=== PATIENT | female | born 1960 | race Two or more races ===

== ENCOUNTER 2020-02-12 13:12 | Outpatient (REF) | payer MEDICAID, SELFPAY ==
--- NOTE | 2020-02-12 | MM_ITS ---
EXAMINATION: MM DIAGNOSTIC DIGITAL BREAST TOMOSYNTHESIS, BILATERAL CLINICAL INFORMATION: Due for yearly. Probable benign calcifications upper inner left breast near lumpectomy scar. Prior left breast intraductal papilloma on ultrasound guided biopsy 06/22/2017. Subsequent left open surgical biopsy 07/20/2017 (Prior biopsy changes. Radial scars. Papillomatosis and florid intraductal hyperplasia. Adenosis. Fibrocystic changes. No evidence of invasive or in situ carcinoma). The lifetime risk of breast cancer based on the Tyrer-Cuzick Model is 7%. COMPARISON: Mammography: 07/31/2019, 02/08/2019, 08/08/2018, 02/01/2018, 07/20/2017, 06/15/2017 TECHNIQUE: Digital breast tomosynthesis is performed in both the craniocaudal and mediolateral oblique views along with computer-aided detection (CAD). Synthesized 2D images are generated from the tomosynthesis. Additional magnification left CC and magnification left LM views are obtained. FINDINGS: The breasts are heterogeneously dense, which may obscure small masses (ACR BI-RADS breast composition Category c). Breast tissue composition borders on average fibroglandular. Parenchymal pattern is similar to prior studies. There is no developing density, significant mass, architectural abnormality. There is stable nodule anterior upper left breast on MLO view and mid medial right breast on CC view similar to prior studies. There are scattered bilateral punctate and vascular calcifications. There are benign calcifications again seen in region of lumpectomy scar similar to prior studies dating back to 02/01/2018, consistent with benign calcifications. No suspicious findings. No significant changes. Results are provided to the patient at time of visit by the technologist. IMPRESSION: No significant changes from prior studies. ASSESSMENT: BI-RADS 2: Benign RECOMMENDATION: Routine annual mammography screening. This patient's information was entered into a reminder system with a target due date for their next mammogram.
== END 2020-02-12 13:13 | disposition home or self-care (01) ==
LOC: HO.MAMMO 13:12
PROVIDERS: PCP Nurse Practitioner Family; Visit Provider Nurse Practitioner Family
DX: R92.8 Other abnormal and inconclusive findings on diagnostic imaging of breast (principal)
CPT/HCPCS: 77062; 77066

== ENCOUNTER → 2020-02-22 10:01 | Outpatient (REF) | payer MEDICAID, SELFPAY ==
--- NOTE | 2020-02-22 10:00 | ECG_ITS ---
Hook-up date: 2020-02-22 10:22:00 Duration: 47:59:00 Test Indications: PALPITATIONS Medications: 369170 QRS complexes 1 Ventricular ectopics which represent <1 % of total QRS comp. 46 Supraventricular ectopics which represent <1 % of total QRS comp. * Paced QRS complexs which represent % of total QRS comp. VENTRICULAR ECTOPY 1 Isolated 0 Bigeminal Cycles 0 Couplets 0 Runs 0 Beats in Runs * Beats LONGEST at * BPM at :: -- * Beats FASTEST at * BPM at :: -- SUPRAVENTRICULAR ECTOPY 39 Isolated 2 Couplets 1 Runs 3 Beats in Runs 3 Beats LONGEST at 164 BPM at 17:17:06 2020-02-23 3 Beats FASTEST at 164 BPM at 17:17:06 2020-02-23 HEART RATES 65 MIN at 05:08:19 2020-02-23 91 AVG 154 MAX at 11:45:57 2020-02-23 LONGEST RR 0.9920 secs at 05:30:52 2020-02-23 S-T LEVELS Channel 1 - 128 mm at 10:22:00 2020-02-22 - 128 mm at 10:22:00 2020-02-22 Channel 2 - 128 mm at 10:22:00 2020-02-22 - 128 mm at 10:22:00 2020-02-22 Channel 3 - 128 mm at 02:94:11 -- - 128 mm at 02:94:11 Basic rhythm Normal sinus rhythm No long pause or profound bradycardia Baseline BBB Rare Premature atrial complexes No diary submitted Referred By: Kin Albert Overread By: JOEY MILLER MD
== END ==
LOC: HO.CARD 10:01
PROVIDERS: PCP Nurse Practitioner Family; Visit Provider Internal Medicine Cardiovascular Disease
DX: R00.2 Palpitations (principal)
CPT/HCPCS: 93226

== ENCOUNTER 2020-02-27 09:02 | Outpatient (REF) | payer MEDICAID, SELFPAY ==
[2020-02-27 10:23] LABS: Hematocrit 35.5 % (37-47); Hemoglobin 11.4 g/dl (12.0-16.0); Mean Corpuscular HGB Conc 32.1 g/dl (31.0-35.0); Mean Corpuscular Hemoglobin 28.6 pg (27.0-33.0); Mean Platelet Volume 10.6 fL (9.4-12.3); Platelet Count 323 X10*3/uL (160-400); Red Blood Count 3.99 X10*6/uL (4.20-5.50); Red Cell Distribution Width 12.3 % (11.0-16.0); White Blood Count 7.2 X10*3/uL (4.8-10.8)
[2020-02-27 10:37] LABS: Glucose Urine UA NEG (NEG); Leukocyte Esterase Urine 1+ (NEG); Nitrite Urine POS (NEG); Specific Gravity - Urine 1.015 (1.005-1.025); Urine Blood NEG (NEG); Urine Ketones NEG (NEG); Urine Protein NEG (NEG-TRACE)
[2020-02-27 10:42] LABS: Appearance Urine HAZY; Color Urine YELLOW
[2020-02-27 10:46] LABS: Alanine Aminotransferase 24 U/L (0-31); Albumin Level 4.3 g/dL (3.5-5.0); Alkaline Phosphatase 61 U/L (39-117); Anion Gap 13 (12-20); Aspartate Amino Transferase 19 U/L (5-31); Bilirubin Total 0.7 mg/dL (0.0-1.0); Blood Urea Nitrogen 13 mg/dL (9-16); C Reactive Protein 0.26 mg/dL (< or = 0.50); Calcium 8.7 mg/dL (8.4-10.2); Carbon Dioxide 29 mmol/L (22-29); Chloride 102 mmol/L (96-108); Cholesterol 123 mg/dL; Estimated Glomerular Filt Rate > 60; Glucose Random 142 mg/dL (60-115); HDL Cholesterol 54 mg/dL; LDL Cholesterol Calculated 45 mg/dl; Sodium 140 mmol/L (135-145); Total Protein 6.8 g/dL (6.5-8.0); Triglycerides 121 mg/dL
[2020-02-27 10:51] LABS: Bacteria Urine 3+ /LPF; RBC Urine 0 /HPF (0); Squamous Epithelial Cell Urine 1+ /LPF
[2020-02-27 10:59] LABS: Vitamin D 25-OH Total 46.6 ng/mL (>30)
[2020-02-27 11:01] LABS: Creatinine Urine 146.57 mg/dL; Microalbum/Creatinine Ratio Ur 10.2 ug/mg cr
[2020-02-27 11:15] LABS: Estimated Average Glucose 160 mg/dL; Hemoglobin A1c % 7.2 %
[2020-02-27 11:47] LABS: Vitamin B12 453 pg/mL (200-900)
[2020-02-27 12:36] LABS: Erythrocyte Sedimentation Rate 6 MM/HR (0-20)
== END 2020-02-27 09:03 | disposition home or self-care (01) ==
LOC: HO.LAB 09:02
PROVIDERS: PCP Nurse Practitioner Family; Visit Provider Nurse Practitioner Family
DX: L11.9 Acantholytic disorder, unspecified (principal); E78.2 Mixed hyperlipidemia; I10 Essential (primary) hypertension; R12 Heartburn; R82.90 Unspecified abnormal findings in urine; Z71.89 Other specified counseling
CPT/HCPCS: 36415; 80053; 80061; 81001; 82043; 82306; 82607; 83036; 85027; 85652; 86140; 87086; 87088; 87186

== ENCOUNTER → 2020-03-03 10:01 | Outpatient (BNVA) | payer MEDICAID, SELFPAY | PROVIDERS: PCP Nurse Practitioner Family; Referring Provider Nurse Practitioner Family; Visit Provider Nurse Practitioner Family | DX: R00.2 Palpitations (principal); R07.89 Other chest pain; I34.0 Nonrheumatic mitral (valve) insufficiency; I10 Essential (primary) hypertension; E11.9 Type 2 diabetes mellitus without complications; E66.9 Obesity, unspecified; Z68.30 Body mass index [BMI] 30.0-30.9, adult | CPT/HCPCS: 99212 ==

== ENCOUNTER → 2020-03-28 09:53 | Outpatient (BNVA) | payer MEDICAID, SELFPAY | PROVIDERS: PCP Nurse Practitioner Family; Referring Provider Nurse Practitioner Family; Visit Provider Nurse Practitioner | DX: Z76.89 Persons encountering health services in other specified circumstances (principal) ==

== ENCOUNTER 2020-05-14 15:10 | Outpatient (REF) | payer MEDICAID, SELFPAY | END 2020-05-14 15:11 | disposition home or self-care (01) | LOC: HO.LAB 15:10 | PROVIDERS: PCP Nurse Practitioner Family; Visit Provider Internal Medicine | DX: Z20.822 Contact with and (suspected) exposure to COVID-19 (principal) | CPT/HCPCS: 36415; C9803; U0003 ==

== ENCOUNTER 2020-09-02 12:02 | Outpatient (REF) | payer MEDICAID, SELFPAY | END 2020-09-02 12:03 | disposition home or self-care (01) | LOC: HO.LAB 12:02 | PROVIDERS: Visit Provider Internal Medicine | DX: Z20.822 Contact with and (suspected) exposure to COVID-19 (principal) | CPT/HCPCS: C9803; U0003; U0005 ==

== ENCOUNTER → 2020-10-10 09:04 | Outpatient (BNVA) | payer MEDICAID, SELFPAY | PROVIDERS: PCP Nurse Practitioner Family; Visit Provider Nurse Practitioner ==

== ENCOUNTER 2020-10-15 10:57 | Outpatient (REF) | payer MEDICAID, SELFPAY ==
[2020-10-15 11:41] LABS: Glucose Urine UA NEG (NEG); Leukocyte Esterase Urine 1+ (NEG); Nitrite Urine POS (NEG); Specific Gravity - Urine >= 1.030 (1.005-1.025); UACC Culture Trigger YES; Urine Blood NEG (NEG); Urine Ketones NEG (NEG); Urine Protein NEG (NEG-TRACE)
[2020-10-15 11:42] LABS: Appearance Urine CLOUDY; Color Urine YELLOW
[2020-10-15 11:48] LABS: Bacteria Urine 4+ /LPF; RBC Urine 0 /HPF (0); Squamous Epithelial Cell Urine TRACE /LPF
== END 2020-10-15 10:58 | disposition home or self-care (01) ==
LOC: HO.LAB 10:57
PROVIDERS: Visit Provider Nurse Practitioner
DX: R35.0 Frequency of micturition (principal); N39.0 Urinary tract infection, site not specified
CPT/HCPCS: 81001; 81003; 87086; 87088; 87186

== ENCOUNTER → 2020-10-31 08:33 | Outpatient (BNVA) | payer MEDICAID, SELFPAY | PROVIDERS: Visit Provider Nurse Practitioner ==

== ENCOUNTER → 2021-01-01 08:40 | Outpatient (BNVA) | payer MEDICAID, SELFPAY | PROVIDERS: PCP Nurse Practitioner Family; Visit Provider Nurse Practitioner ==

== ENCOUNTER 2021-02-25 09:09 | Outpatient (REF) | payer MEDICAID, SELFPAY ==
--- NOTE | ~2021-02-25 | XR_ITS ---
EXAMINATION: XR SHOULDER, LEFT CLINICAL INFORMATION: Left shoulder pain COMPARISON: None TECHNIQUE: Four views of the left shoulder. FINDINGS: No fracture or dislocation. The left humeral head articulates appropriately with the glenoid. The joint space is somewhat narrowed. The acromioclavicular joint is intact. The visualized lung is clear. The visualized ribs are intact. XR/XR shoulder LT min 2V IMPRESSION: Mild joint space narrowing of the glenohumeral joint.
[2021-02-25 09:22] LABS: MANUAL DIFF FLAG NO
[2021-02-25 09:52] LABS: Basophils Absolute Auto 0.1 X10*3/uL (0.0-0.2); Basophils Percent Auto 0.7 % (0-2); Eosinophils Absolute Auto 0.3 X10*3/uL (0.0-0.4); Eosinophils Percent Auto 3.7 % (0-4); Hematocrit 36.8 % (37.0-47.0); Hemoglobin 11.7 g/dl (12.0-16.0); Imm Gran Abs Auto 0.02 X10*3/uL (0.00-0.03); Imm Gran Pct Auto 0.3 % (0.0-0.4); Lymphocytes Absolute Auto 2.7 X10*3/uL (1.2-4.9); Lymphocytes Percent Auto 38.1 % (20-40); Mean Corpuscular HGB Conc 31.8 g/dl (31.0-35.0); Mean Corpuscular Hemoglobin 28.3 pg (27.0-33.0); Mean Corpuscular Volume 89.1 fL (80.0-98.0); Mean Platelet Volume 10.3 fL (9.4-12.3); Monocytes Absolute Auto 0.5 X10*3/uL (0.1-1.2); Monocytes Percent Auto 6.7 % (2-11); Neutrophils Absolute Auto 3.57 x10*3/uL (2.0-8.3); Neutrophils Percent Auto 50.5 % (45-73); Platelet Count 324 X10*3/uL (160-400); Red Blood Count 4.13 X10*6/uL (4.20-5.50); Red Cell Distribution Width 12.7 % (11.0-16.0); White Blood Count 7.1 X10*3/uL (4.8-10.8)
[2021-02-25 10:58] LABS: Creatinine Urine 170.46 mg/dL; Microalbum/Creatinine Ratio Ur 20.5 ug/mg cr
[2021-02-25 11:06] LABS: Alanine Aminotransferase 30 U/L (0-31); Albumin Level 4.4 g/dL (3.5-5.0); Alkaline Phosphatase 66 U/L (39-117); Anion Gap 12 (12-20); Aspartate Amino Transferase 21 U/L (5-31); Bilirubin Direct 0.3 mg/dL (0.0-0.5); Bilirubin Total 0.7 mg/dL (0.0-1.0); Blood Urea Nitrogen 13 mg/dL (9-16); Calcium 9.3 mg/dL (8.4-10.2); Carbon Dioxide 28 mmol/L (22-29); Chloride 105 mmol/L (96-108); Cholesterol 123 mg/dL; Estimated Glomerular Filt Rate > 60; Glucose Random 145 mg/dL (60-115); HDL Cholesterol 51 mg/dL; LDL Cholesterol Calculated 45 mg/dl; Potassium 3.9 mmol/L (3.3-5.1); Sodium 141 mmol/L (135-145); Total Protein 6.9 g/dL (6.5-8.0); Triglycerides 139 mg/dL
[2021-02-25 11:08] LABS: TSH reflex Free T4 2.39 uIU/mL (0.32-4.0); Vitamin D 25-OH Total 48.1 ng/mL (>30)
== END 2021-02-25 09:10 | disposition home or self-care (01) ==
LOC: HO.XRAY 09:09
PROVIDERS: PCP Internal Medicine; Visit Provider Internal Medicine
DX: Z00.00 Encounter for general adult medical examination without abnormal findings (principal); M25.512 Pain in left shoulder
CPT/HCPCS: 36415; 73030; 80048; 80061; 80076; 82043; 82306; 84443; 85025

== ENCOUNTER 2021-04-22 09:56 | Outpatient (REF) | payer MEDICAID, SELFPAY ==
--- NOTE | ~2021-04-22 | MM_ITS ---
EXAMINATION: MM SCREENING DIGITAL BREAST TOMOSYNTHESIS, BILATERAL CLINICAL INFORMATION: Screening. Asymptomatic. Prior left breast intraductal papilloma on ultrasound guided biopsy 06/22/2017. Subsequent left open surgical biopsy 07/20/2017 (Prior biopsy changes. Radial scars. Papillomatosis and florid intraductal hyperplasia. Adenosis. Fibrocystic changes. No evidence of invasive or in situ carcinoma). The lifetime risk of breast cancer based on the Tyrer-Cuzick Model is 4%. COMPARISON: Mammography: 02/12/2020, 07/31/2019, 02/08/2019, 08/08/2018, 02/01/2018, 06/15/2017 TECHNIQUE: Digital breast tomosynthesis is performed in both the craniocaudal and mediolateral oblique views along with computer-aided detection (CAD). Synthesized 2D images are generated from the tomosynthesis. Additional left MLO view is provided. FINDINGS: The breasts are heterogeneously dense, which may obscure small masses (ACR BI-RADS breast composition Category c). There are scattered stable fibroglandular asymmetries similar to prior studies. There is no developing density or interval mass or architectural abnormality. Some benign calcifications are again seen near lumpectomy scar left upper inner quadrant. Bilateral vascular calcifications are again noted. There are right axillary surgical clips. The skin contours are smooth. No significant changes from prior studies. MM/MM tomosynthesis screening BI IMPRESSION: No significant changes from prior exams. ASSESSMENT: BI-RADS 2: Benign RECOMMENDATION: Routine annual mammography screening. This patient's information was entered into a reminder system with a target due date for their next mammogram.
== END 2021-04-22 09:57 | disposition home or self-care (01) ==
LOC: HO.MAMMO 09:56
PROVIDERS: Visit Provider Internal Medicine
DX: Z12.31 Encounter for screening mammogram for malignant neoplasm of breast (principal)
CPT/HCPCS: 77063; 77067

== ENCOUNTER → 2021-09-15 08:55 | Outpatient (BNVA) | payer MEDICAID, SELFPAY | PROVIDERS: PCP Internal Medicine | DX: R35.0 Frequency of micturition (principal) | CPT/HCPCS: 51798; 99202 ==

== ENCOUNTER → 2021-10-01 15:57 | Outpatient (BNVA) | payer MEDICAID, SELFPAY | PROVIDERS: PCP Internal Medicine; Referring Provider Internal Medicine; Visit Provider Nurse Practitioner | DX: K21.9 Gastro-esophageal reflux disease without esophagitis (principal); K58.1 Irritable bowel syndrome with constipation; Z80.0 Family history of malignant neoplasm of digestive organs | CPT/HCPCS: 99212 ==

== ENCOUNTER 2022-02-16 13:12 | Emergency (ER) | payer MEDICAID, SELFPAY ==
[2022-02-16 13:43] VITALS: BP 138/74; PULSE 81; RESP 18; TEMP 36.6; O2SAT 98; BMI 28.5
[2022-02-16 14:32] LABS: MANUAL DIFF FLAG NO
[2022-02-16 14:34] LABS: Basophils Absolute Auto 0.1 X10*3/uL (0.0-0.2); Basophils Percent Auto 0.7 % (0-2); Eosinophils Absolute Auto 0.4 X10*3/uL (0.0-0.4); Eosinophils Percent Auto 3.3 % (0-4); Hematocrit 35.7 % (37.0-47.0); Hemoglobin 11.5 g/dl (12.0-16.0); Imm Gran Abs Auto 0.03 X10*3/uL (0.00-0.03); Imm Gran Pct Auto 0.3 % (0.0-0.4); Lymphocytes Absolute Auto 3.1 X10*3/uL (1.2-4.9); Lymphocytes Percent Auto 27.9 % (20-40); Mean Corpuscular HGB Conc 32.2 g/dl (31.0-35.0); Mean Corpuscular Hemoglobin 28.1 pg (27.0-33.0); Mean Corpuscular Volume 87.3 fL (80.0-98.0); Monocytes Absolute Auto 0.5 X10*3/uL (0.1-1.2); Monocytes Percent Auto 4.9 % (2-11); Neutrophils Percent Auto 62.9 % (45-73); Platelet Count 383 X10*3/uL (160-400); Red Blood Count 4.09 X10*6/uL (4.20-5.50); Red Cell Distribution Width 12.8 % (11.0-16.0); White Blood Count 11.1 X10*3/uL (4.8-10.8)
[2022-02-16 14:54] LABS: Alanine Aminotransferase 22 U/L (0-31); Albumin Level 4.4 g/dL (3.5-5.0); Alkaline Phosphatase 72 U/L (39-117); Anion Gap 18 (12-20); Aspartate Amino Transferase 19 U/L (5-31); Bilirubin Direct 0.2 mg/dL (0.0-0.5); Bilirubin Total 0.5 mg/dL (0.0-1.0); Blood Urea Nitrogen 13 mg/dL (9-16); Calcium 9.8 mg/dL (8.4-10.2); Carbon Dioxide 24 mmol/L (22-29); Chloride 104 mmol/L (96-108); Creatinine Clr Calc Pharmacy 57.7; Estimated Glomerular Filt Rate > 60; Glucose Random 140 mg/dL (60-115); Lipase 32 U/L (8-78); Potassium 4.3 mmol/L (3.3-5.1); Sodium 142 mmol/L (135-145); Total Protein 7.2 g/dL (6.5-8.0)
== END 2022-02-16 21:11 | disposition left against medical advice (07) ==
PROVIDERS: Emergency Provider Emergency Medicine; PCP Internal Medicine
DX: K59.00 Constipation, unspecified (principal); Z79.899 Other long term (current) drug therapy
CPT/HCPCS: 36415; 80048; 80076; 83690; 85025; 99281; 99283

== ENCOUNTER 2022-02-22 13:21 | Emergency (ER) | payer MEDICAID, SELFPAY ==
--- NOTE | ~2022-02-22 | XR_ITS ---
EXAMINATION: XR ABDOMEN CLINICAL INFORMATION: Constipation COMPARISON: None TECHNIQUE: Frontal view. FINDINGS: There is increased amount of stool projecting over the distribution of the colon raising suspicion for constipation. There is no evidence of bowel obstruction, however. There is no evidence of abnormal calcifications. There is no acute skeletal structure changes. There is no evidence of small-bowel obstruction. There is no free air in the abdomen. XR/XR KUB IMPRESSION: Increased amount of stool in the colon suggesting constipation. Please correlate with clinical presentation.
--- NOTE | ~2022-02-22 | CT_ITS ---
EXAMINATION: CT ABDOMEN AND PELVIS WITH CONTRAST CLINICAL INFORMATION: Constipation. SBO? mass? COMPARISON: 03/05/2015 TECHNIQUE: Multidetector volumetric imaging was performed from the superior aspect of the liver through the pubic symphysis following administration of 100 mL Omnipaque 300 intravenous contrast. Sagittal and coronal reformatted images were obtained on the technologist workstation.. This CT examination was performed using dose optimization techniques as appropriate, variously including the following: *Automated exposure control *Adjustment of mA and/or kV according to patient size (this includes techniques or standardized protocols for targeted exams where dose is matched to indication/reason for exam; i.e. extremities or head) *Use of iterative reconstruction technique DLP: 431 mGy-cm FINDINGS: LUNG BASES: Tiny 3 mm pulmonary nodule in the posterior lateral right base in retrospect not significantly changed in 2015 and of no clinical significance. LIVER, GALLBLADDER, AND BILIARY TREE: The liver is normal in size, shape, and attenuation. Coarsened calcified granulomas in the central liver segment 7 similar to the 2015 study. The amount of fatty infiltration has improved from the previous exam. No focal hepatic lesion or biliary ductal dilatation is present. The gallbladder surgically absent. PANCREAS: Unremarkable. SPLEEN: Unremarkable. ADRENAL GLANDS: Unremarkable. KIDNEYS AND URETERS: The kidneys are normal in size, shape, and attenuation. 1.7 cm cyst in the anterior upper pole of the right kidney again noted. No hydronephrosis, hydroureter, or calculi seen. No perinephric stranding. BLADDER: Unremarkable. GASTROINTESTINAL TRACT: Large volume of stool seen throughout the colon and rectum. No colonic wall thickening or pericolonic inflammatory change to suggest diverticulitis. Visualized small bowel unremarkable. Normal-appearing appendix in the right lower quadrant ABDOMINAL WALL: No significant hernia is appreciated. LYMPHOVASCULAR STRUCTURES: No lymphadenopathy. The aorta is unremarkable. PELVIC VISCERA: Unremarkable. OSSEOUS STRUCTURES: Unremarkable. CT/CT abdomen pelvis wo IV con IMPRESSION: Large right with stool in the distal colon and rectum more suggestive of constipation. No colonic wall thickening or pericolonic inflammatory change. No obstructive changes seen otherwise.
[2022-02-22 13:35] VITALS: BP 122/61; PULSE 94; RESP 18; TEMP 36.6; O2SAT 97; BMI 28.3
--- NOTE | 2022-02-22 18:25 | ED.GENADULT ---
HPI - General Adult General Chief complaint: Abdominal Pain Stated complaint: Severe constipation/Blockage? Sent from urgent car Time Seen by Provider: 02/22/22 17:19 Source: patient Mode of arrival: ambulatory Limitations: no limitations History of Present Illness HPI narrative: 61 yold female with pmh of GERD, HTN, IBS, H. pylori presents to the ED for constipation for 3 weeks. Patient states only small drops, but never fully evacuate. patient states also weight loss. patient states feeling bloating. patient deneis any rectal bleeding. patient has colonscopy for february as per her gastroneterologist. patients states strong family history of colon cancer. patient states able to pass gas. Related Data Home Medications Medication Instructions Recorded Confirmed Lactobacillus acidophilus 500 500 mmu cells PO DAILY 03/03/20 03/03/20 million cell tablet amitriptyline 50 mg tablet 50 mg PO BEDTIME 03/03/20 03/03/20 clonidine HCl 0.2 mg tablet 0.2 mg PO BID 03/03/20 03/03/20 enalapril maleate 20 mg tablet 20 mg PO BID 03/03/20 03/03/20 fluticasone 500 mcg-salmeterol 50 1 inh inhalation BID 03/03/20 03/03/20 mcg/dose blistr powdr for inhalation (Advair Diskus) hydrochlorothiazide 25 mg tablet 25 mg PO DAILY 03/03/20 03/03/20 hydroxyzine pamoate 25 mg capsule 25 mg PO BID PRN 03/03/20 03/03/20 (Vistaril) metformin 500 mg tablet 500 mg PO TID 03/03/20 03/03/20 ondansetron HCl 8 mg tablet 8 mg PO Q12H 03/03/20 03/03/20 bupropion HCl 300 mg 24 hr tablet, 300 mg PO QAM 10/01/21 extended release cholecalciferol (vitamin D3) 50 50 mcg PO QAM 10/01/21 mcg (2,000 unit) capsule ferrous sulfate 325 mg (65 mg 325 mg PO QAM 10/01/21 iron) tablet (FeroSul) fluticasone propionate 50 1 spray intranasal DAILY 10/01/21 mcg/actuation nasal spray,suspension loratadine 10 mg tablet 10 mg PO QAM PRN 10/01/21 Previous Rx's Medication Instructions Recorded dexlansoprazole 60 mg 60 mg PO DAILY #30 caps 10/01/21 capsule,biphase delayed release (Dexilant) dicyclomine 10 mg capsule 10 mg PO QID #120 caps 10/01/21 docusate sodium 100 mg capsule 100 mg PO DAILY #30 caps 10/01/21 (Colace) peg 3350-electrolytes 236 240 ml PO Q10M 1 day #4,000 mL 10/01/21 gram-22.74 gram-6.74 gram-5.86 gram solution (Golytely) oxybutynin chloride 15 mg 15 mg PO DAILY #90 tabs 01/04/22 tablet,extended release 24 hr lactulose 10 gram/15 mL (15 mL) 30 g (45 mL) PO DAILY 3 days #135 02/22/22 oral solution mL Allergies Allergy/AdvReac Type Severity Reaction Status Date / Time ampicillin [AMPICILLIN] Allergy Intermediate RASH Verified 10/22/21 14:57 Penicillins [PCN] Allergy Rash Verified 02/22/22 13:39 Review of Systems Review of Systems: constipation Yes all other systems are reviewed and are negative [facility] Past Medical History Medical History Asthma Diabetes mellitus HTN (hypertension) Obesity Palpitations Surgical History History of lumpectomy Hx of breast biopsy Hx of colonoscopy Hx of cystoscopy Hx of tubal ligation Family History Family History Father CVD (cardiovascular disease) Diabetes Mother Diabetes Colon cancer Social History Social History Household Members: None Housing: Apartment Alcohol intake: current Alcohol intake frequency: holidays/special occasions only Alcohol type: beer Advance Directives: No Advance Directives Information Provided: No Physical Exam ED Vital Signs: Vital Signs - 24 hr 02/22/22 13:35 Temperature 98 F Pulse Rate 94 Respiratory Rate 18 Blood Pressure 122/61 Pulse Oximetry 97 Oxygen Delivery Method Room Air BMI result Body Mass Index 28.3 Const General: cooperative, healthy appearing, comfortable, no acute distress, well developed, alert, awake and Physically active Orientation/consciousness: oriented to person, oriented to place, oriented to time and patient oriented x3 HENMT Head: Yes normal to inspection, Yes No palpable skull fracture present, Yes normocephalic, Yes atraumatic and No abrasion Eyes General: appearance normal, both eyes and all related structures Neck Neck: Yes normal visual inspection, Yes full ROM, Yes no lymphadenopathy, Yes no meningeal signs, Yes trachea midline, Yes supple, No anterior neck swelling and No tender Chest Chest palpation & inspection: normal inspection of the chest and normal palpation of entire chest wall Resp Effort & Inspection: normal respiratory effort and able to speak in complete sentences Auscultation: clear to auscultation bilaterally Cardio Jugular venous distension: no JVD Heart sounds: S1 normal heart sound present and S2 normal heart sound present GI Inspection: Yes normal to inspection and No abdominal wall ecchymosis Palpation (GI): Soft to palpation, not firm, nontender, no guarding and not rigid General: No CVA tenderness and Yes no CVA tenderness Back/Spine/Pelvis Back: no CVA tenderness, No CVA tenderness and No back tenderness Skin General skin exam: no rashes or lesions noted and elasticity normal Neuro General: oriented to person, oriented to place, oriented to time, patient oriented x3 and no meningeal signs Cranial nerves: Yes CN's II-XII intact bilaterally Extrem General: Yes normal to inspection and Yes full ROM Psych Appearance: grossly normal, well kempt and not disheveled Course Course Course Narrative: Due to patient stating weight loss family history of colon cancer and constipation weeks patient have CT scan of abdomen and labs. Rectal exam was done and negative for any fecal stool impaction Reevaluation(s) Reevaluation #1: Labs are normal. Abdominal CT scan came back negative for SBO or mass. SHows constipation. patient will follow up with her gastronenterotlostis Time: 19:53 Medical Decision Making [facility] Narrative Medical decision making narrative: Constipation Lab Data Result diagrams: 02/22/22 18:36 02/22/22 18:36 Labs: Lab Results 02/22/22 02/22/22 Range/Units 18:36 18:36 WBC 8.6 (4.8-10.8) X10*3/uL RBC 4.45 (4.20-5.50) X10*6/uL Hgb 12.3 (12.0-16.0) g/dl Hct 38.0 (37.0-47.0) % MCV 85.4 (80.0-98.0) fL MCH 27.6 (27.0-33.0) pg MCHC 32.4 (31.0-35.0) g/dl RDW 12.8 (11.0-16.0) % Plt Count 348 (160-400) X10*3/uL MPV 10.1 (9.4-12.3) fL Immature Gran % (Auto) 0.2 (0.0-0.4) % Neut % (Auto) 51.5 (45-73) % Lymph % (Auto) 36.2 (20-40) % [place] % (Auto) 6.6 (2-11) % Eos % (Auto) 4.9 H (0-4) % Baso % (Auto) 0.6 (0-2) % Lymph # (Auto) 3.1 (1.2-4.9) X10*3/uL [place] # (Auto) 0.6 (0.1-1.2) X10*3/uL Eos # (Auto) 0.4 (0.0-0.4) X10*3/uL Baso # (Auto) 0.1 (0.0-0.2) X10*3/uL Abs Immat Gran (auto) 0.02 (0.00-0.03) X10*3/uL Absolute Neuts (auto) 4.4 (2.0-8.3) x10*3/uL Absolute Nucleated RBC 0.000 (0.0-0.012) X10*3/uL Nucleated RBC % (auto) 0.0 (0.0-0.2) /100WBC Sodium 142 (135-145) mmol/L Potassium 3.9 (3.3-5.1) mmol/L Chloride 104 (96-108) mmol/L Carbon Dioxide 26 (22-29) mmol/L Anion Gap 16 (12-20) BUN 21 H D (9-16) mg/dL Creatinine 0.80 (0.5-1.4) mg/dL Estim Creat Clear Calc 58.3 Estimated GFR > 60 Random Glucose 127 H (60-115) mg/dL Calcium 10.0 (8.4-10.2) mg/dL Total Bilirubin 0.8 (0.0-1.0) mg/dL AST 19 (5-31) U/L ALT 27 (0-31) U/L Alkaline Phosphatase 68 (39-117) U/L Total Protein 7.6 (6.5-8.0) g/dL Albumin 4.8 (3.5-5.0) g/dL Discharge Plan Discharge Clinical Impression: Constipation Patient Disposition: Home, Self-Care Instructions: Constipation (ED) Additional Instructions: [place] an?lisis de josefina y la tomograf?a computarizada resultaron normales. La tomograf?a computarizada solo muestra estre?imiento. Ser? dado de garry con medicaci?n. Necesita seguimiento con un gastroenter?logo. Regrese al servicio de urgencias por cualquier dolor abdominal, n?useas, v?mitos, sangrado rectal, debilidad, mareos, fiebre, escalofr?os, disuria, hematuria o cualquier otro s?ntoma preocupante. Prescriptions: New lactulose 10 gram/15 mL (15 mL) solution 30 g PO DAILY 3 Days Qty: 135 0RF No Action oxybutynin chloride 15 mg tablet extended release 24hr 15 mg PO DAILY Qty: 90 1RF clonidine HCl 0.2 mg tablet 0.2 mg PO BID hydrochlorothiazide 25 mg tablet 25 mg PO DAILY enalapril maleate 20 mg tablet 20 mg PO BID amitriptyline 50 mg tablet 50 mg PO BEDTIME metformin 500 mg tablet 500 mg PO TID hydroxyzine pamoate [Vistaril] 25 mg capsule 25 mg PO BID PRN ondansetron HCl 8 mg tablet 8 mg PO Q12H Lactobacillus acidophilus 500 million cell tablet 500 mmu cells PO DAILY fluticasone propion-salmeterol [Advair Diskus] 500-50 mcg/dose blister with device 1 inh inhalation BID cholecalciferol (vitamin D3) 50 mcg (2,000 unit) capsule 50 mcg PO QAM bupropion HCl 300 mg tablet extended release 24 hr 300 mg PO QAM loratadine 10 mg tablet 10 mg PO QAM PRN fluticasone propionate 50 mcg/actuation spray,suspension 1 spray intranasal DAILY ferrous sulfate [FeroSul] 325 mg (65 mg iron) tablet 325 mg PO QAM Dexilant 60 mg capsule,biphase delayed releas 60 mg PO DAILY Qty: 30 6RF dicyclomine 10 mg capsule 10 mg PO QID Qty: 120 6RF docusate sodium [Colace] 100 mg capsule 100 mg PO DAILY Qty: 30 6RF peg 3350-electrolytes [Golytely] 236-22.74-6.74 -5.86 gram recon soln 240 ml PO Q10M 1 Days Qty: 4000 0RF Rx Instructions: until fecal effluent is clear; do not exceed a total volume of 2,000 mL Stand Alone Forms: Work/School Release Interventions: ED Discharge Assessment Last Done: 02/22/22 20:23 Discharge Date/Time: 02/22/22 20:25 Print Language: Turkish
[2022-02-22 18:41] LABS: MANUAL DIFF FLAG NO
[2022-02-22 18:48] LABS: Basophils Absolute Auto 0.1 X10*3/uL (0.0-0.2); Basophils Percent Auto 0.6 % (0-2); Eosinophils Absolute Auto 0.4 X10*3/uL (0.0-0.4); Eosinophils Percent Auto 4.9 % (0-4); Hemoglobin 12.3 g/dl (12.0-16.0); Imm Gran Abs Auto 0.02 X10*3/uL (0.00-0.03); Imm Gran Pct Auto 0.2 % (0.0-0.4); Lymphocytes Absolute Auto 3.1 X10*3/uL (1.2-4.9); Lymphocytes Percent Auto 36.2 % (20-40); Mean Corpuscular HGB Conc 32.4 g/dl (31.0-35.0); Mean Corpuscular Hemoglobin 27.6 pg (27.0-33.0); Mean Corpuscular Volume 85.4 fL (80.0-98.0); Mean Platelet Volume 10.1 fL (9.4-12.3); Monocytes Absolute Auto 0.6 X10*3/uL (0.1-1.2); Monocytes Percent Auto 6.6 % (2-11); Neutrophils Absolute Auto 4.4 x10*3/uL (2.0-8.3); Neutrophils Percent Auto 51.5 % (45-73); Platelet Count 348 X10*3/uL (160-400); Red Blood Count 4.45 X10*6/uL (4.20-5.50); Red Cell Distribution Width 12.8 % (11.0-16.0); White Blood Count 8.6 X10*3/uL (4.8-10.8)
[2022-02-22 18:59] LABS: Alanine Aminotransferase 27 U/L (0-31); Albumin Level 4.8 g/dL (3.5-5.0); Alkaline Phosphatase 68 U/L (39-117); Anion Gap 16 (12-20); Aspartate Amino Transferase 19 U/L (5-31); Bilirubin Total 0.8 mg/dL (0.0-1.0); Blood Urea Nitrogen 21 mg/dL (9-16); Carbon Dioxide 26 mmol/L (22-29); Chloride 104 mmol/L (96-108); Creatinine Clr Calc Pharmacy 58.3; Estimated Glomerular Filt Rate > 60; Glucose Random 127 mg/dL (60-115); Potassium 3.9 mmol/L (3.3-5.1); Sodium 142 mmol/L (135-145); Total Protein 7.6 g/dL (6.5-8.0)
[2022-02-22] MEDS: Lactulose 20 GM/30 ML SOLUTION 30 GM PO (19:26)
--- NOTE | 2022-02-22 19:30 | PC.NURSE ---
medicated per provider order.
== END 2022-02-22 20:25 | disposition home or self-care (01) ==
PROVIDERS: Physician Assistant; Emergency Provider Student in an Organized Health Care Education/Training Program; PCP Internal Medicine
DX: K59.00 Constipation, unspecified (principal); K21.9 Gastro-esophageal reflux disease without esophagitis; Z79.899 Other long term (current) drug therapy
CPT/HCPCS: 36415; 74018; 74176; 80053; 85025; 99282; 99284

== ENCOUNTER 2022-03-11 08:48 | Day surgery (SDC) | payer MEDICAID, SELFPAY ==
[2022-03-04 12:49] VITALS: BMI 29.5
--- NOTE | 2022-03-10 12:26 | HO.ANESPROP2 ---
Documented by User: India Small NP 03/10/22 12:27 HPI - Anesthesia Eval Consult details Narrative: 61yo F for Colonoscopy PMFSH Active Problems Active Problems: All Active Problems (Updated 02/23/22 @ 00:03 by Yung Rani) Chest discomfort (Acute) Mitral regurgitation (Acute) Nausea (Acute) GERD (gastroesophageal reflux disease) (Acute) Irritable bowel syndrome with constipation (Acute) Abdominal cramping (Acute) H. pylori duodenitis (Acute) Urinary frequency (Acute) Urinary tract infection (Acute) Family history of colon cancer (Acute) Diabetes mellitus (Acute) Obesity (Acute) Asthma (Acute) HTN (hypertension) (Acute) Palpitations (Acute) Past Medical History Medical History (Updated 03/11/22 @ 09:05 by Marce Gabriel RN) Asthma Diabetes mellitus Elevated cholesterol HTN (hypertension) Obesity Palpitations Family History Family History Father CVD (cardiovascular disease) Diabetes Mother Diabetes Colon cancer Surgical History Surgical History History of lumpectomy Hx of breast biopsy Hx of colonoscopy Hx of cystoscopy Hx of tubal ligation Social History Social History Household Members: None Housing: Apartment Alcohol intake: current Alcohol intake frequency: holidays/special occasions only Alcohol type: beer Patient Tobacco Use Status: Never used Tobacco Meds Allergies Allergy/AdvReac Type Severity Reaction Status Date / Time ampicillin [AMPICILLIN] Allergy Intermediate RASH Verified 03/11/22 09:08 Penicillins [PCN] Allergy Rash Verified 03/11/22 09:08 Home Medications Medication Instructions Recorded Confirmed Last Taken Type Lactobacillus acidophilus 500 500 mmu cells PO DAILY 03/03/20 03/11/22 Unknown History million cell tablet amitriptyline 50 mg tablet 50 mg PO BEDTIME 03/03/20 03/11/22 Unknown History clonidine HCl 0.2 mg tablet 0.2 mg PO BID 03/03/20 03/11/22 Unknown History enalapril maleate 20 mg tablet 20 mg PO BID 03/03/20 03/11/22 Unknown History fluticasone 500 mcg-salmeterol 50 1 inh inhalation BID 03/03/20 03/11/22 Unknown History mcg/dose blistr powdr for inhalation (Advair Diskus) hydrochlorothiazide 25 mg tablet 25 mg PO DAILY 03/03/20 03/11/22 Unknown History hydroxyzine pamoate 25 mg capsule 25 mg PO BID PRN Itching 03/03/20 03/11/22 Unknown History (Vistaril) metformin 500 mg tablet 500 mg PO TID 03/03/20 03/11/22 Unknown History bupropion HCl 300 mg 24 hr tablet, 300 mg PO QAM 10/01/21 03/11/22 Unknown History extended release cholecalciferol (vitamin D3) 50 50 mcg PO QAM 10/01/21 03/11/22 Unknown History mcg (2,000 unit) capsule fluticasone propionate 50 1 spray intranasal DAILY 10/01/21 03/11/22 Unknown History mcg/actuation nasal spray,suspension loratadine 10 mg tablet 10 mg PO QAM PRN Allergy Symptoms 10/01/21 03/11/22 Unknown History Exam Exam Date and Time: March 10, 2022 1226 Height,Weight and Vital Signs: Height 4 ft 11 in Weight 66.224 kg Pertinent Lab Results Pertinent Lab Results: Laboratory Tests 02/22/22 02/22/22 18:36 18:36 WBC 8.6 Hgb 12.3 Hct 38.0 Plt Count 348 Sodium 142 Potassium 3.9 Chloride 104 Carbon Dioxide 26 BUN 21 H D Creatinine 0.80 Narrative Narrative: Holter 2019 Basic rhythm Normal sinus rhythm No long pause or profound bradycardia Baseline BBB Rare Premature atrial complexes No diary submitted Coronary CT 2018 Normal coronaries Assessment and Plan Assessment Anesthesia Assessment: Chart Reviewed Documented by User: Poncho Kelly MD 03/11/22 17:56 FOR[facility]LY [facility], [facility] Past Medical History Medical History (Updated 03/11/22 @ 09:05 by Marce Gabriel RN) Asthma Diabetes mellitus Elevated cholesterol HTN (hypertension) Obesity Palpitations Functional capacity: independent ambulation Family History Family History Father CVD (cardiovascular disease) Diabetes Mother Diabetes Colon cancer Family history of problems with anesthesia: No Surgical History Surgical History History of lumpectomy Hx of breast biopsy Hx of colonoscopy Hx of cystoscopy Hx of tubal ligation History of Problems with Anesthesia: No Social History Social History Household Members: None Housing: Apartment Alcohol intake: current Alcohol intake frequency: holidays/special occasions only Alcohol type: beer Patient Tobacco Use Status: Never used Tobacco Meds Allergies Allergy/AdvReac Type Severity Reaction Status Date / Time ampicillin [AMPICILLIN] Allergy Intermediate RASH Verified 03/11/22 09:08 Penicillins [PCN] Allergy Rash Verified 03/11/22 09:08 Home Medications Medication Instructions Recorded Confirmed Last Taken Type Lactobacillus acidophilus 500 500 mmu cells PO DAILY 03/03/20 03/11/22 Unknown History million cell tablet amitriptyline 50 mg tablet 50 mg PO BEDTIME 03/03/20 03/11/22 Unknown History clonidine HCl 0.2 mg tablet 0.2 mg PO BID 03/03/20 03/11/22 Unknown History enalapril maleate 20 mg tablet 20 mg PO BID 03/03/20 03/11/22 Unknown History fluticasone 500 mcg-salmeterol 50 1 inh inhalation BID 03/03/20 03/11/22 Unknown History mcg/dose blistr powdr for inhalation (Advair Diskus) hydrochlorothiazide 25 mg tablet 25 mg PO DAILY 03/03/20 03/11/22 Unknown History hydroxyzine pamoate 25 mg capsule 25 mg PO BID PRN Itching 03/03/20 03/11/22 Unknown History (Vistaril) metformin 500 mg tablet 500 mg PO TID 03/03/20 03/11/22 Unknown History bupropion HCl 300 mg 24 hr tablet, 300 mg PO QAM 10/01/21 03/11/22 Unknown History extended release cholecalciferol (vitamin D3) 50 50 mcg PO QAM 10/01/21 03/11/22 Unknown History mcg (2,000 unit) capsule fluticasone propionate 50 1 spray intranasal DAILY 10/01/21 03/11/22 Unknown History mcg/actuation nasal spray,suspension loratadine 10 mg tablet 10 mg PO QAM PRN Allergy Symptoms 10/01/21 03/11/22 Unknown History Exam Airway Mallampati Class: III TM Dist: >3cm Neck ROM: Full Loose/Missing/Broken Teeth: Yes (multiple upper teeth loose ) Heart: S1,S2 Lungs: b/l breath sounds Assessment and Plan Assessment Anesthesia Assessment: Anesthesia Plan Discussed Final Anesthetic Review Family History of Problems with Anesthesia: No History of Problems with Anesthesia: No NPO: Yes ASA Class: III Final Preanesthetic Review: Meds/Allgs Chart Reviewed, Consent Obtained/Reviewed and Anes Risks/Benef Reviewed Patient Risk: Intermediate Procedure Risk: Intermediate Anesthetic Plan Anesthetic Plan: MAC: Disposition: Standard PACU
[2022-03-11 09:25] VITALS: BP 136/69; PULSE 74; RESP 16; TEMP 36.2; O2SAT 98
[2022-03-11] MEDS: Lactated Ringers 1,000 ML 100 ML IVCONT (09:32)
[2022-03-11 09:36] LABS: Glucose, Whole Blood 134 mg/dL (60-115)
--- NOTE | 2022-03-11 10:24 | MHC.SHP ---
Pre-Procedural Eval Section A Date of Service: 03/11/22 Section B Chief Complaint: IBS,Family hx Details of Present Illness: 62 y.o F with no personal hx of colon polyps but fam hx of CRC in 2 first degree relatives (mother in her 70s, and father in his 90s). Pt's last colonoscopy was 13 y ago. Relevant Family History (Specify if Yes): Yes Present Medications: see Short Stay Collaborative assessment Medical History: Significant History (T2DM, asthma, HTN, hx of H pylori ) Allergies: Allergies Allergy/AdvReac Type Severity Reaction Status Date / Time ampicillin [AMPICILLIN] Allergy Intermediate RASH Verified 03/11/22 09:08 Penicillins [PCN] Allergy Rash Verified 03/11/22 09:08 Review of Systems Review of Systems Comment: 10 point ROS negative except as above Exam Exam Comment: Gen appear: No acute distress, well nourished HEENT: no icterus, no cervical lymphadenopathy Chest: No overt resp distress Abd: soft, nontender, nondistended Psych: Stable affect, answering questions appropriately Neuro: A/Ox3 noted to move all extremities spontaneously Ext: no peripheral edema Plan Diagnosis/Plan: Unchanged I have reviewed the history and physical and performed a pertinent physical examination on my patient. No changes have occurred unless specified.
--- NOTE | 2022-03-11 10:28 | W.PM.OPN ---
Operative Note Operative Note Date of Service: 03/11/22 Narrative: Procedure: Colonoscopy Indication: Family history of colon cancer Endoscopist: Rand Guillen MD Anesthesia Provider: Alisha Phan CRNA Anesthesia type: MAC Instrument: Olympus [id number]-H190L Consent: Indication, risks vs benefits, and alternatives were discussed with the patient who gave written informed consent to proceed. An construction pit worker was utilized to assist with the consent. EKG, pulse, pulse oximetry and blood pressure were monitored throughout the procedure. Please see anesthesia flowsheet. Procedure: The patient was brought to the procedure room and placed in the left lateral decubitus position. IV medications were administered by the anesthesia provider in attendance. A digital rectal exam was performed which was normal. The colonoscope was then inserted through the anus and advanced through the colon to the cecum at 80 cm. Appendiceal orifice and IC valve were identified and appeared normal. Mucosa was carefully examined under high definition white light as the instrument was slowly withdrawn in a retrograde panoramic fashion. Retroflexion was performed in ascending colon and rectum. The procedure was not difficult. There were no immediate obvious complications. The quality of the prep was BBPS: 2+2+2 = adequate Withdrawal time minutes. Limitations: No limitations. Findings: Mucosa: Normal to cecum. Protruding lesions: 1 sessile polyp of size 5 mm in descending colon. Cold snare polypectomy was performed. Small internal hemorrhoids without stigmata of recent bleeding. Impression: 1. Normal colon mucosa 2. Total of 1 polyp removed from descending colon. 3. Internal hemorrhoids Recommendations: - Follow path results. - Repeat colonoscopy in 5 years regardless of path due to family history.
[2022-03-11 11:16] VITALS: BP 116/62; PULSE 71; RESP 16; TEMP 36.6; O2SAT 99
[2022-03-11 11:31] VITALS: BP 135/73; PULSE 74; RESP 18; TEMP 36.6; O2SAT 100
== END 2022-03-11 12:38 | disposition home or self-care (01) ==
PROVIDERS: PCP Internal Medicine; Visit Provider Internal Medicine
PROC: 0DJD8ZZ Inspection of Lower Intestinal Tract, Via Natural or Artificial Opening Endoscopic (ICD-10-PCS; CPT 45378; principal; 2022-03-11 10:00)
DX: K58.1 Irritable bowel syndrome with constipation (principal); Z80.0 Family history of malignant neoplasm of digestive organs; K63.5 Polyp of colon; K64.8 Other hemorrhoids; K21.9 Gastro-esophageal reflux disease without esophagitis; I10 Essential (primary) hypertension; J45.909 Unspecified asthma, uncomplicated; E11.9 Type 2 diabetes mellitus without complications; Z79.84 Long term (current) use of oral hypoglycemic drugs; Z79.51 Long term (current) use of inhaled steroids; Z79.899 Other long term (current) drug therapy; Z88.0 Allergy status to penicillin
CPT/HCPCS: 45385; 82947; 88305

== ENCOUNTER 2022-03-25 12:10 | Outpatient (REF) | payer MEDICAID, SELFPAY ==
[2022-03-25 14:02] LABS: Appearance Urine Turbid; Color Urine Yellow; Glucose Urine UA Negative (Negative); Leukocyte Esterase Urine Large (3+) (Negative); Nitrite Urine Negative (Negative); PH 7.5 (5.0-9.0); UMIC TRIGGER UACC YES; Urine Blood Small (1+) (Negative); Urine Ketones Trace mg/dL (Negative); Urine Protein 30 (1+) mg/dL (Neg-Trace)
[2022-03-25 14:10] LABS: Bacteria Urine 4+ (None Seen); Squamous Epithelial Cell Urine 0-2 /HPF (0-2); UACC Culture Trigger YES; WBC Urine >50 /HPF (0-5)
== END 2022-03-25 12:11 | disposition home or self-care (01) ==
LOC: HO.LAB 12:10
PROVIDERS: PCP Internal Medicine; Visit Provider Nurse Practitioner
DX: K58.1 Irritable bowel syndrome with constipation (principal); K21.9 Gastro-esophageal reflux disease without esophagitis; R12 Heartburn; R10.9 Unspecified abdominal pain; R35.0 Frequency of micturition; Z80.0 Family history of malignant neoplasm of digestive organs
CPT/HCPCS: 81001; 81003; 87086; 87088; 87186; 99212

== ENCOUNTER 2022-05-06 10:56 | Outpatient (REF) | payer MEDICAID, SELFPAY | END 2022-05-06 10:57 | disposition home or self-care (01) | LOC: HO.LAB 10:56 | PROVIDERS: PCP Internal Medicine; Visit Provider Nurse Practitioner | DX: N39.0 Urinary tract infection, site not specified (principal); K21.9 Gastro-esophageal reflux disease without esophagitis; K58.1 Irritable bowel syndrome with constipation | CPT/HCPCS: 99212 ==

== ENCOUNTER 2022-05-18 13:47 | Outpatient (REF) | payer MEDICAID, SELFPAY ==
--- NOTE | ~2022-05-18 | MM_ITS ---
EXAMINATION: MM SCREENING DIGITAL BREAST TOMOSYNTHESIS, BILATERAL CLINICAL INFORMATION: Screening. Asymptomatic. Status post right axillary surgery. Status post previous excisional biopsy left breast. The lifetime risk of breast cancer based on the Tyrer-Cuzick Model is 4%. COMPARISON: Mammography: 04/22/2021 and studies dating back to 10/31/2015. TECHNIQUE: Digital breast tomosynthesis is performed in both the craniocaudal and mediolateral oblique views along with computer-aided detection (CAD). Synthesized 2D images are generated from the tomosynthesis. FINDINGS: The breasts are heterogeneously dense, which may obscure small masses (ACR BI-RADS breast composition Category c). There are no new significant masses, abnormal calcifications, or other abnormalities. Region of architectural distortion is seen about the medial aspect of the left breast, likely post-surgical. Bilateral stable nodules are present. Clips seen within the right axilla. MM/MM tomosynthesis screening BI IMPRESSION: No significant changes from prior exam. ASSESSMENT: BI-RADS 2: Benign. RECOMMENDATION: Routine annual mammography screening. This patient's information was entered into a reminder system with a target due date for their next mammogram.
== END 2022-05-18 13:48 | disposition home or self-care (01) ==
LOC: HO.MAMMO 13:47
PROVIDERS: PCP Internal Medicine; Visit Provider Internal Medicine
DX: Z12.31 Encounter for screening mammogram for malignant neoplasm of breast (principal)
CPT/HCPCS: 77063; 77067

== ENCOUNTER 2022-05-26 14:29 | Outpatient (REF) | payer MEDICAID, SELFPAY ==
[2022-05-26 14:43] LABS: Appearance Urine Cloudy; Color Urine Yellow; Glucose Urine UA Negative (Negative); Leukocyte Esterase Urine Large (3+) (Negative); Nitrite Urine Positive (Negative); Specific Gravity - Urine 1.025 (1.005-1.025); UMIC TRIGGER UACC YES; Urine Blood Trace (Negative); Urine Ketones Trace mg/dL (Negative); Urine Protein Negative (Neg-Trace)
[2022-05-26 14:50] LABS: Bacteria Urine 4+ (None Seen); Hyaline Casts Urine 0-2 /LPF (0-2); RBC Urine 0-2 /HPF (0-2); Squamous Epithelial Cell Urine 0-2 /HPF (0-2); UACC Culture Trigger YES; WBC Urine >50 /HPF (0-5)
== END 2022-05-26 14:30 | disposition home or self-care (01) ==
LOC: HO.LNP 14:29
PROVIDERS: Visit Provider Nurse Practitioner
DX: N39.0 Urinary tract infection, site not specified (principal)
CPT/HCPCS: 81001; 87086; 87088; 87186

== ENCOUNTER 2022-08-04 12:35 | Emergency (ER) | payer MEDICAID, SELFPAY ==
--- NOTE | ~2022-08-04 | XR_ITS ---
EXAMINATION: XR CHEST CLINICAL INFORMATION: Cough. Chest wall pain. COMPARISON: None available. TECHNIQUE: 2 views of the chest were obtained. FINDINGS: No significant abnormality is noted involving the heart, lungs, mediastinum, bony thorax or soft tissues. There are surgical clips in the right axilla. There are air-fluid levels seen in the bowel. XR/XR chest 2V IMPRESSION: No evidence for acute disease in the chest.
[2022-08-04 12:59] VITALS: BP 142/80; PULSE 85; RESP 18; TEMP 36.8; O2SAT 98; BMI 28.6
--- NOTE | 2022-08-04 12:59 | ED.CHESTPAIN ---
HPI - Chest Pain General Chief Complaint: General Medical <Martine Jiménez NP - Last Filed: 08/04/22 13:03> Stated Complaint: Rib Pain Cough Headache <Martine Jiménez NP - Last Filed: 08/04/22 13:03> Time Seen by Provider: 08/04/22 14:03 <Martine Jiménez NP - Last Filed: 08/04/22 13:03> Source: patient <GEO Randall - Last Filed: 08/04/22 18:54> Mode of arrival: ambulatory <GEO Randall - Last Filed: 08/04/22 18:54> History of Present Illness HPI narrative: 62-year-old female with a past medical history of asthma, diabetes, HLD, HTN, obesity, presenting to the ED complaining of nonproductive cough, headache, myalgias, rhinorrhea, chest discomfort when coughing x few days. Reports recently return from [place]. Has been using inhaler with some relief. Also reports associated lightheadedness/dizziness during coughing fits lasting a few minutes. Denies chest pain, vision change/loss, LOC, pedal edema, calf pain, history of clots <GEO Randall - Last Filed: 08/04/22 18:54> Related Data Home Medications: Home Medications Medication Instructions Recorded Confirmed Lactobacillus acidophilus 500 500 mmu cells PO DAILY 03/03/20 03/11/22 million cell tablet clonidine HCl 0.2 mg tablet 0.2 mg PO BID 03/03/20 03/11/22 enalapril maleate 20 mg tablet 20 mg PO BID 03/03/20 03/11/22 fluticasone 500 mcg-salmeterol 50 1 inh inhalation BID 03/03/20 03/11/22 mcg/dose blistr powdr for inhalation (Advair Diskus) hydrochlorothiazide 25 mg tablet 25 mg PO DAILY 03/03/20 03/11/22 hydroxyzine pamoate 25 mg capsule 25 mg PO BID PRN Itching 03/03/20 03/11/22 (Vistaril) bupropion HCl 300 mg 24 hr tablet, 300 mg PO QAM 10/01/21 03/11/22 extended release cholecalciferol (vitamin D3) 50 50 mcg PO QAM 10/01/21 03/11/22 mcg (2,000 unit) capsule fluticasone propionate 50 1 spray intranasal DAILY 10/01/21 03/11/22 mcg/actuation nasal spray,suspension loratadine 10 mg tablet 10 mg PO QAM PRN Allergy Symptoms 10/01/21 03/11/22 albuterol sulfate 90 mcg/actuation 2 puff inhalation QID PRN 03/25/22 aerosol inhaler (Proventil HFA) alcohol swabs (Alcohol Prep Pads) 0 pad topical QID 03/25/22 amitriptyline 75 mg tablet 75 mg PO BEDTIME 03/25/22 atorvastatin 20 mg tablet 20 mg PO QPM 03/25/22 blood sugar diagnostic (FreeStyle #10 ea 03/25/22 Lite Strips) fluoxetine 20 mg capsule 40 mg PO QAM 03/25/22 lancets 33 gauge (TRUEplus Lancets) #100 ea 03/25/22 metformin 500 mg tablet 1,000 mg PO BID 05/06/22 metformin 500 mg tablet,extended 1,000 mg PO 05/06/22 release 24 hr sennosides 8.6 mg tablet (senna) 8.6 mg PO DAILY PRN constipation 05/06/22 Previous Rx's Medication Instructions Recorded oxybutynin chloride 15 mg 15 mg PO DAILY #90 tabs 01/04/22 tablet,extended release 24 hr dicyclomine 10 mg capsule 10 mg PO QID #90 caps 05/06/22 linaclotide 290 mcg capsule 290 mcg PO QAM 30 days #30 caps 05/06/22 (Linzess) dexlansoprazole 60 mg 60 mg PO DAILY #30 caps 05/25/22 capsule,biphase delayed release (Dexilant) docusate sodium 100 mg capsule 100 mg PO DAILY #30 caps 05/25/22 (Colace) nitrofurantoin macrocrystal 100 mg 100 mg PO BID 10 days #20 caps 05/31/22 capsule benzonatate 100 mg capsule 100 mg PO TID PRN cough #14 caps 08/04/22 fluticasone propionate 50 2 spray intranasal DAILY #16 grams 08/04/22 mcg/actuation nasal spray,suspension (Flonase Allergy Relief) prednisone 20 mg tablet 40 mg PO DAILY 5 days #10 tabs 08/04/22 <Martine Jiménez NP - Last Filed: 08/04/22 13:03> Allergies/Adverse Reactions: Allergies Allergy/AdvReac Type Severity Reaction Status Date / Time ampicillin [AMPICILLIN] Allergy Intermediate RASH Verified 05/06/22 11:04 Penicillins [PCN] Allergy Rash Verified 05/06/22 11:04 <Martine Jiménez NP - Last Filed: 08/04/22 13:03> Review of Systems Review of Systems: Constitutional: No Fever, No Chills ENT/Mouth: No Ear Pain, + Nasal Congestion, No Sinus Pain, No Hoarseness, No sore throat, + Rhinorrhea, No Swallowing Difficulty Cardiovascular: + Chest Pain with cough, + mild SOB Respiratory: + Cough, No Sputum, No Wheezing Gastrointestinal: No Nausea, No Vomiting, No Diarrhea, No Constipation, No Abdominal pain Genitourinary: No Dysuria, No Urinary Frequency, No Hematuria Musculoskeletal: No joint pain, No Myalgias, No Joint Swelling Skin: No Skin Lesions, No rash Neuro: No Weakness, No Numbness, No Paresthesias, + lightheadedness/dizziness during coughing fit <GEO Randall - Last Filed: 08/04/22 18:54> Yes all other systems are reviewed and are negative <GEO Randall - Last Filed: 08/04/22 18:54> Constitutional: Constitutional: Reports as per HPI <GEO Randall - Last Filed: 08/04/22 18:54> PMFSH Past Medical History Attestation statement: The following information was validated with the patient. <GEO Randall - Last Filed: 08/04/22 18:54> Medical History: Medical History Asthma Diabetes mellitus Elevated cholesterol HTN (hypertension) Obesity Palpitations <Martine Jiménez NP - Last Filed: 08/04/22 13:03> Surgical History: Surgical History History of lumpectomy Hx of breast biopsy Hx of colonoscopy Hx of cystoscopy Hx of tubal ligation <NICHO Victor Last Filed: 08/04/22 13:03> Family History Family History: Family History Father CVD (cardiovascular disease) Diabetes Mother Diabetes Colon cancer <Martine Jiménez NP - Last Filed: 08/04/22 13:03> Social History Social History: Social History Household Members: None Housing: Apartment Alcohol intake: current Alcohol intake frequency: holidays/special occasions only Alcohol type: beer Patient Tobacco Use Status: Never used Tobacco Advance Directives: No Advance Directives Information Provided: Yes <Martine Jiménez NP - Last Filed: 08/04/22 13:03> Physical Exam Vital Signs: Vital Signs: Last Vital Signs Temp 98.8 F 08/04/22 16:17 Pulse 72 08/04/22 16:17 Resp 13 08/04/22 16:17 BP 143/79 H 08/04/22 16:17 Pulse Ox 99 08/04/22 16:17 O2 Del Method Room Air 08/04/22 16:17 BMI result Body Mass Index 28.6 <Martine Jiménez NP - Last Filed: 08/04/22 13:03> Vital Signs: Last Vital Signs Temp 98.8 F 08/04/22 16:17 Pulse 72 08/04/22 16:17 Resp 13 08/04/22 16:17 BP 143/79 H 08/04/22 16:17 Pulse Ox 99 08/04/22 16:17 O2 Del Method Room Air 08/04/22 16:17 BMI result Body Mass Index 28.6 <GEO Randall - Last Filed: 08/04/22 18:54> Const: General: cooperative, healthy appearing and no acute distress <GEO Randall - Last Filed: 08/04/22 18:54> Orientation/consciousness: patient oriented x3 <GEO Randall - Last Filed: 08/04/22 18:54> Limitations: no limitations <GEO Randall - Last Filed: 08/04/22 18:54> HEENT: Head: Yes normal to inspection and Yes atraumatic <GEO Randall - Last Filed: 08/04/22 18:54> Ears: hearing grossly normal bilaterally, external ears normal and TM's normal bilaterally <GEO Randall - Last Filed: 08/04/22 18:54> General nose exam: Normal external nose present <GEO Randall - Last Filed: 08/04/22 18:54> Face and sinus: Yes normal facial exam <GEO Randall Last Filed: 08/04/22 18:54> Throat: Yes posterior oropharynx normal, Yes tonsils normal, Yes uvula midline, No peritonsillar mass and No uvular edema <GEO Randall Last Filed: 08/04/22 18:54> Eyes: General: appearance normal, both eyes and all related structures <GEO Randall - Last Filed: 08/04/22 18:54> EOM: EOMs intact bilaterally <GEO Randall Last Filed: 08/04/22 18:54> Neck: Neck: Yes normal visual inspection and Yes no meningeal signs <GEO Randall Last Filed: 08/04/22 18:54> Resp: Effort & Inspection: normal respiratory effort and no respiratory distress <GEO Randall - Last Filed: 08/04/22 18:54> Auscultation: clear to auscultation bilaterally, no rales, no rhonchi and no wheezes <GEO Randall Last Filed: 08/04/22 18:54> Cardio: Rate: regular rate <GEO Randall Last Filed: 08/04/22 18:54> Heart sounds: S1 normal heart sound present and S2 normal heart sound present <GEO Randall Last Filed: 08/04/22 18:54> Skin: Rashes: no rashes <GEO Randall - Last Filed: 08/04/22 18:54> Wounds: no wounds <GEO Randall Last Filed: 08/04/22 18:54> Neuro: General: patient oriented x3, tone normal and no meningeal signs <GEO Randall Last Filed: 08/04/22 18:54> Gait exam (Neuro): Normal gait present <GEO Randall - Last Filed: 08/04/22 18:54> Extrem: General: Yes normal to inspection, Yes no pedal edema and Yes no calf tenderness <GEO Randall - Last Filed: 08/04/22 18:54> Course Course Course Narrative: This is a rapid medical exam. Defer additional HPI, ROS, PE to primary provider. This is a 62-year-old female with a history of diabetes, high blood pressure, high cholesterol, anemia who presents to the ER with complaints of cough, headache, rib pain since Tuesday. No fever. No sick contact. Traveled from [place] Tuesday. Will obtain CXR, viral testing. VSS <Martine Jiménez NP - Last Filed: 08/04/22 13:03> This is a rapid medical exam. Defer additional HPI, ROS, PE to primary provider. This is a 62-year-old female with a history of diabetes, high blood pressure, high cholesterol, anemia who presents to the ER with complaints of cough, headache, rib pain since Tuesday. No fever. No sick contact. Traveled from [place] Tuesday. Will obtain CXR, viral testing. VSS -1440--COVID/flu/RSV negative. CXR unremarkable -1508--EKG showing new right bundle branch block > will obtain labs -1627--labs reassuring, troponin negative Results discussed with patient including worrisome signs and symptoms and strict return precautions, and when to return to the emergency department. They verbalized understanding and feel safe for discharge at this time. <GEO Randall - Last Filed: 08/04/22 18:54> Medical Decision Making Medical Decision Making MDM Narrative: 62-year-old female with a past medical history of asthma, diabetes, HLD, HTN, obesity, presenting to the ED complaining of nonproductive cough, headache, myalgias, rhinorrhea, chest discomfort when coughing x few days. On exam vital signs stable, NAD, nontoxic appearing, ambulating with steady gait, lungs CTA. No pedal edema/calf tenderness. Concern for asthma exacerbation vs viral syndrome vs bronchitis. Rule out pneumonia. Low suspicion for ACS/PE or vertigo Plan: COVID/flu/RSV testing, CXR, POC, EKG Please refer to course for remaining clinical decision making, interpretation of labs/imaging results, and discussions with consultants and/or family members. <GEO Randall - Last Filed: 08/04/22 18:54> Differential Diagnosis Differential Diagnoses: The differential diagnosis associated with the presentation includes <GEO Randall - Last Filed: 08/04/22 18:54> As above <GEO Randall - Last Filed: 08/04/22 18:54> Admission/Observation Consideration of admission/observation: Escalation of care including admission/observation considered <GEO Randall - Last Filed: 08/04/22 18:54> Lab Data MDM Lab Attestation statement: I reviewed the patient's lab results. <GEO Randall - Last Filed: 08/04/22 18:54> Result Diagrams: 08/04/22 15:21 08/04/22 15:21 <Martine Jiménez NP - Last Filed: 08/04/22 13:03> Labs: Lab Results 08/04/22 08/04/22 08/04/22 Range/Units 13:25 15:21 15:21 WBC 8.2 (4.8-10.8) X10*3/uL RBC 4.03 L (4.20-5.50) X10*6/uL Hgb 11.5 L (12.0-16.0) g/dl Hct 34.9 L (37.0-47.0) % MCV 86.6 (80.0-98.0) fL MCH 28.5 (27.0-33.0) pg MCHC 33.0 (31.0-35.0) g/dl RDW 12.8 (11.0-16.0) % Plt Count 331 (160-400) X10*3/uL MPV 10.1 (9.4-12.3) fL Immature Gran % (Auto) 0.2 (0.0-0.4) % Neut % (Auto) 52.4 (45-73) % Lymph % (Auto) 36.4 (20-40) % [place] % (Auto) 7.8 (2-11) % Eos % (Auto) 2.8 (0-4) % Baso % (Auto) 0.4 (0-2) % Lymph # (Auto) 3.0 (1.2-4.9) X10*3/uL [place] # (Auto) 0.6 (0.1-1.2) X10*3/uL Eos # (Auto) 0.2 (0.0-0.4) X10*3/uL Baso # (Auto) 0.0 (0.0-0.2) X10*3/uL Abs Immat Gran (auto) 0.02 (0.00-0.03) X10*3/uL Absolute Neuts (auto) 4.3 (2.0-8.3) x10*3/uL Absolute Nucleated RBC 0.000 (0.0-0.012) X10*3/uL Nucleated RBC % (auto) 0.0 (0.0-0.2) /100WBC Sodium 140 (135-145) mmol/L Potassium 4.3 (3.3-5.1) mmol/L Chloride 104 (96-108) mmol/L Carbon Dioxide 28 (22-29) mmol/L Anion Gap 12 (12-20) BUN 10 (9-16) mg/dL Creatinine 0.76 (0.5-1.4) mg/dL Estim Creat Clear Calc 58.3 Estimated GFR > 60 Random Glucose 113 (60-115) mg/dL Calcium 9.8 (8.4-10.2) mg/dL Troponin I High Sens (<3.5-17.0) ng/L Influenza Type A (PCR) NEGATIVE (Negative) Influenza Type B (PCR) NEGATIVE (Negative) RSV RNA Qual (PCR) NEGATIVE (Negative) SARS-CoV-2 RNA (RT-PCR) NEGATIVE (Negative) 08/04/22 Range/Units 15:21 WBC (4.8-10.8) X10*3/uL RBC (4.20-5.50) X10*6/uL Hgb (12.0-16.0) g/dl Hct (37.0-47.0) % MCV (80.0-98.0) fL MCH (27.0-33.0) pg MCHC (31.0-35.0) g/dl RDW (11.0-16.0) % Plt Count (160-400) X10*3/uL MPV (9.4-12.3) fL Immature Gran % (Auto) (0.0-0.4) % Neut % (Auto) (45-73) % Lymph % (Auto) (20-40) % [place] % (Auto) (2-11) % Eos % (Auto) (0-4) % Baso % (Auto) (0-2) % Lymph # (Auto) (1.2-4.9) X10*3/uL [place] # (Auto) (0.1-1.2) X10*3/uL Eos # (Auto) (0.0-0.4) X10*3/uL Baso # (Auto) (0.0-0.2) X10*3/uL Abs Immat Gran (auto) (0.00-0.03) X10*3/uL Absolute Neuts (auto) (2.0-8.3) x10*3/uL Absolute Nucleated RBC (0.0-0.012) X10*3/uL Nucleated RBC % (auto) (0.0-0.2) /100WBC Sodium (135-145) mmol/L Potassium (3.3-5.1) mmol/L Chloride (96-108) mmol/L Carbon Dioxide (22-29) mmol/L Anion Gap (12-20) BUN (9-16) mg/dL Creatinine (0.5-1.4) mg/dL Estim Creat Clear Calc Estimated GFR Random Glucose (60-115) mg/dL Calcium (8.4-10.2) mg/dL Troponin I High Sens < 2.7 (<3.5-17.0) ng/L Influenza Type A (PCR) (Negative) Influenza Type B (PCR) (Negative) RSV RNA Qual (PCR) (Negative) SARS-CoV-2 RNA (RT-PCR) (Negative) <Martine Jiménez, [employer] - Last Filed: 08/04/22 13:03> Lab Results 08/04/22 08/04/22 08/04/22 Range/Units 13:25 15:21 15:21 WBC 8.2 (4.8-10.8) X10*3/uL RBC 4.03 L (4.20-5.50) X10*6/uL Hgb 11.5 L (12.0-16.0) g/dl Hct 34.9 L (37.0-47.0) % MCV 86.6 (80.0-98.0) fL MCH 28.5 (27.0-33.0) pg MCHC 33.0 (31.0-35.0) g/dl RDW 12.8 (11.0-16.0) % Plt Count 331 (160-400) X10*3/uL MPV 10.1 (9.4-12.3) fL Immature Gran % (Auto) 0.2 (0.0-0.4) % Neut % (Auto) 52.4 (45-73) % Lymph % (Auto) 36.4 (20-40) % [place] % (Auto) 7.8 (2-11) % Eos % (Auto) 2.8 (0-4) % Baso % (Auto) 0.4 (0-2) % Lymph # (Auto) 3.0 (1.2-4.9) X10*3/uL [place] # (Auto) 0.6 (0.1-1.2) X10*3/uL Eos # (Auto) 0.2 (0.0-0.4) X10*3/uL Baso # (Auto) 0.0 (0.0-0.2) X10*3/uL Abs Immat Gran (auto) 0.02 (0.00-0.03) X10*3/uL Absolute Neuts (auto) 4.3 (2.0-8.3) x10*3/uL Absolute Nucleated RBC 0.000 (0.0-0.012) X10*3/uL Nucleated RBC % (auto) 0.0 (0.0-0.2) /100WBC Sodium 140 (135-145) mmol/L Potassium 4.3 (3.3-5.1) mmol/L Chloride 104 (96-108) mmol/L Carbon Dioxide 28 (22-29) mmol/L Anion Gap 12 (12-20) BUN 10 (9-16) mg/dL Creatinine 0.76 (0.5-1.4) mg/dL Estim Creat Clear Calc 58.3 Estimated GFR > 60 Random Glucose 113 (60-115) mg/dL Calcium 9.8 (8.4-10.2) mg/dL Troponin I High Sens (<3.5-17.0) ng/L Influenza Type A (PCR) NEGATIVE (Negative) Influenza Type B (PCR) NEGATIVE (Negative) RSV RNA Qual (PCR) NEGATIVE (Negative) SARS-CoV-2 RNA (RT-PCR) NEGATIVE (Negative) 08/04/22 Range/Units 15:21 WBC (4.8-10.8) X10*3/uL RBC (4.20-5.50) X10*6/uL Hgb (12.0-16.0) g/dl Hct (37.0-47.0) % MCV (80.0-98.0) fL MCH (27.0-33.0) pg MCHC (31.0-35.0) g/dl RDW (11.0-16.0) % Plt Count (160-400) X10*3/uL MPV (9.4-12.3) fL Immature Gran % (Auto) (0.0-0.4) % Neut % (Auto) (45-73) % Lymph % (Auto) (20-40) % [place] % (Auto) (2-11) % Eos % (Auto) (0-4) % Baso % (Auto) (0-2) % Lymph # (Auto) (1.2-4.9) X10*3/uL [place] # (Auto) (0.1-1.2) X10*3/uL Eos # (Auto) (0.0-0.4) X10*3/uL Baso # (Auto) (0.0-0.2) X10*3/uL Abs Immat Gran (auto) (0.00-0.03) X10*3/uL Absolute Neuts (auto) (2.0-8.3) x10*3/uL Absolute Nucleated RBC (0.0-0.012) X10*3/uL Nucleated RBC % (auto) (0.0-0.2) /100WBC Sodium (135-145) mmol/L Potassium (3.3-5.1) mmol/L Chloride (96-108) mmol/L Carbon Dioxide (22-29) mmol/L Anion Gap (12-20) BUN (9-16) mg/dL Creatinine (0.5-1.4) mg/dL Estim Creat Clear Calc Estimated GFR Random Glucose (60-115) mg/dL Calcium (8.4-10.2) mg/dL Troponin I High Sens < 2.7 (<3.5-17.0) ng/L Influenza Type A (PCR) (Negative) Influenza Type B (PCR) (Negative) RSV RNA Qual (PCR) (Negative) SARS-CoV-2 RNA (RT-PCR) (Negative) <GEO Randall - Last Filed: 08/04/22 18:54> Independent Interpretation I performed an independent interpretation of an: EKG (EKG normal sinus rhythm at a rate of 71. ME interval 134. QTC 445. Right bundle branch block now present) <GEO Randall - Last Filed: 08/04/22 18:54> Radiology Impression Discussion of test interpretation with radiology: I have reviewed the radiologist's reading. <GEO Randall - Last Filed: 08/04/22 18:54> External Record Review External record reviewed: Inpatient record, Office record, Outpatient record, Prior outpatient labs, Prior outpatient radiology, Primary care record and Outside ED record <GEO Randall - Last Filed: 08/04/22 18:54> Discharge Plan Discharge Clinical Impression: Bronchitis <Martine Jiménez NP - Last Filed: 08/04/22 13:03> Patient Disposition: Home, Self-Care <Martine Jiménez NP - Last Filed: 08/04/22 13:03> Instructions: Acute Bronchitis (ED) <Martine Jiménez NP - Last Filed: 08/04/22 13:03> Additional Instructions: Your blood work and chest x-ray were reassuring. Her x-ray does not show pneumonia You likely have bronchitis. Continue to use your inhalers at home Prednisone as a steroid, take as prescribed Tessalon Perles are for cough Flonase as a nasal decongestant Follow-up with her doctor If symptoms persist or worsen return to the ED [place] an?lisis de josefina y la radiograf?a de t?rax fueron tranquilizadores. [place] radiograf?a no muestra neumon?a. Es probable que tengas bronquitis. Contin?e usando leonela inhaladores en casa Prednisona sharmaine esteroide, t?brett seg?n lo prescrito Tessalon Perles son para la tos Flonase sharmaine descongestionante nasal Seguimiento con de la paz m?dico Si los s?ntomas persisten o empeoran, regrese al servicio de urgencias. <Martine Jiménez [employer] W[employer] TAPER - Last Filed: 08/04/22 13:03> Prescriptions: New prednisone 20 mg tablet 40 mg PO DAILY 5 Days Qty: 10 0RF benzonatate 100 mg capsule 100 mg PO TID PRN (Reason: cough) Qty: 14 0RF fluticasone propionate [Flonase Allergy Relief] 50 mcg/actuation spray,suspension 2 spray intranasal DAILY Qty: 16 0RF Rx Instructions: administer into each nostril No Action oxybutynin chloride 15 mg tablet extended release 24hr 15 mg PO DAILY Qty: 90 1RF Dexilant 60 mg capsule,biphase delayed releas 60 mg PO DAILY Qty: 30 4RF docusate sodium [Colace] 100 mg capsule 100 mg PO DAILY Qty: 30 4RF nitrofurantoin macrocrystal 100 mg capsule 100 mg PO BID 10 Days Qty: 20 0RF Rx Instructions: must administer with a meal/food clonidine HCl 0.2 mg tablet 0.2 mg PO BID hydrochlorothiazide 25 mg tablet 25 mg PO DAILY enalapril maleate 20 mg tablet 20 mg PO BID hydroxyzine pamoate [Vistaril] 25 mg capsule 25 mg PO BID PRN (Reason: Itching) Lactobacillus acidophilus 500 million cell tablet 500 mmu cells PO DAILY fluticasone propion-salmeterol [Advair Diskus] 500-50 mcg/dose blister with device 1 inh inhalation BID metformin 500 mg tablet 1,000 mg PO BID cholecalciferol (vitamin D3) 50 mcg (2,000 unit) capsule 50 mcg PO QAM bupropion HCl 300 mg tablet extended release 24 hr 300 mg PO QAM loratadine 10 mg tablet 10 mg PO QAM PRN (Reason: Allergy Symptoms) fluticasone propionate 50 mcg/actuation spray,suspension 1 spray intranasal DAILY metformin 500 mg tablet extended release 24 hr 1,000 mg PO sennosides [senna] 8.6 mg tablet 8.6 mg PO DAILY PRN (Reason: constipation) Linzess 290 mcg capsule 290 mcg PO QAM 30 Days Qty: 30 6RF dicyclomine 10 mg capsule 10 mg PO QID Qty: 90 3RF amitriptyline 75 mg tablet 75 mg PO BEDTIME atorvastatin 20 mg tablet 20 mg PO QPM fluoxetine 20 mg capsule 40 mg PO QAM albuterol sulfate [Proventil HFA] 90 mcg/actuation HFA aerosol inhaler 2 puff inhalation QID PRN (DME) lancets [TRUEplus Lancets] 33 gauge misc See Rx Instructions .ROUTE QID Qty: 100 Rx Instructions: As directed alcohol swabs [Alcohol Prep Pads] Pads, Medicated 0 pad topical QID (DME) FreeStyle Lite Strips Strip See Rx Instructions .ROUTE QID Qty: 10 Rx Instructions: As directed <Martine Jiménez NP - Last Filed: 08/04/22 13:03> Referrals: Carley Tapia MD [Primary Care Provider] - 5 days <Martine Jiménez NP - Last Filed: 08/04/22 13:03> Interventions: ED Discharge Assessment Last Done: 08/04/22 16:31 <Martine Jiménez NP - Last Filed: 08/04/22 13:03> Discharge Date/Time: 08/04/22 16:34 <Martine Jiménez NP - Last Filed: 08/04/22 13:03> Print Language: Khmer <Martine Jiménez NP - Last Filed: 08/04/22 13:03>
--- NOTE | 2022-08-04 13:59 | PC.NURSE ---
pt ambulatory to exam room with dtr at bedside- pt is qatari speaking only, no increased work of breathing noted, resp even and unlabored, able to manage secretions- speaking in full sentances
[2022-08-04 14:13] LABS: Influenza A PCR NEGATIVE (Negative); Influenza B PCR NEGATIVE (Negative); Resp Syncy Virus RNA Qual PCR NEGATIVE (Negative); SARS COV2 PCR INHOUSE NEGATIVE (Negative)
--- NOTE | 2022-08-04 14:46 | ECG_ITS ---
Test Reason : intermittent dizzy Blood Pressure : / mmHG Vent. Rate : 071 BPM Atrial Rate : 071 BPM P-R Int : 134 ms QRS Dur : 132 ms QT Int : 410 ms P-R-T Axes : 026 082 032 degrees QTc Int : 445 ms Normal sinus rhythm Right bundle branch block Abnormal ECG When compared with ECG of 19-OCT-2011 09:35, Right bundle branch block is now Present Referred By: Alisia Mora Electronically Signed By:JOEY MILLER MD
[2022-08-04 15:29] LABS: MANUAL DIFF FLAG NO
[2022-08-04 15:30] LABS: Basophils Percent Auto 0.4 % (0-2); Eosinophils Absolute Auto 0.2 X10*3/uL (0.0-0.4); Eosinophils Percent Auto 2.8 % (0-4); Hematocrit 34.9 % (37.0-47.0); Hemoglobin 11.5 g/dl (12.0-16.0); Imm Gran Abs Auto 0.02 X10*3/uL (0.00-0.03); Imm Gran Pct Auto 0.2 % (0.0-0.4); Lymphocytes Percent Auto 36.4 % (20-40); Mean Corpuscular Hemoglobin 28.5 pg (27.0-33.0); Mean Corpuscular Volume 86.6 fL (80.0-98.0); Mean Platelet Volume 10.1 fL (9.4-12.3); Monocytes Absolute Auto 0.6 X10*3/uL (0.1-1.2); Monocytes Percent Auto 7.8 % (2-11); Neutrophils Absolute Auto 4.3 x10*3/uL (2.0-8.3); Neutrophils Percent Auto 52.4 % (45-73); Platelet Count 331 X10*3/uL (160-400); Red Blood Count 4.03 X10*6/uL (4.20-5.50); Red Cell Distribution Width 12.8 % (11.0-16.0); White Blood Count 8.2 X10*3/uL (4.8-10.8)
[2022-08-04 15:42] LABS: Anion Gap 12 (12-20); Blood Urea Nitrogen 10 mg/dL (9-16); Calcium 9.8 mg/dL (8.4-10.2); Carbon Dioxide 28 mmol/L (22-29); Chloride 104 mmol/L (96-108); Creatinine Clr Calc Pharmacy 58.3; Estimated Glomerular Filt Rate > 60; Glucose Random 113 mg/dL (60-115); Potassium 4.3 mmol/L (3.3-5.1); Sodium 140 mmol/L (135-145)
[2022-08-04 15:58] LABS: Troponin-I High Sensitivity < 2.7 ng/L (<3.5-17.0)
[2022-08-04 16:17] VITALS: BP 143/79; PULSE 72; RESP 13; TEMP 37.1; O2SAT 99
== END 2022-08-04 16:34 | disposition home or self-care (01) ==
PROVIDERS: Nurse Practitioner Family; Physician Assistant; Emergency Provider Emergency Medicine; PCP Internal Medicine
DX: J40 Bronchitis, not specified as acute or chronic (principal); R05.9 Cough, unspecified; R07.9 Chest pain, unspecified; R51.9 Headache, unspecified; J34.89 Other specified disorders of nose and nasal sinuses; M79.10 Myalgia, unspecified site; E11.9 Type 2 diabetes mellitus without complications; I10 Essential (primary) hypertension; E78.5 Hyperlipidemia, unspecified; Z20.822 Contact with and (suspected) exposure to COVID-19
CPT/HCPCS: 0241U; 36415; 71046; 80048; 84484; 85025; 93005; 99283; 99284

== ENCOUNTER → 2022-08-17 08:58 | Outpatient (BNVA) | payer MEDICAID, SELFPAY | PROVIDERS: PCP Internal Medicine; Visit Provider Nurse Practitioner | DX: Z76.0 Encounter for issue of repeat prescription (principal); K58.1 Irritable bowel syndrome with constipation; K21.9 Gastro-esophageal reflux disease without esophagitis; R10.9 Unspecified abdominal pain | CPT/HCPCS: 99212 ==

== ENCOUNTER → 2022-10-13 09:30 | Outpatient (BNVA) | payer MEDICAID, SELFPAY | PROVIDERS: Visit Provider Nurse Practitioner | DX: K21.9 Gastro-esophageal reflux disease without esophagitis (principal); K58.1 Irritable bowel syndrome with constipation | CPT/HCPCS: 99212 ==

== ENCOUNTER 2023-03-29 17:50 | Outpatient (REF) | payer OTHER, MEDICAID, SELFPAY | END 2023-03-29 17:51 | disposition home or self-care (01) | LOC: HO.HHCLNP 17:50 | PROVIDERS: Visit Provider Internal Medicine Geriatric Medicine | DX: R39.9 Unspecified symptoms and signs involving the genitourinary system (principal) | CPT/HCPCS: 87086; 87088; 87186 ==

== ENCOUNTER 2023-04-04 12:33 | Outpatient (AMB) | payer MEDICARE, SELFPAY ==
--- NOTE | 2023-04-04 13:24 | MHC.OFFVIS ---
Intake Intake Visit Reasons: Recurrent UTI Intake Note: Patient is present for recurrent uti follow up Urology Medications: oxybutynin Blood Thinner: none PVR: 0ml's Record Label Internship Required: Yes Record Label Internship Name: CORINNA REEVESMARK Information Interpreted: non-clinical & clinical Accompanied by: Self / Same As Patient Allergies ampicillin [AMPICILLIN] Allergy (Intermediate, Verified 04/04/23 20:10) RASH Penicillins [PCN] Allergy (Verified 04/04/23 20:10) Rash Medication List - Last Reconciled 04/04/23 by EDWIN Gonzalez- albuterol sulfate 90 mcg/actuation (Proventil HFA) 2 puffs inhalation QID PRN alcohol swabs (Alcohol Prep Pads) 0 pad topical QID amitriptyline 75 mg PO BEDTIME atorvastatin 20 mg PO QPM benzonatate 100 mg PO TID PRN bisacodyl 10 mg (2 x 5 mg) PO BEDTIME blood sugar diagnostic (FreeStyle Lite Strips) As directed bupropion HCl 300 mg PO QAM cholecalciferol (vitamin D3) 50 mcg PO QAM clonidine HCl 0.2 mg PO BID dexlansoprazole (Dexilant) 60 mg PO QPM dicyclomine 10 mg PO QID docusate sodium 100 mg PO QAM enalapril maleate 20 mg PO BID estradiol 0.01%(0.1mg/gram) vaginally daily; pea sized amount to urethra 3 times a week 30 days fluoxetine 40 mg PO QAM fluticasone propion-salmeterol 500-50 mcg/dose (Advair Diskus) 1 inh inhalation BID fluticasone propionate 50 mcg/actuation (Flonase Allergy Relief) 2 sprays intranasal DAILY hydrochlorothiazide 25 mg PO DAILY hydroxyzine pamoate (Vistaril) 25 mg PO BID PRN Lactobacillus acidophilus 500 mmu cells PO DAILY lancets (TRUEplus Lancets) As directed linaclotide (Linzess) 290 mcg PO QAM loratadine 10 mg PO QAM PRN metformin 1,000 mg PO BID tolterodine ER 2 mg PO DAILY 30 days HPI HPI Comments History of Present Illness Details Yareli is a very pleasant 63-year-old Kiswahili-speaking patient of Dr. Mak. She has a past medical history of diabetes, hypertension, constipation, asthma, obesity, and hypercholesteremia. She presents to the office today as a new patient for recurrent urinary tract infections as well as lower urinary tract symptoms. In discussion with the patient today she reports having had approximately 3 urinary tract infections since the beginning of this year. She reports having followed up with her PCP and being on antibiotic therapy for these urinary tract infections. She reports last urinary tract infection was approximately 2 weeks ago and has since completed antibiotic therapy. When asked she does report a longstanding history of constipation however follows up with GI here at [facility] and has since started Linzess and feels this is helping her significantly. Discussed at length potential causes for recurrent urinary tract infections. She does also report having urinary urgency, urinary frequency, with episodes of incontinence if not near a bathroom. Discussed potential causes for lower urinary tract symptoms patient is experiencing. Discussed pelvic floor therapy however patient does not wish to undergo therapy at this time. In office urinalysis results reviewed with the patient today. PVR 0ml's. She otherwise denies hematuria, nocturia, dysuria, foul-smelling urine, changes to urinary stream, flank pain, fever, and or chills. Discussed obtaining retroperitoneal ultrasound for further assessment evaluation. Patient is agreeable. [facility] Medical History Elevated cholesterol Diabetes mellitus Obesity Asthma HTN (hypertension) Palpitations Surgical History Hx of tubal ligation Hx of breast biopsy Hx of cystoscopy Hx of colonoscopy History of lumpectomy Family History Father CVD (cardiovascular disease) Diabetes Mother Diabetes Colon cancer Social History Household Members: None Housing: Apartment Alcohol intake: current Alcohol intake frequency: holidays/special occasions only Alcohol type: beer Patient Tobacco Use Status: Never used Tobacco Review of Systems Const Reports as per HPI Eyes Reports no additional complaints ENT Reports no additional complaints Card Reports as per HPI Resp Reports as per HPI GI Reports as per HPI Reports as per HPI Musc Reports no additional complaints Neuro Reports no additional complaints Psych Reports no additional complaints Endo Reports as per HPI Hammad/Lymph Reports no additional complaints Aller/Immun Reports no additional complaints Physical Exam Const General: cooperative, healthy appearing, comfortable, no acute distress, well developed, alert and awake Orientation/consciousness: patient oriented x3 Limitations: no limitations HEENT Head: Yes normal to inspection, Yes normocephalic and Yes atraumatic Ears: hearing grossly normal bilaterally Eyes General: appearance normal, both eyes and all related structures Neck Neck: Yes normal visual inspection and Yes trachea midline Chest Chest palpation & inspection: normal inspection of the chest Resp Effort & Inspection: normal respiratory effort and able to speak in complete sentences Cardio Rate: regular rate GI Inspection: Yes normal to inspection General: Yes no CVA tenderness Back/Spine/Pelvis Back: no CVA tenderness Skin General skin exam: no rashes or lesions noted Neuro General: patient oriented x3 Extrem General: Yes normal to inspection Psych Appearance: grossly normal and well kempt Mental Status: mental status grossly normal Speech and movement: Normal speech and movement present and Clear speech present Affect: normal affect Attitude: cooperative Thought process: Normal thought process present Thought content: Normal thought content present Insight: Fair insight present (Psych) Judgement: Fair judgement present (Psych) Office Procedures Post Void Residual Post Residual Void Post Void Residual (PVR): 0 [id number] Void Residual by ultrasound Results AMB Urinalysis, Automated UA Leukoctes 0 Zhang/uL Last Edit by [employer] on 04/04/23 13:53 UA Nitrite Negative Last Edit by [employer] on 04/04/23 13:53 UA Urobilinogen 0.2 mg/dL Last Edit by [employer] on 04/04/23 13:53 UA Protein 0 mg/dL Last Edit by [employer] on 04/04/23 13:53 UA pH 6.0 Last Edit by [employer] on 04/04/23 13:53 UA Blood 0 Dorian/uL Last Edit by [employer] on 04/04/23 13:53 UA Specific [place] 1.015 Last Edit by [employer] on 04/04/23 13:53 UA Ketone Negative Last Edit by [employer] on 04/04/23 13:53 UA Bilirubin 0 mg/dL Last Edit by [employer] on 04/04/23 13:53 UA Glucose 0 mg/dL Last Edit by Elroy Mahan on 04/04/23 13:53 Results Reviewed Results Reviewed: Laboratory Last Values Urine pH (Auto) 6.0 04/04/23 13:52 Specific [place] (Auto) 1.015 04/04/23 13:52 Urine Protein (Auto) 0 mg/dL 04/04/23 13:52 Glucose (UA)(Auto) 0 mg/dL 04/04/23 13:52 Urine Ketones (Auto) Negative 04/04/23 13:52 Urine Blood (Auto) 0 Dorian/uL 04/04/23 13:52 Urine Nitrite (Auto) Negative 04/04/23 13:52 Urine Bilirubin (Auto) 0 mg/dL 04/04/23 13:52 Urine Urobilinogen (Auto) 0.2 mg/dL 04/04/23 13:52 Leukocyte Esterase (Auto) 0 Zhang/uL 04/04/23 13:52 Assessment & Plan Assessment & Plan (1) Recurrent UTI (urinary tract infection): Comment: 04/2022 E coli Resistant to Levaquin, ampicillin, ceftriaxone, Bactrim susceptible to nitrofurantoin and gentamicin Code(s): N39.0 - Urinary tract infection, site not specified (2) Mixed incontinence urge and stress: Code(s): N39.46 - Mixed incontinence (3) Lower urinary tract symptoms (LUTS): Code(s): R39.9 - Unspecified symptoms and signs involving the genitourinary system Plan In office urinalysis results reviewed with the patient today; as noted above. Discussed possible microgen in the near future; if UTI like symptoms arise Discussed possible near fututre in office cystoscopy and or urodynamics for further assessment evaluation PVR 0 mL. Patient currently denies any UTI like symptoms. Discussed at length potential causes for recurrent urinary tract infections as well as lower urinary tract symptoms patient is experiencing. Start Estrace cream as discussed and prescribed. Start tolterodine as discussed and prescribed. Will obtain retroperitoneal ultrasound for further assessment evaluation. Discussed importance of managing diabetes for improvement lower urinary tract symptoms as well as overall health and well-being. Discussed UTI prevention with D mannose supplement, vitamin-C, increasing fluid intake, behavioral therapy with timed voiding, perineal hygiene and postcoital voiding, and management of constipation with stool softeners and increased fiber intake. Follow-up in 6 weeks with PVR and imaging to be completed prior; or sooner with any issues, concerns, and or questions.. Orders: Orders AMB Urinalysis Automated Today Z13.9 - Encounter for screening, unspecified AMB Post Void Residual by ultrasound Today N39.0 - Urinary tract infection, site not specified US retroperitoneal comp Today N39.0 - Urinary tract infection, site not specified Medications: New estradiol 0.01%(0.1mg/gram) vaginally daily; pea sized amount to urethra 3 times a week 30 days 42.5 grams 0RF tolterodine ER 2 mg PO DAILY 30 days 30 caps 1RF R39.15 - Urgency of urination Discontinued oxybutynin chloride ER Discontinued Reason: Doctor's Order 15 mg PO DAILY 90 tabs 1RF Patient Instructions: The patient had an opportunity to ask questions regarding the treatment plan. All questions were answered. Physical exam, labs, and imaging were discussed and reviewed in detail. As well as risks, benefits, and discussion of treatment choices. No major barriers to understanding were identified. The patient expressed understanding and agreement with the above treatment plan. The patient was made aware they should contact our office by phone for worsening of their current condition, the appearance of new symptoms, or with any questions or concerns. Compliance is encouraged with any medications and follow up testing that is ordered. It is a privilege to be allowed the opportunity to participate in? your urological care.? Again, if you have any questions or concerns If you have any questions or concerns please do not hesitate to contact me. The office is [phone]. This note is constructed using voice recognition software. While every effort has been made to ensure accuracy medical coding specialist errors may have been included. Yours sincerely, NELLY Gonzalez Coding Level of Care Code New Pt Level 4 (22018) Diagnoses Recurrent UTI (urinary tract infection) N39.0 Mixed incontinence urge and stress N39.46 Lower urinary tract symptoms (LUTS) R39.9 CPT Codes Post Residual Void - PVR CPT Code: 17530-Oghp Void Residual by ultrasound ([id number])
== END 2023-04-04 14:19 | disposition home or self-care (01) ==
PROVIDERS: PCP Internal Medicine; Visit Provider Nurse Practitioner Family
DX: N39.0 Urinary tract infection, site not specified (principal); N39.46 Mixed incontinence; R39.9 Unspecified symptoms and signs involving the genitourinary system; Z13.9 Encounter for screening, unspecified
CPT/HCPCS: 99204

== ENCOUNTER → 2023-04-04 12:33 | Outpatient (BNVA) | payer OTHER, MEDICAID, SELFPAY | PROVIDERS: PCP Internal Medicine; Visit Provider Nurse Practitioner Family | DX: N39.0 Urinary tract infection, site not specified (principal); N39.46 Mixed incontinence; R39.9 Unspecified symptoms and signs involving the genitourinary system | CPT/HCPCS: 51798; 81003; 99202 ==

== ENCOUNTER 2023-05-02 13:59 | Outpatient (REF) | payer OTHER, SELFPAY ==
--- NOTE | ~2023-05-02 | US_ITS ---
EXAMINATION: US RETROPERITONEAL COMPLETE (RENAL) CLINICAL INFORMATION: Urinary tract infection, site not specified. COMPARISON: CT abdomen and pelvis with contrast and x-ray abdomen 02/22/2022. Renal ultrasound 04/10/2015. TECHNIQUE: Real-time imaging of the kidneys and bladder. Limited visualization due to bowel gas. FINDINGS: RIGHT KIDNEY: 10.5 x 3.7 x 4.2 cm (SAG x AP x TRV). No hydronephrosis. No renal calculi. Renal cortical thickness is normal. Limited visualization. . Medial midpole 1.2 x 1.2 x 1.4 cm cyst redemonstrated. There is no indication for follow-up imaging. LEFT KIDNEY: 10.5 x 5.5 x 4.9 cm (SAG x AP x TRV). No hydronephrosis. No renal calculi. Renal cortical thickness is normal. Limited visualization. BLADDER: Partially distended. Left ureteral jet is demonstrated; right is not. Prevoid bladder volume is 160 mL. Postvoid bladder volume is 6.8 mL. US/US retroperitoneal comp IMPRESSION: 1. No hydronephrosis. No renal calculi. Limited visualization. 2. Right renal 1.4 cm cyst redemonstrated. There is no indication for follow-up imaging.
== END 2023-05-02 14:00 | disposition home or self-care (01) ==
LOC: HO.US 13:59
PROVIDERS: PCP Internal Medicine; Visit Provider Nurse Practitioner Family
DX: N39.0 Urinary tract infection, site not specified (principal)
CPT/HCPCS: 76770

== ENCOUNTER 2023-05-17 14:04 | Outpatient (AMB) | payer MEDICARE, SELFPAY ==
--- NOTE | 2023-05-17 14:07 | A.OFFVIS_ITS ---
Intake Intake Visit Reasons: 6w/US(set) Intake Note: Patient is present for recurrent uti follow up Urology Medications: oxybutynin Blood Thinner: none PVR:0 Wastewater Treatment Supervisor Required: Yes Wastewater Treatment Supervisor Name: CORINNA REEVESMARK Information Interpreted: non-clinical & clinical Accompanied by: Self / Same As Patient Allergies ampicillin [AMPICILLIN] Allergy (Intermediate, Verified 05/17/23 16:04) RASH Penicillins [PCN] Allergy (Verified 05/17/23 16:04) Rash Medication List - Last Reconciled 05/17/23 by CHRISTINA Gonzalez albuterol sulfate 90 mcg/actuation (Proventil HFA) 2 puffs inhalation QID PRN alcohol swabs (Alcohol Prep Pads) 0 pad topical QID amitriptyline 75 mg PO BEDTIME atorvastatin 20 mg PO QPM benzonatate 100 mg PO TID PRN bisacodyl 10 mg (2 x 5 mg) PO BEDTIME blood sugar diagnostic (FreeStyle Lite Strips) As directed bupropion HCl 300 mg PO QAM cholecalciferol (vitamin D3) 50 mcg PO QAM clonidine HCl 0.2 mg PO BID dexlansoprazole (Dexilant) 60 mg PO QPM dicyclomine 10 mg PO QID docusate sodium 100 mg PO QAM enalapril maleate 20 mg PO BID estradiol 0.01%(0.1mg/gram) vaginally daily; pea sized amount to urethra 3 times a week 30 days fluoxetine 40 mg PO QAM fluticasone propion-salmeterol 500-50 mcg/dose (Advair Diskus) 1 inh inhalation BID fluticasone propionate 50 mcg/actuation (Flonase Allergy Relief) 2 sprays intranasal DAILY hydrochlorothiazide 25 mg PO DAILY hydroxyzine pamoate (Vistaril) 25 mg PO BID PRN Lactobacillus acidophilus 500 mmu cells PO DAILY lancets (TRUEplus Lancets) As directed linaclotide (Linzess) 290 mcg PO QAM loratadine 10 mg PO QAM PRN metformin 1,000 mg PO BID tolterodine ER 2 mg PO DAILY 30 days HPI HPI Comments History of Present Illness Details Yareli is a very pleasant 63-year-old Japanese-speaking patient of Dr. Mak. She has a past medical history of diabetes, hypertension, constipation, asthma, obesity, and hypercholesteremia. She presents to the [facility] today for follow-up. Of note, patient was seen approximately 2 months ago as a new patient for recurrent urinary tract infections as well as lower urinary tract symptoms at which time a retroperitoneal ultrasound was ordered for further assessment evaluation in the patient was started on 2 mg of tolterodine. In discussion with the patient today she reports noting somewhat improvement in urinary urgency and frequency on 2 mg of tolterodine. Recent retroperitoneal ultrasound results reviewed with the patient today. Bilateral kidneys with no hydronephrosis or calculi. Medial mid pole 1.2 x 1.2 x 1.4 right sided cyst. Which no indication for follow-up imaging per radiology report. The bladder is partially distended. Prevoid bladder volume is 160 mL. Postvoid bladder volume is approximately 5 mL. She denies having experienced any UTI like symptoms since her last office visit here. She reports attempting to follow-up with her staff educator for her ongoing issues with constipation. In office urinalysis results reviewed with the patient today. PVR 0 mL. She otherwise denies hematuria, nocturia, dysuria, foul-smelling urine, changes to urinary stream, flank pain, fever, and or chills. Discussed increasing tolterodine to 4 mg daily as she reports somewhat improvement in urinary urgency and frequency with 2 mg of tolterodine daily. She otherwise offers no other issues or concerns at this time. [facility] Medical History Elevated cholesterol Diabetes mellitus Obesity Asthma HTN (hypertension) Palpitations Surgical History Hx of tubal ligation Hx of breast biopsy Hx of cystoscopy Hx of colonoscopy History of lumpectomy Family History Father CVD (cardiovascular disease) Diabetes Mother Diabetes Colon cancer Social History Household Members: None Housing: Apartment Alcohol intake: current Alcohol intake frequency: holidays/special occasions only Alcohol type: beer Patient Tobacco Use Status: Never used Tobacco Review of Systems Const Reports as per HPI Eyes Reports no additional complaints ENT Reports no additional complaints Card Reports as per HPI Resp Reports as per HPI GI Reports as per HPI Reports as per HPI Musc Reports no additional complaints Neuro Reports no additional complaints Psych Reports no additional complaints Endo Reports as per HPI Hammad/Lymph Reports no additional complaints Aller/Immun Reports no additional complaints Physical Exam Const General: cooperative, healthy appearing, comfortable, no acute distress, well developed, alert and awake Orientation/consciousness: patient oriented x3 Limitations: no limitations HEENT Head: Yes normal to inspection, Yes normocephalic and Yes atraumatic Ears: hearing grossly normal bilaterally Eyes General: appearance normal, both eyes and all related structures Neck Neck: Yes normal visual inspection and Yes trachea midline Chest Chest palpation & inspection: normal inspection of the chest Resp Effort & Inspection: normal respiratory effort and able to speak in complete sentences Cardio Rate: regular rate GI Inspection: Yes normal to inspection General: Yes no CVA tenderness Back/Spine/Pelvis Back: no CVA tenderness Skin General skin exam: no rashes or lesions noted Neuro General: patient oriented x3 Extrem General: Yes normal to inspection Psych Appearance: grossly normal and well kempt Mental Status: mental status grossly normal Speech and movement: Normal speech and movement present and Clear speech present Affect: normal affect Attitude: cooperative Thought process: Normal thought process present Thought content: Normal thought content present Insight: Fair insight present (Psych) Judgement: Fair judgement present (Psych) Office Procedures Post Void Residual Post Residual Void Post Void Residual (PVR): 0 [id number] Void Residual by ultrasound Results AMB Urinalysis, Automated UA Leukoctes 15 Zhang/uL Last Edit by [employer] on 05/17/23 14:29 UA Nitrite Negative Last Edit by [employer] on 05/17/23 14:29 UA Urobilinogen 0.2 mg/dL Last Edit by [employer] on 05/17/23 14:29 UA Protein 15 mg/dL Last Edit by [employer] on 05/17/23 14:29 UA pH 5.5 Last Edit by [employer] on 05/17/23 14:29 UA Blood 0 Dorian/uL Last Edit by [employer] on 05/17/23 14:29 UA Specific [place] 1.025 Last Edit by [employer] on 05/17/23 14:29 UA Ketone Negative Last Edit by [employer] on 05/17/23 14:29 UA Bilirubin 1 mg/dL Last Edit by Elroy Mahan on 05/17/23 14:29 UA Glucose 0 mg/dL Last Edit by Elroy Mahan on 05/17/23 14:29 Results Reviewed Results Reviewed: Laboratory Last Values Urine pH (Auto) 5.5 05/17/23 14:08 Specific [place] (Auto) 1.025 05/17/23 14:08 Urine Protein (Auto) 15 mg/dL 05/17/23 14:08 Glucose (UA)(Auto) 0 mg/dL 05/17/23 14:08 Urine Ketones (Auto) Negative 05/17/23 14:08 Urine Blood (Auto) 0 Dorian/uL 05/17/23 14:08 Urine Nitrite (Auto) Negative 05/17/23 14:08 Urine Bilirubin (Auto) 1 mg/dL 05/17/23 14:08 Urine Urobilinogen (Auto) 0.2 mg/dL 05/17/23 14:08 Leukocyte Esterase (Auto) 15 Zhang/uL 05/17/23 14:08 Date of Service: 05/02/23 EXAMINATION: US RETROPERITONEAL COMPLETE (RENAL) FINDINGS: RIGHT KIDNEY: 10.5 x 3.7 x 4.2 cm (SAG x AP x TRV). No hydronephrosis. No renal calculi. Renal cortical thickness is normal. Limited visualization. . Medial midpole 1.2 x 1.2 x 1.4 cm cyst redemonstrated. There is no indication for follow-up imaging. LEFT KIDNEY: 10.5 x 5.5 x 4.9 cm (SAG x AP x TRV). No hydronephrosis. No renal calculi. Renal cortical thickness is normal. Limited visualization. BLADDER: Partially distended. Left ureteral jet is demonstrated; right is not. Prevoid bladder volume is 160 mL. Postvoid bladder volume is 6.8 mL. IMPRESSION: 1. No hydronephrosis. No renal calculi. Limited visualization. 2. Right renal 1.4 cm cyst redemonstrated. There is no indication for follow-up imaging. Assessment & Plan Assessment & Plan (1) Lower urinary tract symptoms (LUTS): Code(s): R39.9 - Unspecified symptoms and signs involving the genitourinary system (2) Mixed incontinence urge and stress: Code(s): N39.46 - Mixed incontinence (3) Recurrent UTI (urinary tract infection): Comment: 04/2022 E coli Resistant to Levaquin, ampicillin, ceftriaxone, Bactrim susceptible to nitrofurantoin and gentamicin Code(s): N39.0 - Urinary tract infection, site not specified (4) Urinary frequency: Code(s): R35.0 - Frequency of micturition Plan In office urinalysis results reviewed with the patient today; as noted above. Discussed recent retroperitoneal ultrasound results with the patient today; as noted above. Will increase tolterodine to 4 mg daily. Discussed at length importance of drinking plenty of water daily. Continue to follow-up with GI as planned. Patient currently denies any bothersome urinary issues or concerns. She denies any UTI like symptoms at this time. Follow-up in 6 weeks; or sooner with any issues, concerns, and or questions. Orders: Orders AMB Post Void Residual by ultrasound Today N39.0 - Urinary tract infection, site not specified AMB Urinalysis Automated Today Z13.9 - Encounter for screening, unspecified Medications: Changed From tolterodine ER 2 mg PO DAILY 30 days 30 caps 1RF R39.15 - Urgency of urination To tolterodine ER 4 mg (2 x 2 mg) PO DAILY 60 caps 1RF 30 days R39.15 - Urgency of urination Patient Instructions: The patient had an opportunity to ask questions regarding the treatment plan. All questions were answered. Physical exam, labs, and imaging were discussed and reviewed in detail. As well as risks, benefits, and discussion of treatment choices. No major barriers to understanding were identified. The patient expressed understanding and agreement with the above treatment plan. The patient was made aware they should contact our office by phone for worsening of their current condition, the appearance of new symptoms, or with any questions or concerns. Compliance is encouraged with any medications and follow up testing that is ordered. It is a privilege to be allowed the opportunity to participate in? your urological care.? Again, if you have any questions or concerns If you have any questions or concerns please do not hesitate to contact me. The office is [phone]. This note is constructed using voice recognition software. While every effort has been made to ensure accuracy superintendent system operation errors may have been included. Yours sincerely, NELLY Gonzalez Coding Level of Care Code Est Pt Level 3 (06052) Diagnoses Lower urinary tract symptoms (LUTS) R39.9 Mixed incontinence urge and stress N39.46 Recurrent UTI (urinary tract infection) N39.0 Urinary frequency R35.0 CPT Codes Post Residual Void - PVR CPT Code: 06276-Wcdq Void Residual by ultrasound ([id number])
== END 2023-05-17 14:48 | disposition home or self-care (01) ==
PROVIDERS: PCP Internal Medicine; Visit Provider Nurse Practitioner Family
DX: R39.9 Unspecified symptoms and signs involving the genitourinary system (principal); N39.46 Mixed incontinence; N39.0 Urinary tract infection, site not specified; R35.0 Frequency of micturition; Z13.9 Encounter for screening, unspecified
CPT/HCPCS: 99213

== ENCOUNTER → 2023-05-17 14:04 | Outpatient (BNVA) | payer MEDICARE, SELFPAY | PROVIDERS: PCP Internal Medicine; Visit Provider Nurse Practitioner Family | DX: N39.46 Mixed incontinence (principal); R39.9 Unspecified symptoms and signs involving the genitourinary system; N39.0 Urinary tract infection, site not specified; R35.0 Frequency of micturition; Z79.899 Other long term (current) drug therapy | CPT/HCPCS: 51798; 81003; 99212 ==

== ENCOUNTER 2023-05-24 12:57 | Outpatient (REF) | payer MEDICARE, SELFPAY ==
--- NOTE | ~2023-05-24 | MM_ITS ---
EXAMINATION: MM SCREENING DIGITAL BREAST TOMOSYNTHESIS, BILATERAL CLINICAL INFORMATION: Screening. Asymptomatic. COMPARISON: Mammography: This study is compared with prior exams dating back to 2018. TECHNIQUE: Digital breast tomosynthesis is performed in both the craniocaudal and mediolateral oblique views along with computer-aided detection (CAD). Synthesized 2D images are generated from the tomosynthesis. FINDINGS: There are scattered areas of fibroglandular density (ACR BI-RADS breast composition Category b). There are no significant masses, abnormal calcifications, or other abnormalities. There are postsurgical changes in the medial aspect of the left breast from prior benign excisional biopsy. MM/MM tomosynthesis screening BI IMPRESSION: No mammographic evidence of malignancy. ASSESSMENT: BI-RADS BI-RADS 2 - Benign Findings RECOMMENDATION: Routine annual mammography screening. 1 year F/U This examination should not preclude the clinical evaluation of a suspicious palpable abnormality. This patient's information was entered into a reminder system with a target due date for their next mammogram.
== END 2023-05-24 12:58 | disposition home or self-care (01) ==
LOC: HO.MAMMO 12:57
PROVIDERS: PCP Internal Medicine; Visit Provider Internal Medicine
DX: Z12.31 Encounter for screening mammogram for malignant neoplasm of breast (principal)
CPT/HCPCS: 77063; 77067

== ENCOUNTER → 2023-05-24 13:30 | Outpatient (BNV) | payer MEDICARE, SELFPAY | PROVIDERS: PCP Internal Medicine; Visit Provider Radiology Diagnostic Radiology | DX: Z12.31 Encounter for screening mammogram for malignant neoplasm of breast (principal) | CPT/HCPCS: 77063; 77067 ==

== ENCOUNTER 2023-06-30 13:57 | Outpatient (AMB) | payer MEDICARE, SELFPAY ==
--- NOTE | 2023-06-30 14:03 | MHC.OFFVIS ---
Intake Intake Visit Reasons: 6w follow up Intake Note: Patient presents today for a telehealth follow-up Meds- Tolterodine Allergies to Antibiotic- Ampicillin, Penicillin Blood Thinner- None Drawing In Machine Tender Helper Required: Yes Drawing In Machine Tender Helper Name: CORINNA REEVESMARK Accompanied by: Self / Same As Patient Allergies ampicillin [AMPICILLIN] Allergy (Intermediate, Verified 06/30/23 14:28) RASH Penicillins [PCN] Allergy (Verified 06/30/23 14:28) Rash Medication List - Last Reconciled 06/30/23 by EDWIN Gonzalez- albuterol sulfate 90 mcg/actuation (Proventil HFA) 2 puffs inhalation QID PRN alcohol swabs (Alcohol Prep Pads) 0 pad topical QID amitriptyline 75 mg PO BEDTIME atorvastatin 20 mg PO QPM benzonatate 100 mg PO TID PRN bisacodyl 10 mg (2 x 5 mg) PO BEDTIME blood sugar diagnostic (FreeStyle Lite Strips) As directed bupropion HCl 300 mg PO QAM cholecalciferol (vitamin D3) 50 mcg PO QAM clonidine HCl 0.2 mg PO BID dexlansoprazole (Dexilant) 60 mg PO QPM dicyclomine 10 mg PO QID docusate sodium 100 mg PO QAM enalapril maleate 20 mg PO BID estradiol 0.01%(0.1mg/gram) vaginally daily; pea sized amount to urethra 3 times a week 30 days fluoxetine 40 mg PO QAM fluticasone propion-salmeterol 500-50 mcg/dose (Advair Diskus) 1 inh inhalation BID fluticasone propionate 50 mcg/actuation (Flonase Allergy Relief) 2 sprays intranasal DAILY hydrochlorothiazide 25 mg PO DAILY hydroxyzine pamoate (Vistaril) 25 mg PO BID PRN Lactobacillus acidophilus 500 mmu cells PO DAILY lancets (TRUEplus Lancets) As directed linaclotide (Linzess) 290 mcg PO QAM loratadine 10 mg PO QAM PRN metformin 1,000 mg PO BID mirabegron ER (Myrbetriq) 25 mg PO DAILY 30 days HPI HPI Comments History of Present Illness Details aYreli is a very pleasant 63-year-old Tamaz[place]-speaking patient of Dr. Mak. She has a past medical history of diabetes, hypertension, constipation, asthma, obesity, and hypercholesteremia. She presents to the office today for follow-up. Of note, patient was seen approximately 2 months ago at which time oxybutynin was discontinued as she felt no improvement in lower urinary tract symptoms and was started on tolterodine. In discussion with the patient today she reports no improvement in urinary urgency, urinary frequency, and episodes of incontinence if not near a bathroom. She also is reporting new onset of foul-smelling urine. She believes this is related to tolterodine as she feels symptoms of foul-smelling urine started right after. Discussed obtaining urinalysis/urine culture for further assessment evaluation. She otherwise denies any worsening of her baseline urinary urgency and frequency. Previous workup has included retroperitoneal ultrasound noting bilateral kidneys with no hydronephrosis or calculi. Medial mid pole 1.2 x 1.2 x 1.4 right sided cyst. Which no indication for follow-up imaging per radiology report. The bladder is partially distended. Prevoid bladder volume is 160 mL. Postvoid bladder volume is approximately 5 mL. When asked she reports to not have been utilizing her Estrace cream as she was unaware of how to use it. This was reviewed with the patient today. She discusses following up with Gastroenterology for ongoing constipation issues. Discussed correlation of constipation with recurrent urinary tract infections. She otherwise denies hematuria, nocturia, dysuria, changes to urinary stream, flank pain, fever, and or chills. She otherwise offers no other issues or concerns at this time. [facility] Medical History Elevated cholesterol Diabetes mellitus Obesity Asthma HTN (hypertension) Palpitations Surgical History Hx of tubal ligation Hx of breast biopsy Hx of cystoscopy Hx of colonoscopy History of lumpectomy Family History Father CVD (cardiovascular disease) Diabetes Mother Diabetes Colon cancer Social History Household Members: None Housing: Apartment Alcohol intake: current Alcohol intake frequency: holidays/special occasions only Alcohol type: beer Patient Tobacco Use Status: Never used Tobacco Review of Systems Const Reports as per HPI Eyes Reports no additional complaints ENT Reports no additional complaints Card Reports as per [facility] Resp Reports as per [facility] GI Reports as per HPI Reports as per [facility] Musc Reports no additional complaints Neuro Reports no additional complaints Psych Reports no additional complaints Endo Reports as per HPI Hammad/Lymph Reports no additional complaints Aller/Immun Reports no additional complaints Physical Exam Const General: cooperative Resp Effort & Inspection: able to speak in complete sentences Psych Speech and movement: Clear speech present Attitude: cooperative Thought content: Normal thought content present Insight: Fair insight present (Psych) Judgement: Fair judgement present (Psych) Assessment & Plan Assessment & Plan (1) Foul smelling urine: Code(s): R82.90 - Unspecified abnormal findings in urine (2) Lower urinary tract symptoms (LUTS): Code(s): R39.9 - Unspecified symptoms and signs involving the genitourinary system (3) Mixed incontinence urge and stress: Code(s): N39.46 - Mixed incontinence (4) Recurrent UTI (urinary tract infection): Comment: 04/2022 E coli Resistant to Levaquin, ampicillin, ceftriaxone, Bactrim susceptible to nitrofurantoin and gentamicin Code(s): N39.0 - Urinary tract infection, site not specified Plan Patient reports no improvement in lower urinary tract symptoms on tolterodine at 2 mg and 4 mg Stop tolterodine. Start Myrbetriq as discussed and prescribed. Discussed obtaining urinalysis/urine culture for new onset foul-smelling urine. Discussed and educated on how to utilize Estrace cream. Follow-up with GI to assist with management of constipation. Discussed correlation of constipation on recurrent urinary tract infections. Discussed affects of medications Discussed possible near future in office cystoscopy and or urodynamics for further assessment evaluation if symptoms persist and/or worsen. Follow-up in 1-3 months with [facility]; or sooner with any issues, concerns, and or questions. Orders: Orders UA and rflx microscopic Today R82.90 - Unspecified abnormal findings in urine Urine Culture Today N39.0 - Urinary tract infection, site not specified Medications: New mirabegron ER (Myrbetriq) 25 mg PO DAILY 30 tabs 2RF 30 days N30.10 - Interstitial cystitis (chronic) without hematuria, N32.81 - Overactive bladder, R35.1 - Nocturia, R39.15 - Urgency of urination Patient Instructions: The patient had an opportunity to ask questions regarding the treatment plan. All questions were answered. Physical exam, labs, and imaging were discussed and reviewed in detail. As well as risks, benefits, and discussion of treatment choices. No major barriers to understanding were identified. The patient expressed understanding and agreement with the above treatment plan. The patient was made aware they should contact our office by phone for worsening of their current condition, the appearance of new symptoms, or with any questions or concerns. Compliance is encouraged with any medications and follow up testing that is ordered. It is a privilege to be allowed the opportunity to participate in? your urological care.? Again, if you have any questions or concerns If you have any questions or concerns please do not hesitate to contact me. The office is [phone]. This note is constructed using voice recognition software. While every effort has been made to ensure accuracy dry cleaning counter clerk errors may have been included. Yours sincerely, NELLY Gonzalez Telehealth Telehealth Location of provider rendering services: practice address Location of patient: address on file Patient Identification confirmed using: Name, : Yes Telehealth method: voice only Patient verbally consented to treatment: Yes Patient verbally consented to billing insurance company: Yes Patient informed of any privacy concerns related to visit: Yes Minutes spent on Phone/Video with Pt.: 20 Coding Level of Care Code Tele Est Pt Level 4 (90634) Diagnoses Foul smelling urine R82.90 Lower urinary tract symptoms (LUTS) R39.9 Mixed incontinence urge and stress N39.46 Recurrent UTI (urinary tract infection) N39.0
== END 2023-06-30 14:25 | disposition home or self-care (01) ==
LOC: HO.HUSH 13:58
PROVIDERS: PCP Internal Medicine; Visit Provider Nurse Practitioner Family
DX: R82.90 Unspecified abnormal findings in urine (principal); R39.9 Unspecified symptoms and signs involving the genitourinary system; N39.46 Mixed incontinence; N39.0 Urinary tract infection, site not specified
CPT/HCPCS: 99442

== ENCOUNTER → 2023-06-30 13:57 | Outpatient (BNVA) | payer MEDICARE, SELFPAY | PROVIDERS: PCP Internal Medicine; Visit Provider Nurse Practitioner Family ==

== ENCOUNTER 2023-07-08 11:55 | Outpatient (REF) | payer MEDICARE, SELFPAY ==
[2023-07-08 14:18] LABS: Appearance Urine Hazy; Color Urine Yellow; Glucose Urine UA Negative (Negative); Leukocyte Esterase Urine Moderate (2+) (Negative); Nitrite Urine Positive (Negative); Specific Gravity - Urine 1.015 (1.005-1.025); UMIC TRIGGER UA YES; Urine Blood Negative (Negative); Urine Ketones Negative (Negative); Urine Protein Negative (Neg-Trace)
[2023-07-08 14:19] LABS: Bacteria Urine 4+ (None Seen); Hyaline Casts Urine 0-2 /LPF (0-2); RBC Urine 0-2 /HPF (0-2); Squamous Epithelial Cell Urine 0-2 /HPF (0-2); WBC Urine >50 /HPF (0-5)
== END 2023-07-08 11:56 | disposition home or self-care (01) ==
LOC: HO.LAB 11:55
PROVIDERS: Visit Provider Nurse Practitioner Family
DX: N39.0 Urinary tract infection, site not specified (principal)
CPT/HCPCS: 81001; 87086; 87088; 87186

== ENCOUNTER 2023-09-01 11:03 | Outpatient (AMB) | payer OTHER, SELFPAY ==
--- NOTE | 2023-09-01 11:04 | MHC.OFFVIS ---
Vital Signs 09/01/23 11:05 Height 4 ft 10 in Weight 132 lb 4.438 oz BMI 27.6 BP 103/60 Blood Pressure Location Lt brachial Position Sitting Pulse 86 Intake Visit Reasons: Follow up medications Intake Note: Patient returns to office in follow up of GERD. CC: Patient c/o burning from stomach, mid abdominal pain, constipation and diarrhea sometimes, and upset stomach. Sample Tailor Required: Yes Sample Tailor Name: Katya [id number] Accompanied by: Self / Same As Patient Allergies ampicillin [AMPICILLIN] Allergy (Intermediate, Verified 09/01/23 11:09) RASH Penicillins [PCN] Allergy (Verified 09/01/23 11:09) Rash HPI HPI Follow up medications: Details: Assessment & Plan (1) Irritable bowel syndrome with constipation: Code(s): K58.1 - Irritable bowel syndrome with constipation Plan: [place] #Anabela, Live She is now doing well on the regimen of LInzess 290 qam and 2 bisacodyl qhs. She also continues on Dexilant and has dicyclomine for cramping. She will occasionally have burning with eating, and had not considered if certain foods are to blame. Will print education material from [employer]. ROV 4 mos. (2) GERD (gastroesophageal reflux disease): Code(s): K21.9 - Gastro-esophageal reflux disease without esophagitis TODAY'S VISIT [place] #[id number] Mojgan She has been having a lot of periumbilical pain and burning and also says I am out of my medication. She DID miss an appointment however, i had refilled the medications in May and I don't know why she did not receive them. We will restart her LInzess, colace, Dexilant and bentyl and evaluate if this solves the problem. The only new medical condition is an infection in her eye that worsened that progressed to her sinuses. This was quite painful but it is resolving. She now has vaginal itching and I rx diflucan and instruct her to hold her atorvastatin for 2 days to avoid myalgias. ROV 4 weeks. [facility] Medical History Elevated cholesterol Diabetes mellitus Obesity Asthma HTN (hypertension) Palpitations Surgical History Hx of tubal ligation Hx of breast biopsy Hx of cystoscopy Hx of colonoscopy History of lumpectomy Family History Father CVD (cardiovascular disease) Diabetes Mother Diabetes Colon cancer Social History Household Members: None Housing: Apartment Alcohol intake: current Alcohol intake frequency: holidays/special occasions only Alcohol type: beer Patient Tobacco Use Status: Never used Tobacco Review of Systems Const Denies fatigue, Denies fever(s), Denies night sweats, Denies poor appetite and Denies weight loss ENT Reports Normal hearing present, Denies dental pain, Denies dysphagia, Denies hearing loss, Denies mouth pain, Denies odynophagia, Reports sinus pain, Reports sinus pressure, Denies throat swelling, Denies tongue swelling and Reports other (Dentition adequate) Card Reports no additional complaints Resp Reports no additional complaints GI Details: Reports abdominal pain, Denies melena, Reports bloating, Denies hematochezia, Reports constipation, Denies GI cramping, Denies dysphagia, Denies excessive flatus, Denies early satiety, Reports dyspepsia, Reports heartburn, Denies diarrhea, Denies nausea, Denies odynophagia, Denies vomiting and Denies hematemesis Reports vaginal pruritus Skin/Breast Denies pruritus, Denies lesions, Denies rash and Denies jaundice Neuro Reports Normal hearing present and Denies Abnormal speech present Endo Denies fatigue Aller/Immun Denies throat swelling and Denies tongue swelling Physical Exam Vital Signs: Last Vital Signs Pulse 86 09/01/23 11:05 BP 103/60 09/01/23 11:05 BMI result Body Mass Index 27.6 Const General: cooperative, no acute distress, well developed and well groomed Nutritional Appearance: average body habitus and well nourished Orientation/consciousness: oriented to person, oriented to place and oriented to time Limitations: language barrier HEENT Head: Yes normocephalic and Yes atraumatic Eyes General: appearance normal, both eyes and all related structures Pupils: Equal, round and reactive pupils present Neck Neck: Yes normal visual inspection and Yes no lymphadenopathy Thyroid: Thyroid normal Resp Effort & Inspection: normal respiratory effort and able to speak in complete sentences Auscultation: clear to auscultation bilaterally Cardio Rate: regular rate Rhythm: regular rhythm Heart sounds: Normal, physiologic split S2 sound present Peripheral pulses: radial pulses present and posterior tibial pulses present GI Inspection: Yes distended and No Abdominal panniculus present Palpation (GI): Soft to palpation, nontender, no guarding, not rigid and No hepatosplenomegaly present Percussion: Yes normal to percussion Auscultation: normal bowel sounds Rectal Exam - Female: deferred Skin General skin exam: no rashes or lesions noted, turgor normal, skin not dry, no jaundice, No spider nevi and no striae Rashes: no rashes Nails: normal Neuro General: oriented to person, oriented to place and oriented to time Cranial nerves: Yes Equal, round and reactive pupils present and Yes Normal hearing present Speech: No Abnormal speech present Extrem General: Yes normal to inspection, No clubbing, No cyanosis and No edema Psych Appearance: grossly normal and well kempt Mental Status: mental status grossly normal Speech and movement: Normal speech and movement present Affect: normal affect Attitude: cooperative Thought process: Normal thought process present and not confabulating Thought content: Normal thought content present Insight: Limited insight present (Psych) and Poor insight present (Psych) Judgement: Limited judgement present (Psych) and Poor judgement present (Psych) Assessment & Plan Assessment & Plan (1) GERD (gastroesophageal reflux disease): Code(s): K21.9 - Gastro-esophageal reflux disease without esophagitis Category: Medical (2) Irritable bowel syndrome with constipation: Code(s): K58.1 - Irritable bowel syndrome with constipation Category: Medical (3) Vaginal rubi: Code(s): B37.31 - Acute candidiasis of vulva and vagina Category: Medical Plan [place] #[id number] Mojgan She has been having a lot of periumbilical pain and burning and also says I am out of my medication. She DID miss an appointment however, i had refilled the medications in May and I don't know why she did not receive them. We will restart her LInzess, colace, Dexilant and bentyl and evaluate if this solves the problem. The only new medical condition is an infection in her eye that worsened that progressed to her sinuses. This was quite painful but it is resolving. She now has vaginal itching and I rx diflucan and instruct her to hold her atorvastatin for 2 days to avoid myalgias. ROV 4 weeks. Medications: New fluconazole (Diflucan) 200 mg PO ONCE 1 tab 0RF B37.31 - Acute candidiasis of vulva and vagina Refilled docusate sodium 100 mg PO QAM 30 caps 4RF linaclotide (Linzess) 290 mcg PO QAM 30 caps 6RF K58.1 - Irritable bowel syndrome with constipation dicyclomine 10 mg PO QID 90 caps 3RF K58.1 - Irritable bowel syndrome with constipation dexlansoprazole (Dexilant) 60 mg PO QPM 30 caps 4RF Coding Level of Care Code Est Pt Level 3 (48708) Diagnoses GERD (gastroesophageal reflux disease) K21.9 Irritable bowel syndrome with constipation K58.1 Vaginal rubi B37.31
[2023-09-01 11:05] VITALS: BP 103/60; PULSE 86; BMI 27.6
== END 2023-09-01 11:29 | disposition home or self-care (01) ==
PROVIDERS: PCP Internal Medicine; Visit Provider Nurse Practitioner
DX: K21.9 Gastro-esophageal reflux disease without esophagitis (principal); K58.1 Irritable bowel syndrome with constipation; B37.31 Acute candidiasis of vulva and vagina
CPT/HCPCS: 99213

== ENCOUNTER → 2023-09-01 11:03 | Outpatient (BNVA) | payer MEDICARE, SELFPAY | PROVIDERS: PCP Internal Medicine; Visit Provider Nurse Practitioner | DX: K21.9 Gastro-esophageal reflux disease without esophagitis (principal); K58.1 Irritable bowel syndrome with constipation; B37.31 Acute candidiasis of vulva and vagina | CPT/HCPCS: 99212 ==

== ENCOUNTER 2023-09-30 14:34 | Outpatient (REF) | payer OTHER, SELFPAY ==
[2023-09-30 16:04] LABS: MANUAL DIFF FLAG NO
[2023-09-30 16:08] LABS: Basophils Absolute Auto 0.1 X10*3/uL (0.0-0.2); Basophils Percent Auto 0.7 % (0-2); Eosinophils Absolute Auto 0.3 X10*3/uL (0.0-0.4); Eosinophils Percent Auto 3.7 % (0-4); Hemoglobin 11.1 g/dl (12.0-16.0); Imm Gran Abs Auto 0.02 X10*3/uL (0.00-0.03); Imm Gran Pct Auto 0.2 % (0.0-0.4); Lymphocytes Percent Auto 37.2 % (20-40); Mean Corpuscular HGB Conc 32.6 g/dl (31.0-35.0); Mean Corpuscular Hemoglobin 28.5 pg (27.0-33.0); Mean Corpuscular Volume 87.4 fL (80.0-98.0); Mean Platelet Volume 10.5 fL (9.4-12.3); Monocytes Absolute Auto 0.4 X10*3/uL (0.1-1.2); Monocytes Percent Auto 5.4 % (2-11); Neutrophils Absolute Auto 4.2 x10*3/uL (2.0-8.3); Neutrophils Percent Auto 52.8 % (45-73); Platelet Count 292 X10*3/uL (160-400); Red Blood Count 3.89 X10*6/uL (4.20-5.50); Red Cell Distribution Width 13.1 % (11.0-16.0)
[2023-09-30 16:24] LABS: Anion Gap 11 (12-20); Blood Urea Nitrogen 15 mg/dL (9-16); Calcium 10.4 mg/dL (8.4-10.2); Carbon Dioxide 30 mmol/L (22-29); Chloride 105 mmol/L (96-108); Estimated Glomerular Filt Rate > 60; Glucose Random 108 mg/dL (60-115); Sodium 142 mmol/L (135-145)
== END 2023-09-30 14:35 | disposition home or self-care (01) ==
LOC: HO.HHCL 14:34
PROVIDERS: Visit Provider Internal Medicine
DX: Z00.00 Encounter for general adult medical examination without abnormal findings (principal)
CPT/HCPCS: 36415; 80048; 85025

== ENCOUNTER 2023-10-06 11:02 | Outpatient (AMB) | payer OTHER, SELFPAY ==
[2023-10-06 11:04] VITALS: BP 130/75; PULSE 82; BMI 27.6
--- NOTE | 2023-10-06 11:04 | MHC.OFFVIS ---
Vital Signs 10/06/23 11:04 Height 4 ft 10 in Weight 131 lb 13.383 oz BMI 27.6 BP 130/75 Blood Pressure Location Rt brachial Position Sitting Pulse 82 Intake Visit Reasons: 4 weeks follow up Gerd, CIC Intake Note: Yareli returns to office today in 4 weeks follow up of CIC and GERD. CC: Patient reports that she did not received the Dexilant and is having acid reflux and heartburn. Denies other GI symptoms today. Regional Ehs Manager Required: Yes Allergies ampicillin [AMPICILLIN] Allergy (Intermediate, Verified 10/06/23 11:09) RASH Penicillins [PCN] Allergy (Verified 10/06/23 11:09) Rash HPI HPI 4 weeks follow up Gerd, CIC: Details: Assessment & Plan (1) GERD (gastroesophageal reflux disease): Code(s): K21.9 - Gastro-esophageal reflux disease without esophagitis Category: Medical (2) Irritable bowel syndrome with constipation: Code(s): K58.1 - Irritable bowel syndrome with constipation Category: Medical (3) Vaginal rubi: Code(s): B37.31 - Acute candidiasis of vulva and vagina Category: Medical Plan [place] #[id number] Mojgan She has been having a lot of periumbilical pain and burning and also says I am out of my medication. She DID miss an appointment however, i had refilled the medications in May and I don't know why she did not receive them. We will restart her LInzess, colace, Dexilant and bentyl and evaluate if this solves the problem. The only new medical condition is an infection in her eye that worsened that progressed to her sinuses. This was quite painful but it is resolving. She now has vaginal itching and I rx diflucan and instruct her to hold her atorvastatin for 2 days to avoid myalgias. ROV 4 weeks. Medications: New fluconazole (Diflucan) 200 mg PO ONCE 1 tab 0RF B37.31 - Acute candidiasis of vulva and vagina Refilled docusate sodium 100 mg PO QAM 30 caps 4RF linaclotide (Linzess) 290 mcg PO QAM 30 caps 6RF K58.1 - Irritable bowel syndrome with constipation dicyclomine 10 mg PO QID 90 caps 3RF K58.1 - Irritable bowel syndrome with constipation dexlansoprazole (Dexilant) 60 mg PO QPM 30 caps 4RF TODAY'S VISIT [place] #Joseph, Live She still has the same problems with bloating and cramping, but since her stools have been soft she is not taking her LInzess, I explain that this usually means that she is not emptying out fully - so this is a form of CIC. Her GERD is better with her medications. LInzess, colace, Dexilant and bent ROV 6 weeks. [facility] Medical History Elevated cholesterol Diabetes mellitus Obesity Asthma HTN (hypertension) Palpitations Surgical History Hx of tubal ligation Hx of breast biopsy Hx of cystoscopy Hx of colonoscopy History of lumpectomy Family History Father CVD (cardiovascular disease) Diabetes Mother Diabetes Colon cancer Social History Household Members: None Housing: Apartment Alcohol intake: current Alcohol intake frequency: holidays/special occasions only Alcohol type: beer Patient Tobacco Use Status: Never used Tobacco Review of Systems Const Denies fatigue, Denies fever(s), Denies night sweats, Denies poor appetite and Denies weight loss ENT Reports Normal hearing present, Denies dental pain, Denies dysphagia, Denies hearing loss, Denies mouth pain, Denies odynophagia, Denies throat swelling, Denies tongue swelling and Reports other (Dentition adequate) Card Reports no additional complaints Resp Reports no additional complaints GI Details: Denies abdominal pain, Denies melena, Reports bloating, Denies hematochezia, Reports constipation, Denies GI cramping, Denies dysphagia, Denies excessive flatus, Denies early satiety, Reports heartburn, Denies diarrhea, Reports nausea, Denies odynophagia, Denies vomiting and Denies hematemesis Skin/Breast Denies pruritus, Denies lesions, Denies rash and Denies jaundice Neuro Reports Normal hearing present and Denies Abnormal speech present Endo Denies fatigue Aller/Immun Denies throat swelling and Denies tongue swelling Physical Exam Vital Signs: Last Vital Signs Pulse 82 10/06/23 11:04 BP 130/75 10/06/23 11:04 BMI result Body Mass Index 27.6 Const General: cooperative, no acute distress, well developed and well groomed Nutritional Appearance: average body habitus and well nourished Orientation/consciousness: oriented to person, oriented to place and oriented to time Limitations: language barrier HEENT Head: Yes normocephalic and Yes atraumatic Eyes General: appearance normal, both eyes and all related structures Pupils: Equal, round and reactive pupils present Neck Neck: Yes normal visual inspection and Yes no lymphadenopathy Thyroid: Thyroid normal Resp Effort & Inspection: normal respiratory effort and able to speak in complete sentences Auscultation: clear to auscultation bilaterally Cardio Rate: regular rate Rhythm: regular rhythm Heart sounds: Normal, physiologic split S2 sound present Peripheral pulses: radial pulses present and posterior tibial pulses present GI Inspection: No distended and No Abdominal panniculus present Palpation (GI): Soft to palpation, nontender, no guarding, not rigid and No hepatosplenomegaly present Percussion: Yes normal to percussion Auscultation: normal bowel sounds Rectal Exam - Female: deferred Skin General skin exam: no rashes or lesions noted, turgor normal, skin not dry, no jaundice, No spider nevi and no striae Rashes: no rashes Nails: normal Neuro General: oriented to person, oriented to place and oriented to time Cranial nerves: Yes Equal, round and reactive pupils present and Yes Normal hearing present Speech: No Abnormal speech present Extrem General: Yes normal to inspection, No clubbing, No cyanosis and No edema Psych Appearance: grossly normal and well kempt Mental Status: mental status grossly normal Speech and movement: Normal speech and movement present Affect: normal affect Attitude: cooperative Thought process: Normal thought process present and not confabulating Thought content: Normal thought content present Insight: Limited insight present (Psych) and Poor insight present (Psych) Judgement: Limited judgement present (Psych) and Poor judgement present (Psych) Assessment & Plan Assessment & Plan (1) GERD (gastroesophageal reflux disease): Code(s): K21.9 - Gastro-esophageal reflux disease without esophagitis Category: Medical (2) Irritable bowel syndrome with constipation: Code(s): K58.1 - Irritable bowel syndrome with constipation Category: Medical (3) Abdominal cramping: Code(s): R10.9 - Unspecified abdominal pain Category: Medical (4) Vaginal rubi: Code(s): B37.31 - Acute candidiasis of vulva and vagina Category: Medical Plan [place] #Joseph, Live She still has the same problems with bloating and cramping, but since her stools have been soft she is not taking her LInzess, I explain that this usually means that she is not emptying out fully - so this is a form of CIC. Her GERD is better with her medications. LInzess, colace, Dexilant and bent ROV 6 weeks. Medications: New linaclotide (Linzess) 72 mcg PO QAM 30 caps 3RF K58.1 - Irritable bowel syndrome with constipation On Hold linaclotide (Linzess) Hold Comment: Doctor's Order 290 mcg PO QAM 30 caps 6RF K58.1 - Irritable bowel syndrome with constipation Coding Level of Care Code Est Pt Level 3 (49932) Diagnoses GERD (gastroesophageal reflux disease) K21.9 Irritable bowel syndrome with constipation K58.1 Abdominal cramping R10.9 Vaginal rubi B37.31
== END 2023-10-06 11:29 | disposition home or self-care (01) ==
PROVIDERS: PCP Internal Medicine; Visit Provider Nurse Practitioner
DX: K21.9 Gastro-esophageal reflux disease without esophagitis (principal); K58.1 Irritable bowel syndrome with constipation; R10.9 Unspecified abdominal pain; B37.31 Acute candidiasis of vulva and vagina
CPT/HCPCS: 99213

== ENCOUNTER → 2023-10-06 11:02 | Outpatient (BNVA) | payer OTHER, SELFPAY | PROVIDERS: PCP Internal Medicine; Visit Provider Nurse Practitioner | DX: K21.9 Gastro-esophageal reflux disease without esophagitis (principal); K58.1 Irritable bowel syndrome with constipation; R10.9 Unspecified abdominal pain; B37.31 Acute candidiasis of vulva and vagina | CPT/HCPCS: 99212 ==

== ENCOUNTER 2023-10-13 13:59 | Outpatient (AMB) | payer OTHER, SELFPAY ==
--- NOTE | 2023-10-13 14:13 | MHC.OFFVIS ---
Intake Visit Reasons: 2M/PVR Intake Note: Patient presents today for follow up on: recurrent uti, LUTS, incontinence Urology Medications: Myrbetriq Allergies to Antibiotic: Ampicillin, Penicillin Blood Thinner: None PVR: 0ml's Community Support Worker Required: Yes Community Support Worker Name: CORINNA REEVESMARK Accompanied by: Self / Same As Patient Allergies ampicillin [AMPICILLIN] Allergy (Intermediate, Verified 10/13/23 20:31) RASH Penicillins [PCN] Allergy (Verified 10/13/23 20:31) Rash Medication List - Last Reconciled 10/13/23 by NELLY Gonzalez albuterol sulfate 90 mcg/actuation (Proventil HFA) 2 puffs inhalation QID PRN alcohol swabs (Alcohol Prep Pads) 0 pad topical QID amitriptyline 75 mg PO BEDTIME atorvastatin 20 mg PO QPM benzonatate 100 mg PO TID PRN bisacodyl 10 mg (2 x 5 mg) PO BEDTIME blood sugar diagnostic (FreeStyle Lite Strips) As directed bupropion HCl XL 300 mg PO QAM cholecalciferol (vitamin D3) 50 mcg PO QAM clonidine HCl 0.2 mg PO BID dexlansoprazole (Dexilant) 60 mg PO QPM dicyclomine 10 mg PO QID docusate sodium 100 mg PO QAM enalapril maleate 20 mg PO BID estradiol 0.01%(0.1mg/gram) vaginally daily; pea sized amount to urethra 3 times a week 30 days fluoxetine 40 mg PO QAM fluticasone propion-salmeterol 500-50 mcg/dose (Advair Diskus) 1 inh inhalation BID fluticasone propionate 50 mcg/actuation (Flonase Allergy Relief) 2 sprays intranasal DAILY hydrochlorothiazide 25 mg PO DAILY hydroxyzine pamoate (Vistaril) 25 mg PO BID PRN Lactobacillus acidophilus 500 mmu cells PO DAILY lancets (TRUEplus Lancets) As directed linaclotide (Linzess) 290 mcg PO QAM linaclotide (Linzess) 72 mcg PO QAM loratadine 10 mg PO QAM PRN metformin 1,000 mg PO BID mirabegron ER (Myrbetriq) 25 mg PO DAILY 90 days HPI Comments Details: Yareli is a very pleasant 63-year-old [place]ayan-speaking patient of Dr. Mak. She has a past medical history of diabetes, hypertension, constipation, asthma, obesity, and hypercholesteremia. She presents to the office today for follow-up. Of note, patient was seen approximately 3 months ago at which time her urine was sent for urine culture that noted E coli. She has since completed antibiotic therapy as prescribed. During last office visit patient is tolterodine had been discontinued as patient reported no improvement in lower urinary tract symptoms. She has also previously trialed oxybutynin with no improvement. She reports significant improvement in lower urinary tract symptoms with Myrbetriq 25 mg daily. She reports to be happy with her current voiding parameters. She currently denies any bothersome urinary issues or concerns. In office urinalysis results reviewed with the patient today. PVR 0ml's. Previous workup has included retroperitoneal ultrasound noting bilateral kidneys with no hydronephrosis or calculi. Medial mid pole 1.2 x 1.2 x 1.4 right sided cyst. Which no indication for follow-up imaging per radiology report. The bladder is partially distended. Prevoid bladder volume is 160 mL. Postvoid bladder volume is approximately 5 mL. She reports compliance with Estrace cream as prescribed. She denies hematuria, nocturia, dysuria, changes to urinary stream, flank pain, fever, and or chills. She otherwise offers no other issues or concerns at this time. [facility] Medical History Elevated cholesterol Diabetes mellitus Obesity Asthma HTN (hypertension) Palpitations Surgical History Hx of tubal ligation Hx of breast biopsy Hx of cystoscopy Hx of colonoscopy History of lumpectomy Family History Father CVD (cardiovascular disease) Diabetes Mother Diabetes Colon cancer Social History Household Members: None Housing: Apartment Alcohol intake: current Alcohol intake frequency: holidays/special occasions only Alcohol type: beer Patient Tobacco Use Status: Never used Tobacco Review of Systems Const Reports as per HPI Eyes Reports no additional complaints ENT Reports no additional complaints Card Reports as per HPI Resp Reports as per HPI GI Reports as per HPI Reports as per HPI Musc Reports no additional complaints Neuro Reports no additional complaints Psych Reports no additional complaints Endo Reports as per HPI Hammad/Lymph Reports no additional complaints Aller/Immun Reports no additional complaints Physical Exam Const General: cooperative, healthy appearing, comfortable, no acute distress, well developed, alert and awake Orientation/consciousness: patient oriented x3 Limitations: no limitations HEENT Head: Yes normal to inspection, Yes normocephalic and Yes atraumatic Ears: hearing grossly normal bilaterally Eyes General: appearance normal, both eyes and all related structures Neck Neck: Yes normal visual inspection and Yes trachea midline Chest Chest palpation & inspection: normal inspection of the chest Resp Effort & Inspection: able to speak in complete sentences Cardio Rate: regular rate GI Inspection: Yes normal to inspection General: Yes no CVA tenderness Back/Spine/Pelvis Back: no CVA tenderness Skin General skin exam: no rashes or lesions noted Neuro General: patient oriented x3 Extrem General: Yes normal to inspection Psych Appearance: grossly normal and well kempt Mental Status: mental status grossly normal Speech and movement: Clear speech present Affect: normal affect Attitude: cooperative Thought process: Normal thought process present Thought content: Normal thought content present Insight: Fair insight present (Psych) Judgement: Fair judgement present (Psych) Office Procedures Post Void Residual Post Residual Void Post Void Residual (PVR): 0 [id number] Void Residual by ultrasound Results AMB Urinalysis, Automated UA Leukoctes 0 Zhang/uL Last Edit by [employer] on 10/13/23 14:24 UA Nitrite Negative Last Edit by [employer] on 10/13/23 14:24 UA Urobilinogen 0.2 mg/dL Last Edit by [employer] on 10/13/23 14:24 UA Protein 0 mg/dL Last Edit by [employer] on 10/13/23 14:24 UA pH 6.0 Last Edit by [employer] on 10/13/23 14:24 UA Blood 0 Dorian/uL Last Edit by [employer] on 10/13/23 14:24 UA Specific [place] 1.020 Last Edit by [employer] on 10/13/23 14:24 UA Ketone Negative Last Edit by [employer] on 10/13/23 14:24 UA Bilirubin 0 mg/dL Last Edit by [employer] on 10/13/23 14:24 UA Glucose 0 mg/dL Last Edit by Elroy Kalli on 10/13/23 14:24 Results Reviewed Results Reviewed: Laboratory Last Values Urine pH (Auto) 6.0 10/13/23 14:23 Specific [place] (Auto) 1.020 10/13/23 14:23 Urine Protein (Auto) 0 mg/dL 10/13/23 14:23 Glucose (UA)(Auto) 0 mg/dL 10/13/23 14:23 Urine Ketones (Auto) Negative 10/13/23 14:23 Urine Blood (Auto) 0 Dorian/uL 10/13/23 14:23 Urine Nitrite (Auto) Negative 10/13/23 14:23 Urine Bilirubin (Auto) 0 mg/dL 10/13/23 14:23 Urine Urobilinogen (Auto) 0.2 mg/dL 10/13/23 14:23 Leukocyte Esterase (Auto) 0 Zhang/uL 10/13/23 14:23 Assessment & Plan Assessment & Plan (1) Lower urinary tract symptoms (LUTS): Code(s): R39.9 - Unspecified symptoms and signs involving the genitourinary system Category: Medical (2) Mixed incontinence urge and stress: Code(s): N39.46 - Mixed incontinence Category: Medical (3) Recurrent UTI (urinary tract infection): Comment: 04/2022 E coli Resistant to Levaquin, ampicillin, ceftriaxone, Bactrim susceptible to nitrofurantoin and gentamicin Code(s): N39.0 - Urinary tract infection, site not specified Category: Medical Plan In office urinalysis results reviewed with the patient today; as noted above. PVR 0 mL. Patient currently denies any bothersome urinary issues or concerns. She reports be happy with current voiding parameters on Myrbetriq 25 mg daily; will continue; refill provided. Continue Estrace cream as discussed and prescribed. Discussed UTI prevention with D mannose supplement, vitamin-C, increasing fluid intake, behavioral therapy with timed voiding, perineal hygiene and postcoital voiding, and management of constipation with stool softeners and increased fiber intake. Follow-up in 6 months with PVR; or sooner with any issues, concerns, and or questions. Orders: Orders AMB Post Void Residual by ultrasound Today R39.9 - Unspecified symptoms and signs involving the genitourinary system AMB Urinalysis Automated Today Z13.9 - Encounter for screening, unspecified Medications: Changed From mirabegron ER (Myrbetriq) 25 mg PO DAILY 30 tabs 2RF 30 days N30.10 - Interstitial cystitis (chronic) without hematuria, N32.81 - Overactive bladder, R35.1 - Nocturia, R39.15 - Urgency of urination To mirabegron ER (Myrbetriq) 25 mg PO DAILY 90 tabs 2RF 90 days N30.10 - Interstitial cystitis (chronic) without hematuria, N32.81 - Overactive bladder, R35.1 - Nocturia, R39.15 - Urgency of urination Patient Instructions: The patient had an opportunity to ask questions regarding the treatment plan. All questions were answered. Physical exam, labs, and imaging were discussed and reviewed in detail. As well as risks, benefits, and discussion of treatment choices. No major barriers to understanding were identified. The patient expressed understanding and agreement with the above treatment plan. The patient was made aware they should contact our office by phone for worsening of their current condition, the appearance of new symptoms, or with any questions or concerns. Compliance is encouraged with any medications and follow up testing that is ordered. It is a privilege to be allowed the opportunity to participate in? your urological care.? Again, if you have any questions or concerns If you have any questions or concerns please do not hesitate to contact me. The office is [phone]. This note is constructed using voice recognition software. While every effort has been made to ensure accuracy corncob pipe manufacturing supervisor errors may have been included. Yours sincerely, NELLY Gonzalez Coding Level of Care Code Est Pt Level 3 (84430) Complex EM visit Add On G2211 Diagnoses Lower urinary tract symptoms (LUTS) R39.9 Mixed incontinence urge and stress N39.46 Recurrent UTI (urinary tract infection) N39.0 CPT Codes Post Residual Void - PVR CPT Code: 80985-Xpeu Void Residual by ultrasound ([id number])
== END 2023-10-13 14:35 | disposition home or self-care (01) ==
PROVIDERS: PCP Internal Medicine; Visit Provider Nurse Practitioner Family
DX: R39.9 Unspecified symptoms and signs involving the genitourinary system (principal); N39.46 Mixed incontinence; N39.0 Urinary tract infection, site not specified; Z13.9 Encounter for screening, unspecified
CPT/HCPCS: 99213; G2211

== ENCOUNTER → 2023-10-13 13:59 | Outpatient (BNVA) | payer OTHER, SELFPAY | PROVIDERS: PCP Internal Medicine; Visit Provider Nurse Practitioner Family | DX: R39.9 Unspecified symptoms and signs involving the genitourinary system (principal); N39.46 Mixed incontinence; N39.0 Urinary tract infection, site not specified | CPT/HCPCS: 51798; 81003; 99212 ==

== ENCOUNTER 2023-11-11 10:55 | Outpatient (REF) | payer OTHER, SELFPAY ==
--- NOTE | ~2023-11-11 | MM_ITS ---
EXAMINATION: BONE DENSITOMETRY CLINICAL INDICATION: Asymptomatic menopausal state. COMPARISON: Previous BD dated 12/04/2015 and baseline BD dated 04/27/2012. TECHNIQUE: Using a Logic Instrument DXA System (software version: 13.1) manufactured by [employer], dual-energy x-ray absorptiometry was performed of the lumbar spine and left hip. The images are of good technical quality. Summary results are attached. FINDINGS: LEFT FEMUR, NECK: Current: BMD 0.916 g/cm2, Z-score 0.7, T-score -0.9, normal. Prior: BMD 0.899 g/cm2. Baseline: BMD 0.949 g/cm2. LEFT FEMUR, TOTAL: Current: BMD 0.940 g/cm2, Z-score 0.8, T-score -0.5, normal, 3.3% decrease from previous, 7.1% decrease from baseline (<5% change is not significant). Prior: BMD 0.972 g/cm2. Baseline: BMD 1.012 g/cm2. AP SPINE L1-L4: Current: BMD 1.031 g/cm2, Z-score 0.5, T-score -1.2, osteopenia, 6.4% decrease from previous, 7.0% decrease from baseline (<5% change is not significant). Prior: BMD 1.102 g/cm2. Baseline: BMD 1.109 g/cm2. IDENTIFIED RISK FACTORS: Menopause, thiazide. HISTORY OF FRACTURE: None listed. MEDICATIONS: Vitamin D. MM/XR DEXA axial skeleton IMPRESSION: 1. DIAGNOSIS: Osteopenia based on the lowest T-score value of -1.2 in the lumbar spine applying World Health Organization criteria. 2. 10-YEAR FRACTURE RISK PREDICTION, FRAX: Major osteoporotic fracture (clinical spine, forearm, hip or shoulder) 4.4%. Hip fracture 0.3%. 3. Treatment Recommendations: NOF guidelines recommend consideration for treatment in postmenopausal women and men age 50 and older presenting with the following: -A hip or vertebral (clinical or morphometric) fracture. -T-score less than or equal to -2.5 at the femoral neck or spine after appropriate evaluation to exclude secondary causes. -Low bone mass at the hip or spine and a 10-year fracture probability by FRAX of greater than or equal to 3% for hip fracture or greater than or equal to 20% for major osteoporotic fracture based on the [place] adapted WHO algorithm. 4. Other Recommendations: All treatment decisions require clinical judgment and consideration of individual patient factors, including patient preferences, comorbidities, previous drug use, risk factors not captured in the FRAX model (e.g. frailty, falls, vitamin D deficiency, increased bone turnover, interval significant decline in bone density) and possible under or overestimation of fracture risk by FRAX. Additional medical evaluation for secondary cause of low bone mineral density may be appropriate. FUTURE SCAN RECOMMENDATION: People with diagnosed cases of osteoporosis or at high risk for fracture should have regular bone mineral density tests. For patients eligible for Medicare, routine testing is allowed once every 2 years. The testing frequency can be increased to one year for patients who have rapidly progressing disease, those who are receiving or discontinuing medical therapy to restore bone mass, or have additional risk factors.
== END 2023-11-11 10:56 | disposition home or self-care (01) ==
LOC: HO.MAMMO 10:55
PROVIDERS: PCP Internal Medicine; Visit Provider Internal Medicine
DX: Z13.820 Encounter for screening for osteoporosis (principal); Z78.0 Asymptomatic menopausal state
CPT/HCPCS: 77080

== ENCOUNTER 2023-11-23 08:02 | Emergency (ER) | payer OTHER, SELFPAY ==
[2023-11-23 08:21] VITALS: BP 151/75; PULSE 86; RESP 16; TEMP 36.8; O2SAT 100; BMI 26.7
--- NOTE | 2023-11-23 08:39 | ED.ALLEREA ---
HPI - Allergic Reaction General Chief complaint: Allergic Reaction Stated complaint: rash all over Time Seen by Provider: 11/23/23 08:08 Source: patient Mode of arrival: ambulatory Limitations: language barrier History of Present Illness ED Provider: Dr. Beltrán HPI narrative: Patient is on myribiq for the past 2 weeks now with diffuse hives. No Shortness of breath, no lip swelling MD complaint: allergic reaction and hives Onset (ago): day(s) Exposure: unknown Symptoms: rash and itching Severity: moderate Related Data Home Medications ?Medication ?Instructions ?Recorded ?Confirmed Lactobacillus acidophilus 500 500 mmu cells PO DAILY 03/03/20 03/11/22 million cell tablet clonidine HCl 0.2 mg tablet 0.2 mg PO BID 03/03/20 03/11/22 enalapril maleate 20 mg tablet 20 mg PO BID 03/03/20 03/11/22 fluticasone 500 mcg-salmeterol 50 1 inh inhalation BID 03/03/20 03/11/22 mcg/dose blistr powdr for inhalation (Advair Diskus) hydrochlorothiazide 25 mg tablet 25 mg PO DAILY 03/03/20 03/11/22 hydroxyzine pamoate 25 mg capsule 25 mg PO BID PRN Itching 03/03/20 03/11/22 (Vistaril) bupropion HCl 300 mg 24 hr tablet, 300 mg PO QAM 10/01/21 03/11/22 extended release cholecalciferol (vitamin D3) 50 50 mcg PO QAM 10/01/21 03/11/22 mcg (2,000 unit) capsule loratadine 10 mg tablet 10 mg PO QAM PRN Allergy Symptoms 10/01/21 03/11/22 albuterol sulfate 90 mcg/actuation 2 puff inhalation QID PRN 03/25/22 aerosol inhaler (Proventil HFA) alcohol swabs (Alcohol Prep Pads) 0 pad topical QID 03/25/22 amitriptyline 75 mg tablet 75 mg PO BEDTIME 03/25/22 atorvastatin 20 mg tablet 20 mg PO QPM 03/25/22 blood sugar diagnostic (FreeStyle #10 ea 03/25/22 Lite Strips) fluoxetine 20 mg capsule 40 mg PO QAM 03/25/22 lancets 33 gauge (TRUEplus Lancets) #100 ea 03/25/22 metformin 1,000 mg tablet 1,000 mg PO BID 10/06/23 Previous Rx's ?Medication ?Instructions ?Recorded benzonatate 100 mg capsule 100 mg PO TID PRN cough #14 caps 08/04/22 fluticasone propionate 50 2 spray intranasal DAILY #16 grams 08/04/22 mcg/actuation nasal spray,suspension (Flonase Allergy Relief) estradiol 0.01% (0.1 mg/gram) See Rx Instructions vaginal DAILY 04/04/23 vaginal cream 30 days #42.5 grams dexlansoprazole 60 mg 60 mg PO QPM #30 caps 09/01/23 capsule,biphase delayed release (Dexilant) dicyclomine 10 mg capsule 10 mg PO QID #90 caps 09/01/23 docusate sodium 100 mg capsule 100 mg PO QAM #30 caps 09/01/23 linaclotide 290 mcg capsule 290 mcg PO QAM #30 caps 09/01/23 (Linzess) bisacodyl 5 mg tablet,delayed 10 mg (2 x 5 mg) PO BEDTIME #60 09/06/23 release tabs linaclotide 72 mcg capsule 72 mcg PO QAM #30 caps 10/06/23 (Linzess) mirabegron 25 mg tablet,extended 25 mg PO DAILY 90 days #90 tabs 10/13/23 release 24 hr (Myrbetriq) diphenhydramine HCl 25 mg capsule 25 mg PO TID PRN allergic reaction 11/23/23 (Benadryl) #30 caps prednisone 20 mg tablet 60 mg (3 x 20 mg) PO DAILY #12 tabs 11/23/23 Allergies Allergy/AdvReac Type Severity Reaction Status Date / Time ampicillin [AMPICILLIN] Allergy Intermediate RASH Verified 11/23/23 08:26 Penicillins [PCN] Allergy Rash Verified 11/23/23 08:26 Review of Systems Review of Systems: Yes all other systems are reviewed and are negative Neurologic: Denies Sensory deficit (Neuro) PMFSH Past Medical History Medical History Elevated cholesterol Diabetes mellitus Obesity Asthma HTN (hypertension) Palpitations Surgical History Hx of tubal ligation Hx of breast biopsy Hx of cystoscopy Hx of colonoscopy History of lumpectomy Family History Family History Father CVD (cardiovascular disease) Diabetes Mother Diabetes Colon cancer Social History Social History Household Members: None Housing: Apartment Alcohol intake: current Alcohol intake frequency: holidays/special occasions only Alcohol type: beer Patient Tobacco Use Status: Never used Tobacco Do you have a plan to hurt others: No Plan Physical Exam ED Vital Signs: Vital Signs - 24 hr 11/23/23 08:21 Temperature 98.3 F Pulse Rate 86 Respiratory Rate 16 Blood Pressure 151/75 H Pulse Oximetry 100 Oxygen Delivery Method Room Air BMI result Body Mass Index 26.7 Const Other: itching General: healthy appearing Nutritional Appearance: average body habitus Orientation/consciousness: oriented to person and patient oriented x3 Limitations: no limitations HENMT Other: no lip or raoul swelling Head: Yes normal to inspection Ears: external ears normal General nose exam: Normal external nose present Mouth: Normal oral and palatal mucosa present and oropharynx normal Throat: Yes posterior oropharynx normal Eyes General: appearance normal, both eyes and all related structures Neck Neck: Yes normal visual inspection Chest Chest palpation & inspection: normal inspection of the chest Resp Auscultation: clear to auscultation bilaterally Cardio Jugular venous distension: no JVD Rate: regular rate Rhythm: regular rhythm Heart sounds: S1 normal heart sound present and S2 normal heart sound present GI Inspection: Yes normal to inspection Palpation (GI): Soft to palpation, nontender and No hepatosplenomegaly present Auscultation: normal bowel sounds General: Yes no CVA tenderness Back/Spine/Pelvis Back: no CVA tenderness Skin Other: diffuse hives Neuro General: oriented to person and patient oriented x3 Cranial nerves: Yes CN's II-XII intact bilaterally Motor exam (neuro): 5/5 motor strength present throughout Sensory Exam: No Sensory deficit (Neuro) Extrem General: Yes normal to inspection Psych Appearance: grossly normal Course Reevaluation(s) Reevaluation #1: no oral or airway compromise Time: 08:56 Medications Administered Discontinued Medications Generic Name Dose Route Start Last Admin Trade Name Freq PRN Reason Stop Dose Admin Diphenhydramine HCl 50 mg 11/23/23 08:43 11/23/23 08:51 Diphenhydramine Hcl 25 Mg Capsule PO 11/23/23 08:44 50 mg ONCE ONE Administration Prednisone 60 mg 11/23/23 08:43 11/23/23 08:51 Prednisone 20 Mg Tablet PO 11/23/23 08:44 60 mg ONCE ONE Administration Medical Decision Making Differential Diagnosis Differential Diagnoses: The differential diagnosis associated with the presentation includes (allergic reaction, viral urticaria, hives) Admission/Observation Consideration of admission/observation: Escalation of care including admission/observation considered (upon arrival patient considered for admission) Prescription Management I considered prescription management with: Antibiotic (no evidence of infection) Chronic Conditions Patient?s care impacted by: Diabetes and Hypertension Social Determinants Patient?s care significantly limited by Social Determinants of Health including: Low income Discharge Plan Discharge Clinical Impression: Allergic reaction, Urticaria Patient Disposition: Home, Self-Care Instructions: Urticaria (ED), General Allergic Reaction (ED) Prescriptions: New diphenhydramine HCl [Benadryl] 25 mg capsule 25 mg PO TID PRN (Reason: allergic reaction) Qty: 30 0RF prednisone 20 mg tablet 60 mg PO DAILY Qty: 12 0RF No Action bisacodyl 5 mg tablet,delayed release (DR/EC) 10 mg PO BEDTIME Qty: 60 6RF benzonatate 100 mg capsule 100 mg PO TID PRN (Reason: cough) Qty: 14 0RF fluticasone propionate [Flonase Allergy Relief] 50 mcg/actuation spray,suspension 2 spray intranasal DAILY Qty: 16 0RF Rx Instructions: administer into each nostril clonidine HCl 0.2 mg tablet 0.2 mg PO BID hydrochlorothiazide 25 mg tablet 25 mg PO DAILY enalapril maleate 20 mg tablet 20 mg PO BID hydroxyzine pamoate [Vistaril] 25 mg capsule 25 mg PO BID PRN (Reason: Itching) Lactobacillus acidophilus 500 million cell tablet 500 mmu cells PO DAILY fluticasone propion-salmeterol [Advair Diskus] 500-50 mcg/dose blister with device 1 inh inhalation BID cholecalciferol (vitamin D3) 50 mcg (2,000 unit) capsule 50 mcg PO QAM bupropion HCl 300 mg tablet extended release 24 hr 300 mg PO QAM loratadine 10 mg tablet 10 mg PO QAM PRN (Reason: Allergy Symptoms) amitriptyline 75 mg tablet 75 mg PO BEDTIME atorvastatin 20 mg tablet 20 mg PO QPM fluoxetine 20 mg capsule 40 mg PO QAM albuterol sulfate [Proventil HFA] 90 mcg/actuation HFA aerosol inhaler 2 puff inhalation QID PRN (DME) lancets [TRUEplus Lancets] 33 gauge misc See Rx Instructions .ROUTE QID Qty: 100 Rx Instructions: As directed alcohol swabs [Alcohol Prep Pads] Pads, Medicated 0 pad topical QID (DME) FreeStyle Lite Strips Strip See Rx Instructions .ROUTE QID Qty: 10 Rx Instructions: As directed metformin 1,000 mg tablet 1,000 mg PO BID Linzess 72 mcg capsule 72 mcg PO QAM Qty: 30 3RF estradiol 0.01 % (0.1 mg/gram) cream See Rx Instructions vaginal DAILY 30 Days Qty: 42.5 0RF Rx Instructions: vaginally daily; pea sized amount to urethra 3 times a week Linzess 290 mcg capsule 290 mcg PO QAM Qty: 30 6RF Hold Instructions: Doctor's Order docusate sodium 100 mg capsule 100 mg PO QAM Qty: 30 4RF dicyclomine 10 mg capsule 10 mg PO QID Qty: 90 3RF Dexilant 60 mg capsule,biphase delayed releas 60 mg PO QPM Qty: 30 4RF Myrbetriq 25 mg tablet extended release 24 hr 25 mg PO DAILY 90 Days Qty: 90 2RF Referrals: Carley Tapia MD [Primary Care Provider] - 3 days Print Language: Romanian
[2023-11-23] MEDS: predniSONE 20 MG TABLET 60 MG PO (08:51)
[2023-11-23] MEDS: diphenhydrAMINE HCL 25 MG CAPSULE 50 MG PO (08:51)
[2023-11-23 09:07] VITALS: BP 151/75; PULSE 86; RESP 16; TEMP 36.8; O2SAT 100
== END 2023-11-23 09:07 | disposition home or self-care (01) ==
PROVIDERS: Emergency Provider Emergency Medicine; PCP Internal Medicine
DX: L50.0 Allergic urticaria (principal); R21 Rash and other nonspecific skin eruption; Z79.899 Other long term (current) drug therapy
CPT/HCPCS: 99282; 99283

== ENCOUNTER 2023-12-08 16:04 | Outpatient (REF) | payer OTHER, SELFPAY | END 2023-12-08 16:05 | disposition home or self-care (01) | LOC: HO.HHCLNP 16:04 | PROVIDERS: Visit Provider Internal Medicine | DX: R39.9 Unspecified symptoms and signs involving the genitourinary system (principal) | CPT/HCPCS: 87086; 87088; 87186 ==

== ENCOUNTER 2024-02-10 10:01 | Outpatient (AMB) | payer OTHER, SELFPAY ==
--- NOTE | 2024-02-10 10:06 | MHC.OFFVIS ---
Vital Signs 02/10/24 10:07 Height 4 ft 10 in Weight 134 lb 14.766 oz BMI 28.2 Intake Visit Reasons: Follow up medication Intake Note: Yareli presents to in office follow up of IBS with constipation. CC: Patient c/o epigasgric pain and is requesting refill on her medications. Gravel Screener Required: Yes Gravel Screener Name: Jonna luna certified court/medical interpreter Accompanied by: Self / Same As Patient Allergies ampicillin [AMPICILLIN] Allergy (Intermediate, Verified 02/10/24 10:15) RASH Penicillins [PCN] Allergy (Verified 02/10/24 10:15) Rash HPI HPI Follow up medication: Details: Assessment & Plan (1) GERD (gastroesophageal reflux disease): Code(s): K21.9 - Gastro-esophageal reflux disease without esophagitis Category: Medical (2) Irritable bowel syndrome with constipation: Code(s): K58.1 - Irritable bowel syndrome with constipation Category: Medical (3) Abdominal cramping: Code(s): R10.9 - Unspecified abdominal pain Category: Medical (4) Vaginal rubi: Code(s): B37.31 - Acute candidiasis of vulva and vagina Category: Medical Plan Citizen Of [place] #Hernandez Ruiz She still has the same problems with bloating and cramping, but since her stools have been soft she is not taking her LInzess, I explain that this usually means that she is not emptying out fully - so this is a form of CIC. Her GERD is better with her medications. LInzess, colace, Dexilant and bentyl ROV 6 weeks. Medications: New linaclotide (Linzess) 72 mcg PO QAM 30 caps 3RF K58.1 - Irritable bowel syndrome with constipation On Hold linaclotide (Linzess) Hold Comment: Doctor's Order 290 mcg PO QAM 30 caps 6RF K58.1 - Irritable bowel syndrome with constipation TODAY'S VISIT Citizen Of [place] #Jonna Luna She ran out of her medicines because she missed an appt. She continues on her dexilant, Linzess 72mcg, bisacodyl, colace. ROV 6 mos. PFS Medical History (Updated 02/10/24 @ 10:09 by VERNA Rose) Urinary frequency Urinary tract infection Lower urinary tract symptoms (LUTS) Foul smelling urine Elevated cholesterol Diabetes mellitus Obesity Asthma HTN (hypertension) Palpitations Surgical History Hx of tubal ligation Hx of breast biopsy Hx of cystoscopy Hx of colonoscopy History of lumpectomy Family History Father CVD (cardiovascular disease) Diabetes Mother Diabetes Colon cancer Social History Household Members: None Housing: Apartment Alcohol intake: current Alcohol intake frequency: holidays/special occasions only Alcohol type: beer Patient Tobacco Use Status: Never used Tobacco Review of Systems Const Denies fatigue, Denies fever(s), Denies night sweats, Denies poor appetite and Denies weight loss ENT Reports Normal hearing present, Denies dental pain, Denies dysphagia, Denies hearing loss, Denies mouth pain, Denies odynophagia, Denies throat swelling, Denies tongue swelling and Reports other (Dentition adequate) Card Reports no additional complaints Resp Reports no additional complaints GI Details: Denies abdominal pain, Denies melena, Denies bloating, Denies hematochezia, Reports constipation, Reports GI cramping, Denies dysphagia, Denies excessive flatus, Denies early satiety, Reports heartburn, Denies diarrhea, Denies nausea, Denies odynophagia, Denies vomiting and Denies hematemesis Skin/Breast Denies pruritus, Denies lesions, Denies rash and Denies jaundice Neuro Reports Normal hearing present and Denies Abnormal speech present Endo Denies fatigue Aller/Immun Denies throat swelling and Denies tongue swelling Physical Exam Const General: cooperative, no acute distress, well developed and well groomed Nutritional Appearance: well nourished and overweight Orientation/consciousness: oriented to person, oriented to place and oriented to time Limitations: language barrier HEENT Head: Yes normocephalic and Yes atraumatic Eyes General: appearance normal, both eyes and all related structures Pupils: Equal, round and reactive pupils present Neck Neck: Yes normal visual inspection and Yes no lymphadenopathy Thyroid: Thyroid normal Resp Effort & Inspection: normal respiratory effort and able to speak in complete sentences Auscultation: clear to auscultation bilaterally Cardio Rate: regular rate Rhythm: regular rhythm Heart sounds: Normal, physiologic split S2 sound present Peripheral pulses: radial pulses present and posterior tibial pulses present GI Inspection: No distended, No Abdominal panniculus present and Yes obesity Palpation (GI): Soft to palpation, nontender, no guarding, not rigid and No hepatosplenomegaly present Percussion: Yes normal to percussion Auscultation: normal bowel sounds Rectal Exam - Female: deferred Skin General skin exam: no rashes or lesions noted, turgor normal, skin not dry, no jaundice, No spider nevi and no striae Rashes: no rashes Nails: normal Neuro General: oriented to person, oriented to place and oriented to time Cranial nerves: Yes Equal, round and reactive pupils present and Yes Normal hearing present Speech: No Abnormal speech present Extrem General: Yes normal to inspection, No clubbing, No cyanosis and No edema Psych Appearance: grossly normal and well kempt Mental Status: mental status grossly normal Speech and movement: Normal speech and movement present Affect: normal affect Attitude: cooperative Thought process: Normal thought process present and not confabulating Thought content: Normal thought content present Insight: Limited insight present (Psych) Judgement: Limited judgement present (Psych) Assessment & Plan Assessment & Plan (1) GERD (gastroesophageal reflux disease): Code(s): K21.9 - Gastro-esophageal reflux disease without esophagitis Category: Medical (2) Irritable bowel syndrome with constipation: Code(s): K58.1 - Irritable bowel syndrome with constipation Category: Medical (3) Abdominal cramping: Code(s): R10.9 - Unspecified abdominal pain Category: Medical Plan Citizen Of [place] #Jonna Live She ran out of her medicines because she missed an appt. She continues on her dexilant, Linzess 72mcg, bisacodyl, colace. ROV 6 mos. Medications: Refilled linaclotide (Linzess) 72 mcg PO QAM 30 caps 6RF K58.1 - Irritable bowel syndrome with constipation dexlansoprazole (Dexilant) 60 mg PO QPM 30 caps 6RF dicyclomine 10 mg PO QID 90 caps 6RF K58.1 - Irritable bowel syndrome with constipation docusate sodium (Stool Softener) 100 mg PO QAM 30 caps 6RF bisacodyl 10 mg (2 x 5 mg) PO BEDTIME 60 tabs 6RF K58.1 - Irritable bowel syndrome with constipation, R10.9 - Unspecified abdominal pain Discontinued linaclotide (Linzess) Discontinued Reason: Doctor's Order 290 mcg PO QAM 30 caps 6RF K58.1 - Irritable bowel syndrome with constipation Coding Level of Care Code Est Pt Level 3 (58556) Diagnoses GERD (gastroesophageal reflux disease) K21.9 Irritable bowel syndrome with constipation K58.1 Abdominal cramping R10.9
[2024-02-10 10:07] VITALS: BMI 28.2
== END 2024-02-10 10:20 | disposition home or self-care (01) ==
PROVIDERS: PCP Internal Medicine; Visit Provider Nurse Practitioner
DX: K21.9 Gastro-esophageal reflux disease without esophagitis (principal); K58.1 Irritable bowel syndrome with constipation; R10.9 Unspecified abdominal pain
CPT/HCPCS: 99213

== ENCOUNTER → 2024-02-10 10:01 | Outpatient (BNVA) | payer OTHER, SELFPAY | PROVIDERS: PCP Internal Medicine; Visit Provider Nurse Practitioner | DX: K21.9 Gastro-esophageal reflux disease without esophagitis (principal); K58.1 Irritable bowel syndrome with constipation; R10.9 Unspecified abdominal pain | CPT/HCPCS: 99212 ==

== ENCOUNTER 2024-04-09 13:46 | Outpatient (AMB) | payer OTHER, SELFPAY ==
--- NOTE | 2024-04-09 14:14 | A.OFFVIS_ITS ---
Intake Visit Reasons: 6m/PVR Intake Note: Patient presents today for tele visit follow up on: recurrent uti, LUTS, incontinence Urology Medications: Myrbetriq, estrace cream Allergies to Antibiotic: Ampicillin, Penicillin Blood Thinner: None Net Technical Architect Required: Yes Net Technical Architect Services: Net Technical Architect Present Net Technical Architect Name: Stan [phone] Accompanied by: Self / Same As Patient Allergies ampicillin [AMPICILLIN] Allergy (Intermediate, Verified 04/09/24 14:15) RASH Penicillins [PCN] Allergy (Verified 04/09/24 14:15) Rash Medication List - Last Reconciled 04/09/24 by EDWIN Gonzalez-JAYLYN albuterol sulfate 90 mcg/actuation (Proventil HFA) 2 puffs inhalation QID PRN alcohol swabs (Alcohol Prep Pads) 0 pad topical QID amitriptyline 75 mg PO BEDTIME atorvastatin 20 mg PO QPM benzonatate 100 mg PO TID PRN bisacodyl 10 mg (2 x 5 mg) PO BEDTIME blood sugar diagnostic (FreeStyle Lite Strips) As directed bupropion HCl XL 300 mg PO QAM cholecalciferol (vitamin D3) 50 mcg PO QAM clonidine HCl 0.2 mg PO BID dexlansoprazole (Dexilant) 60 mg PO QPM dicyclomine 10 mg PO QID diphenhydramine HCl (Benadryl) 25 mg PO TID PRN docusate sodium (Stool Softener) 100 mg PO QAM enalapril maleate 20 mg PO BID estradiol 0.01%(0.1mg/gram) vaginally daily; pea sized amount to urethra 3 times a week 30 days fluoxetine 40 mg PO QAM fluticasone propion-salmeterol 500-50 mcg/dose (Advair Diskus) 1 inh inhalation BID fluticasone propionate 50 mcg/actuation (Flonase Allergy Relief) 2 sprays intranasal DAILY hydrochlorothiazide 25 mg PO DAILY hydroxyzine pamoate (Vistaril) 25 mg PO BID PRN Lactobacillus acidophilus 500 mmu cells PO DAILY lancets (TRUEplus Lancets) As directed linaclotide (Linzess) 72 mcg PO QAM loratadine 10 mg PO QAM PRN metformin 1,000 mg PO BID mirabegron ER (Myrbetriq) 25 mg PO DAILY 90 days prednisone 60 mg (3 x 20 mg) PO DAILY HPI Comments Details: Yareli is a very pleasant 64-year-old Ethiopian-speaking patient of Dr. Mak. She has a past medical history of diabetes, hypertension, constipation, asthma, obesity, and hypercholesteremia. She is being followed up on today via telehealth for her history of recurrent urinary tract infections as well as mixed urinary incontinence. In discussion with the patient today she reports having stopped her Myrbetriq as she started experiencing a generalized rash in seeked emergency room care services at which time recommendations were made for continuation of Myrbetriq. She reports noting over the last few days she has been having episodes of dysuria. She reports feeling episodes of mixed urinary incontinence continue. She has previously trialed tolterodine and oxybutynin with no improvement in lower urinary tract symptoms. Previous workup has included a retroperitoneal ultrasound 05/18 noting bilateral kidneys with no hydronephrosis or calculi. Medial mid pole 1.2 x 1.2 x 1.4 right sided cyst. Which no indication for follow-up imaging per radiology report. The bladder is partially distended. Prevoid bladder volume is 160 mL. Postvoid bladder volume is approximately 5 mL. She denies hematuria, nocturia, changes to urinary stream, flank pain, fever, and or chills. We discussed obtaining urine culture for further assessment evaluation as well as follow-up here in office for further assessment evaluation as this appointment was via telehealth in unable to assess PVR as well as urinalysis at this time. We discussed further treatment options of mixed urinary incontinence and risks and benefits of these treatment options. When asked she reports noncompliance with Estrace cream. We discussed further treatment options of recurrent urinary tract infections. She otherwise offers no other issues or concerns at this time. [facility] Medical History Urinary frequency Urinary tract infection Lower urinary tract symptoms (LUTS) Foul smelling urine Elevated cholesterol Diabetes mellitus Obesity Asthma HTN (hypertension) Palpitations Surgical History Hx of tubal ligation Hx of breast biopsy Hx of cystoscopy Hx of colonoscopy History of lumpectomy Family History Father CVD (cardiovascular disease) Diabetes Mother Diabetes Colon cancer Social History Household Members: None Housing: Apartment Alcohol intake: current Alcohol intake frequency: holidays/special occasions only Alcohol type: beer Patient Tobacco Use Status: Never used Tobacco Review of Systems Const Reports as per HPI Eyes Reports no additional complaints ENT Reports no additional complaints Card Reports as per HPI Resp Reports as per HPI GI Reports as per HPI Reports as per HPI Musc Reports no additional complaints Neuro Reports no additional complaints Psych Reports no additional complaints Endo Reports as per HPI Hammad/Lymph Reports no additional complaints Aller/Immun Reports no additional complaints Physical Exam Const General: cooperative Orientation/consciousness: patient oriented x3 Resp Effort & Inspection: able to speak in complete sentences Neuro General: patient oriented x3 Psych Speech and movement: Clear speech present Attitude: cooperative Thought content: Normal thought content present Insight: Fair insight present (Psych) Judgement: Fair judgement present (Psych) Telehealth Telehealth Telehealth Platform: [facility] Location of provider rendering services: practice address Location of patient: address on file Patient Identification confirmed using: Name, : Yes Telehealth method: voice only Patient verbally consented to treatment: Yes Patient verbally consented to billing insurance company: Yes Patient informed of any privacy concerns related to visit: Yes Minutes spent on Phone/Video with Pt.: 25 Assessment & Plan Assessment & Plan (1) Dysuria: Code(s): R30.0 - Dysuria Category: Medical (2) Mixed incontinence urge and stress: Code(s): N39.46 - Mixed incontinence Category: Medical (3) Recurrent UTI (urinary tract infection): Comment: 04/2022 E coli Resistant to Levaquin, ampicillin, ceftriaxone, Bactrim susceptible to nitrofurantoin and gentamicin Code(s): N39.0 - Urinary tract infection, site not specified Category: Medical (4) Sensation of pressure in bladder area: Code(s): R39.89 - Other symptoms and signs involving the genitourinary system Category: Medical Plan Orders placed for urinalysis for further assessment evaluation; will await results for potential treatment. Discussed further treatment options of mixed urinary incontinence as well as recurrent urinary tract infections. Start Estrace cream. We discussed trial of Vagifem verses methenamine and vitamin-C for suppression. Discussed UTI prevention with D mannose supplement, vitamin-C, increasing fluid intake, behavioral therapy with timed voiding, perineal hygiene and postcoital voiding, and management of constipation with stool softeners and increased fiber intake. Discussed possible near future in office cystoscopy and or urodynamics for further assessment evaluation. Follow-up in office in 4-8 weeks for further assessment evaluation; or sooner with any issues, concerns, and or questions. Orders: Orders UA CC w/rflx Micro + Cult Today R30.0 - Dysuria Patient Instructions: The patient had an opportunity to ask questions regarding the treatment plan. All questions were answered. Physical exam, labs, and imaging were discussed and reviewed in detail. As well as risks, benefits, and discussion of treatment choices. No major barriers to understanding were identified. The patient expressed understanding and agreement with the above treatment plan. The patient was made aware they should contact our office by phone for worsening of their current condition, the appearance of new symptoms, or with any questions or concerns. Compliance is encouraged with any medications and follow up testing that is ordered. It is a privilege to be allowed the opportunity to participate in? your urological care.? Again, if you have any questions or concerns If you have any questions or concerns please do not hesitate to contact me. The office is [phone]. This note is constructed using voice recognition software. While every effort has been made to ensure accuracy medical record administrator errors may have been included. Yours sincerely, NELLY Gonzalez Coding Level of Care Code Tele Est Pt Level 4 (02806) Diagnoses Dysuria R30.0 Mixed incontinence urge and stress N39.46 Recurrent UTI (urinary tract infection) N39.0 Sensation of pressure in bladder area R39.89 Time Spent (min) 25
== END 2024-04-09 16:12 | disposition home or self-care (01) ==
LOC: HO.HUSH 13:46
PROVIDERS: PCP Internal Medicine; Visit Provider Nurse Practitioner Family
DX: R30.0 Dysuria (principal); N39.46 Mixed incontinence; N39.0 Urinary tract infection, site not specified; R39.89 Other symptoms and signs involving the genitourinary system
CPT/HCPCS: 99443

== ENCOUNTER → 2024-04-09 13:46 | Outpatient (BNVA) | payer OTHER, SELFPAY | PROVIDERS: PCP Internal Medicine; Visit Provider Nurse Practitioner Family ==

== ENCOUNTER 2024-04-11 13:04 | Outpatient (REF) | payer OTHER, SELFPAY ==
[2024-04-11 15:38] LABS: Appearance Urine Clear; Color Urine Yellow; Glucose Urine UA Negative (Negative); Leukocyte Esterase Urine Trace (Negative); Nitrite Urine Negative (Negative); PH 5.5 (5.0-9.0); UMIC TRIGGER UACC YES; Urine Blood Negative (Negative); Urine Ketones Negative (Negative); Urine Protein Negative (Neg-Trace)
[2024-04-11 16:04] LABS: Bacteria Urine None Seen (None Seen); Hyaline Casts Urine 0-2 /LPF (0-2); RBC Urine 0-2 /HPF (0-2); WBC Urine 0-5 /HPF (0-5)
== END 2024-04-11 13:05 | disposition home or self-care (01) ==
LOC: HO.LAB 13:04
PROVIDERS: PCP Internal Medicine; Visit Provider Nurse Practitioner Family
DX: R30.0 Dysuria (principal)
CPT/HCPCS: 81001; 81003

== ENCOUNTER 2024-07-03 13:58 | Outpatient (REF) | payer OTHER, SELFPAY ==
--- OUTSIDE RECORDS SUMMARY | 2024-07-03 17:01 | XMS_ITS | Encounter Summary ---
Author Organization [employer] Address [address] [place] [address] Care Team Providers Care Dictating Machine Mechanic Name Role Phone Carley Tapia MD Primary Care Provide r Encounter Details Date Type Department Care Team ([facility] st Contact Info) Description 01/10/2023 Orders Only [facility]EDS [address] [place], [place] [phone] Jane Smith LPN Social History Tobacco Use Types Packs/Day Years Used Date Smoking Tobacco: Never Passive Smoke Exposure: Never Smokeless Tobacco: Never Alcohol Use Standard Drinks/Week Comments Not Currently 0 (1 standard drink = 0.6 oz pur e alcohol) Depression Answer Date Recorded Patient Health Questionnaire-9 Score 5 09/13/2022 Depression Answer Date Recorded Patient Health Questionnaire-2 Score 1 09/13/2022 Comments Unknown Sex and Gender Information Value Date Recorded Sex Assigned at Female 02/22/2022 10:14 AM EDT Legal Sex Female 10:14 AM EDT Gender Identity Female 02/22/2022 10:14 AM EDT Sexual Orientation Straight 02/22/2022 10 :14 AM EDT documented as of this encounter Plan of Treatment Not on file documented as of this encounter Visit Diagnoses Not on filedocumented in this encounter Additional Health Concerns Assessment Noted Time PHQ-9 Depression Total Score: 5 09/14/19 23 9:38 AM EDT documented as of this encounter Care Teams Dictating Machine Mechanic Relationship Specialty Start Date End Date Carley Tapia MD [address] [place] [id number] PCP - General Family Medicine 06/10/20 documented as of this encounter
--- OUTSIDE RECORDS SUMMARY | 2024-07-03 17:01 | XMS_ITS | Encounter Summary ---
Author Organization [employer] Address [address] [place] [address] Care Team Providers Care Exhibition Organiser Name Role Phone Carley Tapia MD Primary Care Provide r Encounter Details Date Type Department Care Team ([facility] st Contact Info) Description 05/21/2022 Abstract [facility] MEDICINE [address] [place] [address] Kathy Turner, RN [address] [place] [address] Social History Tobacco Use Types Packs/Day Years Used Date Smoking Tobacco: Never Passive Smoke Exposure: Never Smokeless Tobacco: Never Comments Unknown Sex and Gender Information Value Date Recorded Sex Assigned at Female 02/22/2022 10:14 AM EDT Legal Sex Female 10:14 AM EDT Gender Identity Female 02/22/2022 10:14 AM EDT Sexual Orientation Straight 02/22/2022 10 :14 AM EDT COVID-19 Exposure Response Date Recorded In the last 10 days, have yo u been in contact with someone who was confirmed or suspected to have Coronavirus/COVID-19? No / Unsure 05/18/2022 12:52 PM EST documented as of this encounter Plan of Treatment Not on file documented as of this encounter Procedures Procedure Name Priority Date/Time Associated Diagnosis Comments MAMMOGRAPHY Routine 05/18/2022 documented in this encounter Results * Mammography (05/18/2022) Mammogram BIRADS 2: Benign. Routine annual mammography screening. Anatomical Region Laterality Modality Other us Historical Provider HEALTH MAINTENANCE Final Result documented in this encounter Visit Diagnoses Not on filedocumented in this encounter Care Teams Exhibition Organiser Relationship Specialty Start Date End Date Carley Tapia MD [address] [place] [address] PCP - General Family Medicine 06/10/20 documented as of this encounter
--- OUTSIDE RECORDS SUMMARY | 2024-07-03 17:01 | XMS_ITS | Encounter Summary ---
Author Organization [facility] Address [address] [place] [address] Care Team Providers Care Legend Maker Name Role Phone Carley Tapia MD Primary Care Provide r Encounter Details Date Type Department Care Team (Latest Contact Info) Description 02/20/2019 Abstract [facility] CONVERSIONS Dental, Provider, DDS Social History Tobacco Use Types Packs/Day Years Used Date Smoking Tobacco: Never Assessed Comments Unknown Sex and Gender Information Value [...] on filedocumented in this encounter Care Teams Legend Maker Relationship Specialty Start Date End Date Carley Tapia MD [address] [place] [id number] PCP - General Family Medicine 06/10/20 documented as of this encounter
--- OUTSIDE RECORDS SUMMARY | 2024-07-03 17:01 | XMS_ITS | Encounter Summary ---
Author Organization [employer] Address [address] [place] [address] Care Team Providers Care Caustic Mixer Name Role Phone Carley Tapia MD Primary Care Provide r Reason for Visit * Reason Comments Med Refill Encounter Details Date Type Department Care Team ([facility] Contact Info) Description 12/15/2022 Refill [facility] MED[facility]INE [address] [place] [address] [facility] [address] [place] [address] Vitamin D deficiency Social History Tobacco Use Types Packs/Day Years [...] documented as of this encounter Visit Diagnoses Diagnosis Vitamin D deficiency documented in this encounter Additional Health Concerns Assessment Noted Time PHQ-9 Depression Total Score: 5 09/14/19 23 9:38 AM EDT documented as of this encounter Care Teams Caustic Mixer Relationship Specialty Start Date End Date Carley Tapia MD [address] [place] [address] PCP - General Family Medicine 06/10/20 documented as of this encounter
--- OUTSIDE RECORDS SUMMARY | 2024-07-03 17:01 | XMS_ITS | Encounter Summary ---
Author Organization [employer] Address [address] [place] [address] Care Team Providers Care Behavioral Health Associate Name Role Phone Carley Tapia MD Primary Care Provide r Encounter Details Date Type Department Care Team (Late st Contact Info) Description 08/10/2022 Orders Only [facility] MED & PEDS [address] [place], [place] [phone] Jane Smith LPN Social History Tobacco Use [...] on filedocumented in this encounter Care Teams Behavioral Health Associate Relationship Specialty Start Date End Date Carley Tapia MD [address] [place] [id number] PCP - General Family Medicine 06/10/20 documented as of this encounter
--- OUTSIDE RECORDS SUMMARY | 2024-07-03 17:01 | XMS_ITS | Encounter Summary ---
Author Organization [employer] Address [address] [place] [address] Care Team Providers Care Staff Counselor Name Role Phone Carley Tapia MD Primary Care Provide r Encounter Details Date Type Department Care Team ([facility] st Contact Info) Description 10/19/2022 Abstract [facility] ADULT DENTAL [address] [place] [address] Milan Serna DDS [address] [place] [address] Social History Tobacco Use Types Packs/Day Years [...] suspected to have Coronavirus/COVID-19? No / Unsure 10/18/2022 10:20 AM EDT documented as of this encounter Plan of Treatment Not on file documented as of this encounter Visit Diagnoses Not on filedocumented in this encounter Additional Health Concerns Assessment Noted Time PHQ-9 Depression Total Score: 5 09/14/19 23 9:38 AM EDT documented as of this encounter Care Teams Staff Counselor Relationship Specialty Start Date End Date Carley Tapia MD [address] [place] [address] PCP - General Family Medicine 06/10/20 documented as of this encounter
--- OUTSIDE RECORDS SUMMARY | 2024-07-03 17:02 | XMS_ITS | Clinical Summary ---
Author Organization [employer] [facility] [employer] Address [address] [place] [address] Care Team Providers Care Collection Systems Technician Name Role Phone Carley Tapia MD Primary Care Provide r Allergies Active Allergy Reactions Criticality Noted Date Comments Ampicillin Rash Low 06/08/2010 Nsaids 06/08/2010 Other reaction(s): asthma gets worse Oxycodone 06/08/2010 Other reaction(s): makes asthma worse Penicillins Rash High 11/23/2023 Medications Bisacodyl EC 5 MG EC tablet TAKE 2 TABLETS BY MOUTH ONCE DAILY NEEDED FOR CONSTIPATION 02/03/20 22 Active [address] capsule Take 1 capsule by mouth in the evening. 04/16/20 22 Active dicyclomine (Bentyl) 10 MG capsule Take 10 mg by mouth 4 times daily. 04/16/20 22 Active EPINEPHrine (Epipen) 0.3 MG/0.3ML injection syringe Inject 0.3 mL into the shoulder, thigh, or buttocks. 02/13/20 21 Active senna (Senokot) 8.6 MG tabletIndications: Chronic constipation TAKE 1 TABLET BY MOUTH EVERY DAY NEEDED FOR CONSTIPATION 90 tablet 07/08/19 23 Active albuterol (2.5 MG/3ML) 0.083% nebulizer solutionIndication s:Moderate persistent asthma without complication Take 3 mL (2.5 mg) by nebulization every 6 (six) hours if needed for wheezing. 75 mL 11 11/17/19 23 Active Linzess 290 MCG capsule Take 290 mcg by mouth in the morning. 12/23/19 23 Active docusate sodium (Colace) 100 MG capsule Take 100 mg by mouth in the morning. 11/25/19 23 Active glucose blood (FREESTYLE LITE) test strip TEST BLOOD SUGAR 4 TIMES A DAY 100 strip 11 08/10/19 24 Active Alcohol Swabs (Alcohol Prep) 70 % pads USE FOUR TIMES DAILY 100 each 11 08/10/19 24 Active metFORMIN (Glucophage) 1000 MG tabletIndications: Type 2 diabetes mellitus without complication, without long-term current use of insulin (CMS/HCC) Take 1 tablet (1,000 mg) by mouth with breakfast and with evening meal. 60 tablet 11 09/07/19 24 025 Active albuterol (Ventolin HFA) 108 (90 Base) MCG/ACT inhalerIndications :Moderate persistent asthma without complication INHALE 2 PUFFS FOUR TIMES DAILY NEEDED 18 g 3 09/30/19 24 Active fluticasone (Flonase) 50 MCG/ACT nasal sprayIndications:S easonal allergies Administer 1 spray into each nostril 2 times daily. Shake gently. Before first use, prime pump. After use, clean tip and replace cap. 48 g 09/30/19 24 Active cloNIDine (Catapres) 0.2 MG tabletIndications: Essential hypertension TAKE 1 TABLET BY MOUTH TWICE DAILY IN THE MORNING AND AT BEDTIME 180 tablet 3 10/04/19 24 Active enalapril (Vasotec) 20 MG tablet TAKE 1 TABLET BY MOUTH TWICE DAILY IN THE MORNING AND AT BEDTIME 180 tablet 3 10/04/19 24 Active cholecalciferol (D3 Super Strength) 50 MCG (2000 UT) capsuleIndications :Vitamin D deficiency TAKE 1 CAPSULE BY MOUTH EVERY MORNING 90 capsule 1 12/08/19 24 Active amitriptyline (Elavil) 75 MG tabletIndications: Mood disorder (CMS/HCC) TAKE 1 TABLET BY MOUTH AT BEDTIME 90 tablet 1 01/20/20 24 Active buPROPion XL (Wellbutrin XL) 300 MG 24 hr tabletIndications: Mood disorder (CMS/HCC) TAKE 1 TABLET BY MOUTH EVERY MORNING 90 tablet 1 01/20/20 24 Active FLUoxetine (PROzac) 20 MG capsuleIndications :Mood disorder (CMS/HCC) TAKE 2 CAPSULES BY MOUTH ONCE DAILY IN THE MORNING 180 capsule 1 01/20/20 24 Active atorvastatin (Lipitor) 20 MG tabletIndications: Hyperlipidemia, unspecified hyperlipidemia type TAKE 1 TABLET BY MOUTH EVERY EVENING 90 tablet 1 01/20/20 24 Active ferrous sulfate (FeroSul) 325 (65 Fe) MG tabletIndications: Iron deficiency anemia, unspecified iron deficiency anemia type TAKE 1 TABLET BY MOUTH EVERY MORNING WITH ORANGE JUICE 90 tablet 1 01/20/20 24 Active hydroCHLOROthiazid e (HYDRODiuril) 25 MG tabletIndications: Essential hypertension TAKE 1 TABLET BY MOUTH EVERY MORNING 90 tablet 1 01/20/20 24 Active loratadine (Claritin) 10 MG tablet TAKE 1 TABLET BY MOUTH EVERY MORNING NEEDED 90 tablet 1 01/20/20 24 Active diphenhydrAMINE (BENADryl) 25 MG capsule TAKE 1 CAPSULE BY MOUTH THREE TIMES DAILY NEEDED FOR ALLERGIC REACTION 11/23/19 24 Active Linzess 72 MCG capsule Take 72 mcg by mouth in the morning. 12/30/19 24 Active Myrbetriq 25 MG 24 hr tablet Take 25 mg by mouth in the morning. 12/30/19 24 Active TRUEplus Lancets 33G misc TEST BLOOD SUGAR FOUR TIMES DAILY 100 each 11 05/21/19 25 Active Fluticasone-Salmet avtar 500-50 MCG/ACT aerosol powder INHALE 1 PUFF TWICE DAILY RINSE MOUTH AFTER USING. 60 each 2 05/24/19 25 Active Active Problems Problem Noted Date Diagnosed Date Osteopenia 12/08/2023 Assessment & Plan (12/08/2023 11:23 AM EDT): DEXA results reviewed with patient I advise exercise 3-5 times a week Continue taking vitamin D UTI symptoms 12/08/2023 Assessment & Plan (12/08/2023 11:24 AM EDT): UA and culture today Follow up with urology Encounter for preventive care 09/30/2023 Assessment & Plan (09/30/2023 11:01 PM EDT): See HPI Asymptomatic menopausal state 09/30/2023 Nevus 09/30/2023 Advanced periodontitis 09/29/2023 Severe generalized gingival recession 09/29/2023 Diminished vision 09/07/2023 Mixed stress and urge urinary incontinence 03/08 Colon cancer screening 03/08/2023 Partial edentulism 10/05/2022 Encounter for preventive health examination 08/24 Assessment & Plan (09/13/2022 10:22 AM EDT): Please refer to HPI Seasonal allergies 09/13/2022 Weight loss 09/13/2022 Assessment & Plan (09/13/2022 10:21 AM EDT): Labs ordered today RTC 4 weeks Recurrent UTI 09/13/2022 Urinary incontinence 09/10/2022 Loss of hair 09/10/2022 Incontinence of feces with fecal urgency 023 Forgetfulness 09/10/2022 Assessment & Plan (09/30/2023 11:01 PM EDT): New neurology referral done today Assessment & Plan (09/09/2023 4:12 PM EDT): Patient already referred to neurology information provided Hypertensive disorder 09/10/2022 Assessment & Plan (03/08/2023 12:23 PM EST): -today she did not took her medication, I advise not to miss any dose - Aerobic exercise to reduce BP. Initial goal of 30 min walk 3-5x/week. Increase as tolerated. - low-sodium diet (goal: <2g/day) and heart healthy diet such as DASH to reduce BP and prevent ASCVD. - Home BP monitoring 1-2 x day with goal of <140/90. - Seek immediate medical attention for chest pain, palpitations, SOB, syncope, or sudden changes in mental status. - Do not change or discontinue current prescriptions without first consulting health care provider Chronic left shoulder pain 09/10/2022 Dyslipidemia 07/17/2018 Vitamin D deficiency 09/01/2017 Type 2 diabetes mellitus without complication Assessment & Plan (12/08/2023 11:23 AM EDT): Diabetes is: almost at goal - Lab Results Component Value Date HGBA1C 7.4 (A) 09/30/2023 HGBA1C 7.5 (A) 07/21/2023 HGBA1C 7.9 (A) 03/08/2023 - Lab Results Component Value Date MICROALBUR 2.0 08/18/2021 CREATININE 0.82 09/30/2023 -Changes: none - Diabetic eye exam:up to date - Diabetic foot exam:up to date - Continue lifestyle modifications - Continue current medications - Follow up: 3 months Assessment & Plan (09/30/2023 10:59 PM EDT): Diabetes is: controlled - Lab Results Component Value Date HGBA1C 7.4 (A) 09/30/2023 HGBA1C 7.5 (A) 07/21/2023 HGBA1C 7.9 (A) 03/08/2023 - Lab Results Component Value Date MICROALBUR 2.0 08/18/2021 CREATININE 0.82 09/30/2023 -Changes: none - Diabetic eye exam:up to date - Diabetic foot exam:done today - Continue lifestyle modifications - Continue current medications - Follow up: 3 months Assessment & Plan (09/09/2023 4:10 PM EDT): Diabetes is: almost at goal - Lab Results Component Value Date HGBA1C 7.5 (A) 07/21/2023 HGBA1C 7.9 (A) 03/08/2023 HGBA1C 7.8 (A) 11/16/2022 - Lab Results Component Value Date MICROALBUR 2.0 08/18/2021 CREATININE 0.69 09/13/2022 -Changes: none - Diabetic eye exam:referral today - Diabetic foot exam:pending - Continue lifestyle modifications - Continue current medications - Follow up: 3 months Assessment & Plan (03/08/2023 12:26 PM EST): - Lab Results Component Value Date HGBA1C 7.9 (A) 03/08/2023 HGBA1C 7.8 (A) 11/16/2022 HGBA1C 7.9 (A) 09/13/2022 - Lab Results Component Value Date MICROALBUR 2.0 08/18/2021 CREATININE 0.69 09/13/2022 - - Continue lifestyle modifications - Continue with metformin today I added bob Patient also needs a new glucometer Assessment & Plan (11/16/2022 2:47 PM EDT): - Lab Results Component Value Date HGBA1C 7.8 (A) 11/16/2022 HGBA1C 7.9 (A) 09/13/2022 - Lab Results Component Value Date MICROALBUR 2.0 08/18/2021 CREATININE 0.69 09/13/2022 - Continue lifestyle modifications - Continue current medications Assessment & Plan (09/13/2022 10:20 AM EDT): - Lab Results Component Value Date HGBA1C 7.9 (A) 09/13/2022 - Lab Results Component Value Date MICROALBUR 2.0 08/18/2021 CREATININE 0.76 08/04/2022 - - Diabetic eye exam: referral today - Diabetic foot exam: pending - Continue lifestyle modifications - Continue current medications Steatosis of liver 05/09/2015 Obesity 05/09/2015 Moderate persistent asthma 05/09/2015 Assessment & Plan (11/16/2022 2:49 PM EDT): well control patient received her nebulizer Patient educated to avoid asthma triggers Assessment & Plan (09/13/2022 10:11 AM EDT): Patient educated to avoid triggers She reports she was recently in the hospital due to asthma now she is better, patient should benefit form nebulizer machine to avoid ED visits I will prescribe today Migraine without aura, not refractory 05/09/2015 Heartburn 05/09/2015 Female stress incontinence 05/09/2015 Essential hypertension 05/09/2015 Assessment & Plan (12/08/2023 11:22 AM EDT): It was advise: - Aerobic exercise to reduce BP. Initial goal of 30 min walk 3-5x/week. Increase as tolerated. - low-sodium diet (goal: <2g/day) and heart healthy diet such as DASH to reduce BP and prevent ASCVD. - Home BP monitoring 1-2 x day with goal of <140/90. - Seek immediate medical attention for chest pain, palpitations, SOB, syncope, or sudden changes in mental status. - Do not change or discontinue current prescriptions without first consulting health care provider Assessment & Plan (09/09/2023 4:10 PM EDT): - Aerobic exercise to reduce BP. Initial goal of 30 min walk 3-5x/week. Increase as tolerated. - low-sodium diet (goal: <2g/day) and heart healthy diet such as DASH to reduce BP and prevent ASCVD. - Home BP monitoring 1-2 x day with goal of <140/90. - Seek immediate medical attention for chest pain, palpitations, SOB, syncope, or sudden changes in mental status. - Do not change or discontinue current prescriptions without first consulting health care provider Assessment & Plan (03/08/2023 12:21 PM EST): - Aerobic exercise to reduce BP. Initial goal of 30 min walk 3-5x/week. Increase as tolerated. - low-sodium diet (goal: <2g/day) and heart healthy diet such as DASH to reduce BP and prevent ASCVD. - Home BP monitoring 1-2 x day with goal of <140/90. - Seek immediate medical attention for chest pain, palpitations, SOB, syncope, or sudden changes in mental status. - Do not change or discontinue current prescriptions without first consulting health care provider Assessment & Plan (11/16/2022 2:46 PM EDT): - Aerobic exercise to reduce BP. Initial goal of 30 min walk 3-5x/week. Increase as tolerated. - low-sodium diet (goal: <2g/day) and heart healthy diet such as DASH to reduce BP and prevent ASCVD. - Home BP monitoring 1-2 x day with goal of <140/90. - Seek immediate medical attention for chest pain, palpitations, SOB, syncope, or sudden changes in mental status. - Do not change or discontinue current prescriptions without first consulting health care provider Assessment & Plan (09/13/2022 10:21 AM EDT): Maintenance: BMP: ordered Lipid Panel: ordered ASCVD Risk: Calculate pending updated labs EKG: Obtain baseline at f/u - Aerobic exercise to reduce BP. Initial goal of 30 min walk 3-5x/week. Increase as tolerated. - low-sodium diet (goal: <2g/day) and heart healthy diet such as DASH to reduce BP and prevent ASCVD. - Home BP monitoring 1-2 x day with goal of <140/90. - Seek immediate medical attention for chest pain, palpitations, SOB, syncope, or sudden changes in mental status. - Do not change or discontinue current prescriptions without first consulting health care provider -Patient forgot to take her medication today Depressive disorder 05/09/2015 Constipation 05/09/2015 Allergic rhinitis 05/09/2015 Resolved Problems Problem Noted Date Diagnosed Date Resolved Date Acute cystitis without hematuria 09/13/2022 09/13/2022 Encounters Date Type Department Care Team Description 05/24/2024 Refill [facility] [address] [place] [address] Carley Tapia MD 05/19/2024 Refill [facility] [address] [place] [address] Carley Tapia MD 04/11/2024 Orders Only GENERIC EXTERNAL DATA DEPARTMENT Provider, Generic External Data from Last 3 Months Immunizations Name Administration Dates Next Due Hep B, adult 06/02/2017,12/10/2016,11/05/2016 Influenza injectable quadriv alent IIV4 with preservative 01/10/2019,06/02/2017,01/20/2015 Influenza injectable quadriv alent preservative free 03/08/2023,05/20/2020,04/10/2018,04/15 Influenza, IIV3, injectable 03/07/2014 Influenza, Split (incl. neel fied surface antigen) 01/19/2013,02/11/2012 MMR 02/26/1997 Pneumococcal Conjugate PCV 20 09/07/2023 Pneumococcal Polysaccharide PPSV23 12/20/1996 TD (adult), 2 Lf tetanus tox oid, preservative free, adsorbed 07/11/1995 Tdap 06/08/2010 Zoster, Recombinant 09/28/2018,07/17/2018 Family History Medical History Relation Name Comments Diabetes Brother Diabetes Father Hypertension Father Throat cancer Father's Brother Prostate cancer Maternal Grandfather Throat cancer Maternal Grandmother Colon cancer Mother Coronary artery disease Mother Diabetes Mother Relation Name Status Comments Brother Father Father's Brother Maternal Grandfather Maternal Grandmother Mother Social History Tobacco Use Types Packs/Day Years Used Date Smoking Tobacco: Never Passive Smoke Exposure: Never Smokeless Tobacco: Never Tobacco Cessation:Counseling Given: Not Answered Alcohol Use Standard Drinks/Week Comments Not Currently 0 (1 standard drink = 0.6 oz pur e alcohol) Depression Answer Date Recorded Patient Health Questionnaire-9 Score 0 12/08/2023 Patient Health Questionnaire-9 Score 0 12/08/2023 Last PHQ-9: Questionnaire Data Not on file 0 12/08/2023 Housing Stability Answer Date Recorded What is your housing situation today? I have sergio story 02/10/[address] you li ve. Do you have problems with any of the following? None of the above 02/10/2023 Food Insecurity Answer Date Recorded Within the past 12 months, y ou worried that your food would run out before you got money to buy more: Never True 02/10/2023 Within the past 12 months,th e food you bought just didn't last and you didn't have enough money to get more: Never True Transportation Answer Date Recorded In the past 12 months, has l ack of transportation kept you from medical appts, meetings, work or from getting things needed for daily living? No 02/10/2023 Utilities Answer Date Recorded In the past 12 months, has t he electric, gas, oil or water company threatened to shut off services in your home? No 02/10/2023 Depression Answer Date Recorded Patient Health Questionnaire-2 Score 0 12/08/2023 Comments Unknown Sex and Gender Information Value Date Recorded Sex Assigned at Female 02/22/2022 10:14 AM EDT Legal Sex Female 10:14 AM EDT Gender Identity Female 02/22/2022 10:14 AM EDT Sexual Orientation Straight 02/22/2022 10 :14 AM EDT Last Filed Vital Signs Vital Sign Reading Time Taken Comments Blood Pressure 150/84 12/08/2023 11:18 AM EDT Pulse 86 12/08/2023 10:26 AM EDT Temperature 37 ??C (98.6 ??F) 12/08/2023 10:26 AM EDT Respiratory Rate 20 12/08/2023 10:26 AM EDT Oxygen Saturation 99% 12/08/2023 10:26 AM EDT Inhaled Oxygen Concentration - - Weight 62.2 kg (137 lb 3.2 oz) 12/08/2023 10:26 AM EDT Height 149.9 cm (4' 11 ) 12/08/2023 10:26 AM EDT Body Mass Index 27.71 12/08/2023 10:26 AM EDT Plan of Treatment Health Maintenance Due Date Last Done Comments CT Colonography 1958 Colonoscopy 1958 FIT 1958 FOBT 1958 Sigmoidoscopy 1958 Alcohol/Substance Use Screening 1970 Hepatitis A Vaccines (1 of 2 - Risk 2-dose series) 1977 RSV Patients and Patients Aged 60 years or older (1 - Risk 60-74 years 1-dose series) 2018 DTaP/Tdap/Td Vaccines (2 - Td or Tdap) 06/08/2020 06/08/2010, 07/11/1995 Dental Oral Exam 11/16/2022 05/18/2022 Diabetes: Urine Protein Screening 09/14/2023 09/13/2022, 08/18/2021, 02/25/2021, Additional history exists Lipid Panel 09/14/2023 09/13/2022, 07/25, 02/25/2021 COVID-19 Vaccine ( season) 2023 05/26/2021, 10/15/2020 Influenza Vaccine (#1) 2023 , 05/20/2020, 01/10/2019, Additional history exists Diabetes: Hemoglobin A1C 12/31/2023 024, 07/21/2023, 03/08/2023, Additional history exists Dental Prophylaxis 03/31/2024 09/29/2023 Mammogram 05/24/2024 05/24/2023, 04/26, 05/18/2022, Additional history exists SDOH Screening 08/28/2024 08/29/2023 Dental X-Ray: Bitewings 09/29/2024 09/29/19 24, 05/18/2022, 05/18/2022 Diabetes: Foot Exam 09/29/2024 09/30/2023, 09/30/2023, 09/30/2023, Additional history exists Depression Screening 12/07/2024 12/08/2023, 12/08/19 Eye Exam 01/16/2025 01/17/2024, 12/25, 01/17/2024, Additional history exists Tobacco Screening 01/25/2025 01/26/2024 Dental X-Ray: Full Mouth 05/19/2025 05/18/2022, 04/26 HPV/Cotest 05/28/2025 05/28/2020 Pap Smear 05/28/2025 05/28/2020 Colorectal Cancer Screening 11/15/2026 FIT DNA/Cologuard 11/15/2026 11/16/2023 Hepatitis B Vaccines Completed 06/02/2017, 12/10/2016, 11/05/2016 Zoster Vaccines Completed 09/28/2018, 07/17/2018 Hepatitis C Screening Completed 09/13/2022 Pneumococcal Vaccine: 50+ Years Completed 09/07/2023, 12/20/1996 HIB Vaccines Aged Out No longer eligi ble based on patient's age to complete this topic HPV Vaccines Aged Out No longer eligi ble based on patient's age to complete this topic IPV Vaccines Aged Out No longer eligi ble based on patient's age to complete this topic Meningococcal Vaccine Aged Out No rhiannon kirby eligible based on patient's age to complete this topic RSV under 20 months Aged Out No longe r eligible based on patient's age to complete this topic Rotavirus Vaccines Aged Out No longer eligible based on patient's age to complete this topic Procedures Procedure Name Priority Date/Time Associated Diagnosis Comments URINALYSIS, COMPLETE, WITH REFLEX TO CULTURE Routine 04/11/2024 1:40 PM EST LAB COLOGUARD?? COLON CANCER SCREEN Routine 11/16/2023 10:30 AM EDT Colon cancer screening POCT GLYCATED HEMOGLOBIN, TOTAL Routine 09/30/2023 1:46 PM EDT Type 2 diabetes mellitus without complication, without long-term current use of insulin ([facility]) Full PROPHYLAXIS - ADULT Routine 09/29/2023 1:00 PM EDT Advanced periodontitis BITEWINGS - 4 RADIOGRAPHIC IMAGES Routine 09/29/2023 1:00 PM EDT Advanced periodontitis Severe generalized gingival recession BI MAMMOGRAM SCREENING TOMOSYNTHESIS BILATERAL Routine 05/24/2023 1:18 PM EST HEPATITIS C VIRAL RNA, QUANTITATIVE, REAL-TIME PCR Routine 09/13/2022 10:42 AM EDT Weight loss ALBUMIN, RANDOM URINE W/O CREATININE Routine 09/13/2022 10:42 AM EDT Weight loss LIPID PANEL, STANDARD Routine 09/13/2022 10:42 AM EDT Weight loss PERIODIC ORAL EVALUATION - ESTABLISHED PATIENT Routine 05/18/2022 2:00 PM EST INTRAORAL - COMPLETE SERIES OF RADIOGRAPHIC IMAGES Routine 05/18/2022 1:00 PM EST ZZZ HISTORICAL HPV DNA, HIGH RISK, CERVICAL Routine 05/28/2020 3:43 PM EST THINPREP PAP Routine 05/28/2020 3:43 PM EST from Last 3 Months or Most Recently Relevant to Health Maintenance Results * (ABNORMAL) Urinalysis, Complete, with Reflex to Culture (04/11/2024 1:40 PM EST) Color Urine Yellow [facility] Appearance Urine Clear [facility] PH 5.5 5.0 - 9.0 [facility] Glucose Urine UA Negative Negative mg/dL [facility] Urine Blood Negative Negative [facility] Specific Parrott - Urine 1.020 1.005 - 1.025 [facility] Urine Protein Negative Neg-Trace mg/dL [facility] Urine Ketones Negative Negative mg/dL [facility] Nitrite Urine Negative Negative [facility] Leukocyte Esterase Urine Trace(A) Negative [facility] RBC Urine 0-2 0 - 2 /HPF [facility] Urine WBC 0-5 0 - 5 /HPF [facility] Urine Squamous Epithelial Cell 3-5 0 - 2 /HPF [facility] Urine Bacteria None Seen None Seen [facility] Hyaline Casts, Urine 0-2 0 - 2 /LPF [facility] 04/11/2024 1:40 PM EST 04/11/2024 2:50 PM EST Narrative [facility] - 04/11/2024 4:07 PM EST Urine, Clean Catch us Generic External Data Provider LAB URINE ORDERAB LES Final Result [facility] [address] [place] [address] [phone] * Cologuard?? colon cancer screening (11/16/2023 10:30 AM EDT) Cologuard Result Negative Negative 11/24/19 10:15 PM EDT [facility] (CLIA #:[id number]) Comment: NEGATIVE TEST RESULT. A negative Cologuard result indicates a low likelihood that a colorectal cancer (CRC) or advanced adenoma (adenomatous polyps with more advanced pre-malignant features) ??is present. The chance that a person with a negative Cologuard test has a colorectal cancer is less than 1 in 1500 (negative predictive value >99.9%) or has an ??advanced adenoma is less than ??5.3% (negative predictive value 94.7%). These data are based on a prospective cross-sectional study of 10,000 individuals at average risk for colorectal cancer who were screened with both Cologuard and colonoscopy. (Zoey Higginbotham et al, N Engl J Med 2014;370(14):1286- 1297) The normal value (reference range) for this assay is negative. COLOGUARD RE-SCREENING RECOMMENDATION: Periodic colorectal cancer screening is an important part of preventive healthcare for asymptomatic individuals at average risk for colorectal cancer. ??Following a negative Cologuard result, the [place] [employer] and U.S. Multi-Society Task Force screening guidelines recommend a Cologuard re-screening interval of 3 years. References: [place] [employer] Guideline for Colorectal Cancer Screening: https://www.cancer.org/cancer/akitz-yeuaqo-qmkhum/foeybszzn-jbshzzmds-hrxensp/ac s-rec ommendations.html.; Shola SARABIA, Ector MCDANIEL, Abelardo MORALES, Colorectal Cancer Screening: Recommendations for Physicians and Patients from the U.S. Multi-Society Task Force on Colorectal Cancer Screening , Am J Gastroenterology 2017; 112:3988-4992. TEST DESCRIPTION: Composite algorithmic analysis of stool DNA-biomarkers with hemoglobin immunoassay. ?? Quantitative values of individual biomarkers are not reportable and are not associated with individual biomarker result reference ranges. Cologuard is intended for colorectal cancer screening of adults of either sex, 45 years or older, who are at average-risk for colorectal cancer (CRC). Cologuard has been approved for use by the U.S. FDA. The performance of Cologuard was established in a cross sectional study of average-risk adults aged 50-84. Cologuard performance in patients ages 45 to 49 years was estimated by sub-group analysis of near-age groups. Colonoscopies performed for a positive result may find as the most clinically significant lesion: colorectal cancer [4.0%], advanced adenoma (including sessile serrated polyps greater than or equal to 1cm diameter) [20%] or non- advanced adenoma [31%]; or no colorectal neoplasia [45%]. These estimates are derived from a prospective cross-sectional screening study of 10,000 individuals at average risk for colorectal cancer who were screened with both Cologuard and colonoscopy. (Zoey Higginbotham et al, N Engl J Med 2014;370(14):1366-2716.) Cologuard may produce a false negative or false positive result (no colorectal cancer or precancerous polyp present at colonoscopy follow up). A negative Cologuard test result does not guarantee the absence of CRC or advanced adenoma (pre-cancer). The current Cologuard screening interval is every 3 years. ([place] [employer] and U.S. Multi-Society Task Force). Cologuard performance data in a 10,000 patient pivotal study using colonoscopy as the reference method can be accessed at the following location: [email or web address]. Additional description of the Cologuard test process, warnings and precautions can be found at [email or web address]. Stool specimen (specimen) 11/16/2023 10:30 AM EDT 11/18/2023 1:44 PM EDT us Carley Mak MD LAB MOLECULAR DIAGNOS TICS ORDERABLES Final Result [facility] (CLIA #:[id number]) [place] [address], * (ABNORMAL) POCT A1C (09/30/2023 1:46 PM EDT) Hemoglobin A1C 7.4(A) 4.0 - 6.0 % QC Media Lot # [id number] Lot# Expiration Date Blood 09/30/2023 1:46 PM EDT us Carley Mak MD POINT OF CARE TEST EN TER/EDIT ORDERABLES Final Result * BI Mammogram Screening Tomosynthesis Bilateral (05/24/2023 1:18 PM EST) Anatomical Region Laterality Modality Breast Bilateral Mammography 05/24/2023 1:18 PM EST Narrative 06/16/2023 8:42 PM EST ? [facility] [place] ? [address] ?[place] [address] ? Mammography Report ? Signed ? Patient: Fisher,Yareli ?MR#: [id number] ?? [id number] ? : 1960 ?Acct:[id number] ? Age/Sex: 63 / F ?ADM Date: /30/24 ? Loc: HO.MAMMO ? Attending Dr: Carley Mak MD ? Ordering Physician: Carley Tapia MD ?Results: ?? 2Benign Findings ? Date of Service: 05/24/23 ?Follow Up: 1 Year From Orig ?? inal Mammogram ? Procedure(s): MM tomosynthesis screening BI ?? Accession Number(s): [id number] ? cc: Carley Tapia MD ? EXAMINATION: ?? MM SCREENING DIGITAL BREAST TOMOSYNTHESIS, BILATERAL ? CLINICAL INFORMATION: ? Screening. Asymptomatic. ? COMPARISON: ?? Mammography: This study is compared with prior exams dating back to ?? 2017. ? TECHNIQUE: ?? Digital breast tomosynthesis is performed in both the craniocaudal and ?? mediolateral oblique views along with computer-aided detection (CAD). ?? Synthesized 2D images are generated from the tomosynthesis. ? FINDINGS: ?? There are scattered areas of fibroglandular density (ACR BI-RADS breast ?? composition Category b). ? There are no significant masses, abnormal calcifications, or other ?? abnormalities. ? There are postsurgical changes in the medial aspect of the left breast ?? from prior benign excisional biopsy. ? MM/MM tomosynthesis screening BI ?? IMPRESSION: ?? No mammographic evidence of malignancy. ? ASSESSMENT: ? BI-RADS BI-RADS 2 - Benign Findings ? RECOMMENDATION: ?? Routine annual mammography screening. ? 1 year F/U ? This examination should not preclude the clinical evaluation of a ?? suspicious palpable abnormality. ? This patient's information was entered into a reminder system with a ?? target due date for their next mammogram. ? Dictated By: ?Madisyn Odonnell MD ? Signed By: ?<Electronically signed by Madisyn Odonnell MD in OV> ? 06/16/232036 ? DD/DT: 30/24 1318 ? TD/TT: ? Carbide Grinder: ? Procedure Note Donotuseinterpreter, Image - 06/16/2023 [place] [facility] [address] [place] [address] Mammography Report Signed Patient: Sly Fisher#: [id number] : 8Acct:[id number] Age/Sex: 63 / FADM Date: 05/24/23 Loc: HO.MAMMO Attending Dr: Carley Mak MD Ordering Physician: Carley Tapiaesults: 2Benign Findings Date of Service: 05/24/23Follow Up: 1 Year From Orig inal Mammogram Procedure(s): MM tomosynthesis screening BI Accession Number(s): [id number] cc: Carley Tapia MD EXAMINATION: MM SCREENING DIGITAL BREAST TOMOSYNTHESIS, BILATERAL CLINICAL INFORMATION: Screening. Asymptomatic. COMPARISON: Mammography: This study is compared with prior exams dating back to 2018. TECHNIQUE: Digital breast tomosynthesis is performed in both the craniocaudal and mediolateral oblique views along with computer-aided detection (CAD). Synthesized 2D images are generated from the tomosynthesis. FINDINGS: There are scattered areas of fibroglandular density (ACR BI-RADS breast composition Category b). There are no significant masses, abnormal calcifications, or other abnormalities. There are postsurgical changes in the medial aspect of the left breast from prior benign excisional biopsy. MM/MM tomosynthesis screening BI IMPRESSION: No mammographic evidence of malignancy. ASSESSMENT: BI-RADS BI-RADS 2 - Benign Findings RECOMMENDATION: Routine annual mammography screening. 1 year F/U This examination should not preclude the clinical evaluation of a suspicious palpable abnormality. This patient's information was entered into a reminder system with a target due date for their next mammogram. Dictated By: Madisyn Odonnell MD Signed By: <Electronically signed by Madisyn Odonnell MD in OV> 06/16/232036 DD/ 1318 TD/TT: Carbide Grinder: us Carley Mak MD IMG BI PROCEDURES Nikolai amrita Result - Final * Hepatitis C Viral RNA, Quantitative, Real-Time PCR (09/13/2022 10:42 AM EDT) HCV RNA, QN Real Time PCR <15 NOT DETECTED NOT DETECTED IU/mL [facility] HCV RNA QN Real Time PCR <1.18 NOT DETECTED NOT DETECTED Log IU/mL [facility] [place] [employer] [facility] [employer] Comment: This test was performed using Real-Time Polymerase Chain Reaction. Reportable Range: 15 IU/mL to 100,000,000 IU/mL (1.18 Log IU/mL to 8.00 Log IU/mL). ?? The analytical performance characteristics of this assay have been determined by [facility]. The modifications have not been cleared or approved by the FDA. This assay has been validated pursuant to the CLIA regulations and is used for clinical purposes. ?? For more information on this test, go to: http://education.Uplogix/faq/WRC06j0 (This link is being provided for informational/ educational purposes only.) 09/13/2022 10:4 2 AM EDT 09/13/2022 10:42 AM EDT Narrative [facility] - 09/15/2022 5:24 PM EDT FASTING:NO FASTING: NO Carley Mak MD LAB BLOOD ORDERABLES Final Result [facility] [address], [place] [address] [facility] [address] [place] [address] * Albumin, Random Urine W/O Creatinine (09/13/2022 10:42 AM EDT) Pathologist [facility] [place] Albumin, Urine 0.4 See Note: mg/dL [facility] [place] [employer] Comment: Reference Range: Reference Range Not established [facility] [place] [employer] Comment: The ADA defines abnormalities in albumin excretion as follows: Albuminuria Category ? Result (mcg/mg creatinine) Normal to Mildly increased ?<30 Moderately increased ?30-299 Severely increased ?> OR = 300 The ADA recommends that at least two of three specimens collected within a 3-6 month period be abnormal before considering a patient to be within a diagnostic category. Urine Urine specimen obtained by clean catch procedure / Unknown 09/13/2022 10:42 AM EDT 09/13/2022 10:42 AM EDT Narrative [facility] - 09/15/2022 5:24 PM EDT FASTING:NO FASTING: NO Carley Mak MD LAB URINE ORDERABLES Final Result [facility] [address], [place] [address] [facility] [place] [employer] [address] [place] [address] * (ABNORMAL) Lipid Panel, Standard (09/13/2022 10:42 AM EDT) Cholesterol, Total 160 <200 mg/dL [facility] [place] [employer] HDL Cholesterol 58 > OR = 50 mg/dL [facility] [place] [employer] Triglycerides 255(H) <150 mg/dL [facility] [place] [employer] Comment: If a non-fasting specimen was collected, consider repeat triglyceride testing on a fasting specimen if clinically indicated. Shama et al. J. of Clin. Lipidol. 2015;9:129-169. LDL Cholesterol 68 mg/dL (calc) [facility] [place] [employer] Comment: Reference range: <100 Desirable range <100 mg/dL for primary prevention; ?? <70 mg/dL for patients with CHD or diabetic patients with > or = 2 CHD risk factors. LDL-C is now calculated using the Joo-Gautam calculation, which is a validated novel method providing better accuracy than the Friedewald equation in the estimation of LDL-C. Joo COOPER et al. TRANG. 2013;310(19): 9405-2687 (http://education.pinnacle-ecs/faq/TBC279) Chol/HDLC Ratio 2.8 <5.0 (calc) [facility] Non-HDL Cholesterol 102 <130 mg/dL (calc) [facility] [place] [employer] Comment: For patients with diabetes plus 1 major ASCVD risk factor, treating to a non-HDL-C goal of <100 mg/dL (LDL-C of <70 mg/dL) is considered a therapeutic option. Blood Venous blood specimen / Unknown 09/13/2022 10:42 AM EDT 09/13/2022 10:42 AM EDT Narrative [facility] - 09/15/2022 5:24 PM EDT FASTING:NO FASTING: NO us Carley Mak MD LAB BLOOD ORDERABLES Final Result Performing Organization Address City/[facility]/ZIP Co de Phone Number [address], [facility] [place] [address] [facility] [place] [employer] [address] [place] [address] * HPV DNA, HIGH RISK, CERVICAL (05/28/2020 3:43 PM EST) [facility] HPV DNA, HIGH RISK, CERVICAL Not Detected NOT DETECTED [facility] Comment: Not Detected High Risk HPV types (16,18,31,33,35,39,45,51,52, 56,58,59,66,68) were not detected. Other HPV types which cause anogenital lesions may be present. The significance of the other types of HPV in malignant processes has not been established. ?? Methodology: Real Time PCR ? NO COLLECTION DATE RECEIVED. WE HAVE USED THE DATE THE SPECIMEN WAS RECEIVED BY THIS LABORATORY THE COLLECTION DATE. IF THIS IS INCORRECT, PLEASE CONTACT CLIENT SERVICES. PHONE NUMBER: ?? 05/28/2020 3:43 PM EST us Bonita Camarena NP HISTORICAL/NON ORDERABLE LABS Fi nal Result [facility] [address] * THINPREP PAP (05/28/2020 3:43 PM EST) Clinical Information: None given [facility] COMMENT SEE COMMENT [facility] Comment: EXPLANATORY NOTE: ? The Pap is a screening test for cervical cancer. It is ?? not a diagnostic test and is subject to false negative ?? and false positive results. It is most reliable when a ?? satisfactory sample, regularly obtained, is submitted ?? with relevant clinical findings and history, and when ?? the Pap result is evaluated along with historic and ?? current clinical information. ?? Electrolysis Engineer: SEE COMMENT [facility] Comment: JH, CT(ASCP) CT screening location: [address] ??[id number] Interpretation/Res ult: SEE COMMENT [facility] Comment: Negative for intraepithelial lesion or malignancy. Atrophic pattern; predominantly parabasal cells LMP: NONE [facility]IVEN [facility] Prev. BX: NONE [facility]IVEN [facility] Prev. PAP: NONE [facility]IVEN [facility] SOURCE: None given [facility] Statement Of Adequacy: SATISFACTORY FOR EVALUATION [facility] 05/28/2020 3:43 PM EST us Bonita Camarena NP LAB PATHOLOGY ORDERABLES Final R esult [facility] [address] from Last 3 Months or Most Recently Relevant to Health Maintenance Insurance [facility] - [facility] DENTAL - [facility] Care Teams Collection Systems Technician Relationship Specialty Start Date End Date Carley Tapia MD [address] [place] [id number] PCP - General Family Medicine 06/10/20
== END 2024-07-03 13:59 | disposition home or self-care (01) ==
LOC: HO.MAMMO 13:58
PROVIDERS: PCP Internal Medicine; Visit Provider Internal Medicine
DX: Z12.31 Encounter for screening mammogram for malignant neoplasm of breast (principal)
CPT/HCPCS: 77063; 77067

== ENCOUNTER → 2024-07-03 14:30 | Outpatient (BNV) | payer OTHER, SELFPAY | PROVIDERS: PCP Internal Medicine; Visit Provider Internal Medicine | DX: Z12.31 Encounter for screening mammogram for malignant neoplasm of breast (principal) | CPT/HCPCS: 77063; 77067 ==

== ENCOUNTER 2024-08-07 23:28 | Emergency (ER) | payer OTHER, SELFPAY ==
--- NOTE | ~2024-08-07 | XR_ITS ---
CLINICAL HISTORY: cough Exam: PA and lateral views of the chest. Comparison: August 04, 2022. Findings: Mediastinal contours, cardiac silhouette, and pulmonary vasculature are within normal limits. No focal areas of consolidation. No pleural effusion or pneumothorax. Surgical clips are identified within the right axilla. Impression: No acute infiltrate. This document has been electronically signed by: Harry Abbott MD on 08/08/2024 03:17:54
[2024-08-07 23:33] VITALS: BP 174/76; PULSE 99; RESP 18; TEMP 37.3; O2SAT 94; BMI 26.4
[2024-08-07 23:48] LABS: Basophils Absolute Auto 0.1 X10*3/uL (0.0-0.2); Basophils Percent Auto 0.5 % (0-2); Eosinophils Absolute Auto 0.3 X10*3/uL (0.0-0.4); Eosinophils Percent Auto 1.9 % (0-4); Hematocrit 35.3 % (37.0-47.0); Imm Gran Abs Auto 0.15 X10*3/uL (0.00-0.03); Lymphocytes Absolute Auto 5.5 X10*3/uL (1.2-4.9); Lymphocytes Percent Auto 37.3 % (20-40); MANUAL DIFF FLAG SCAN; Mean Corpuscular Hemoglobin 29.1 pg (27.0-33.0); Mean Corpuscular Volume 85.5 fL (80.0-98.0); Mean Platelet Volume 9.7 fL (9.4-12.3); Monocytes Percent Auto 6.8 % (2-11); Neutrophils Absolute Auto 7.8 x10*3/uL (2.0-8.3); Neutrophils Percent Auto 52.5 % (45-73); Platelet Count 423 X10*3/uL (160-400); Red Blood Count 4.13 X10*6/uL (4.20-5.50); Red Cell Distribution Width 12.3 % (11.0-16.0); SCAN SMEAR FLAG 1; White Blood Count 14.8 X10*3/uL (4.8-10.8)
--- OUTSIDE RECORDS SUMMARY | 2024-08-08 00:01 | XMS_ITS | Encounter Summary ---
Author Organization [employer] Address [address] [place] [address] Care Team Providers Care Drapery Sewer Hand Name Role Phone Carley Tapia MD Primary Care Provide r Encounter Details Date Type Department Care Team ([facility] Contact Info) Description 08/07/2024 Orders Only GENERIC EXTERNAL DATA DEPARTMENT Provider, Generic External Data Social History Tobacco Use Types Packs/Day Years [...] as of this encounter Plan of Treatment Upcoming Encounters Date Type Department Care Team (Late st Contact Info) Description 09/04/2024 10:45 AM EDT Office Visit [facility] [address] [place] [address] Carley Tapia MD [address] [place] [address] Pending Results Name Type Priority Associated Diagnoses Date /Time CBC auto differential Lab Routine 11:44 PM EDT documented as of this encounter Procedures Procedure Name Priority Date/Time Associated Diagnosis Comments CBC WITH AUTO DIFFERENTIAL Routine 08/07/2024 11:44 PM EDT documented in this encounter Visit Diagnoses Not on filedocumented in this encounter Additional Health Concerns Assessment Noted Time PHQ-9 Depression Total Score: 0 12/08/19 24 10:27 AM EDT documented as of this encounter Care Teams Drapery Sewer Hand Relationship Specialty Start Date End Date Carley Tapia MD [address] [place] [id number] PCP - General Family Medicine 06/10/20 documented as of this encounter
--- OUTSIDE RECORDS SUMMARY | 2024-08-08 00:01 | XMS_ITS | Clinical Summary ---
Author Organization [employer] Address [address] [place] [address] Care Team Providers Care Production Crew Supervisor Name Role Phone Carley Tapia MD Primary Care Provide r Allergies Active Allergy Reactions Criticality Noted Date Comments Ampicillin Rash Low 06/08/2010 Nsaids 06/08/2010 Other reaction(s): asthma gets worse Oxycodone 06/08/2010 Other reaction(s): makes asthma worse Penicillins Rash High 11/23/2023 Medications Bisacodyl EC 5 MG EC tablet TAKE 2 TABLETS BY MOUTH ONCE DAILY NEEDED FOR CONSTIPATION Active Dexilant [address] capsule Take 1 capsule by mouth in the evening. Active dicyclomine (Bentyl) 10 MG capsule Take 10 mg by mouth 4 times daily. Active EPINEPHrine (Epipen) 0.3 MG/0.3ML injection syringe Inject 0.3 mL into the shoulder, thigh, or buttocks. 021 Active senna (Senokot) 8.6 MG tabletIndications :Chronic constipation TAKE 1 TABLET BY MOUTH EVERY DAY NEEDED FOR CONSTIPATION 90 tablet 023 Active albuterol (2.5 MG/3ML) 0.083% nebulizer solutionIndicatio ns:Moderate persistent asthma without complication Take 3 mL (2.5 mg) by nebulization every 6 (six) hours if needed for wheezing. 75 mL 11 023 Active Linzess 290 MCG capsule Take 290 mcg by mouth in the morning. 023 Active docusate sodium (Colace) 100 MG capsule Take 100 mg by mouth in the morning. 023 Active metFORMIN (Glucophage) 1000 MG tabletIndications :Type 2 diabetes mellitus without complication, without long-term current use of insulin ([facility]) Take 1 tablet (1,000 mg) by mouth with breakfast and with evening meal. 60 tablet 11 024 2024 Active albuterol (Ventolin HFA) 108 (90 Base) MCG/ACT inhalerIndication s:Moderate persistent asthma without complication INHALE 2 PUFFS FOUR TIMES DAILY NEEDED 18 g 3 024 Active fluticasone (Flonase) 50 MCG/ACT nasal sprayIndications: Seasonal allergies Administer 1 spray into each nostril 2 times daily. Shake gently. Before first use, prime pump. After use, clean tip and replace cap. 48 g 024 Active cloNIDine (Catapres) 0.2 MG tabletIndications :Essential hypertension TAKE 1 TABLET BY MOUTH TWICE DAILY IN THE MORNING AND AT BEDTIME 180 tablet 3 024 Active enalapril (Vasotec) 20 MG tablet TAKE 1 TABLET BY MOUTH TWICE DAILY IN THE MORNING AND AT BEDTIME 180 tablet 3 024 Active cholecalciferol (D3 Super Strength) 50 MCG (2000 UT) capsuleIndication s:Vitamin D deficiency TAKE 1 CAPSULE BY MOUTH EVERY MORNING 90 capsule 1 024 Active diphenhydrAMINE (BENADryl) 25 MG capsule TAKE 1 CAPSULE BY MOUTH THREE TIMES DAILY NEEDED FOR ALLERGIC REACTION Active Linzess 72 MCG capsule Take 72 mcg by mouth in the morning. Active Myrbetriq 25 MG 24 hr tablet Take 25 mg by mouth in the morning. 024 Active TRUEplus Lancets 33G misc TEST BLOOD SUGAR FOUR TIMES DAILY 100 each 025 Active Fluticasone-Salme terol 500-50 MCG/ACT aerosol powder INHALE 1 PUFF TWICE DAILY RINSE MOUTH AFTER USING. 60 each 025 Active glucose blood (FREESTYLE LITE) test stripIndications: Type 2 diabetes mellitus without complication, without long-term current use of insulin ([facility]) TEST BLOOD SUGAR 3 TIMES A DAY 100 strip 025 Active Alcohol Swabs (Alcohol Prep) 70 % pads USE FOUR TIMES DAILY 100 each 11 025 Active hydroCHLOROthiazi de (HYDRODiuril) 25 MG tabletIndications :Essential hypertension TAKE 1 TABLET BY MOUTH EVERY MORNING 90 tablet 025 Active loratadine (Claritin) 10 MG tablet TAKE 1 TABLET BY MOUTH EVERY MORNING NEEDED 90 tablet 025 Active FLUoxetine (PROzac) 20 MG capsuleIndication s:Mood disorder (CMS/HCC) TAKE 2 CAPSULES BY MOUTH ONCE DAILY IN THE MORNING 180 capsule 025 Active amitriptyline (Elavil) 75 MG tabletIndications :Mood disorder (CMS/HCC) TAKE 1 TABLET BY MOUTH AT BEDTIME 90 tablet 025 Active atorvastatin (Lipitor) 20 MG tabletIndications :Hyperlipidemia, unspecified hyperlipidemia type TAKE 1 TABLET BY MOUTH EVERY EVENING 90 tablet 025 Active buPROPion XL (Wellbutrin XL) 300 MG 24 hr tabletIndications :Mood disorder (CMS/HCC) TAKE 1 TABLET BY MOUTH EVERY MORNING 90 tablet 025 Active Ferrous Sulfate (iron) 325 (65 Fe) MG tabletIndications :Iron deficiency anemia, unspecified iron deficiency anemia type TAKE 1 TABLET BY MOUTH EVERY MORNING WITH ORANGE JUICE 90 tablet 025 Active glucose blood (FREESTYLE LITE) test strip TEST BLOOD SUGAR 4 TIMES A DAY 100 strip 024 2024 Discontinued(R eorder (will not trigger notification to Pharmacy)) Alcohol Swabs (Alcohol Prep) 70 % pads USE FOUR TIMES DAILY 100 each 024 2024 Discontinued amitriptyline (Elavil) 75 MG tabletIndications :Mood disorder (CMS/HCC) TAKE 1 TABLET BY MOUTH AT BEDTIME 90 tablet 024 2024 Discontinued buPROPion XL (Wellbutrin XL) 300 MG 24 hr tabletIndications :Mood disorder (CMS/HCC) TAKE 1 TABLET BY MOUTH EVERY MORNING 90 tablet 1 024 2024 Discontinued FLUoxetine (PROzac) 20 MG capsuleIndication s:Mood disorder (CMS/HCC) TAKE 2 CAPSULES BY MOUTH ONCE DAILY IN THE MORNING 180 capsule 024 2024 Discontinued atorvastatin (Lipitor) 20 MG tabletIndications :Hyperlipidemia, unspecified hyperlipidemia type TAKE 1 TABLET BY MOUTH EVERY EVENING 90 tablet 1 024 2024 Discontinued ferrous sulfate (FeroSul) 325 (65 Fe) MG tabletIndications :Iron deficiency anemia, unspecified iron deficiency anemia type TAKE 1 TABLET BY MOUTH EVERY MORNING WITH ORANGE JUICE 90 tablet 1 024 2024 Discontinued hydroCHLOROthiazi de (HYDRODiuril) 25 MG tabletIndications :Essential hypertension TAKE 1 TABLET BY MOUTH EVERY MORNING 90 tablet 1 024 2024 Discontinued loratadine (Claritin) 10 MG tablet TAKE 1 TABLET BY MOUTH EVERY MORNING NEEDED 90 tablet 1 024 2024 Discontinued Active Problems Problem Noted Date Diagnosed Date [...] Encounters Date Type Department Care Team Description 08/07/2024 Orders Only GENERIC EXTERNAL DATA DEPARTMENT Provider, Generic External Data 07/23/2024 Refill [facility] [address] [place] [address] Carley Tapia MD Essential hypertension; Mood disorder ([facility]); Hyperlipidemia, unspecified hyperlipidemia type; Iron deficiency anemia, unspecified iron deficiency anemia type 07/19/2024 Telephone [facility] [address] [place] [address] Carley Tapia MD Durable Medical Equipment 07/17/2024 Refill [facility] [address] [place] [address] Carley Tapia MD 07/13/2024 Refill [facility] [address] [place] [address] Lea Barlow RN Type 2 diabetes mellitus without complication, without long-term current use of insulin ([facility]) 07/13/2024 Telephone [facility] [address] [place] [address] Carley Tapia MD Prior Authorization ([facility] Request: [facility] Alcohol Prep Peds 70% pads) 07/03/2024 Orders Only [facility] [address] [place] [address] Carley Tapia MD 05/24/2024 Refill [facility] [address] [place], [place] [phone] Carley Tapia MD 05/19/2024 Refill [facility] [address] [place], [place] [phone] Carley Tapia MD from Last 3 Months Immunizations Name Administration [...] is your housing situation today? I have sergiojeanine story 02/10/[address] you [...] 12/08/2023 10:26 AM EDT Plan of Treatment Upcoming Encounters Date Type Department Care Team (Late st Contact Info) Description 09/04/2024 10:45 AM EDT Office Visit [facility] [address] [place] [address] Carley Tapia MD [address] [place] [address] Health Maintenance Due Date Last Done Comments [...] Additional history exists Dental Prophylaxis 03/31/2024 09/29/2023 SDOH Screening 08/28/2024 08/29/2023 Dental X-Ray: Bitewings 09/29/2024 09/29/19, 05/18/2022, 05/18/2022 Diabetes: Foot Exam 09/29/2024 09/30/2023, 09/30/2023, 09/30/2023, Additional history exists Depression Screening 12/07/2024 12/08/2023, 12/08/19 Eye Exam 01/16/2025 01/17/2024, 12/25, 01/17/2024, Additional history exists Tobacco Screening 01/25/2025 01/26/2024 Dental X-Ray: Full Mouth 05/19/2025 05/18/2022, 04/26 HPV/Cotest 05/28/2025 05/28/2020 Pap Smear 05/28/2025 05/28/2020 Mammogram 07/03/2025 07/03/2024, 04/27, 05/18/2022, Additional history exists Colorectal Cancer Screening 11/15/2026 FIT DNA/Cologuard 11/15/2026 [...] topic Meningococcal Vaccine Aged Out No rhiannon rosa eligible based on patient's age to complete this topic RSV under 20 months Aged Out No longe r eligible based on patient's age to complete this topic Rotavirus Vaccines Aged Out No longer eligible based on patient's age to complete this topic Procedures Procedure Name Priority Date/Time Associated Diagnosis Comments CBC WITH AUTO DIFFERENTIAL Routine 08/07/2024 11:44 PM EDT BI MAMMOGRAM SCREENING TOMOSYNTHESIS BILATERAL Routine 07/03/2024 2:01 PM EDT LAB COLOGUARD?? COLON CANCER SCREEN Routine 11/16/2023 10:30 AM EDT Colon cancer screening POCT GLYCATED HEMOGLOBIN, TOTAL Routine 09/30/2023 1:46 PM EDT Type 2 diabetes mellitus without complication, without long-term current use of insulin ([facility]) Full PROPHYLAXIS - ADULT Routine 09/29/2023 1:00 PM EDT Advanced periodontitis BITEWINGS - 4 RADIOGRAPHIC IMAGES Routine 09/29/2023 1:00 PM EDT Advanced periodontitis Severe generalized gingival recession HEPATITIS C VIRAL RNA, QUANTITATIVE, REAL-TIME PCR [...] Recently Relevant to Health Maintenance Results * BI Mammogram Screening Tomosynthesis Bilateral (07/03/2024 2:01 PM EDT) Anatomical Region Laterality Modality Breast Bilateral Mammography 07/03/2024 2:01 PM EDT Narrative 07/11/2024 11:32 AM EDT ? [facility] ? [address] ?[place] [address] ? Mammography Report ? Signed ? Patient: Yareli Fisher ?MR#: [id number] ?? [id number] ? : 1960 ?Acct:[id number] ? Age/Sex: 64 / F ?ADM Date: 07/03/24 ? Loc: HO.MAMMO ? Attending Dr: Carley Mak MD ? Ordering Physician: Carley Tapia MD ?Results: ?? 2Benign Findings ? Date of Service: 07/03/24 ?Follow Up: 1 Year From Orig ?? inal Mammogram ? Procedure(s): MM tomosynthesis screening BI ?? Accession Number(s): [id number] ? cc: Carley Tapia MD ? EXAMINATION: ?? MM SCREENING DIGITAL BREAST TOMOSYNTHESIS, BILATERAL ? CLINICAL INFORMATION: ? Screening. Asymptomatic. ? COMPARISON: ?? Mammography: Comparison is made with available priors ? TECHNIQUE: ?? Digital breast mammography with tomosynthesis is performed in both the ?? craniocaudal and mediolateral oblique views along with computer-aided ?? detection (CAD). ? FINDINGS: ?? The breasts are heterogeneously dense, which may obscure small masses ?? (ACR BI-RADS breast composition Category c). ?? Left breast post surgical changes. ?? Bilateral focal asymmetries are stable. ?? There are no significant masses, abnormal calcifications, or other ?? abnormalities. ? MM/MM tomosynthesis screening BI ?? IMPRESSION: [...] due date for their next mammogram. ? Electronically signed by: ??Nicole Hughes DO ??07/11/2024 11:29 AM EDT ? Dictated By: ?Nicole Hughes DO ? Signed By: ?<Electronically signed by Nicole Hughes, DO in OV> ? 07/11/24 1129 ? DD/ 1401 ? TD/TT: 07/03/24 1429 ? Ctrs: ? Procedure Note Yuliet, Bubba - 07/11/2024 [facility] [address] [place] [address] [place] [address] Mammography Report Signed Patient: Sammy FisherR#: [id number] : 8Acct:[id number] Age/Sex: 64 / FADM Date: 07/03/24 Loc: AMOR Attending Dr: Carley Mak MD Ordering Physician: Carley Tapiaults: 2Benign Findings Date of Service: 07/03/24Follow Up: 1 Year From Orig inal Mammogram Procedure(s): MM tomosynthesis screening BI Accession Number(s): [id number] cc: Carley Tapia MD EXAMINATION: MM SCREENING DIGITAL BREAST TOMOSYNTHESIS, BILATERAL CLINICAL INFORMATION: Screening. Asymptomatic. COMPARISON: Mammography: Comparison is made with available priors TECHNIQUE: Digital breast mammography with tomosynthesis is performed in both the craniocaudal and mediolateral oblique views along with computer-aided detection (CAD). FINDINGS: The breasts are heterogeneously dense, which may obscure small masses (ACR BI-RADS breast composition Category c). Left breast post surgical changes. Bilateral focal asymmetries are stable. There are no significant masses, abnormal calcifications, or other abnormalities. MM/MM tomosynthesis screening BI IMPRESSION: No mammographic evidence of malignancy. ASSESSMENT: BI-RADS BI-RADS 2 - Benign Findings RECOMMENDATION: Routine annual mammography screening. 1 year F/U This examination should not preclude the clinical evaluation of a suspicious palpable abnormality. This patient's information was entered into a reminder system with a target due date for their next mammogram. Electronically signed by: Nicole Hughes DO 07/11/2024 11:29 AM EDT Dictated By: Nicole Hughes DO Signed By: <Electronically signed by Nicole Hughes DO in OV> 07/11/24 1129 DD/ 1401 TD/TT: 07/03/24 1429 Ctrs: Carley Mak MD IMG BI PROCEDURES Fin al Result * Cologuard?? colon cancer screening (11/16/2023 10:30 AM EDT) Cologuard Result Negative Negative 11/24/19 10:15 PM EDT [facility] (CLIA #:[id number]) Comment: NEGATIVE TEST RESULT. A negative Cologuard [...] screened with both Cologuard and colonoscopy. (Zoey Byrne al, N Engl J Med 2014;370(14):1286- 1297) The normal value (reference range) for this assay is negative. COLOGUARD RE-SCREENING RECOMMENDATION: Periodic colorectal cancer screening is an important part of preventive healthcare for asymptomatic individuals at average risk for colorectal cancer. ??Following a negative Cologuard result, the [place] [employer] and U.S. Multi-Society Task Force screening guidelines recommend a Cologuard re-screening interval of 3 years. References: [place] [employer] Guideline for Colorectal Cancer Screening: https://www.cancer.org/cancer/sfbbr-qcbwqo-tqelun/jyuaclwie-yiyupnwlu-xwyoosl/ac s-rec ommendations.html.; Shola DK, Ector MCDANIEL, Abelardo PerkinsK, Colorectal Cancer Screening: Recommendations for Physicians and Patients from the U.S. Multi-Society Task Force on Colorectal Cancer Screening , Am J Gastroenterology 2017; 112:3557-1701. TEST DESCRIPTION: Composite algorithmic analysis of stool [...] screened with both Cologuard and colonoscopy. (Zoey Byrne al, N Engl J Med 2014;370(14):2443-6036.) Cologuard may produce a false negative or false positive result (no colorectal cancer or precancerous polyp present at colonoscopy follow up). A negative Cologuard test result does not guarantee the absence of CRC or advanced adenoma (pre-cancer). The current Cologuard screening interval is every 3 years. ([place] [employer] and U.S. Multi-Society Task Force). Cologuard performance data in a 10,000 patient pivotal study using colonoscopy as the reference method can be accessed at the following location: www.[employer]igi Hill/results. Additional description of the Cologuard test process, warnings and precautions can be found at www.[email or web address].[place]igi [place]. Stool specimen (specimen) 11/16/2023 10:30 AM EDT 11/18/2023 1:44 PM EDT us Craley Mak MD LAB MOLECULAR DIAGNOS TICS ORDERABLES Final Result [facility] (CLIA #:[id number]) [place] [address], * (ABNORMAL) POCT A1C (09/30/2023 1:46 PM EDT) Pathologist [facility] Hemoglobin A1C 7.4(A) 4.0 - 6.0 % QC Media Lot # [id number] Lot# Expiration Date Blood 09/30/2023 1:46 PM EDT us Carley Mak MD POINT OF CARE TEST EN TER/EDIT ORDERABLES Final Result * Hepatitis C Viral RNA, Quantitative, Real-Time PCR (09/13/2022 10:42 AM EDT) Pathologist [facility] HCV RNA, QN Real Time PCR <15 NOT DETECTED NOT DETECTED IU/mL [facility] HCV RNA QN Real Time PCR <1.18 NOT DETECTED NOT DETECTED Log IU/mL [facility] [place] [employer] Comment: This test was performed using Real-Time Polymerase Chain Reaction. Reportable Range: 15 IU/mL to 100,000,000 IU/mL (1.18 Log IU/mL to 8.00 Log IU/mL). ?? The analytical performance characteristics of this assay have been determined by [facility]. The modifications have not been cleared or approved by the FDA. This assay has been validated pursuant to the CLIA regulations and is used for clinical purposes. ?? For more information on this test, go to: http://education.Elixserve/faq/QVW37h7 (This link is being provided for informational/ educational purposes only.) 09/13/2022 10:4 2 AM EDT 09/13/2022 10:42 AM EDT Health system - 09/15/2022 5:24 PM EDT FASTING:NO FASTING: NO Carley Mak MD LAB BLOOD ORDERABLES Final Result [facility] [address], [place] [address] [facility] [address] [place] [address] * Albumin, Random Urine W/O Creatinine (09/13/2022 10:42 AM EDT) Albumin, Urine 0.4 See Note: mg/dL [facility] Comment: Reference Range: Reference Range Not established [facility] Comment: The ADA defines abnormalities in albumin [...] Mak MD LAB URINE ORDERABLES Final Result [facility] [address], [place] [address] [facility] [place] [employer] [address] [place] [address] * (ABNORMAL) Lipid Panel, Standard (09/13/2022 10:42 AM EDT) Cholesterol, Total 160 <200 mg/dL [facility] [place] [employer] HDL Cholesterol 58 > OR = 50 mg/dL [facility] [place] [employer] Triglycerides 255(H) <150 mg/dL [facility] [place] [employer] Comment: If a non-fasting specimen was collected, consider repeat triglyceride testing on a fasting specimen if clinically indicated. Shama et al. J. of Clin. Lipidol. 2015;9:129-169. LDL Cholesterol 68 mg/dL (calc) [facility] [place] [employer] Comment: Reference range: <100 Desirable range <100 mg/dL for primary prevention; ?? <70 mg/dL for patients with CHD or diabetic patients with > or = 2 CHD risk factors. LDL-C is now calculated using the Joo-Gautam calculation, which is a validated novel method providing better accuracy than the Friedewald equation in the estimation of LDL-C. Joo COOPER et al. TRANG. 2013;310(19): 0887-7296 (http://education.Cytonics/faq/QHC582) Chol/HDLC Ratio 2.8 <5.0 (calc) [facility] [place] [employer] Non-HDL Cholesterol 102 <130 mg/dL (calc) [facility] [place] [employer] Comment: For patients with diabetes plus 1 major ASCVD risk factor, treating to a non-HDL-C goal of <100 mg/dL (LDL-C of <70 mg/dL) is considered a therapeutic option. Blood Venous blood specimen / Unknown 09/13/2022 10:42 AM EDT 09/13/2022 10:42 AM EDT Narrative [facility] - 09/15/2022 5:24 PM EDT FASTING:NO FASTING: NO Carley Mak MD LAB BLOOD ORDERABLES Final Result Performing Organization Address [facility] Co de Phone Number [facility] [address], [place] [address] [facility] [address] [place] [address] * HPV DNA, HIGH RISK, CERVICAL (05/28/2020 3:43 PM EST) HPV DNA, HIGH RISK, CERVICAL Not Detected NOT DETECTED [facility] Comment: Not Detected High Risk HPV types [...] PHONE NUMBER: ?? 05/28/2020 3:43 PM EST Bonita Camarena NP HISTORICAL/NON ORDERABLE LABS Fi nal Result Performing Organization Address [facility] Co de Phone Number [facility] [address] * THINPREP PAP (05/28/2020 3:43 PM [...] historic and ?? current clinical information. ?? Tube Splicer: [facility] Comment: JH, CT(ASCP) CT screening location: [address] ??[id number] Interpretation/Res ult: [facility] [...] NP LAB PATHOLOGY ORDERABLES Final R esult [facility] [address] from Last 3 Months or Most Recently Relevant to Health Maintenance Insurance [facility] - [facility] Care Teams Production Crew Supervisor Relationship Specialty Start Date End Date Carley Tapia MD [address] [place] [phone] PCP - General Family Medicine 06/10/20
--- OUTSIDE RECORDS SUMMARY | 2024-08-08 00:01 | XMS_ITS | Encounter Summary ---
Author Organization [employer] [facility] Address [address] [place] [address] Care Team Providers Care Oil Lease Buyer Name Role Phone Carley Tapia MD Primary Care Provide r Encounter Details Date Type Department Care Team (Latest Contact Info) Description 02/20/2019 Abstract [facility] CONVERSIONS Dental, Provider, DDS Social History [...] Description 09/04/2024 10:45 AM EDT Office Visit [facility] MEDICINE [address] [place] [address] Carley Tapia MD [address] [place] [address] documented as of this encounter Visit Diagnoses Not on filedocumented in this encounter Care Teams Oil Lease Buyer Relationship Specialty Start Date End Date Carley Tapia MD [address] [place] [address] PCP - General Family Medicine 06/10/20 documented as of this encounter
--- OUTSIDE RECORDS SUMMARY | 2024-08-08 00:01 | XMS_ITS | Encounter Summary ---
Author Organization [employer] Address [address] [place] [address] Care Team Providers Care Senior Communications Specialist Name Role Phone Carley Tapia MD Primary Care Provide r Encounter Details Date Type Department Care Team (Late Contact Info) Description 10/19/2022 Abstract [facility] ADULT DENTAL [address] [place] [address] Milan Serna DDS [address] [place] [address] Social History Tobacco Use Types Packs/Day Years [...] Encounters Date Type Department Care Team (Late Contact Info) Description 09/04/2024 10:45 AM EDT Office Visit [facility] MEDIC[facility] [address] [place] [address] Carley Tapia MD [address] [place] [address] documented as of this encounter Visit Diagnoses Not on filedocumented in this encounter Additional Health Concerns Assessment Noted Time PHQ-9 Depression Total Score: 5 09/14/19 23 9:38 AM EDT documented as of this encounter Care Teams Senior Communications Specialist Relationship Specialty Start Date End Date Carley Tapia MD [address] [place] [address] PCP - General Family Medicine 06/10/20 documented as of this encounter
--- OUTSIDE RECORDS SUMMARY | 2024-08-08 00:01 | XMS_ITS | Encounter Summary ---
Author Organization [email or web address] Address [address] [facility] [address] [place] [address] Care Team Providers Care Financial Institution President Name Role Phone Carley Tapia MD Primary Care Provide r Encounter Details Date Type Department Care Team (Late st Contact Info) Description 08/10/2022 Orders Only [facility] [address] [place], [place] [phone] Jane Smith LPN Social History Tobacco Use [...] Description 09/04/2024 10:45 AM EDT Office Visit [facility] MEDICINE [address] [place] [address] Carley Tapia MD [address] [place], [place] [phone] documented as of this encounter Visit Diagnoses Not on filedocumented in this encounter Care Teams Financial Institution President Relationship Specialty Start Date End Date Carley Tapia MD [address] [place] [phone] PCP - General Family Medicine 06/10/20 documented as of this encounter
--- OUTSIDE RECORDS SUMMARY | 2024-08-08 00:01 | XMS_ITS | Encounter Summary ---
Author Organization [employer] Address [address] [place] [address] Care Team Providers Care Firebrick Layer Helper Name Role Phone Carley Tapia MD Primary Care Provide r Encounter Details Date Type Department Care Team (Late Contact Info) Description 01/10/2023 Orders Only [facility] [address] [place], [place] [phone] Jane Smith LPN Social History Tobacco Use [...] Description 09/04/2024 10:45 AM EDT Office Visit [facility] [address] [place], [place] [phone] Carley Tapia MD [address], [place] [phone] documented as of this encounter Visit Diagnoses Not on filedocumented in this encounter Additional Health Concerns Assessment Noted Time PHQ-9 Depression Total Score: 5 09/14/19 23 9:38 AM EDT documented as of this encounter Care Teams Firebrick Layer Helper Relationship Specialty Start Date End Date Carley Tapia MD [address] [place] [address] PCP - General Family Medicine 06/10/20 documented as of this encounter
--- OUTSIDE RECORDS SUMMARY | 2024-08-08 00:01 | XMS_ITS | Encounter Summary ---
Author Organization [employer] Address [address] [place] [address] Care Team Providers Care Birthing Nurse Name Role Phone Carley Tapia MD Primary Care Provide r Reason for Visit * Reason Comments Med Refill Encounter Details Date Type Department Care Team ([facility] Contact Info) Description 12/15/2022 Refill [facility] [address] [place] [phone] [facility] [address] [place] [address] Vitamin D deficiency Social History Tobacco Use [...] Upcoming Encounters Date Type Department Care Team ([facility] Contact Info) Description 09/04/2024 10:45 AM EDT Office Visit [facility] [address] [place] [phone] Carley Tapia MD [address] [place], [place] [phone] documented as of this encounter Visit Diagnoses Diagnosis Vitamin D deficiency documented in this encounter Additional Health Concerns Assessment Noted Time PHQ-9 Depression Total Score: 5 09/14/19 23 9:38 AM EDT documented as of this encounter Care Teams Birthing Nurse Relationship Specialty Start Date End Date Carley Tapia MD [address] [place] [address] PCP - General Family Medicine 06/10/20 documented as of this encounter
[2024-08-08 00:06] LABS: Alanine Aminotransferase 12 U/L (0-31); Albumin Level 4.2 g/dL (3.5-5.0); Alkaline Phosphatase 77 U/L (39-117); Anion Gap 18 (12-20); Aspartate Amino Transferase 25 U/L (5-31); Bilirubin Total 0.2 mg/dL (0.0-1.0); Blood Urea Nitrogen 18 mg/dL (9-16); Calcium 9.5 mg/dL (8.4-10.2); Carbon Dioxide 20 mmol/L (22-29); Chloride 108 mmol/L (96-108); Estimated Glomerular Filt Rate > 60; Glucose Random 158 mg/dL (60-115); Potassium 4.1 mmol/L (3.3-5.1); Sodium 142 mmol/L (135-145); Total Protein 7.9 g/dL (6.5-8.0)
[2024-08-08 00:08] LABS: SLIDE REVIEW VERIFIED
--- NOTE | 2024-08-08 01:26 | ED_ITS ---
HPI - General Adult General Chief complaint: General Medical Stated complaint: swollen lips, flu like Time Seen by Provider: 08/08/24 01:26 History of Present Illness ED Provider: Citlalli GARCIA narrative: The patient is a 64-year-old woman who has been on enalapril for a long time. At around 19:00 this evening developed swelling of her lips which got worse over time and for which she came to the emergency room. The patient says that about a week ago she developed a cough and a sense of having a respiratory infection. She does not know if she had a fever. She thought that her symptoms were improving somewhat before she developed the swelling to her lips and face this evening. Related Data Home Medications ?Medication ?Instructions ?Recorded ?Confirmed Lactobacillus acidophilus 500 500 mmu cells PO DAILY 03/03/20 04/09/24 million cell tablet clonidine HCl 0.2 mg tablet 0.2 mg PO BID 03/03/20 04/09/24 enalapril maleate 20 mg tablet 20 mg PO BID 03/03/20 04/09/24 fluticasone 500 mcg-salmeterol 50 1 inh inhalation BID 03/03/20 04/09/24 mcg/dose blistr powdr for inhalation (Advair Diskus) hydrochlorothiazide 25 mg tablet 25 mg PO DAILY 03/03/20 04/09/24 hydroxyzine pamoate 25 mg capsule 25 mg PO BID PRN Itching 03/03/20 04/09/24 (Vistaril) bupropion HCl 300 mg 24 hr tablet, 300 mg PO QAM 10/01/21 04/09/24 extended release cholecalciferol (vitamin D3) 50 50 mcg PO QAM 10/01/21 04/09/24 mcg (2,000 unit) capsule loratadine 10 mg tablet 10 mg PO QAM PRN Allergy Symptoms 10/01/21 04/09/24 albuterol sulfate 90 mcg/actuation 2 puff inhalation QID PRN 03/25/22 04/09/24 aerosol inhaler (Proventil HFA) alcohol swabs (Alcohol Prep Pads) 0 pad topical QID 03/25/22 04/09/24 amitriptyline 75 mg tablet 75 mg PO BEDTIME 03/25/22 04/09/24 atorvastatin 20 mg tablet 20 mg PO QPM 03/25/22 04/09/24 blood sugar diagnostic (FreeStyle #10 ea 03/25/22 04/09/24 Lite Strips) fluoxetine 20 mg capsule 40 mg PO QAM 03/25/22 04/09/24 lancets 33 gauge (TRUEplus Lancets) #100 ea 03/25/22 04/09/24 metformin 1,000 mg tablet 1,000 mg PO BID 10/06/23 04/09/24 Previous Rx's ?Medication ?Instructions ?Recorded benzonatate 100 mg capsule 100 mg PO TID PRN cough #14 caps 08/04/22 fluticasone propionate 50 2 spray intranasal DAILY #16 grams 08/04/22 mcg/actuation nasal spray,suspension (Flonase Allergy Relief) estradiol 0.01% (0.1 mg/gram) See Rx Instructions vaginal DAILY 04/04/23 vaginal cream 30 days #42.5 grams diphenhydramine HCl 25 mg capsule 25 mg PO TID PRN allergic reaction 11/23/23 (Benadryl) #30 caps prednisone 20 mg tablet 60 mg (3 x 20 mg) PO DAILY #12 tabs 11/23/23 bisacodyl 5 mg tablet,delayed 10 mg (2 x 5 mg) PO BEDTIME #60 02/10/24 release tabs dexlansoprazole 60 mg 60 mg PO QPM #30 caps 02/10/24 capsule,biphase delayed release (Dexilant) dicyclomine 10 mg capsule 10 mg PO QID #90 caps 02/10/24 docusate sodium 100 mg capsule 100 mg PO QAM #30 caps 02/10/24 (Stool Softener) linaclotide 72 mcg capsule 72 mcg PO QAM #30 caps 02/10/24 (Linzess) mirabegron 25 mg tablet,extended 25 mg PO DAILY 90 days #90 tabs 06/26/24 release 24 hr (Myrbetriq) Allergies Allergy/AdvReac Type Severity Reaction Status Date / Time ampicillin [AMPICILLIN] Allergy Intermediate RASH Verified 08/07/24 23:36 Penicillins [PCN] Allergy Rash Verified 08/07/24 23:36 Review of Systems 2 Review of Systems: Yes all other systems are reviewed and are negative PMFSH Past Medical History Medical History Urinary frequency Urinary tract infection Lower urinary tract symptoms (LUTS) Foul smelling urine Elevated cholesterol Diabetes mellitus Obesity Asthma HTN (hypertension) Palpitations Surgical History Hx of tubal ligation Hx of breast biopsy Hx of cystoscopy Hx of colonoscopy History of lumpectomy Family History Family History Father CVD (cardiovascular disease) Diabetes Mother Diabetes Colon cancer Social History Social History Household Members: None Housing: Apartment Alcohol intake: current Alcohol intake frequency: holidays/special occasions only Alcohol type: beer Patient Tobacco Use Status: Never used Tobacco Physical Exam ED Vital Signs: Vital Signs - 24 hr 08/07/24 23:33 08/08/24 02:08 08/08/24 05:36 Temperature 99.2 F 98.6 F 98.6 F Pulse Rate 99 81 77 Respiratory Rate 18 16 18 Blood Pressure 174/76 H 149/77 H 125/71 Pulse Oximetry 94 99 97 Oxygen Delivery Method Room Air Room Air Room Air 08/08/24 07:56 Temperature 97.9 F Pulse Rate 77 Respiratory Rate 20 Blood Pressure 122/67 Pulse Oximetry 95 Oxygen Delivery Method Room Air BMI result Body Mass Index 26.4 Const Other: The patient is awake and alert. She looks like a somewhat chronically ill- appearing 64-year-old. She has obvious swelling to the lips, primarily the lower lip, and also some edema to the skin of the face near the chin. She does not seem in any respiratory distress. She does not appear in pain or ill otherwise. Orientation/consciousness: patient oriented x3 HENMT Other: There is swelling to the lower lip and some swelling to the right side of the upper lip. There is also some generalized edema to the skin of the lower face in the region of the chin. The upper face is unremarkable. The oropharynx is unremarkable. There was no tongue swelling or posterior pharyngeal swelling. The airway seems clear. Eyes General: appearance normal, both eyes and all related structures Neck Neck: Yes normal visual inspection, Yes full ROM, Yes no lymphadenopathy and Yes no JVD Resp Effort & Inspection: normal respiratory effort Auscultation: clear to auscultation bilaterally Cardio Rate: regular rate Rhythm: regular rhythm Heart sounds: S1 normal heart sound present and S2 normal heart sound present GI Other: Abdomen is soft and nontender Skin Other: the there is some mild edema to the skin of the face in the region of the chin. Otherwise the skin is dry and unremarkable. Neuro General: patient oriented x3, tone normal, moves all extremities, no focal motor deficits and CN's II-XI intact bilaterally Extrem Other: No peripheral edema Course Reevaluation(s) Reevaluation #1: I re-evaluated the patient at 05:45AM. The patient did not feel that her condition was significantly different. She did not feel much better or worse. She still has no sense of swelling inside the mouth. She feels the upper lip has gotten slightly more swollen. However she has no difficulty breathing, no difficulty swallowing, and no change in her speech. This picture was taken at 5:47AM Reevaluation #2: When rechecked at approximately 08:20 the patient reports that she feels that the swelling is not getting any worse and possibly might be slightly better. This picture was taken at 08:21AM. Medications Administered Discontinued Medications Generic Name Dose Route Start Last Admin Trade Name Freq PRN Reason Stop Dose Admin Dexamethasone Sodium Phosphate 8 mg 08/08/24 01:45 08/08/24 02:31 Dexamethasone Sod Phosphate 4 Mg/Ml Vial IVPUSH 08/08/24 01:46 8 mg ONCE ONE Administration Famotidine 20 mg 08/08/24 01:45 08/08/24 02:31 Famotidine/Pf 20 Mg/2 Ml Vial IVPUSH 08/08/24 01:46 20 mg ONCE ONE Administration Tranexamic Acid 1,000 mg/ 60 mls @ 360 mls/hr 08/08/24 01:45 08/08/24 02:55 Sodium Chloride IV 08/08/24 01:54 Infused ONCE ONE Infusion Loratadine 10 mg 08/08/24 01:45 08/08/24 02:31 Loratadine 10 Mg Tablet PO 08/08/24 01:46 10 mg ONCE ONE Administration Medical Decision Making Medical Decision Making MDM Narrative: the patient is a 64-year-old woman who has been on enalapril for many years. She presents with swelling of the lips. the patient's presentation is suggestive of ANTHONY-inhibitor induced angioedema. There is a edema of the lower lip primarily and initially the swelling of the upper lip was confined to the right side. There is also some edema to the skin of the lower face in the region of the chin. There is no intraoral swelling however. No symptoms to suggest any airway involvement. No voice change. No stridor. No difficulty swallowing. Lungs are clear and there is no shortness of breath. The patient was given IV steroids, IV antihistamines, an IV TXA. The patient was observed for 12 hours during which time she had some minor increase in the edema of the upper lip for a while but ultimately it seemed as though the angioedema have plateaued and possibly mildly subsided. Given that she has been observed for so long without significant additional advancement I think she may be discharged with instructions to never use enalapril again or any other ANTHONY- inhibitor and follow-up with her PCP. She should return if worse. Lab Data 08/07/24 23:44 08/07/24 23:44 Labs: Lab Results 08/07/24 08/08/24 Range/Units 23:44 02:52 WBC 14.8 H (4.8-10.8) X10*3/uL RBC 4.13 L (4.20-5.50) X10*6/uL Hgb 12.0 (12.0-16.0) g/dl Hct 35.3 L (37.0-47.0) % MCV 85.5 (80.0-98.0) fL MCH 29.1 (27.0-33.0) pg MCHC 34.0 (31.0-35.0) g/dl RDW 12.3 (11.0-16.0) % Plt Count 423 H D (160-400) X10*3/uL MPV 9.7 (9.4-12.3) fL Immature Gran % (Auto) 1.0 H (0.0-0.4) % Neut % (Auto) 52.5 (45-73) % Lymph % (Auto) 37.3 (20-40) % Norton % (Auto) 6.8 (2-11) % Eos % (Auto) 1.9 (0-4) % Baso % (Auto) 0.5 (0-2) % Lymph # (Auto) 5.5 H (1.2-4.9) X10*3/uL Norton # (Auto) 1.0 (0.1-1.2) X10*3/uL Eos # (Auto) 0.3 (0.0-0.4) X10*3/uL Baso # (Auto) 0.1 (0.0-0.2) X10*3/uL Abs Immat Gran (auto) 0.15 H (0.00-0.03) X10*3/uL Absolute Neuts (auto) 7.8 (2.0-8.3) x10*3/uL Absolute Nucleated RBC 0.000 (0.0-0.012) X10*3/uL Nucleated RBC % (auto) 0.0 (0.0-0.2) /100WBC Smear Tech's Comments VERIFIED Sodium 142 (135-145) mmol/L Potassium 4.1 (3.3-5.1) mmol/L Chloride 108 (96-108) mmol/L Carbon Dioxide 20 L (22-29) mmol/L Anion Gap 18 (12-20) BUN 18 H (9-16) mg/dL Creatinine 0.76 (0.5-1.4) mg/dL Estim Creat Clear Calc 57.0 Estimated GFR > 60 Random Glucose 158 H (60-115) mg/dL Calcium 9.5 D (8.4-10.2) mg/dL Total Bilirubin 0.2 (0.0-1.0) mg/dL AST 25 (5-31) U/L ALT 12 (0-31) U/L Alkaline Phosphatase 77 (39-117) U/L C-Reactive Protein 4.03 H (< or = 0.50) mg/dL Total Protein 7.9 (6.5-8.0) g/dL Albumin 4.2 (3.5-5.0) g/dL Influenza Type A (PCR) NEGATIVE (Negative) Influenza Type B (PCR) NEGATIVE (Negative) RSV RNA Qual (PCR) NEGATIVE (Negative) SARS-CoV-2 RNA (RT-PCR) NEGATIVE (Negative) Discharge Plan Discharge Clinical Impression: Angioedema of lips Patient Disposition: Home, Self-Care Instructions: Angioedema (ED) Additional Instructions: It seems that you have had a reaction caused by your blood pressure medication, enalapril. This kind of reaction is called ?angioedema. Enalapril is in a family of medications called ?ANTHONY inhibitors. ? ANTHONY inhibitors are known to very occasionally cause angioedema such as you have experienced. Since your symptoms have not been progressing over the last several hours I think it is unlikely that things will get worse at this point. Please make sure you do not take anymore enalapril. Rest and take it easy today. Please contact your regular doctor's office to make an appointment to discuss what happened today and to discuss possibly getting on a new blood pressure medication. If at any point you feel your symptoms are getting worse, especially if you have any trouble breathing, speaking, or swallowing, call 911 and return to the emergency room. Prescriptions: No Action Myrbetriq 25 mg tablet extended release 24 hr 25 mg PO DAILY 90 Days Qty: 90 2RF benzonatate 100 mg capsule 100 mg PO TID PRN (Reason: cough) Qty: 14 0RF fluticasone propionate [Flonase Allergy Relief] 50 mcg/actuation spray,suspension 2 spray intranasal DAILY Qty: 16 0RF Rx Instructions: administer into each nostril diphenhydramine HCl [Benadryl] 25 mg capsule 25 mg PO TID PRN (Reason: allergic reaction) Qty: 30 0RF prednisone 20 mg tablet 60 mg PO DAILY Qty: 12 0RF clonidine HCl 0.2 mg tablet 0.2 mg PO BID hydrochlorothiazide 25 mg tablet 25 mg PO DAILY enalapril maleate 20 mg tablet 20 mg PO BID hydroxyzine pamoate [Vistaril] 25 mg capsule 25 mg PO BID PRN (Reason: Itching) Lactobacillus acidophilus 500 million cell tablet 500 mmu cells PO DAILY fluticasone propion-salmeterol [Advair Diskus] 500-50 mcg/dose blister with device 1 inh inhalation BID cholecalciferol (vitamin D3) 50 mcg (2,000 unit) capsule 50 mcg PO QAM bupropion HCl 300 mg tablet extended release 24 hr 300 mg PO QAM loratadine 10 mg tablet 10 mg PO QAM PRN (Reason: Allergy Symptoms) amitriptyline 75 mg tablet 75 mg PO BEDTIME atorvastatin 20 mg tablet 20 mg PO QPM fluoxetine 20 mg capsule 40 mg PO QAM albuterol sulfate [Proventil HFA] 90 mcg/actuation HFA aerosol inhaler 2 puff inhalation QID PRN (DME) lancets [TRUEplus Lancets] 33 gauge misc See Rx Instructions .ROUTE QID Qty: 100 Rx Instructions: As directed alcohol swabs [Alcohol Prep Pads] Pads, Medicated 0 pad topical QID (DME) FreeStyle Lite Strips Strip See Rx Instructions .ROUTE QID Qty: 10 Rx Instructions: As directed metformin 1,000 mg tablet 1,000 mg PO BID Dexilant 60 mg capsule,biphase delayed releas 60 mg PO QPM Qty: 30 6RF dicyclomine 10 mg capsule 10 mg PO QID Qty: 90 6RF docusate sodium [Stool Softener] 100 mg capsule 100 mg PO QAM Qty: 30 6RF Linzess 72 mcg capsule 72 mcg PO QAM Qty: 30 6RF bisacodyl 5 mg tablet,delayed release (DR/EC) 10 mg PO BEDTIME Qty: 60 6RF estradiol 0.01 % (0.1 mg/gram) cream See Rx Instructions vaginal DAILY 30 Days Qty: 42.5 0RF Rx Instructions: vaginally daily; pea sized amount to urethra 3 times a week Referrals: Carley De Luna MD [Primary Care Provider] - (Anthony inhibitor induced angioedema) Interventions: ED Discharge Assessment Last Done: 08/08/24 09:15 Discharge Date/Time: 08/08/24 09:22 Print Language: Zambian
[2024-08-08 02:08] VITALS: BP 149/77; PULSE 81; RESP 16; TEMP 37; O2SAT 99
[2024-08-08] MEDS: Famotidine/PF 20 MG/2 ML VIAL IVPUSH (02:31)
[2024-08-08] MEDS: Loratadine 10 MG TABLET PO (02:31)
[2024-08-08] MEDS: dexAMETHasone sod phosphate 4 MG/ML VIAL 8 MG IVPUSH (02:31)
[2024-08-08] MEDS: Tranexamic Acid 1,000 MG in 0.9 % Sodium Chloride 50 ML 360 MG IV (02:31)
[2024-08-08 02:49] LABS: C Reactive Protein 4.03 mg/dL (< or = 0.50)
[2024-08-08 03:34] LABS: Influenza A PCR NEGATIVE (Negative); Influenza B PCR NEGATIVE (Negative); Resp Syncy Virus RNA Qual PCR NEGATIVE (Negative); SARS COV2 PCR INHOUSE NEGATIVE (Negative)
[2024-08-08 05:36] VITALS: BP 125/71; PULSE 77; RESP 18; TEMP 37; O2SAT 97
[2024-08-08 07:56] VITALS: BP 122/67; PULSE 77; RESP 20; TEMP 36.6; O2SAT 95
[2024-08-08 09:15] VITALS: BP 122/67; PULSE 77; RESP 20; TEMP 36.6; O2SAT 95
== END 2024-08-08 09:22 | disposition home or self-care (01) ==
PROVIDERS: Emergency Provider Emergency Medicine; PCP Student in an Organized Health Care Education/Training Program
DX: T78.3XXA Angioneurotic edema, initial encounter (principal); E11.9 Type 2 diabetes mellitus without complications; I10 Essential (primary) hypertension; J45.909 Unspecified asthma, uncomplicated; Z03.818 Encounter for observation for suspected exposure to other biological agents ruled out
CPT/HCPCS: 0241U; 36415; 71046; 80053; 85025; 86140; 96374; 96375; 99284; J1100

== ENCOUNTER → 2024-08-08 02:31 | Outpatient (BNV) | payer OTHER, SELFPAY | PROVIDERS: Emergency Provider Emergency Medicine; PCP Student in an Organized Health Care Education/Training Program; Visit Provider Radiology Diagnostic Radiology | DX: R05.9 Cough, unspecified (principal) | CPT/HCPCS: 71046 ==

== ENCOUNTER 2024-09-04 12:05 | Outpatient (AMB) | payer OTHER, SELFPAY ==
--- NOTE | 2024-09-04 13:10 | A.OFFVIS_ITS ---
Intake Visit Reasons: Followup Intake Note: Patient presents today for follow up Urology Medications: Myrbetriq, estrace cream Allergies to Antibiotic: Ampicillin, Penicillin Blood Thinner: None PVR:25ml Supervisor Prop Making Required: Yes Supervisor Prop Making Services: Supervisor Prop Making Present Supervisor Prop Making Name: Stan [id number] Accompanied by: Self / Same As Patient Allergies ampicillin [AMPICILLIN] Allergy (Intermediate, Verified 09/04/24 21:46) RASH Penicillins [PCN] Allergy (Verified 09/04/24 21:46) Rash Medication List - Last Reconciled 09/04/24 by CHRISTINA Gonzalez albuterol sulfate 90 mcg/actuation (Proventil HFA) 2 puffs inhalation QID PRN alcohol swabs (Alcohol Prep Pads) 0 pad topical QID amitriptyline 75 mg PO BEDTIME atorvastatin 20 mg PO QPM benzonatate 100 mg PO TID PRN bisacodyl 10 mg (2 x 5 mg) PO BEDTIME blood sugar diagnostic (FreeStyle Lite Strips) As directed bupropion HCl XL 300 mg PO QAM cholecalciferol (vitamin D3) 50 mcg PO QAM clonidine HCl 0.2 mg PO BID dexlansoprazole (Dexilant) 60 mg PO QPM dicyclomine 10 mg PO QID diphenhydramine HCl (Benadryl) 25 mg PO TID PRN docusate sodium (Stool Softener) 100 mg PO QAM enalapril maleate 20 mg PO BID estradiol 0.01%(0.1mg/gram) vaginally daily; pea sized amount to urethra 3 times a week 30 days fluoxetine 40 mg PO QAM fluticasone propion-salmeterol 500-50 mcg/dose (Advair Diskus) 1 inh inhalation BID fluticasone propionate 50 mcg/actuation (Flonase Allergy Relief) 2 sprays intranasal DAILY hydrochlorothiazide 25 mg PO DAILY hydroxyzine pamoate (Vistaril) 25 mg PO BID PRN Lactobacillus acidophilus 500 mmu cells PO DAILY lancets (TRUEplus Lancets) As directed linaclotide (Linzess) 72 mcg PO QAM loratadine 10 mg PO QAM PRN metformin 1,000 mg PO BID prednisone 60 mg (3 x 20 mg) PO DAILY solifenacin (Vesicare) 5 mg PO DAILY 30 days HPI Comments Details: Yareli is a very pleasant 64-year-old Kazakh-speaking patient of Dr. Mak. She has a past medical history of diabetes, hypertension, constipation, asthma, obesity, and hypercholesteremia. She presents to the office today for follow-up of her lower urinary tract symptoms, recurrent urinary tract infections, and mixed urinary incontinence. In discussion with the patient today she reports having discontinued Myrbetriq since her last office visit as she had been experiencing a generalized body rash after starting the medication. She reports since she has since stopped taking the medication body rash has since subsided. She does continue to report ongoing bladder pressure and mixed urinary incontinence. In office urinalysis results reviewed with the patient today 2+ leukocytes negative nitrates, pH 5.5. We discussed importance of adequate hydration relation to lower urinary tract symptoms, recurrent urinary tract inf ections, as well as overall health and well-being. Previous workup has included a retroperitoneal ultrasound 05/18 noting bilateral kidneys with no hydronephrosis or calculi. Mid pole 1.2 x 1.2 x 1.4 right sided cyst. Which no indication for follow-up imaging per radiology report. The bladder is partially distended. Prevoid bladder volume is 160 mL. Postvoid bladder volume is approximately 5 mL. She denies hematuria, nocturia, changes to urinary stream, flank pain, fever, and or chills. PVR 25 mL We discussed further treatment options of mixed urinary incontinence and risks and benefits of these treatment options. When asked she reports noncompliance with Estrace cream. We discussed further treatment options of recurrent urinary tract infections. She otherwise offers no other issues or concerns at this time. [facility] Medical History Urinary frequency Urinary tract infection Lower urinary tract symptoms (LUTS) Foul smelling urine Elevated cholesterol Diabetes mellitus Obesity Asthma HTN (hypertension) Palpitations Surgical History Hx of tubal ligation Hx of breast biopsy Hx of cystoscopy Hx of colonoscopy History of lumpectomy Family History Father CVD (cardiovascular disease) Diabetes Mother Diabetes Colon cancer Social History Household Members: None Housing: Apartment Alcohol intake: current Alcohol intake frequency: holidays/special occasions only Alcohol type: beer Patient Tobacco Use Status: Never used Tobacco Review of Systems Const Reports as per HPI Eyes Reports no additional complaints ENT Reports no additional complaints Card Reports as per HPI Resp Reports as per HPI GI Reports as per HPI Reports as per HPI Musc Reports no additional complaints Neuro Reports no additional complaints Psych Reports no additional complaints Endo Reports as per HPI Hammad/Lymph Reports no additional complaints Aller/Immun Reports no additional complaints Physical Exam Const General: cooperative, healthy appearing, comfortable, no acute distress, well developed, alert and awake Orientation/consciousness: patient oriented x3 Limitations: no limitations HEENT Head: Yes normal to inspection, Yes normocephalic and Yes atraumatic Ears: hearing grossly normal bilaterally Eyes General: appearance normal, both eyes and all related structures Neck Neck: Yes normal visual inspection and Yes trachea midline Chest Chest palpation & inspection: normal inspection of the chest Resp Effort & Inspection: able to speak in complete sentences Cardio Rate: regular rate GI Inspection: Yes normal to inspection General: Yes no CVA tenderness Back/Spine/Pelvis Back: no CVA tenderness Skin General skin exam: no rashes or lesions noted Neuro General: patient oriented x3 Extrem General: Yes normal to inspection Psych Appearance: grossly normal and well kempt Mental Status: mental status grossly normal Speech and movement: Clear speech present Affect: normal affect Attitude: cooperative Thought process: Normal thought process present Thought content: Normal thought content present Insight: Fair insight present (Psych) Judgement: Fair judgement present (Psych) Office Procedures Post Void Residual Post Residual Void Post Void Residual (PVR): 25 52431-[id number] Void Residual by ultrasound Results AMB Urinalysis, Automated UA Leukoctes 125 Zhang/uL Last Edit by Lisa Bhatia on 09/04/24 14:20 UA Nitrite Negative Last Edit by Lisa Bhatia on 09/04/24 14:20 UA Urobilinogen 0.2 mg/dL Last Edit by Lisa Bhatia on 09/04/24 14:20 UA Protein 15 mg/dL Last Edit by Lisa Bhatia on 09/04/24 14:20 UA pH 5.5 Last Edit by Lisa Bhatia on 09/04/24 14:20 UA Blood 0 Dorian/uL Last Edit by Lisa Bhatia on 09/04/24 14:20 UA Specific [place] 1.020 Last Edit by Lisa Bhatia on 09/04/24 14:20 UA Ketone Positive Last Edit by Lisa Bhatia on 09/04/24 14:20 UA Bilirubin 0 mg/dL Last Edit by Lisa Bhatia on 09/04/24 14:20 UA Glucose 0 mg/dL Last Edit by Lisa Bhatia on 09/04/24 14:20 Results Reviewed Results Reviewed: Laboratory Last Values Urine pH (Auto) 5.5 09/04/24 14:10 Specific [place] (Auto) 1.020 09/04/24 14:10 Urine Protein (Auto) 15 mg/dL 09/04/24 14:10 Glucose (UA)(Auto) 0 mg/dL 09/04/24 14:10 Urine Ketones (Auto) Positive 09/04/24 14:10 Urine Blood (Auto) 0 Dorian/uL 09/04/24 14:10 Urine Nitrite (Auto) Negative 09/04/24 14:10 Urine Bilirubin (Auto) 0 mg/dL 09/04/24 14:10 Urine Urobilinogen (Auto) 0.2 mg/dL 09/04/24 14:10 Leukocyte Esterase (Auto) 125 Zhang/uL 09/04/24 14:10 Assessment & Plan Assessment & Plan (1) Sensation of pressure in bladder area: Code(s): R39.89 - Other symptoms and signs involving the genitourinary system Category: Medical (2) Dysuria: Code(s): R30.0 - Dysuria Category: Medical (3) Mixed incontinence urge and stress: Code(s): N39.46 - Mixed incontinence Category: Medical (4) Recurrent UTI (urinary tract infection): Comment: 04/2022 E coli Resistant to Levaquin, ampicillin, ceftriaxone, Bactrim susceptible to nitrofurantoin and gentamicin Code(s): N39.0 - Urinary tract infection, site not specified Category: Medical Plan In office urinalysis results reviewed with the patient today; as noted above; will send for urine culture. PVR 25 mL Stop Myrbetriq. Start VESIcare as discussed and prescribed. Restart Estrace cream as discussed and prescribed. We discussed potential causes of lower urinary tract symptoms patient is experiencing as well as further treatment options and risks and benefits of these treatment options. We discussed potential near future in office cystoscopy and or urodynamics for further assessment evaluation. We discussed bladder triggers/irritants. Follow-up in 1-3 months with PVR; or sooner with any issues, concerns, and or questions. Orders: Orders AMB Post Void Residual by ultrasound Today N39.46 - Mixed incontinence AMB Urinalysis Automated Today N39.46 - Mixed incontinence, Z13.9 - Encounter for screening, unspecified Urine Culture Today N39.0 - Urinary tract infection, site not specified Medications: New solifenacin (Vesicare) 5 mg PO DAILY 30 tabs 3RF 30 days Discontinued mirabegron ER (Myrbetriq) Discontinued Reason: Doctor's Order 25 mg PO DAILY 90 tabs 2RF 90 days N30.10 - Interstitial cystitis (chronic) without hematuria, N32.81 - Overactive bladder, R35.1 - Nocturia, R39.15 - Urgency of urination Patient Instructions: The patient had an opportunity to ask questions regarding the treatment plan. All questions were answered. Physical exam, labs, and imaging were discussed and reviewed in detail. As well as risks, benefits, and discussion of treatment choices. No major barriers to understanding were identified. The patient expressed understanding and agreement with the above treatment plan. The patient was made aware they should contact our office by phone for worsening of their current condition, the appearance of new symptoms, or with any questions or concerns. Compliance is encouraged with any medications and follow up testing that is ordered. It is a privilege to be allowed the opportunity to participate in? your urological care.? Again, if you have any questions or concerns If you have any questions or concerns please do not hesitate to contact me. The office is [phone]. This note is constructed using voice recognition software. While every effort has been made to ensure accuracy supplier quality errors may have been included. Yours sincerely, NELLY Gonzalez Coding Level of Care Code Est Pt Level 4 (48645) Complex EM visit Add On G2211 Diagnoses Sensation of pressure in bladder area R39.89 Dysuria R30.0 Mixed incontinence urge and stress N39.46 Recurrent UTI (urinary tract infection) N39.0 CPT Codes Post Residual Void - PVR CPT Code: 22593-Ludu Void Residual by ultrasound ([id number])
== END 2024-09-04 14:24 | disposition home or self-care (01) ==
LOC: HO.HUSH 12:05
PROVIDERS: PCP Internal Medicine; Visit Provider Nurse Practitioner Family
DX: R39.89 Other symptoms and signs involving the genitourinary system (principal); R30.0 Dysuria; N39.46 Mixed incontinence; N39.0 Urinary tract infection, site not specified; Z13.9 Encounter for screening, unspecified
CPT/HCPCS: 99214; G2211

== ENCOUNTER 2024-09-04 12:05 | Outpatient (REF) | payer OTHER, SELFPAY ==
--- OUTSIDE RECORDS SUMMARY | 2024-09-04 15:18 | XMS_ITS | Encounter Summary ---
Author Organization [employer] Address [address] [facility] 7t [place] [address] Care Team Providers Care Dressage Instructor Name Role Phone Carley Tapia MD Primary Care Provide r Encounter Details Date Type Department Care Team ([facility] Contact Info) Description 05/21/2022 Abstract [facility] MEDICINE [address] [place] [id number] Kathy Turner, RN [address] [place] [phone] Social History Tobacco Use Types Packs/Day Years [...] Department Care Team (Late Contact Info) Description 12/10/2024 11:15 AM EDT Office Visit [facility] MEDICINE [address] [place] [phone] Carley Tapia MD [address] [place] [address] [phone] documented as of this encounter Procedures Procedure Name Priority Date/Time Associated Diagnosis Comments HM MAMMOGRAPHY Routine 05/18/2022 documented in this encounter Results * Mammography (05/18/2022) Mammogram BIRADS 2: Benign. Routine annual mammography screening. Anatomical Region Laterality Modality Other Historical Provider HEALTH MAINTENANCE Final Result documented in this encounter Visit Diagnoses Not on filedocumented in this encounter Care Teams Dressage Instructor Relationship Specialty Start Date End Date Carley Tapia MD [address] [place] [address] PCP - General Family Medicine 06/10/20 documented as of this encounter
--- OUTSIDE RECORDS SUMMARY | 2024-09-04 15:19 | XMS_ITS | Encounter Summary ---
Author Organization [employer] Address [address] [facility] [address] [place] [address] Care Team Providers Care Nurse Manager Name Role Phone Carley Tapia MD Primary Care Provide r Encounter Details Date Type Department Care Team (Latest Contact Info) Description 09/04/2024 Travel Social History Tobacco Use Types Packs/Day Years [...] Recorded Patient Health Questionnaire-2 Score 0 12/08/2023 Internet Access Answer Date Recorded Internet Access Q1 Yes 08/28/2024 Internet Access Q2 Not on file 08/28/2024 Comments Unknown Sex and Gender Information Value Date Recorded Sex Assigned at Female 02/22/2022 10:14 AM EDT Legal Sex Female 10:14 AM EDT Gender Identity Female 02/22/2022 10:14 AM EDT Sexual Orientation Straight 02/22/2022 10 :14 AM EDT documented as of this encounter Plan of Treatment Upcoming Encounters Date Type Department Care Team (Late st Contact Info) Description 12/10/2024 11:15 AM EDT Office Visit [facility] [address] [place] [address] Carley Tapia MD [address] [place] [phone] documented as of this encounter Visit Diagnoses Not on filedocumented in this encounter Additional Health Concerns Assessment Noted Time PHQ-9 Depression Total Score: 0 12/08/19 24 10:27 AM EDT documented as of this encounter Care Teams Nurse Manager Relationship Specialty Start Date End Date Carley Tapia MD [address] [place] [phone] PCP - General Family Medicine 06/10/20 documented as of this encounter
--- OUTSIDE RECORDS SUMMARY | 2024-09-04 15:19 | XMS_ITS | Encounter Summary ---
Author Organization [employer] Address [address] [facility] [address] [place] [address] Care Team Providers Care Rooter Operator Name Role Phone Carley Tapia MD Primary Care Provide r Encounter Details Date Type Department Care Team ([facility] Contact Info) Description 01/10/2023 Orders Only [facility] MED & PEDS [address] [place], [place] [phone] Jane Smith LPN Social History Tobacco Use [...] Description 12/10/2024 11:15 AM EDT Office Visit [facility] MEDICINE [address] [place], [place] [phone] Carley Tapia MD [address] [place], [place] [phone] documented as of this encounter Visit Diagnoses Not on filedocumented in this encounter Additional Health Concerns Assessment Noted Time PHQ-9 Depression Total Score: 5 09/14/19 23 9:38 AM EDT documented as of this encounter Care Teams Rooter Operator Relationship Specialty Start Date End Date Carley Tapia MD [address] [place] [address] PCP - General Family Medicine 06/10/20 documented as of this encounter
--- OUTSIDE RECORDS SUMMARY | 2024-09-04 15:19 | XMS_ITS | Encounter Summary ---
Author Organization [employer] Address [address] [facility] [address] [place] [address] Care Team Providers Care Internist Medical Doctor Md Name Role Phone Carley Tapia MD Primary Care Provide r Reason for Visit * Reason Onset Date Comments November08/31/2024 Encounter Details Date Type Department Care Team ([facility] Contact Info) Description 08/31/2024 Telephone [facility] [address] [place] [address] Carley Tapia MD [address] [place] [address] NOVEMBER RECALL Social History Tobacco Use Types Packs/Day Years [...] AM EDT documented as of this encounter Miscellaneous Notes * Telephone Encounter - [place] - 08/31/2024 9:30 AM EDT T\C to pt to schedule a (November) ov EXTENDED with pcp. Pt agreed to call if she need an OV-EXT 30 min. documented in this encounter Plan of Treatment Upcoming Encounters Date Type Department Care Team (Late st Contact Info) Description 12/10/2024 11:15 AM EDT Office Visit [facility] [address] [place] [phone] Carley Tapia MD [address] [place] [address] documented as of this encounter Visit Diagnoses Not on filedocumented in this encounter Additional Health Concerns Assessment Noted Time PHQ-9 Depression Total Score: 0 12/08/19 24 10:27 AM EDT documented as of this encounter Care Teams Internist Medical Doctor Md Relationship Specialty Start Date End Date Carley Tapia MD [address] [place] [phone] PCP - General Family Medicine 06/10/20 documented as of this encounter
--- OUTSIDE RECORDS SUMMARY | 2024-09-04 15:19 | XMS_ITS | Encounter Summary ---
Author Organization [employer] Address [address] [place] [address] Care Team Providers Care Etl Lead Name Role Phone Carley Tapia MD Primary Care Provide r Encounter Details Date Type Department Care Team (Latest Contact Info) Description 02/20/2019 Abstract [facility] CONVERSIONS Dental, Provider, DDS Social History [...] Description 12/10/2024 11:15 AM EDT Office Visit [facility] MEDICINE [address] [place] [address] Carley Tapia MD [address] [place] [address] documented as of this encounter Visit Diagnoses Not on filedocumented in this encounter Care Teams Etl Lead Relationship Specialty Start Date End Date Carley Tapia MD [address] [place] [address] PCP - General Family Medicine 06/10/20 documented as of this encounter
--- OUTSIDE RECORDS SUMMARY | 2024-09-04 15:19 | XMS_ITS | Encounter Summary ---
Author Organization [employer] Address [address] [facility] [address] [place] [address] Care Team Providers Care Electronic Page Makeup System Operator Name Role Phone Carley Tapia MD Primary Care Provide r Encounter Details Date Type Department Care Team (Late st Contact Info) Description 08/10/[address] [facility] MED & PEDS [address] [place] [address] Jane Smith LPN Social History Tobacco Use [...] Description 12/10/2024 11:15 AM EDT Office Visit [facility] MEDICINE [address] [place] [address] Carley Tapia MD [address] [place] [address] documented as of this encounter Visit Diagnoses Not on filedocumented in this encounter Care Teams Electronic Page Makeup System Operator Relationship Specialty Start Date End Date Carley Tapia MD [address] [place] [address] [phone] PCP - General Family Medicine 06/10/20 documented as of this encounter
--- OUTSIDE RECORDS SUMMARY | 2024-09-04 15:19 | XMS_ITS | Encounter Summary ---
Author Organization [employer] Address [address] [facility] 7t [place] [address] Care Team Providers Care Fountain Jerk Name Role Phone Carley Tapia MD Primary Care Provide r Reason for Referral * Consultation (Routine) - Pending Review Specialty Diagnoses / Procedures Referred By Romeo phillip Referred To Contact Podiatry Diagnoses Type 2 diabetes mellitus without complication, without long-term current use of insulin (CMS/HCC) Right foot pain Carley Tapia MD [address] [place] [phone] Phone: tel: fax: Referral ID Status Reason Start Date Expiration Date Visits Requested Visits Authorized [id number] Pending Review Specialty Services Required 09/04/2024 09/04/2025 1 1 Encounter Details Date Type Department Care Team (Late st Contact Info) Description 09/04/2024 10:45 AM EDT Office Visit [facility] MEDICINE [address] [place] [phone] Carley Tapia MD [address] [place] [address] [phone] Type 2 diabetes mellitus without complication, without long-term current use of insulin (CMS/HCC); Seasonal allergies; Right foot pain Social History Tobacco Use Types Packs/Day Years [...] AM EDT documented as of this encounter Last Filed Vital Signs Vital Sign Reading Time Taken Comments Blood Pressure 124/73 09/04/2024 10:23 AM EDT Pulse 91 09/04/2024 10:23 AM EDT Temperature 36.2 ??C (97.1 ??F) 09/04/2024 10:23 AM E DT Respiratory Rate 16 09/04/2024 10:23 AM EDT Oxygen Saturation 98% 09/04/2024 10:23 AM EDT Inhaled Oxygen Concentration - - Weight 61.5 kg (135 lb 8 oz) 09/04/2024 10:23 AM EDT Height 149.9 cm (4' 11 ) 09/04/2024 10:23 AM EDT Body Mass Index 27.37 09/04/2024 10:23 AM EDT documented in this encounter Progress Notes * Carley Mak MD - 09/04/2024 10:45 AM EDT SUBJECTIVE: Yareli Fisher is a 64 y.o. year old female who presents for Chronic Disease Management . Acute Concerns: None Social History Social History Narrative Not on file Patient Active Problem List Diagnosis Vitamin D deficiency Urinary incontinence Type 2 diabetes mellitus without complication (CMS/HCC) Steatosis of liver Obesity Moderate persistent asthma Migraine without aura, not refractory Loss of hair Incontinence of feces with fecal urgency Heartburn Forgetfulness Female stress incontinence Hypertensive disorder Essential hypertension Dyslipidemia Depressive disorder Constipation Allergic rhinitis Chronic left shoulder pain Encounter for preventive health examination Seasonal allergies Weight loss Recurrent UTI Partial edentulism Mixed stress and urge urinary incontinence Colon cancer screening Diminished vision Advanced periodontitis Severe generalized gingival recession Encounter for preventive care Asymptomatic menopausal state Nevus Osteopenia UTI symptoms Angioedema Right foot pain Family History Problem Relation Name Age of Onset Colon cancer Mother Coronary artery disease Mother Diabetes Mother Hypertension Father Diabetes Father Diabetes Brother Throat cancer Father's Brother Throat cancer Maternal Grandmother Prostate cancer Maternal Grandfather Review of Systems Constitutional: Negative. HENT: Negative. Respiratory: Negative. Cardiovascular: Negative. OBJECTIVE: Vitals: 09/04/24 1023 BP: 124/73 BP Location: Left arm Patient Position: Sitting BP Cuff Size: Large adult Pulse: 91 Resp: 16 Temp: 97.1 ??F (36.2 ??C) TempSrc: Temporal SpO2: 98% Weight: 135 lb 8 oz (61.5 kg) Height: 4' 11 (1.499 m) Physical Exam Constitutional: Appearance: Normal appearance. Cardiovascular: Rate and Rhythm: Normal rate and regular rhythm. Pulmonary: Effort: Pulmonary effort is normal. Breath sounds: Normal breath sounds. Abdominal: General: Abdomen is flat. Palpations: Abdomen is soft. Musculoskeletal: Right lower leg: No edema. Left lower leg: No edema. Neurological: Mental Status: She is alert. Follow Up: Follow up in about 3 months (around 12/05/2024) for chronic conditions . Current Outpatient Medications on File Prior to Visit Medication Sig Dispense Refill albuterol (2.5 MG/3ML) 0.083% nebulizer solution TAKE 3 ML BY NEBULIZATION ROUTE EVERY 6 HOURS NEEDED FOR WHEEZING 75 mL 11 albuterol (Ventolin HFA) 108 (90 Base) MCG/ACT inhaler INHALE 2 PUFFS FOUR TIMES DAILY NEEDED 18g 3 Alcohol Swabs (Alcohol Prep) 70 % pads USE FOUR TIMES DAILY 100 each 11 amitriptyline (Elavil) 75 MG tablet TAKE 1 TABLET BY MOUTH AT BEDTIME 90 tablet 1 amLODIPine (Norvasc) 5 MG tablet Take 1 tablet (5 mg) by mouth Once per day. 30 tablet 11 atorvastatin (Lipitor) 20 MG tablet TAKE 1 TABLET BY MOUTH EVERY EVENING 90 tablet 1 Bisacodyl EC 5 MG EC tablet TAKE 2 TABLETS BY MOUTH ONCE DAILY NEEDED FOR CONSTIPATION buPROPion XL (Wellbutrin XL) 300 MG 24 hr tablet TAKE 1 TABLET BY MOUTH EVERY MORNING 90 tablet 1 cholecalciferol (D3 Super Strength) 50 MCG (2000 UT) capsule TAKE 1 CAPSULE BY MOUTH EVERY MORNING 90 capsule 1 cloNIDine (Catapres) 0.2 MG tablet TAKE 1 TABLET BY MOUTH TWICE DAILY IN THE MORNING AND AT [id number] tablet [address] capsule Take 1 capsule by mouth in the evening. dicyclomine (Bentyl) 10 MG capsule Take 10 mg by mouth 4 times daily. diphenhydrAMINE (BENADryl) 25 MG capsule TAKE 1 CAPSULE BY MOUTH THREE TIMES DAILY NEEDED FOR ALLERGIC REACTION docusate sodium (Colace) 100 MG capsule Take 100 mg by mouth in the morning. EPINEPHrine (Epipen) 0.3 MG/0.3ML injection syringe Inject 0.3 mL into the shoulder, thigh, or buttocks. Ferrous Sulfate (iron) 325 (65 Fe) MG tablet TAKE 1 TABLET BY MOUTH EVERY MORNING WITH ORANGE [id number] tablet 1 FLUoxetine (PROzac) 20 MG capsule TAKE 2 CAPSULES BY MOUTH ONCE DAILY IN THE MORNING 180 capsule 1 fluticasone (Flonase) 50 MCG/ACT nasal spray SPRAY 1 SPRAY INTO EACH NOSTRIL TWICE A DAY. 48 g 2 Fluticasone-Salmeterol 500-50 MCG/ACT aerosol powder Inhale 1 puff 2 times daily. Rinse mouth afterusing. 60 each 2 glucose blood (FREESTYLE LITE) test strip TEST BLOOD SUGAR 3 TIMES A DAY 100 strip 11 hydroCHLOROthiazide (HYDRODiuril) 25 MG tablet Take 1 tablet (25 mg) by mouth in the morning. 90 tablet 1 Linzess 290 MCG capsule Take 290 mcg by mouth in the morning. Linzess 72 MCG capsule Take 72 mcg by mouth in the morning. loratadine (Claritin) 10 MG tablet TAKE 1 TABLET BY MOUTH EVERY MORNING NEEDED 90 tablet 1 metFORMIN (Glucophage) 1000 MG tablet Take 1 tablet (1,000 mg) by mouth with breakfast and with evening meal. 60 tablet 11 Myrbetriq 25 MG 24 hr tablet Take 25 mg by mouth in the morning. senna (Senokot) 8.6 MG tablet TAKE 1 TABLET BY MOUTH EVERY DAY NEEDED FOR CONSTIPATION 90 tablet1 TRUEplus Lancets 33G misc TEST BLOOD SUGAR FOUR TIMES DAILY 100 each 11 No current facility-administered medications on file prior to visit. Problem List Items Addressed This Visit Type 2 diabetes mellitus without complication (CMS/[facility]) Diabetes is: almost at goal - Lab Results Component Value Date HGBA1C 7.3 (A) 08/16/2024 HGBA1C 7.4 (A) 09/30/2023 HGBA1C 7.5 (A) 07/21/2023 - Lab Results Component Value Date MICROALBUR 2.0 08/18/2021 CREATININE 0.76 08/07/2024 -Changes: None - Diabetic eye exam: Up-to-date - Diabetic foot exam: Referral done - Continue lifestyle modifications - Continue current medications - Follow up: 3 months Relevant Orders POCT Glucose (Completed) Referral to Podiatry Seasonal allergies Relevant Medications cetirizine (ZyrTEC) 10 MG tablet Right foot pain Patient has chronic right foot pain I will refer her back to podiatry Relevant Orders Referral to Podiatry documented in this encounter Miscellaneous Notes * Assessment & Plan Note - Carley Mak MD - 09/04/2024 1:08 PM EDT Associated Problem(s): Type 2 diabetes mellitus without complication (CMS/HCC) Diabetes is: almost at goal - Lab Results Component Value Date HGBA1C 7.3 (A) 08/16/2024 HGBA1C 7.4 (A) 09/30/2023 HGBA1C 7.5 (A) 07/21/2023 - Lab Results Component Value Date MICROALBUR 2.0 08/18/2021 CREATININE 0.76 08/07/2024 -Changes: None - Diabetic eye exam: Up-to-date - Diabetic foot exam: Referral done - Continue lifestyle modifications - Continue current medications - Follow up: 3 months * Assessment & Plan Note - Carley Mak MD - 09/04/2024 1:08 PM EDT Associated Problem(s): Right foot pain Patient has chronic right foot pain I will refer her back to podiatry documented in this encounter Plan of Treatment Upcoming Encounters Date Type Department Care Team (Late st Contact Info) Description 12/10/2024 11:15 AM EDT Office Visit [facility] MEDICINE [address] [place] [phone] Carley Tapia MD [address] [place] [address] Scheduled Referrals Name Type Priority Associated Diagnoses Orde r Schedule Referral to Podiatry Outpatient Referral Routine Type 2 diabetes mellitus without complication, without long-term current use of insulin ([facility]) Right foot pain Expected: 09/04/2024 (Approximate), Expires: 09/04/2025 documented as of this encounter Procedures Procedure Name Priority Date/Time Associated Diagnosis Comments POCT GLUCOSE Routine 09/04/2024 10:24 AM EDT Type 2 diabetes mellitus without complication, without long-term current use of insulin ([facility]) documented in this encounter Results * POCT Glucose (09/04/2024 10:24 AM EDT) Glucose Blood, POC 179 60 - 200 mg/dL QC Media Lot # [id number] Lot# Expiration Date [id number] Blood Capillary blood specimen / Unknown 09/04/2024 10:24 AM EDT Carley Mak MD POINT OF CARE TEST EN TER/EDIT ORDERABLES Final Result documented in this encounter Visit Diagnoses Diagnosis Type 2 diabetes mellitus without complication, without long-term current use of insulin ([facility]) Seasonal allergies Allergic rhinitis, cause unspecified Right foot pain Pain in soft tissues of limb documented in this encounter Additional Health Concerns Assessment Noted Time PHQ-9 Depression Total Score: 0 12/08/19 24 10:27 AM EDT documented as of this encounter Care Teams Fountain Jerk Relationship Specialty Start Date End Date Carley Tapia MD [address] [place] [address] PCP - General Family Medicine 06/10/20 documented as of this encounter
--- OUTSIDE RECORDS SUMMARY | 2024-09-04 15:19 | XMS_ITS | Encounter Summary ---
Author Organization [employer] Address [address] [facility] 7t [place] [address] Care Team Providers Care Discotheque Dancer Name Role Phone Carley Tapia MD Primary Care Provide r Reason for Visit * Reason Comments Med Refill Encounter Details Date Type Department Care Team ([facility] Contact Info) Description 12/15/2022 Refill [facility] MEDICINE [address] [place] [phone] [facility] [address] [place] [address] Vitamin D deficiency Social History Tobacco Use [...] Upcoming Encounters Date Type Department Care Team ([facility] Contact Info) Description 12/10/2024 11:15 AM EDT Office Visit [facility] MEDICINE [address] [place] [phone] Carley Tapia MD [address] [place] [address] documented as of this encounter Visit Diagnoses Diagnosis Vitamin D deficiency documented in this encounter Additional Health Concerns Assessment Noted Time PHQ-9 Depression Total Score: 5 09/14/19 23 9:38 AM EDT documented as of this encounter Care Teams Discotheque Dancer Relationship Specialty Start Date End Date Carley Tapia MD [address] [place] [address] PCP - General Family Medicine 06/10/20 documented as of this encounter
--- OUTSIDE RECORDS SUMMARY | 2024-09-04 15:19 | XMS_ITS | Encounter Summary ---
Author Organization [employer] Address [address] [facility] [address] [place] [address] Care Team Providers Care Budget Specialist Name Role Phone Carley Tapia MD Primary Care Provide r Reason for Visit * Reason Comments Med Refill Encounter Details Date Type Department Care Team ([facility] Contact Info) Description 08/24/2024 Refill [facility] MEDICINE [address] [place] [address] Carley Tapia MD [address] [place] [address] Type 2 diabetes mellitus without complication, without long-term current use of insulin ([facility]) Social History Tobacco Use Types Packs/Day Years [...] Description 12/10/2024 11:15 AM EDT Office Visit [facility] MEDICINE [address] [place] [address] Carley Tapia MD [address] [place] [address] documented as of this encounter Visit Diagnoses Diagnosis Type 2 diabetes mellitus without complication, without long-term current use of insulin ([facility]) documented in this encounter Additional Health Concerns Assessment Noted Time PHQ-9 Depression Total Score: 0 12/08/19 24 10:27 AM EDT documented as of this encounter Care Teams Budget Specialist Relationship Specialty Start Date End Date Carley Tapia MD [address] [place] [address] PCP - General Family Medicine 06/10/20 documented as of this encounter
--- OUTSIDE RECORDS SUMMARY | 2024-09-04 15:19 | XMS_ITS | Encounter Summary ---
Author Organization [employer] Address [address] [facility] [address] [place] [address] Care Team Providers Care Automatic Clipper Name Role Phone Carley Tapia MD Primary Care Provide r Reason for Visit * Reason Onset Date Comments Chart Prep 09/03/2024 Encounter Details Date Type Department Care Team ([facility] Contact Info) Description 09/03/2024 Telephone [facility] MEDICINE [address] [place] [address] Carley Tapia MD [address] [place] [address] Chart Prep Social History Tobacco Use Types Packs/Day Years [...] encounter Miscellaneous Notes * Telephone Encounter - Estelle Callahan MA - 09/03/2024 11:41 AM EDT Chart Prep Labs: done Images: done Referrals: not applicable Vaccines due: Covid, Flu, Tdap, Hep A, and HPV Screenings: not applicable Overdue care gaps: SBIRT documented in this encounter Plan of Treatment Upcoming Encounters Date Type Department Care Team (Late st Contact Info) Description 12/10/2024 11:15 AM EDT Office Visit [facility] MEDICINE [address] [place] [address] Carley Tapia MD [address] [place] [address] documented as of this encounter Visit Diagnoses Not on filedocumented in this encounter Additional Health Concerns Assessment Noted Time PHQ-9 Depression Total Score: 0 12/08/19 24 10:27 AM EDT documented as of this encounter Care Teams Automatic Clipper Relationship Specialty Start Date End Date Carley Tapia MD [address] [place] [address] PCP - General Family Medicine 06/10/20 documented as of this encounter
--- OUTSIDE RECORDS SUMMARY | 2024-09-04 15:19 | XMS_ITS | Encounter Summary ---
Author Organization [employer] Address [address] [facility] [address] [place] [address] Care Team Providers Care Environmental Permitting Specialist Name Role Phone Carley Tapia MD Primary Care Provide r Reason for Visit * Reason Onset Date Comments telephone call 09/04/2024 Encounter Details Date Type Department Care Team ([facility] Contact Info) Description 09/04/2024 Telephone [facility] MEDICINE [address] [place] [address] Carley Tapia MD [address] [place] [address] telephone call Social History Tobacco Use Types Packs/Day Years [...] encounter Miscellaneous Notes * Telephone Encounter - Janet Aleman - 09/04/2024 10:46 AM EDT Pt walked in requesting to rs appt from 04/20/24. documented in this encounter Plan of Treatment Upcoming Encounters Date Type Department Care Team (Late st Contact Info) Description 12/10/2024 11:15 AM EDT Office Visit [facility] MEDICINE [address] [place] [address] Carley Tapia MD [address] [place] [address] documented as of this encounter Visit Diagnoses Not on filedocumented in this encounter Additional Health Concerns Assessment Noted Time PHQ-9 Depression Total Score: 0 12/08/19 24 10:27 AM EDT documented as of this encounter Care Teams Environmental Permitting Specialist Relationship Specialty Start Date End Date Carley Tapia MD [address] [place] [address] PCP - General Family Medicine 06/10/20 documented as of this encounter
--- OUTSIDE RECORDS SUMMARY | 2024-09-04 15:19 | XMS_ITS | Clinical Summary ---
Author Organization [employer] Address [address] [place] [address] Care Team Providers Care Cardiothoracic Surgeon Name Role Phone Carley Tapia MD Primary Care Provide r Allergies Active Allergy Reactions Criticality Noted Date Comments Ampicillin Rash Low 06/08/2010 Enalapril Angioedema 08/16/2024 Nsaids 06/08/2010 Other reaction(s): asthma gets worse [...] mL into the shoulder, thigh, or buttocks. Active Linzess 290 MCG capsule Take 290 mcg by mouth in the morning. 023 Active docusate sodium (Colace) 100 MG capsule Take 100 mg by mouth in the morning. Active diphenhydrAMINE (BENADryl) 25 MG capsule TAKE 1 CAPSULE BY MOUTH THREE TIMES DAILY NEEDED FOR ALLERGIC REACTION Active Linzess 72 MCG capsule Take 72 mcg by mouth in the morning. Active Myrbetriq 25 MG 24 hr tablet Take 25 mg by mouth in the morning. 09/06/2 024 Active Alcohol Swabs (Alcohol Prep) 70 % pads USE FOUR TIMES DAILY 100 each 025 Active TRUEplus Lancets 33G miscIndications:T ype 2 diabetes mellitus without complication, without long-term current use of insulin ([facility]) TEST BLOOD SUGAR FOUR TIMES DAILY 100 each 025 Active metFORMIN (Glucophage) 1000 MG tabletIndications :Type 2 diabetes mellitus without complication, without long-term current use of insulin ([facility]) Take 1 tablet (1,000 mg) by mouth with breakfast and with evening meal. 60 tablet 025 2025 Active hydroCHLOROthiazi de (HYDRODiuril) 25 MG tabletIndications :Essential hypertension Take 1 tablet (25 mg) by mouth in the morning. 90 tablet 025 Active glucose blood (FREESTYLE LITE) test stripIndications: Type 2 diabetes mellitus without complication, without long-term current use of insulin ([facility]) TEST BLOOD SUGAR 3 TIMES A DAY 100 strip Active Fluticasone-Salme terol 500-50 MCG/ACT aerosol powderIndications :Moderate persistent asthma without complication Inhale 1 puff 2 times daily. Rinse mouth after using. 60 each 2 025 Active Ferrous Sulfate (iron) 325 (65 Fe) MG tabletIndications :Iron deficiency anemia, unspecified iron deficiency anemia type TAKE 1 TABLET BY MOUTH EVERY MORNING WITH ORANGE JUICE 90 tablet 025 Active cloNIDine (Catapres) 0.2 MG tabletIndications :Essential hypertension TAKE 1 TABLET BY MOUTH TWICE DAILY IN THE MORNING AND AT BEDTIME 180 tablet 025 Active cholecalciferol (D3 Super Strength) 50 MCG (2000 UT) capsuleIndication s:Vitamin D deficiency TAKE 1 CAPSULE BY MOUTH EVERY MORNING 90 capsule 025 Active atorvastatin (Lipitor) 20 MG tabletIndications :Hyperlipidemia, unspecified hyperlipidemia type TAKE 1 TABLET BY MOUTH EVERY EVENING 90 tablet 025 Active amitriptyline (Elavil) 75 MG tabletIndications :Mood disorder ([facility]) TAKE 1 TABLET BY MOUTH AT BEDTIME 90 tablet 025 Active buPROPion XL (Wellbutrin XL) 300 MG 24 hr tabletIndications :Mood disorder ([facility]) TAKE 1 TABLET BY MOUTH EVERY MORNING 90 tablet 1 Active FLUoxetine (PROzac) 20 MG capsuleIndication s:Mood disorder (CMS/HCC) TAKE 2 CAPSULES BY MOUTH ONCE DAILY IN THE MORNING 180 capsule Active loratadine (Claritin) 10 MG tabletIndications :Seasonal allergies TAKE 1 TABLET BY MOUTH EVERY MORNING NEEDED 90 tablet 1 Active senna (Senokot) 8.6 MG tabletIndications :Chronic constipation TAKE 1 TABLET BY MOUTH EVERY DAY NEEDED FOR CONSTIPATION 90 tablet 1 025 Active albuterol (Ventolin HFA) 108 (90 Base) MCG/ACT inhalerIndication s:Moderate persistent asthma without complication INHALE 2 PUFFS FOUR TIMES DAILY NEEDED 18 g 3 025 Active albuterol (2.5 MG/3ML) 0.083% nebulizer solutionIndicatio ns:Moderate persistent asthma without complication TAKE 3 ML BY NEBULIZATION ROUTE EVERY 6 HOURS NEEDED FOR WHEEZING 75 mL Active amLODIPine (Norvasc) 5 MG tabletIndications :Essential hypertension Take 1 tablet (5 mg) by mouth Once per day. 30 tablet 025 2025 Active fluticasone (Flonase) 50 MCG/ACT nasal sprayIndications: Seasonal allergies SPRAY 1 SPRAY INTO EACH NOSTRIL TWICE A DAY. 48 g 2 Active cetirizine (ZyrTEC) 10 MG tabletIndications :Seasonal allergies Take 1 tablet (10 mg) by mouth Once per day. 30 tablet 025 2025 Active senna (Senokot) 8.6 MG tabletIndications :Chronic constipation TAKE 1 TABLET BY MOUTH EVERY DAY NEEDED FOR CONSTIPATION 90 tablet 023 2024 Discontinued(R eorder (will not trigger notification to Pharmacy)) albuterol (2.5 MG/3ML) 0.083% nebulizer solutionIndicatio ns:Moderate persistent asthma without complication Take 3 mL (2.5 mg) by nebulization every 6 (six) hours if needed for wheezing. 75 mL 11 023 2024 Discontinued(R eorder (will not trigger notification to Pharmacy)) metFORMIN (Glucophage) 1000 MG tabletIndications :Type 2 diabetes mellitus without complication, without long-term current use of insulin ([facility]) Take 1 tablet (1,000 mg) by mouth with breakfast and with evening meal. 60 tablet 11 2024 Discontinued(R eorder (will not trigger notification to Pharmacy)) albuterol (Ventolin HFA) 108 (90 Base) MCG/ACT inhalerIndication s:Moderate persistent asthma without complication INHALE 2 PUFFS FOUR TIMES DAILY NEEDED 18 g 3 2024 Discontinued(R eorder (will not trigger notification to Pharmacy)) fluticasone (Flonase) 50 MCG/ACT nasal sprayIndications: Seasonal allergies Administer 1 spray into each nostril 2 times daily. Shake gently. Before first use, prime pump. After use, clean tip and replace cap. 48 g 2024 Discontinued(R eorder (will not trigger notification to Pharmacy)) cloNIDine (Catapres) 0.2 MG tabletIndications :Essential hypertension TAKE 1 TABLET BY MOUTH TWICE DAILY IN THE MORNING AND AT BEDTIME 180 tablet 3 2024 Discontinued(R eorder (will not trigger notification to Pharmacy)) enalapril (Vasotec) 20 MG tablet TAKE 1 TABLET BY MOUTH TWICE DAILY IN THE MORNING AND AT BEDTIME 180 tablet 3 2024 Discontinued(R eorder (will not trigger notification to Pharmacy)) cholecalciferol (D3 Super Strength) 50 MCG (2000 UT) capsuleIndication s:Vitamin D deficiency TAKE 1 CAPSULE BY MOUTH EVERY MORNING 90 capsule 1 2024 Discontinued(R eorder (will not trigger notification to Pharmacy)) TRUEplus Lancets 33G misc TEST BLOOD SUGAR FOUR TIMES DAILY 100 each 05/21/2024 Discontinued(R eorder (will not trigger notification to Pharmacy)) Fluticasone-Salme terol 500-50 MCG/ACT aerosol powder INHALE 1 PUFF TWICE DAILY RINSE MOUTH AFTER USING. 60 each 2 2024 Discontinued(R eorder (will not trigger notification to Pharmacy)) glucose blood (FREESTYLE LITE) test stripIndications: Type 2 diabetes mellitus without complication, without long-term current use of insulin ([facility]) TEST BLOOD SUGAR 3 TIMES A DAY 100 strip 11 2024 Discontinued(R eorder (will not trigger notification to Pharmacy)) hydroCHLOROthiazi de (HYDRODiuril) 25 MG tabletIndications :Essential hypertension TAKE 1 TABLET BY MOUTH EVERY MORNING 90 tablet 2024 Discontinued(R eorder (will not trigger notification to Pharmacy)) loratadine (Claritin) 10 MG tablet TAKE 1 TABLET BY MOUTH EVERY MORNING NEEDED 90 tablet 2024 Discontinued(R eorder (will not trigger notification to Pharmacy)) FLUoxetine (PROzac) 20 MG capsuleIndication s:Mood disorder ([facility]) TAKE 2 CAPSULES BY MOUTH ONCE DAILY IN THE MORNING 180 capsule 2024 Discontinued(R eorder (will not trigger notification to Pharmacy)) amitriptyline (Elavil) 75 MG tabletIndications :Mood disorder ([facility]) TAKE 1 TABLET BY MOUTH AT BEDTIME 90 tablet 2024 Discontinued(R eorder (will not trigger notification to Pharmacy)) atorvastatin (Lipitor) 20 MG tabletIndications :Hyperlipidemia, unspecified hyperlipidemia type TAKE 1 TABLET BY MOUTH EVERY EVENING 90 tablet 2024 Discontinued(R eorder (will not trigger notification to Pharmacy)) buPROPion XL (Wellbutrin XL) 300 MG 24 hr tabletIndications :Mood disorder ([facility]) TAKE 1 TABLET BY MOUTH EVERY MORNING 90 tablet 1 2024 Discontinued(R eorder (will not trigger notification to Pharmacy)) Ferrous Sulfate (iron) 325 (65 Fe) MG tabletIndications :Iron deficiency anemia, unspecified iron deficiency anemia type TAKE 1 TABLET BY MOUTH EVERY MORNING WITH ORANGE JUICE 90 tablet 1 2024 Discontinued(R eorder (will not trigger notification to Pharmacy)) enalapril (Vasotec) 20 MG tabletIndications :Essential hypertension TAKE 1 TABLET BY MOUTH TWICE DAILY IN THE MORNING AND AT BEDTIME 180 tablet 3 025 2024 Discontinued fluticasone (Flonase) 50 MCG/ACT nasal sprayIndications: Seasonal allergies SPRAY 1 SPRAY INTO EACH NOSTRIL TWICE A DAY. 48 g 025 2024 Discontinued(R eorder (will not trigger notification to Pharmacy)) Active Problems Problem Noted Date Diagnosed Date Right foot pain 09/04/2024 Assessment & Plan (09/04/2024 1:08 PM EDT): Patient has chronic right foot pain I will refer her back to podiatry Angioedema 08/16/2024 Assessment & Plan (08/16/2024 2:24 PM EDT): Resolved Osteopenia 12/08/2023 Assessment & Plan (12/08/2023 11:23 [...] diabetes mellitus without complication Assessment & Plan (09/04/2024 1:08 PM EDT): Diabetes is: almost at goal [...] Follow up: 3 months Assessment & Plan (08/16/2024 2:24 PM EDT): Diabetes is: controlled - Lab [...] Follow up: 3 months Assessment & Plan (12/08/2023 11:23 AM EDT): [...] 05/09/2015 Essential hypertension 05/09/2015 Assessment & Plan (08/16/2024 2:23 PM EDT): Blood pressure is elevated but she forgot to take her other blood pressure medications before coming here I decided to start her on amlodipine 5 mg daily and then continue with hydrochlorothiazide 25 mg daily and clonidine 0.2 mg at bedtime enalapril was discontinued I advised: - Aerobic exercise to reduce BP. Initial [...] consulting health care provider Assessment & Plan (12/08/2023 11:22 AM EDT): [...] Encounters Date Type Department Care Team Description 09/04/2024 10:45 AM EDT Office Visit [address] [address] Carley Tapia MD Type 2 diabetes mellitus without complication, without long-term current use of insulin (CMS/HCC); Seasonal allergies; Right foot pain 09/04/[address] [address] Carley Tapia MD telephone call 09/04/2024 Travel 09/03/[address] [address] Carley Tapia MD Chart Prep 08/31/[address] [address] Carley Tapia MD AUGUST RECALL 08/28/2024 Patient Outreach [address] [address] Carley Tapia MD Pre-visit Planning (SDOH screening negative and Tobacco screening negative) 08/24/[address] [address] Kavitha Damon MD Moderate persistent asthma without complication 08/24/[address] [address] Carley Tapia MD Type 2 diabetes mellitus without complication, without long-term current use of insulin (CMS/HCC) 08/20/2024 Telephone [facility] [address] [place] [phone] Carley Tapia MD Medication Question 08/16/2024 11:15 AM EDT Office Visit [facility] [address] [place] [phone] Carley Tapia MD Essential hypertension (Primary Dx); Type 2 diabetes mellitus without complication, without long-term current use of insulin (CMS/HCC); Seasonal allergies; Angioedema, initial encounter 08/16/2024 Travel 08/15/2024 Telephone [facility] [address] [place] [phone] Carley Tapia MD Chart Prep 08/14/2024 Refill [facility] [address] [place] [phone] Carley Tapia MD Chronic constipation; Seasonal allergies; Moderate persistent asthma without complication 08/10/2024 Refill [facility] [address] [place] [phone] Carley Tapia MD Type 2 diabetes mellitus without complication, without long-term current use of insulin ([facility]); Essential hypertension; Iron deficiency anemia, unspecified iron deficiency anemia type; Vitamin D deficiency; Hyperlipidemia, unspecified hyperlipidemia type; Mood disorder ([facility]); Seasonal allergies; Moderate persistent asthma without complication 08/09/2024 Telephone [facility] [address] [place] [phone] Carley Tapia MD Durable Medical Equipment (Home Care Delivered Form: Incontinence Liner) 08/09/2024 Telephone [facility] [address] [place] [phone] Carley Tapia MD Durable Medical Equipment (Home Care Delivered Form: Shower Head BP Monitor) 08/08/[address] [address] Carley Tapia MD ER Follow-up 08/08/2024 Orders Only GENERIC EXTERNAL DATA DEPARTMENT Provider, Generic External Data 08/07/2024 Orders Only GENERIC EXTERNAL DATA DEPARTMENT Provider, Generic External Data 07/23/2024 Refill [facility] [address] [place] [phone] Carley Tapia MD Essential hypertension; Mood disorder (CMS/[facility]); Hyperlipidemia, unspecified hyperlipidemia type; Iron deficiency anemia, unspecified iron deficiency anemia type 07/19/2024 Telephone [facility] [address] [place] [phone] Carley Tapia MD Durable Medical Equipment 07/17/2024 Refill [facility] [address] [place] [address] Carley Tapia MD 07/13/2024 Refill [facility] [address] [place] [address] Lea Barlow RN Type 2 diabetes mellitus without complication, without long-term current use of insulin ([facility]) 07/13/2024 Telephone [facility] [address] [place], [place] [phone] Carley Tapia MD Prior Authorization ([facility] Request: [facility] 70% pads) 07/03/2024 Orders Only [facility] [address] [place] [address] Carley Tapia MD from Last 3 Months [...] Mass Index 27.37 09/04/2024 10:23 AM EDT Plan of Treatment Upcoming Encounters Date Type Department Care Team (Late st Contact Info) Description 12/10/2024 11:15 AM EDT Office Visit [facility] [address] [place] [address] Carley Tapia MD [address] [place] [address] Health Maintenance Due Date Last Done Comments [...] Additional history exists Lipid Panel 09/14/2023 09/13/2022, 04/09/2021, 02/25/2021 COVID-19 Vaccine ( season) 2023 05/26/2021, 10/15/2020 Influenza Vaccine (#1) 2023 , 05/20/2020, 01/10/2019, Additional history exists Dental Prophylaxis 03/31/2024 09/29/2023 Dental X-Ray: Bitewings 09/29/2024 09/29/19 24, 05/18/2022, 05/18/2022 Diabetes: Foot Exam 09/29/2024 09/30/2023, 09/30/2023, 09/30/2023, Additional history exists Diabetes: Hemoglobin A1C 11/15/2024 025, 09/30/2023, 07/21/2023, Additional history exists Depression Screening 12/07/2024 12/08/2023, 12/08/19 Eye Exam 01/16/2025 01/17/2024, 12/25, 01/17/2024, Additional history exists Dental X-Ray: Full Mouth 05/19/2025 05/18/2022, 04/26 HPV/Cotest 05/28/2025 05/28/2020 Pap Smear 05/28/2025 05/28/2020 Mammogram 07/03/2025 07/03/2024, 04/27, 05/18/2022, Additional history exists SDOH Screening 08/28/2025 08/28/2024 Tobacco Screening 09/04/2025 09/04/2024 Colorectal Cancer Screening 11/15/2026 FIT DNA/Cologuard 11/15/2026 [...] complication, without long-term current use of insulin ([facility]) POCT GLYCATED HEMOGLOBIN, TOTAL Routine 08/16/2024 10:52 AM EDT Type 2 diabetes mellitus without complication, without long-term current use of insulin ([facility]) POCT GLUCOSE Routine 08/16/2024 10:51 AM EDT Type 2 diabetes mellitus without complication, without long-term current use of insulin ([facility]/HCC) XR CHEST 2 VIEWS Routine 08/08/2024 3:17 AM EDT SARS COV2/INFLUENZA A/B AND RSV RNA QL NAAT Routine 08/08/2024 2:52 AM EDT SLIDE REVIEW Routine 08/07/2024 11:44 PM EDT COMPREHENSIVE METABOLIC PANEL Routine 08/07/2024 11:44 PM EDT CBC WITH AUTO DIFFERENTIAL Routine 08/07/2024 11:44 PM EDT BI MAMMOGRAM SCREENING TOMOSYNTHESIS BILATERAL Routine 07/03/2024 2:01 PM EDT LAB COLOGUARD?? COLON CANCER SCREEN Routine 11/16/2023 10:30 AM EDT Colon cancer screening Full PROPHYLAXIS - ADULT Routine 09/29/2023 1:00 [...] Recently Relevant to Health Maintenance Results * POCT Glucose (09/04/2024 10:24 AM EDT) Only the most recent of2 resultswithin the time period is included. Glucose Blood, POC 179 60 - 200 mg/dL QC Media Lot # [id number] Lot# Expiration Date [id number] Blood Capillary blood specimen / Unknown 09/04/2024 10:24 AM EDT Carley Mak MD POINT OF CARE TEST EN TER/EDIT ORDERABLES Final Result * (ABNORMAL) POCT HGB A1C (08/16/2024 10:52 AM EDT) Pathologist [facility] Hemoglobin A1C 7.3(A) 4.0 - 6.0 % QC Media Lot # [id number] Lot# Expiration Date [id number] Blood 08/16/2024 10:5 2 AM EDT Carley Mak MD POINT OF CARE TEST EN TER/EDIT ORDERABLES Final Result * XR Chest 2 Views (08/08/2024 3:17 AM EDT) Anatomical Region Laterality Modality Chest Radiographic Susanne ging 08/08/2024 3:17 AM EDT Narrative 08/08/2024 3:20 AM EDT ? [facility] ?[address] ?[place] [address] ?XRay Report ? Signed ? Patient: Fisher,Yareli ?MR#: [id number] ?? [id number] ? : 1960 ?Acct:[id number] ? Age/Sex: 64 / F ?ADM Date: 04/15/25 ? Loc: HO.ED ? Attending Dr: ? Ordering Physician: Ace Lennon MD ?? Date of Service: 08/08/24 ?? Procedure(s): XR chest 2V ?? Accession Number(s): [id number] ? cc: Ace Lennon MD; Carley De Luna MD ? CLINICAL HISTORY: cough ? Exam: PA and lateral views of the chest. ? Comparison: August 04, 2022. ? Findings: ? Mediastinal contours, cardiac silhouette, and pulmonary vasculature are ?? within normal limits. ?? No focal areas of consolidation. ?? No pleural effusion or pneumothorax. ?? Surgical clips are identified within the right axilla. ? Impression: ? No acute infiltrate. ? This document has been electronically signed by: Harry Abbott MD on ?? 08/08/2024 03:17:54 ? Dictated By: ?Harry Abbott MD ? Signed By: ?<Electronically signed by Harry Abbott MD in OV> ? 08/08/24 0319 ? DD/ 6 ? TD/TT: 08/08/24316 ? Patient Accounts Manager: ? Procedure Note Bubba Horvath - 08/08/[address] [address] XRay Report Signed Patient: Sly Fisher#: [id number] : 8Acct:[id number] Age/Sex: 64 / FADM Date: 08/07/24 Loc: HO.ED Attending Dr: Ordering Physician: Ace Lennon MD Date of Service: 08/08/24 Procedure(s): XR chest 2V Accession Number(s): [id number] cc: Ace Lennon MD; Carley De Luna MD CLINICAL HISTORY: cough Exam: PA and lateral views of the chest. Comparison: August 04, 2022. Findings: Mediastinal contours, cardiac silhouette, and pulmonary vasculature are within normal limits. No focal areas of consolidation. No pleural effusion or pneumothorax. Surgical clips are identified within the right axilla. Impression: No acute infiltrate. This document has been electronically signed by: Harry Abbott MD on 08/08/2024 03:17:54 Dictated By: Harry Abbott MD Signed By: <Electronically signed by Harry Abbott MD in OV> 08/08/24 0319 DD/ 6 TD/TT: 08/08/24316 Patient Accounts Manager: [facility] External Provider IMG XR PROCEDURES Final Result * SARS-CoV-2 RNA, Influenza A/B, and RSV RNA, Ql NAAT (08/08/2024 2:52 AM EDT) Influenza A PCR NEGATIVE Negative [facility] Influenza B PCR NEGATIVE Negative [facility] Resp Syncy Virus RNA Qual PCR NEGATIVE Negative [facility] SARS COV2 PCR NEGATIVE Negative [facility] Comment:All test results mus t be correlated with clinical findings.Negative results do not preclude SARS-CoV2, influenza Avirus, influenza B virus and/or RSV infectionand should not be used as the sole basis for treatment orother patient management decisions. Negative results must becombined with clinical observations, patient history, andepidemiological information.This test has not been evaluated for monitoring treatment ofinfection.This test has been authorized by the FDA under an EmergencyUse Authorization (EUA) for use by authorized laboratories.Testing performed on the Wellsphere GeneXpert utilizingreal-time RT-PCR.All SARS CoV2 and positive influenza A/B results arereported to [facility]. 08/08/2024 2:52 AM EDT 08/08/2024 2:56 AM EDT Generic External Data Provider LAB MICROBIOLOGY - GENERAL ORDERABLES Final Result [facility] [address] [place] [phone] * Slide Review (08/07/2024 11:44 PM EDT) Slide Review VERIFIED [facility] 08/07/2024 11:4 4 PM EDT 08/07/2024 11:46 PM EDT Generic External Data Provider LAB BLOOD ORDERAB LES Final Result [facility] [address] [place], [place] [phone] [phone] * (ABNORMAL) CBC auto differential (08/07/2024 11:44 PM EDT) White Blood Count 14.8(H) 4.8 - 10.8 X10*3/uL [facility] Red Blood Count 4.13(L) 4.20 - 5.50 X10*6/uL [facility] Hemoglobin 12.0 12.0 - 16.0 g/dl [facility] Hematocrit 35.3(L) 37.0 - 47.0 % [facility] Mean Corpuscular Volume 85.5 80.0 - 98.0 fL [facility] Mean Corpuscular Hemoglobin 29.1 27.0 - 33.0 pg [facility] Mean Corpuscular HGB Conc 34.0 31.0 - 35.0 g/dl [facility] Red Cell Distribution Width 12.3 11.0 - 16.0 % [facility] Platelet Count 423(H) 160 - 400 X10*3/uL [facility] Mean Platelet Volume 9.7 9.4 - 12.3 fL [facility] Neutrophils Percent Auto 52.5 45 - 73 % [facility] Imm Gran Pct Auto 1.0(H) 0.0 - 0.4 % [facility] Lymphocytes Percent Auto 37.3 20 - 40 % [facility] Monocytes Percent Auto 6.8 2 - 11 % [facility] Eosinophils Percent Auto 1.9 0 - 4 % [facility] Basophils Percent Auto 0.5 0 - 2 % [facility] NRBC Pct Auto 0.0 0.0 - 0.2 /100WBC [facility] Neutrophils Absolute Auto 7.8 2.0 - 8.3 x10*3/uL [facility] Imm Gran Abs Auto 0.15(H) 0.00 - 0.03 X10*3/uL [facility] Lymphocytes Absolute Auto 5.5(H) 1.2 - 4.9 X10*3/uL [facility] Monocytes Absolute Auto 1.0 0.1 - 1.2 X10*3/uL [facility] Eosinophils Absolute Auto 0.3 0.0 - 0.4 X10*3/uL [facility] Basophils Absolute Auto 0.1 0.0 - 0.2 X10*3/uL [facility] NRBC Abs Auto 0.000 0.0 - 0.012 X10*3/uL [facility] 08/07/2024 11:4 4 PM EDT 08/07/2024 11:46 PM EDT us Generic External Data Provider LAB BLOOD ORDERAB LES Edited Result - Final [facility] [address] [place] [phone] * (ABNORMAL) Comprehensive Metabolic Panel (08/07/2024 11:44 PM EDT) Sodium 142 135 - 145 mmol/L [facility] Potassium 4.1 3.3 - 5.1 mmol/L [facility] Comment:Mild Hemolysis.Inter pret result with caution Chloride 108 96 - 108 mmol/L [facility] Carbon Dioxide 20(L) 22 - 29 mmol/L [facility] Anion Gap 18 12 - 20 [facility] Urea Nitrogen (BUN) 18(H) 9 - 16 mg/dL [facility] Creatinine, Serum 0.76 0.5 - 1.4 mg/dL [facility] Creatinine Clr Calc Pharmacy 57.0 [facility] Comment:Provided height and weight: 149.86 cm,59.4 kg.eGFR (calculated from the MDRD study equation) and eCrCl(calculated from the Cockcroft-Gault equation) are based ondifferent parameters and may not yield comparable results.If eCrCl result is absurd, please check patient'sheight/weight. Estimated Glomerular Filt Rate >60 [facility] Comment:Chronic Kidney Disea se: Estimated GFR < 60 mL/min/1.03f8Yeoqhc Kidney Disease: Estimated GFR < 15 mL/min/1.73m2 Glucose 158(H) 60 - 115 mg/dL [facility] Calcium 9.5 8.4 - 10.2 mg/dL [facility] Bilirubin, Total 0.2 0.0 - 1.0 mg/dL [facility] Aspartate Amino Transferase 25 5 - 31 U/L [facility] Comment:Mild Hemolysis.Inter pret result with caution Alanine Aminotransferase 12 0 - 31 U/L [facility] Total Protein 7.9 6.5 - 8.0 g/dL [facility] Comment:Mild Hemolysis.Inter pret result with caution Albumin Level 4.2 3.5 - 5.0 g/dL [facility] Alkaline Phosphatase 77 39 - 117 U/L [facility] 08/07/2024 11:4 4 PM EDT 08/07/2024 11:46 PM EDT us Generic External Data Provider LAB BLOOD ORDERAB LES Final Result [facility] [address] [place] [address] [phone] * BI Mammogram Screening Tomosynthesis Bilateral (07/03/2024 2:01 PM EDT) Anatomical Region Laterality Modality Breast Bilateral Mammography 07/03/2024 2:01 PM EDT Narrative 07/11/2024 11:32 AM EDT ? [facility] ? [address] ?[place] [address] ? Mammography Report ? Signed ? Patient: Fisher,Yareli ?MR#: [id number] ?? [id number] ? : 1960 ?Acct:[id number] ? Age/Sex: 64 / F ?ADM Date: 03/11/25 ? Loc: HO.MAMMO ? Attending Dr: Carley Mak MD ? Ordering Physician: Carley Tapia MD ?Results: ?? 2Benign Findings ? Date of Service: 07/03/24 ?Follow Up: 1 Year From Orig ?? inal Mammogram ? Procedure(s): MM tomosynthesis screening BI ?? Accession Number(s): [id number] ? cc: Carley Tapia MD ? EXAMINATION: [...] ??Nicole Hughes DO ??07/11/2024 11:29 AM EDT ?? RP ? Dictated By: ?Nicole Hughes DO ? Signed By: ?<Electronically signed by Nicole Hughes, DO in OV> ? 07/11/24 1129 ? DD/ 1401 ? TD/TT: 07/03/24 1429 ? Patient Accounts Manager: ? Procedure Note Donotuseinterpreter, Image - 07/11/2024 [facility] [address] [place] [address] Mammography Report Signed Patient: Sammy FisherR#: [id number] : 8Acct:[id number] Age/Sex: 64 / FADM Date: 07/03/24 Loc: HO.MAMMO Attending Dr: Carley Mak MD Ordering Physician: Carley Tapia MDResults: 2Benign Findings Date of Service: 07/03/24Follow Up: 1 Year From Orig inal Mammogram Procedure(s): MM tomosynthesis screening BI Accession Number(s): [id number] cc: Carley Tapia MD EXAMINATION: MM SCREENING [...] Nicole Hughes DO 07/11/2024 11:29 AM EDT RP Dictated By: Nicole Hughes DO Signed By: <Electronically signed by Nicole Hughes DO in OV> 07/11/24 1129 DD/ 1401 TD/TT: 07/03/24 1429 Patient Accounts Manager: Carley Mak MD IMG BI PROCEDURES Fin al Result * Cologuard?? colon cancer screening (11/16/2023 10:30 AM EDT) Pathologist [facility] Cologuard Result Negative Negative 11/24/19 10:15 PM EDT [facility] (CLIA #:[id number]) Comment: NEGATIVE TEST RESULT. A negative Cologuard [...] cancer. ??Following a negative Cologuard result, the [place] Cancer Society and U.S. Multi-Society Task Force screening guidelines recommend a Cologuard re-screening interval of 3 years. References: [employer] Guideline for Colorectal Cancer Screening: https://www.cancer.org/cancer/nqzhd-oksqxd-qbcuml/nghxlsnae-ztzkbnxkr-lqzoraz/ac s-rec ommendations.html.; Shola DK, Ector CR, Abelardo PerkinsK, Colorectal Cancer Screening: Recommendations for Physicians and Patients from the U.S. Multi-Society Task Force on Colorectal Cancer Screening , Am J Gastroenterology 2017; 112:6925-8119. TEST DESCRIPTION: Composite algorithmic analysis of stool [...] Higginbotham et al, N Engl J Med 2014;370(14):4338-3725.) Cologuard may produce a false negative or false positive result (no colorectal cancer or precancerous polyp present at colonoscopy follow up). A negative Cologuard test result does not guarantee the absence of CRC or advanced adenoma (pre-cancer). The current Cologuard screening interval is every 3 years. ([employer] Cancer Society and U.S. Multi-Society Task Force). Cologuard performance data in a 10,000 patient pivotal study using colonoscopy as the reference method can be accessed at the following location: www.Age of Learning.com/results. Additional description of the Cologuard test process, warnings and precautions can be found at www.Fididelrd.com. Stool specimen (specimen) 11/16/2023 10:30 AM EDT 11/18/2023 1:44 PM EDT Carley Mak MD LAB MOLECULAR DIAGNOS TICS ORDERABLES Final Result [facility] (CLIA #:[id number]) [place] [address], * Hepatitis C Viral RNA, Quantitative, Real-Time PCR (09/13/2022 10:42 AM EDT) HCV RNA, QN Real Time PCR <15 NOT DETECTED NOT DETECTED IU/mL [facility] HCV RNA QN Real Time PCR <1.18 NOT DETECTED NOT DETECTED Log IU/mL [facility] Comment: This test was performed using Real-Time Polymerase Chain Reaction. Reportable Range: 15 IU/mL to 100,000,000 IU/mL (1.18 Log IU/mL to 8.00 Log IU/mL). ?? The analytical performance characteristics of this assay have been determined by [facility]. The modifications have not been cleared or approved by the FDA. This assay has been validated pursuant to the CLIA regulations and is used for clinical purposes. ?? For more information on this test, go to: http://education.Chekkt.com/faq/ZNH26l8 (This link is being provided for informational/ educational purposes only.) 09/13/2022 10:4 2 AM EDT 09/13/2022 10:42 AM EDT [facility] 09/15/2022 5:24 PM EDT FASTING:NO FASTING: NO Carley Mak MD LAB BLOOD ORDERABLES Final Result [facility] [address], [place] [address] [facility] [address] [place] [address] * Albumin, Random Urine W/O Creatinine (09/13/2022 10:42 AM EDT) Albumin, Urine 0.4 See Note: mg/dL [facility] Comment: Reference Range: Reference Range Not established [facility] Comment: The ADA defines abnormalities in albumin [...] Mak MD LAB URINE ORDERABLES Final Result [facility] [address], [place] [address] [facility] [address] [place] [address] * (ABNORMAL) Lipid Panel, Standard (09/13/2022 10:42 AM EDT) Cholesterol, Total 160 <200 mg/dL [email or web address] HDL Cholesterol 58 > OR = 50 mg/dL [email or web address] Triglycerides 255(H) <150 mg/dL [facility] Comment: If a non-fasting specimen was collected, consider repeat triglyceride testing on a fasting specimen if clinically indicated. Shama et al. J. of Clin. Lipidol. 2015;9:129-169. LDL Cholesterol 68 mg/dL (calc) [email or web address] Comment: Reference range: <100 Desirable range <100 mg/dL for primary prevention; ?? <70 mg/dL for patients with CHD or diabetic patients with > or = 2 CHD risk factors. LDL-C is now calculated using the Christian calculation, which is a validated novel method providing better accuracy than the Friedewald equation in the estimation of LDL-C. Joo COOPER et al. TRANG. 2013;310(19): 0826-9443 (http://education.Inkventors/faq/QQP999) Chol/HDLC Ratio 2.8 <5.0 (calc) [email or web address] Non-HDL Cholesterol 102 <130 mg/dL (calc) [email or web address] Comment: For patients with diabetes plus 1 [...] BLOOD ORDERABLES Final Result Performing Organization Address [facility] Co wv Phone Number [facility] [address], [place] [address] [email or web address] [address] [place] [address] * HPV DNA, HIGH RISK, CERVICAL (05/28/2020 3:43 PM EST) Pathologist [facility] HPV DNA, HIGH RISK, CERVICAL Not Detected NOT DETECTED [facility] Comment: Not Detected High Risk [...] LABS Fi nal Result Performing Organization Address [facility] Co de Phone Number [facility] [address] * THINPREP PAP (05/28/2020 3:43 PM [...] historic and ?? current clinical information. ?? Refrigerating Machine Operator: SEE COMMENT [facility] Comment: JH, CT(ASCP) CT screening location: [address] ??[address] Interpretation/Res ult: SEE COMMENT [facility] [...] NP LAB PATHOLOGY ORDERABLES Final R esult Performing Organization Address [facility] de Phone Number [facility] [address] from Last 3 Months or Most Recently Relevant to Health Maintenance Insurance [address] [place] [address]Klick2Contact STANDARD [facility] OPTIONS (HMO D-SNP) DENTAL [facility] Care Teams Cardiothoracic Surgeon Relationship Specialty Start Date End Date Carley Tapia MD [address] [place] [phone] PCP - General Family Medicine 06/10/20
--- OUTSIDE RECORDS SUMMARY | 2024-09-04 15:19 | XMS_ITS | Encounter Summary ---
Author Organization [employer] Address [address] [facility] [place] [address] Care Team Providers Care Blade Aligner Name Role Phone Carley Tapia MD Primary Care Provide r Encounter Details Date Type Department Care Team ([facility] Contact Info) Description 10/19/2022 Abstract [facility] ADULT DENTAL [address] [place] [address] Milan Serna DDS [address] [place] [address] Social History Tobacco Use Types Packs/Day Years [...] Upcoming Encounters Date Type Department Care Team ([facility] Contact Info) Description 12/10/2024 11:15 AM EDT Office Visit [facility] MED[facility] [address] [place] [address] Carley Tapia MD [address] [place] [address] documented as of this encounter Visit Diagnoses Not on filedocumented in this encounter Additional Health Concerns Assessment Noted Time PHQ-9 Depression Total Score: 5 09/14/19 23 9:38 AM EDT documented as of this encounter Care Teams Blade Aligner Relationship Specialty Start Date End Date Carley Tapia MD [address] [place] [address] PCP - General Family Medicine 06/10/20 documented as of this encounter
--- OUTSIDE RECORDS SUMMARY | 2024-09-04 15:19 | XMS_ITS | Encounter Summary ---
Author Organization [employer] Address [address] [place] [address] Care Team Providers Care Brush Hand Name Role Phone Carley Tapia MD Primary Care Provide r Reason for Visit * Reason Comments Med Refill Encounter Details Date Type Department Care Team ([facility] Contact Info) Description 08/24/2024 Refill [facility] MED[facility] [address] [place], [place] [phone] Kavitha Damon MD [address] [place], [place] [phone] Moderate persistent asthma without complication Social History Tobacco Use Types Packs/Day Years [...] Description 12/10/2024 11:15 AM EDT Office Visit [facility] [address] [place] [phone] Carley Tapia MD [address] [place] [address] documented as of this encounter Visit Diagnoses Diagnosis Moderate persistent asthma without complication documented in this encounter Additional Health Concerns Assessment Noted Time PHQ-9 Depression Total Score: 0 12/08/19 24 10:27 AM EDT documented as of this encounter Care Teams Brush Hand Relationship Specialty Start Date End Date Carley Tapia MD [address] [place] [address] PCP - General Family Medicine 06/10/20 documented as of this encounter
== END 2024-09-04 12:06 | disposition home or self-care (01) ==
LOC: HO.LNP 12:05
PROVIDERS: PCP Internal Medicine; Visit Provider Nurse Practitioner Family
DX: R39.89 Other symptoms and signs involving the genitourinary system (principal); N39.0 Urinary tract infection, site not specified; N39.46 Mixed incontinence; R30.0 Dysuria
CPT/HCPCS: 51798; 81003; 87086; 87147; 99212

== ENCOUNTER 2024-12-05 11:20 | Outpatient (AMB) | payer OTHER, SELFPAY ==
--- NOTE | 2024-12-05 11:22 | A.OFFVIS_ITS ---
Vital Signs 12/05/24 11:23 Height 4 ft 11 in Weight 135 lb 5.821 oz BMI 27.3 BP 124/70 Blood Pressure Location Lt brachial Position Sitting Pulse 77 Intake Visit Reasons: abd cramping Intake Note: Yareli returns to in office follow up of GERD and abd cramping. CC: Patient c/o GERD, abd pain, and loose stools. She states that she's out her medications. [employer] Cell Battery Assembler Services: [employer]er Offered & Declined (Daughter will interpret for patient per Pt's request.) Accompanied by: Daughter Allergies ampicillin (AMPICILLIN) Allergy (Intermediate, Verified 12/05/24 11:37) RASH Penicillins (PCN) Allergy (Verified 12/05/24 11:37) Rash PFSH Medical History Urinary frequency Urinary tract infection Lower urinary tract symptoms (LUTS) Foul smelling urine Elevated cholesterol Diabetes mellitus Obesity Asthma HTN (hypertension) Palpitations Surgical History Hx of tubal ligation Hx of breast biopsy Hx of cystoscopy Hx of colonoscopy History of lumpectomy Family History Father CVD (cardiovascular disease) Diabetes Mother Diabetes Colon cancer Social History Household Members: None Housing: Apartment Alcohol intake: current Alcohol intake frequency: holidays/special occasions only Alcohol type: beer Patient Tobacco Use Status: Never used Tobacco Assessment & Plan Assessment & Plan Medications: Refilled dexlansoprazole (Dexilant) 60 mg PO QPM 30 caps 6RF linaclotide (Linzess) 72 mcg PO QAM 30 caps 6RF K58.1 - Irritable bowel syndrome with constipation dicyclomine 10 mg PO QID 90 caps 6RF K58.1 - Irritable bowel syndrome with constipation Coding
--- NOTE | 2024-12-05 11:22 | MHC.OFFVIS ---
Vital Signs 12/05/24 11:23 Height 4 ft 11 in Weight 135 lb 5.821 oz BMI 27.3 BP 124/70 Blood Pressure Location Lt brachial Position Sitting Pulse 77 Intake Visit Reasons: abd cramping Allergies ampicillin (AMPICILLIN) Allergy (Intermediate, Verified 12/05/24 11:37) RASH Penicillins (PCN) Allergy (Verified 12/05/24 11:37) Rash HPI HPI abd cramping: Details: Assessment & Plan (1) GERD (gastroesophageal reflux disease): Code(s): K21.9 - Gastro-esophageal reflux disease without esophagitis Category: Medical (2) Irritable bowel syndrome with constipation: Code(s): K58.1 - Irritable bowel syndrome with constipation Category: Medical (3) Abdominal cramping: Code(s): R10.9 - Unspecified abdominal pain Category: Medical Plan Kim #Jonna Ng She ran out of her medicines because she missed an appt. She continues on her dexilant, Linzess 72mcg, bisacodyl, colace. ROV 6 mos. Medications: Refilled linaclotide (Linzess) 72 mcg PO QAM 30 caps 6RF K58.1 - Irritable bowel syndrome with constipation dexlansoprazole (Dexilant) 60 mg PO QPM 30 caps 6RF dicyclomine 10 mg PO QID 90 caps 6RF K58.1 - Irritable bowel syndrome with constipation docusate sodium (Stool Softener) 100 mg PO QAM 30 caps 6RF bisacodyl 10 mg (2 x 5 mg) PO BEDTIME 60 tabs 6RF K58.1 - Irritable bowel syndrome with constipation, R10.9 - Unspecified abdominal pain Discontinued linaclotide (Linzess) Discontinued Reason: Doctor's Order 290 mcg PO QAM 30 caps 6RF K58.1 - Irritable bowel syndrome with constipation TODAYS VISIT Niuean #dtr translates per pt requests SHe is getting a lot of heartburn, but with discussion I find out she has not been receiving her Dexilant. She did change her pharmacy from [facility] to [facility] so this might be part of the problem, but it also could be that she needs a prior approval. I will send a note to my staff and resend the prescription to the correct pharmacy. She is also having a lot of belly cramping after eating over the past 2 weeks with loose stools are to meeting with softer stools. Again, with conversation we find that she is forgetting to take her dicyclomine since it is not prepackaged in her dosage/med box. I will resend this, and see if we can get it put in the med box to facilitate compliance. Return office visit in 4 weeks [facility] Medical History Urinary frequency Urinary tract infection Lower urinary tract symptoms (LUTS) Foul smelling urine Elevated cholesterol Diabetes mellitus Obesity Asthma HTN (hypertension) Palpitations Surgical History Hx of tubal ligation Hx of breast biopsy Hx of cystoscopy Hx of colonoscopy History of lumpectomy Family History Father CVD (cardiovascular disease) Diabetes Mother Diabetes Colon cancer Social History Household Members: None Housing: Apartment Alcohol intake: current Alcohol intake frequency: holidays/special occasions only Alcohol type: beer Patient Tobacco Use Status: Never used Tobacco Review of Systems Const Denies fatigue, Denies fever(s), Denies night sweats, Denies poor appetite and Denies weight loss Eyes Reports requires corrective lenses ENT Reports Normal hearing present, Denies dental pain, Denies dysphagia, Denies hearing loss, Denies mouth pain, Denies odynophagia, Denies throat swelling, Denies tongue swelling and Reports other (Dentition adequate) Card Reports no additional complaints Resp Reports no additional complaints GI Details: Denies abdominal pain, Denies melena, Denies bloating, Denies hematochezia, Reports constipation, Denies GI cramping, Denies dysphagia, Denies excessive flatus, Denies early satiety, Reports heartburn, Denies diarrhea, Denies nausea, Denies odynophagia, Denies vomiting and Denies hematemesis Skin/Breast Denies pruritus, Denies lesions, Denies rash and Denies jaundice Neuro Reports Normal hearing present and Denies Abnormal speech present Endo Denies fatigue Aller/Immun Denies throat swelling and Denies tongue swelling Physical Exam Vital Signs: Last Vital Signs Pulse 77 12/05/24 11:23 BP 124/70 12/05/24 11:23 BMI result Body Mass Index 27.3 Const General: cooperative, no acute distress, well developed and well groomed Nutritional Appearance: average body habitus and well nourished Orientation/consciousness: oriented to person, oriented to place and oriented to time Limitations: language barrier HEENT Head: Yes normocephalic and Yes atraumatic Eyes General: appearance normal, both eyes and all related structures Pupils: Equal, round and reactive pupils present Neck Neck: Yes normal visual inspection and Yes no lymphadenopathy Thyroid: Thyroid normal Resp Effort & Inspection: normal respiratory effort and able to speak in complete sentences Auscultation: clear to auscultation bilaterally Cardio Rate: regular rate Rhythm: regular rhythm Heart sounds: Normal, physiologic split S2 sound present Peripheral pulses: radial pulses present and posterior tibial pulses present GI Inspection: No distended and No Abdominal panniculus present Palpation (GI): Soft to palpation, nontender, no guarding, not rigid and No hepatosplenomegaly present Percussion: Yes normal to percussion Auscultation: normal bowel sounds Rectal Exam - Female: deferred Skin General skin exam: no rashes or lesions noted, turgor normal, skin not dry, no jaundice, No spider nevi and no striae Rashes: no rashes Nails: normal Neuro General: oriented to person, oriented to place and oriented to time Cranial nerves: Yes Equal, round and reactive pupils present and Yes Normal hearing present Speech: No Abnormal speech present Extrem General: Yes normal to inspection, No clubbing, No cyanosis and No edema Psych Appearance: grossly normal and well kempt Mental Status: mental status grossly normal Speech and movement: Normal speech and movement present Affect: normal affect Attitude: cooperative Thought process: Normal thought process present and not confabulating Thought content: Normal thought content present Insight: Limited insight present (Psych) Judgement: Limited judgement present (Psych) Assessment & Plan Assessment & Plan (1) GERD (gastroesophageal reflux disease): Code(s): K21.9 - Gastro-esophageal reflux disease without esophagitis Category: Medical (2) Irritable bowel syndrome with constipation: Code(s): K58.1 - Irritable bowel syndrome with constipation Category: Medical Plan Niuean #dtr translates per pt requests SHe is getting a lot of heartburn, but with discussion I find out she has not been receiving her Dexilant. She did change her pharmacy from [facility] to [facility] so this might be part of the problem, but it also could be that she needs a prior approval. I will send a note to my staff and resend the prescription to the correct pharmacy. She is also having a lot of belly cramping after eating over the past 2 weeks with loose stools are to meeting with softer stools. Again, with conversation we find that she is forgetting to take her dicyclomine since it is not prepackaged in her dosage/med box. I will resend this, and see if we can get it put in the med box to facilitate compliance. Return office visit in 4 weeks Medications: Changed From dicyclomine 10 mg PO QID 90 caps 6RF K58.1 - Irritable bowel syndrome with constipation To dicyclomine Please put in med box/package 10 mg PO QID 90 caps 6RF K58.1 - Irritable bowel syndrome with constipation Refilled dexlansoprazole (Dexilant) 60 mg PO QPM 30 caps 6RF linaclotide (Linzess) 72 mcg PO QAM 30 caps 6RF K58.1 - Irritable bowel syndrome with constipation dicyclomine 10 mg PO QID 90 caps 6RF K58.1 - Irritable bowel syndrome with constipation Coding Level of Care Code Est Pt Level 3 (91458) Diagnoses GERD (gastroesophageal reflux disease) K21.9 Irritable bowel syndrome with constipation K58.1
[2024-12-05 11:23] VITALS: BP 124/70; PULSE 77; BMI 27.3
--- OUTSIDE RECORDS SUMMARY | 2024-12-05 12:18 | XMS_ITS | Encounter Summary ---
Author Organization [employer] Address [address] [facility] 7t [place] [address] Care Team Providers Care Provider Network Analyst Name Role Phone Carley Tapia MD Primary Care Provide r Encounter Details Date Type Department Care Team (Late Contact Info) Description 05/21/2022 Abstract [facility] MEDICINE [address] [place] [phone] Kathy Turner, RN [address] [place] [phone] Social History Tobacco Use Types Packs/Day Years [...] Description 12/10/2024 11:15 AM EDT Office Visit [facility] [address] [place] [phone] Carley Tapia MD [address] [place] [address] [phone] 01/11/2025 9:30 AM EDT Office Visit [facility] [address] [place] [address] Ladonna Almeida MD [address] [place] [address] 03/15/2025 2:00 PM EST Office Visit [facility] OPTOMETRY [address] [place], [place] [phone] Kate Hahn, OD [address] [place] [address] documented as of this encounter Procedures Procedure Name Priority Date/Time Associated Diagnosis Comments MAMMOGRAPHY Routine 05/18/2022 documented in this encounter Results * Mammography (05/18/2022) Mammogram BIRADS 2: Benign. Routine annual mammography screening. Anatomical Region Laterality Modality Other Historical Provider HEALTH MAINTENANCE Final Result documented in this encounter Visit Diagnoses Not on filedocumented in this encounter Care Teams Provider Network Analyst Relationship Specialty Start Date End Date Carley Tapia MD [address] [place], [place] [phone] PCP - General Family Medicine 06/10/20 documented as of this encounter
== END 2024-12-05 11:46 | disposition home or self-care (01) ==
LOC: HO.HGI 11:21
PROVIDERS: PCP Internal Medicine; Visit Provider Nurse Practitioner
DX: K21.9 Gastro-esophageal reflux disease without esophagitis (principal); K58.1 Irritable bowel syndrome with constipation
CPT/HCPCS: 99213

== ENCOUNTER → 2024-12-05 11:20 | Outpatient (BNVA) | payer OTHER, SELFPAY | PROVIDERS: PCP Internal Medicine; Visit Provider Nurse Practitioner | DX: K21.9 Gastro-esophageal reflux disease without esophagitis (principal); K58.1 Irritable bowel syndrome with constipation; R10.9 Unspecified abdominal pain | CPT/HCPCS: 99212 ==

== ENCOUNTER 2024-12-10 12:57 | Outpatient (AMB) | payer OTHER, SELFPAY ==
--- NOTE | 2024-12-10 13:12 | MHC.OFFVIS ---
Intake Visit Reasons: 3m/PVR Intake Note: Patient presents today for 3MO follow up Urology Medications: ESTRADIOL Blood Thinner: None PVR: 0 MLS Ms Sql Server Developer Required: Yes Ms Sql Server Developer Name: Wilma [id number] Accompanied by: Self / Same As Patient Allergies ampicillin (AMPICILLIN) Allergy (Intermediate, Verified 12/10/24 13:42) RASH Penicillins (PCN) Allergy (Verified 12/10/24 13:42) Rash Medication List - Last Reconciled 12/10/24 by NELLY Gonzalez albuterol sulfate 90 mcg/actuation (Proventil HFA) 2 puffs inhalation QID PRN alcohol swabs (Alcohol Prep Pads) 0 pad topical QID amitriptyline 75 mg PO BEDTIME amlodipine 5 mg PO DAILY atorvastatin 20 mg PO QPM bisacodyl 10 mg (2 x 5 mg) PO BEDTIME blood sugar diagnostic (FreeStyle Lite Strips) As directed bupropion HCl XL 300 mg PO QAM cetirizine (Zyrtec) 10 mg PO DAILY PRN cholecalciferol (vitamin D3) 50 mcg PO QAM clonidine HCl 0.2 mg PO BID dexlansoprazole (Dexilant) 60 mg PO QPM dicyclomine 10 mg PO QID diphenhydramine HCl (Benadryl) 25 mg PO TID PRN docusate sodium (Stool Softener) 100 mg PO QAM enalapril maleate 20 mg PO BID estradiol 0.01%(0.1mg/gram) vaginally daily; pea sized amount to urethra 3 times a week 30 days fluoxetine 40 mg PO QAM fluticasone propion-salmeterol 500-50 mcg/dose (Advair Diskus) 1 inh inhalation BID fluticasone propionate 50 mcg/actuation (Flonase Allergy Relief) 2 sprays intranasal DAILY hydrochlorothiazide 25 mg PO DAILY lancets (TRUEplus Lancets) As directed linaclotide (Linzess) 72 mcg PO QAM loratadine 10 mg PO QAM PRN metformin 1,000 mg PO BID HPI Comments Details: Yareli is a very pleasant 64-year-old Guyanese-speaking patient of Dr. Mak. She has a past medical history of diabetes, hypertension, constipation, asthma, obesity, and hypercholesteremia. She presents to the office today for follow-up of her lower urinary tract symptoms, recurrent urinary tract infections, and mixed urinary incontinence. In discussion with the patient today she reports she has not yet received VESIcare as prescribed during last office visit in his unsure as to why. She does continue to report bladder pressure and mixed urinary incontinence. In office urinalysis results reviewed with the patient today. PH 5.5. We did reiterate the importance of adequate hydration relation to lower urinary tract symptoms as well as overall health and well-being. We also reviewed bladder triggers and irritants. Patient had previously trialed Myrbetriq however started experiencing a generalized body rash after starting the medication and therefore this has since been discontinued and body rash has subsided. Previous workup has included a retroperitoneal ultrasound 05/18 noting bilateral kidneys with no hydronephrosis or calculi. Mid pole 1.2 x 1.2 x 1.4 right sided cyst. Which no indication for follow-up imaging per radiology report. The bladder is partially distended. Prevoid bladder volume is 160 mL. Postvoid bladder volume is approximately 5 mL. She denies hematuria, nocturia, changes to urinary stream, flank pain, fever, and or chills. PVR 0 mL We discussed further treatment options of mixed urinary incontinence and risks and benefits of these treatment options. When asked she reports noncompliance with Estrace cream. We discussed further treatment options of recurrent urinary tract infections. She otherwise offers no other issues or concerns at this time. [facility] Medical History Urinary frequency Urinary tract infection Lower urinary tract symptoms (LUTS) Foul smelling urine Elevated cholesterol Diabetes mellitus Obesity Asthma HTN (hypertension) Palpitations Surgical History Hx of tubal ligation Hx of breast biopsy Hx of cystoscopy Hx of colonoscopy History of lumpectomy Family History Father CVD (cardiovascular disease) Diabetes Mother Diabetes Colon cancer Social History Household Members: None Housing: Apartment Alcohol intake: current Alcohol intake frequency: holidays/special occasions only Alcohol type: beer Patient Tobacco Use Status: Never used Tobacco Review of Systems Const Reports as per [facility] Eyes Reports no additional complaints ENT Reports no additional complaints Card Reports as per [facility] Resp Reports as per [facility] GI Reports as per HPI Reports as per HPI Musc Reports no additional complaints Neuro Reports no additional complaints Psych Reports no additional complaints Endo Reports as per HPI Hammad/Lymph Reports no additional complaints Aller/Immun Reports no additional complaints Physical Exam Const General: cooperative, healthy appearing, comfortable, no acute distress, well developed, alert and awake Orientation/consciousness: patient oriented x3 Limitations: language barrier HEENT Head: Yes normal to inspection, Yes normocephalic and Yes atraumatic Ears: hearing grossly normal bilaterally Eyes General: appearance normal, both eyes and all related structures Neck Neck: Yes normal visual inspection and Yes trachea midline Chest Chest palpation & inspection: normal inspection of the chest Resp Effort & Inspection: able to speak in complete sentences Cardio Rate: regular rate GI Inspection: Yes normal to inspection General: Yes no CVA tenderness Back/Spine/Pelvis Back: no CVA tenderness Skin General skin exam: no rashes or lesions noted Neuro General: patient oriented x3 Extrem General: Yes normal to inspection Psych Appearance: grossly normal and well kempt Mental Status: mental status grossly normal Speech and movement: Clear speech present Affect: normal affect Attitude: cooperative Thought process: Normal thought process present Thought content: Normal thought content present Insight: Fair insight present (Psych) Judgement: Fair judgement present (Psych) Office Procedures Post Void Residual Post Residual Void Post Void Residual (PVR): 0 [id number] Void Residual by ultrasound Results AMB Urinalysis, Automated UA Leukoctes 0 Zhang/uL Last Edit by HEIDI Rothman on 12/10/24 13:28 UA Nitrite Negative Last Edit by HEIDI Rothman on 12/10/24 13:28 UA Urobilinogen 3.5 mg/dL Last Edit by HEIDI Rothman on 12/10/24 13:28 UA Protein 0 mg/dL Last Edit by HEIDI Rothman on 12/10/24 13:28 UA pH 5.5 Last Edit by HEIDI Rothman on 12/10/24 13:28 UA Blood 0 Dorian/uL Last Edit by HEIDI Rothman on 12/10/24 13:28 UA Specific [place] 1.015 Last Edit by HEIDI Rothman on 12/10/24 13:28 UA Ketone Negative Last Edit by HEIDI Rothman on 12/10/24 13:28 UA Bilirubin 0 mg/dL Last Edit by HEIDI Rothman on 12/10/24 13:28 UA Glucose 0 mg/dL Last Edit by HEIDI Rothman on 12/10/24 13:28 Results Reviewed Results Reviewed: Laboratory Last Values Urine pH (Auto) 5.5 12/10/24 13:27 Specific [place] (Auto) 1.015 12/10/24 13:27 Urine Protein (Auto) 0 mg/dL 12/10/24 13:27 Glucose (UA)(Auto) 0 mg/dL 12/10/24 13:27 Urine Ketones (Auto) Negative 12/10/24 13:27 Urine Blood (Auto) 0 Dorian/uL 12/10/24 13:27 Urine Nitrite (Auto) Negative 12/10/24 13:27 Urine Bilirubin (Auto) 0 mg/dL 12/10/24 13:27 Urine Urobilinogen (Auto) 3.5 mg/dL 12/10/24 13:27 Leukocyte Esterase (Auto) 0 Zhagn/uL 12/10/24 13:27 Assessment & Plan Assessment & Plan (1) Mixed incontinence urge and stress: Code(s): N39.46 - Mixed incontinence Category: Medical (2) Sensation of pressure in bladder area: Code(s): R39.89 - Other symptoms and signs involving the genitourinary system Category: Medical Plan In office urinalysis results reviewed with the patient today; as noted above. PVR 0 mL. Will resend prescription for VESIcare; we discussed importance of calling office if unable to obtain prescription. We discussed potential causes of lower urinary tract symptoms patient is experiencing as well as further treatment options and risks and benefits of these treatment options. We discussed potential near future in office cystoscopy and or urodynamics for further assessment evaluation. We discussed bladder triggers/irritants. Follow-up in 1-3 months with PVR; or sooner with any issues, concerns, and or questions. Orders: Orders AMB Post Void Residual by ultrasound Today R30.0 - Dysuria AMB Urinalysis Automated Today Z13.9 - Encounter for screening, unspecified Medications: New solifenacin (Vesicare) 5 mg PO DAILY 30 tabs 3RF 30 days Patient Instructions: The patient had an opportunity to ask questions regarding the treatment plan. All questions were answered. Physical exam, labs, and imaging were discussed and reviewed in detail. As well as risks, benefits, and discussion of treatment choices. No major barriers to understanding were identified. The patient expressed understanding and agreement with the above treatment plan. The patient was made aware they should contact our office by phone for worsening of their current condition, the appearance of new symptoms, or with any questions or concerns. Compliance is encouraged with any medications and follow up testing that is ordered. It is a privilege to be allowed the opportunity to participate in? your urological care.? Again, if you have any questions or concerns If you have any questions or concerns please do not hesitate to contact me. The office is [phone]. This note is constructed using voice recognition software. While every effort has been made to ensure accuracy fire code inspector errors may have been included. Yours sincerely, NELLY Gonzalez Coding Level of Care Code Est Pt Level 3 (83251) Complex EM visit Add On G2211 Diagnoses Mixed incontinence urge and stress N39.46 Sensation of pressure in bladder area R39.89 CPT Codes Post Residual Void - PVR CPT Code: 84133-Bitb Void Residual by ultrasound ([id number])
--- OUTSIDE RECORDS SUMMARY | 2024-12-10 13:48 | XMS_ITS | Encounter Summary ---
Author Organization [employer] Address [address] [facility] 7 [place] [address] Care Team Providers Care Erector Operator Name Role Phone Carley Tapia MD Primary Care Provide r Encounter Details Date Type Department Care Team (Late Contact Info) Description 05/21/2022 Abstract [facility] [address] [place] [address] [phone] Kathy Turner RN [address] [place] [address] [phone] Social History Tobacco Use Types Packs/Day Years [...] Department Care Team (Late Contact Info) Description 01/11/2025 9:30 AM EDT Office Visit [facility] [address] [place] [address] [phone] Ladonna Almeida MD [address] [place] [address] [phone] 03/15/2025 2:00 PM EST Office Visit [facility] [address] [place] [address] Kate Hahn, OD [address] [place] [address] documented as of this encounter Procedures Procedure Name Priority Date/Time Associated Diagnosis Comments MAMMOGRAPHY Routine 05/18/2022 documented in this encounter Results * Mammography (05/18/2022) Mammogram BIRADS 2: Benign. Routine annual mammography screening. Anatomical Region Laterality Modality Other us Historical Provider HEALTH MAINTENANCE Final Result documented in this encounter Visit Diagnoses Not on filedocumented in this encounter Care Teams Erector Operator Relationship Specialty Start Date End Date Carley Tapia MD [address] [place] [address] PCP - General Family Medicine 06/10/20 documented as of this encounter
== END 2024-12-10 13:52 | disposition home or self-care (01) ==
LOC: HO.HUSH 12:58
PROVIDERS: PCP Internal Medicine; Visit Provider Nurse Practitioner Family
DX: N39.46 Mixed incontinence (principal); R39.89 Other symptoms and signs involving the genitourinary system; Z13.9 Encounter for screening, unspecified
CPT/HCPCS: 99213; G2211

== ENCOUNTER → 2024-12-10 12:57 | Outpatient (BNVA) | payer OTHER, SELFPAY | PROVIDERS: PCP Internal Medicine; Visit Provider Nurse Practitioner Family | DX: N39.46 Mixed incontinence (principal); R39.89 Other symptoms and signs involving the genitourinary system | CPT/HCPCS: 51798; 81003; 99212 ==

== ENCOUNTER 2025-01-30 09:53 | Outpatient (REF) | payer OTHER, SELFPAY | END 2025-01-30 09:54 | disposition home or self-care (01) | LOC: HO.HOSX 09:53 | PROVIDERS: Visit Provider Orthopaedic Surgery | DX: Z13.89 Encounter for screening for other disorder (principal) ==

== ENCOUNTER 2025-02-19 08:54 | Outpatient (REF) | payer OTHER, SELFPAY ==
--- NOTE | ~2025-02-19 | XR_ITS ---
EXAMINATION: XR KNEE, LEFT CLINICAL INFORMATION: M25.562 - Pain in left knee COMPARISON: None available. TECHNIQUE: Three views of the left knee. FINDINGS: There is mild narrowing of the medial joint space. There are minute marginal osteophytes. There is no joint effusion. There is no evidence of fracture. XR/XR knee LT 3V IMPRESSION: Mild osteoarthritis. Electronically signed by: Huang Hawkins MD 02/19/2025 10:07 AM EDT
--- OUTSIDE RECORDS SUMMARY | 2025-02-20 09:48 | XMS_ITS | Encounter Summary ---
Author Organization [employer] Address [address] [place] [address] Care Team Providers Care Translator Name Role Phone Carley Tapia MD Primary Care Provide r Reason for Visit * Reason Comments Med Refill Encounter Details Date Type Department Care Team ([facility] Contact Info) Description 09/20/2024 Refill [facility] MEDICINE [address] [place] [address] Carley Tapia MD [address] [place] [address] Essential hypertension Social History Tobacco Use Types [...] Description 03/14/2025 1:45 PM EST Office Visit [facility] MEDICINE [address] [place] [address] Carley Tapia MD [address] [place] [address] 03/15/2025 2:00 PM EST Office Visit [facility] OPTOMETRY [address] [place] [address] Jovani, Kate, OD 230 [place] [address] documented as of this encounter Visit Diagnoses Diagnosis Essential hypertension Unspecified essential hypertension documented in this encounter Additional Health Concerns Assessment Noted Time PHQ-9 Depression Total Score: 0 12/08/19 24 10:27 AM EDT documented as of this encounter Care Teams Translator Relationship Specialty Start Date End Date Carley Tapia MD 230 [place] [address] PCP - General Family Medicine 06/10/20 documented as of this encounter
--- OUTSIDE RECORDS SUMMARY | 2025-02-20 09:48 | XMS_ITS | Encounter Summary ---
Author Organization [facility] Address [address] [facility] 7 [place] [address] Care Team Providers Care Contracting Analyst Name Role Phone Carley Tapia MD Primary Care Provide r Encounter Details Date Type Department Care Team (Latest Contact Info) Description 02/20/2019 Abstract [facility] Dental, Provider, DDS Social History [...] Description 03/14/2025 1:45 PM EST Office Visit [facility] MEDICINE [address] [place] [address] Carley Tapia MD 230 [place] [address] 03/15/2025 2:00 PM EST Office Visit [facility] OPTOMETRY [address] [place] [address] Kate Hahn, OD 230 [place] [address] documented as of this encounter Visit Diagnoses Not on filedocumented in this encounter Care Teams Contracting Analyst Relationship Specialty Start Date End Date Carley Tapia MD [address] [facility] [place] [address] PCP - General Family Medicine 06/10/20 documented as of this encounter
--- OUTSIDE RECORDS SUMMARY | 2025-02-20 09:48 | XMS_ITS | Clinical Summary ---
Author Organization [employer] Address [address] [facility] 7t [place] [address] Care Team Providers Care Steam Finisher Name Role Phone Carley Tapia MD Primary [...] complication, without long-term current use of insulin ([facility]) Take 1 tablet (1,000 mg) by mouth with breakfast and with evening meal. 60 tablet 2025 Active glucose blood (FREESTYLE LITE) test stripIndications: Type 2 diabetes mellitus without complication, without long-term current use of insulin ([facility]) TEST BLOOD SUGAR 3 TIMES A [...] without long-term current use of insulin ([facility]) INJECT 2.5MG UNDER THE SKIN ONCE [...] without long-term current use of insulin ([facility]) Inject 2.5 mg under the skin [...] Type Department Care Team Description 02/18/2025 Refill [facility] MEDICINE [address] [place] [address] Carley Tapia MD Mood disorder (CMS/HCC); Hyperlipidemia, unspecified hyperlipidemia type; Iron deficiency anemia, unspecified iron deficiency anemia type; Essential hypertension; Type 2 diabetes mellitus with hyperglycemia, without long-term current use of insulin ([facility]) 02/12/2025 Refill [facility] MED & PEDS [address] [place] [address] Carley Tapia MD Moderate persistent asthma without complication 02/01/2025 11:00 AM EDT Office Visit [facility] MEDICINE [address] [place] [address] Ladonna Almeida MD Androgenic alopecia (Primary Dx); Benign nevus 02/01/2025 Travel 01/21/2025 Refill [facility] MED[facility]INE [address] [place] [address] Carley Tapia MD Vitamin D deficiency 01/03/2025 Telephone [facility] [address] [place] [address] Carley Tapia MD NOV RECALL 12/19/2024 Orders Only [facility] [address] [place] [address] Carley Tapia MD Primary osteoarthritis of left knee (Primary Dx) 12/17/2024 Telephone [facility] [address] [place] [address] Carley Tapia MD Referral 12/15/2024 Refill [facility] MED[facility] [address] [place] [address] Carley Tapia MD Moderate persistent asthma without complication 12/10/2024 11:15 AM EDT Office Visit [facility] [address] [place] [address] Carley Tapia MD Type 2 diabetes mellitus with hyperglycemia, without long-term current use of insulin (CMS/[facility]) (Primary Dx); Type 2 diabetes mellitus without complication, without long-term current use of insulin ([facility]); Mixed stress and urge urinary incontinence; Primary osteoarthritis of left knee; Mild nonproliferative diabetic retinopathy of both eyes without macular edema associated with type 2 diabetes mellitus ([facility]) 12/10/2024 Telephone [facility] [address] [place] [address] Carley Tapia MD DME SHOWER CHAIR, CANE AND PADS 12/10/2024 Telephone [facility] [address] [place], [place] [phone] Carley Tapia MD telephone call 12/10/2024 Travel 12/03/2024 Patient Outreach [facility] [address] [place], [place] [phone] Carley Tapia MD Pre-visit Planning (SDOH was already completed) 11/23/2024 Refill [facility] MED[facility] [address] [place], [place] [phone] Carley Tapia MD Moderate persistent asthma without complication 11/23/2024 Travel 11/22/2024 Refill [facility] MED[facility] [address] [place], [place] [phone] Carley Tapia MD Vitamin D deficiency from Last 3 Months Immunizations Immunization Administration [...] Description 03/14/2025 1:45 PM EST Office Visit [facility] MEDICINE [address] [place] [address] Carley Tapia MD [address] [place] [address] 03/15/2025 2:00 PM EST Office Visit [facility] OPTOMETRY [address] [place] [address] Jovani, Kate, OD [address] [place] [address] Health Maintenance Due Date Last Done Comments [...] Prophylaxis 03/31/2024 09/29/2023 Dental X-Ray: Bitewings 09/29/2024 09/29/19, 05/18/2022, 05/18/2022 [...] complication, without long-term current use of insulin ([facility]/HCC) POCT GLUCOSE Routine 12/10/2024 10:50 AM EDT Type 2 diabetes mellitus without complication, without long-term current use of insulin (CMS/[facility]) BI MAMMOGRAM SCREENING TOMOSYNTHESIS BILATERAL Routine [...] Media Lot # [id number] Lot# Expiration Date [id number], Blood 12/10/2024 10:5 0 AM EDT Carley Mak MD POINT OF CARE TEST EN TER/EDIT ORDERABLES Final Result * (ABNORMAL) POCT Glucose (12/10/2024 10:50 AM EDT) Glucose Blood, POC 271(A) 60 - 200 mg/dL QC Media Lot # [id number] Lot# Expiration Date [id number] Blood Capillary blood specimen / Unknown 12/10/2024 10:50 AM EDT us Carley Mak MD POINT OF CARE TEST EN TER/EDIT ORDERABLES Final Result * BI Mammogram Screening Tomosynthesis Bilateral (07/03/2024 2:01 PM EDT) Anatomical Region Laterality Modality Breast Bilateral Mammography 07/03/2024 2:01 PM EDT Narrative 07/11/2024 11:32 AM EDT [facility] [address] [place] [address] Mammography Report Signed Patient: Yareli Fisher MR#: [id number] : 1960 Acct:[id number] Age/Sex: 64 / F ADM Date: 07/03/24 Loc: HO.MAMMO Attending Dr: Carley Mak MD Ordering Physician: Carley Tapia MD Results: 2Benign Findings Date of Service: 07/03/24 Follow Up: 1 Year From Orig inal Mammogram Procedure(s): MM tomosynthesis screening BI Accession Number(s): [id number] cc: Carley Tapia MD EXAMINATION: MM SCREENING [...] 07/11/24 1129 DD/ 1401 TD/TT: 07/03/24 1429 Finishing Range Feeder: Procedure Note Donotuseinterpreter, Image - 07/11/2024 [facility] [address] [place] [address] Mammography Report Signed Patient: Sammy FisherR#: [id number] : 8Acct:[id number] Age/Sex: 64 / FADM Date: 07/03/24 Loc: HO.MAMMO Attending Dr: Carley Mak MD Ordering Physician: Carley Tapia MDResults: 2Benign Findings Date of Service: 07/03/24Follow Up: 1 Year From Orig inal Mammogram Procedure(s): MM tomosynthesis screening BI Accession Number(s): [id number] cc: Carley Tapia MD EXAMINATION: MM SCREENING [...] 07/11/24 1129 DD/ 1401 TD/TT: 07/03/24 1429 Finishing Range Feeder: Carley Mak MD IMG BI PROCEDURES Fin al Result * Cologuard?? colon cancer screening (11/16/2023 10:30 AM EDT) Cologuard Result Negative Negative 11/24/19 10:15 PM EDT [facility] (CLIA #:[id number]) Comment: NEGATIVE TEST RESULT. A negative Cologuard [...] screened with both Cologuard and colonoscopy. (Zoey Baron, N Engl J Med 2014;370(14):0750-1008) The normal value (reference range) for this assay is negative. COLOGUARD RE-SCREENING RECOMMENDATION: Periodic colorectal cancer screening is an important part of preventive healthcare for asymptomatic individuals at average risk for colorectal cancer. Following a negative Cologuard result, the [place] Cancer Society and U.S. Multi-Society Task Force screening guidelines recommend a Cologuard re-screening interval of 3 years. References: [place] Cancer Society Guideline for Colorectal Cancer Screening: https://www.cancer.org/cancer/vhewb-vtisqg-bsffdm/kemkxoony-rtcxzccfw-zonyrgo/ac s-rec ommendations.html.; Shola DK, Ector MCDANIEL, Abelardo PerkinsK, Colorectal Cancer Screening: Recommendations for Physicians and Patients from the U.S. Multi-Society Task Force on Colorectal Cancer Screening , Am J Gastroenterology 2017; 112:4123-3979. TEST DESCRIPTION: Composite algorithmic analysis of stool [...] were screened with both Cologuard and colonoscopy. (Imperiale T. et al, N Engl J Med 2014;370(14):6263-0798.) Cologuard may produce a false negative or false positive result (no colorectal cancer or precancerous polyp present at colonoscopy follow up). A negative Cologuard test result does not guarantee the absence of CRC or advanced adenoma (pre-cancer). The current Cologuard screening interval is every 3 years. ([place] Cancer Society and U.S. Multi-Society Task Force). Cologuard performance data in a 10,000 patient pivotal study using colonoscopy as the reference method can be accessed at the following location: www.Chatous.ScalIT/results. Additional description of the Cologuard test process, warnings and precautions can be found at www.Booklrrd.ScalIT. Stool specimen (specimen) 11/16/2023 10:30 AM EDT 11/18/2023 1:44 PM EDT Carley Mak MD LAB MOLECULAR DIAGNOS TICS ORDERABLES Final Result [facility] (CLIA #:[id number]) [place] [address], * Hepatitis C Viral RNA, Quantitative, Real-Time PCR (09/13/2022 10:42 AM EDT) HCV RNA, QN Real Time PCR <15 NOT DETECTED NOT DETECTED IU/mL [email or web address] HCV RNA QN Real Time PCR <1.18 NOT DETECTED NOT DETECTED Log IU/mL [email or web address] Comment: This test was performed using Real-Time Polymerase Chain Reaction. Reportable Range: 15 IU/mL to 100,000,000 IU/mL (1.18 Log IU/mL to 8.00 Log IU/mL). The analytical performance characteristics of this assay have been determined by [email or web address]. The modifications have not been cleared or approved by the FDA. This assay has been validated pursuant to the CLIA regulations and is used for clinical purposes. For more information on this test, go to: http://education.Virtual Call Center.ScalIT/faq/ZZE05e4 (This link is being provided for informational/ educational purposes only.) 09/13/2022 10:4 2 AM EDT 09/13/2022 10:42 AM EDT Narrative [facility] - 09/15/2022 5:24 PM EDT FASTING:NO FASTING: NO Carley Mak MD LAB BLOOD ORDERABLES Final Result Performing Organization Address City/[facility]/ZIP Co de Phone Number [facility] [address], [place] [address] [email or web address] [address] [place] [phone] * Albumin, Random Urine W/O Creatinine (09/13/2022 10:42 AM EDT) Albumin, Urine 0.4 See Note: mg/dL [email or web address] Comment: Reference Range: Reference Range Not established TARA [facility] [place] [facility] Comment: The ADA defines abnormalities in albumin [...] AM EDT 09/13/2022 10:42 AM EDT Narrative [facility] - 09/15/2022 5:24 PM EDT FASTING:NO FASTING: NO Carley Mak MD LAB URINE ORDERABLES Final Result Performing Organization Address City/[facility]/ZIP Co de Phone Number [address] [phone] [email or web address] [place] [facility] [address] [place] [phone] * (ABNORMAL) Lipid Panel, Standard (09/13/2022 10:42 AM EDT) Cholesterol, Total 160 <200 mg/dL [email or web address] HDL Cholesterol 58 > OR = 50 mg/dL [email or web address] Triglycerides 255(H) <150 mg/dL [email or web address] Comment: If a non-fasting specimen was collected, consider repeat triglyceride testing on a fasting specimen if clinically indicated. Shama et al. J. of Clin. Lipidol. 2015;9:129-169. LDL Cholesterol 68 mg/dL (calc) [email or web address] Comment: Reference range: <100 Desirable range <100 mg/dL for primary prevention; <70 mg/dL for patients with CHD or diabetic patients with > or = 2 CHD risk factors. LDL-C is now calculated using the Christian calculation, which is a validated novel method providing better accuracy than the Friedewald equation in the estimation of LDL-C. Joo SS et al. TRANG. 2013;310(19): 6239-2619 (http://education.OnGreen/faq/VAV331) Chol/HDLC Ratio 2.8 <5.0 (calc) [email or web address] Non-HDL Cholesterol 102 <130 mg/dL (calc) [email or web address] Comment: For patients with diabetes plus 1 major ASCVD risk factor, treating to a non-HDL-C goal of <100 mg/dL (LDL-C of <70 mg/dL) is considered a therapeutic option. Blood Venous blood specimen / Unknown 09/13/2022 10:42 AM EDT 09/13/2022 10:42 AM EDT Narrative [facility] - 09/15/2022 5:24 PM EDT FASTING:NO FASTING: NO us Carley Mak MD LAB BLOOD ORDERABLES Final Result [facility] [address], [place] [address] [email or web address] [place] [facility] [address] [place] [phone] * HPV DNA, HIGH RISK, CERVICAL (05/28/2020 [...] LABS Fi nal Result Performing Organization Address [facility] de Phone Number [facility] [address] [place] [address], * THINPREP PAP (05/28/2020 3:43 PM EST) [...] along with historic and current clinical information. Layer Off: SEE COMMENT [facility] Comment: JH, CT(ASCP) CT screening location: [place] [address] Interpretation/Res ult: SEE COMMENT [facility] Comment: Negative for intraepithelial lesion [...] ORDERABLES Final R esult Performing Organization Address [facility] Co de Phone Number [facility] [address] from Last 3 Months or Most Recently Relevant to Health Maintenance Insurance [facility] STANDARD [facility] [employer] OPTIONS (HMO D-SNP) D[facility]AL [facility] Care Teams Steam Finisher Relationship Specialty Start Date End Date Carley Tapia MD [address] [place] [phone] PCP - General Family Medicine 06/10/20"
--- OUTSIDE RECORDS SUMMARY | 2025-02-20 09:48 | XMS_ITS | Encounter Summary ---
Author Organization [employer] Address [address] [place] [address] 7 [place] [address] Care Team Providers Care Mobile Solutions Architect Name Role Phone Carley Tapia MD Primary Care Provide r Encounter Details Date Type Department Care Team (Late Contact Info) Description 05/21/2022 Abstract [facility] MEDICINE [address] [place] [phone] Kathy [place], RN [address] [place] [phone] Social History Tobacco Use Types Packs/Day Years [...] Description 03/14/2025 1:45 PM EST Office Visit [facility] MEDICINE [address] [place] [phone] Carley Tapia MD [address] [place] [address] [phone] 03/15/2025 2:00 PM EST Office Visit [facility] OPTOMETRY [address] [place], [place] [phone] Kate Hahn, OD [address] [place] [address] documented as of this encounter Procedures Procedure Name Priority Date/Time Associated Diagnosis Comments MAMMOGRAPHY Routine 05/18/2022 documented in this encounter Results * Mammography (05/18/2022) Mammogram BIRADS 2: Benign. Routine annual mammography screening. Anatomical Region Laterality Modality Other us Historical Provider HEALTH MAINTENANCE Final Result documented in this encounter Visit Diagnoses Not on filedocumented in this encounter Care Teams Mobile Solutions Architect Relationship Specialty Start Date End Date Carley Tapia MD [address] [place] [address] PCP - General Family Medicine 06/10/20 documented as of this encounter
--- OUTSIDE RECORDS SUMMARY | 2025-02-20 09:48 | XMS_ITS | Encounter Summary ---
Author Organization [employer] Address [address] [place] [address] 7 [place] [address] Care Team Providers Care Electrical Transmission Engineer Name Role Phone Carley Tapia MD Primary Care Provide r Reason for Visit * Reason Comments Med Refill Encounter Details Date Type Department Care Team ([facility] Contact Info) Description 12/15/2022 Refill [facility] MEDICINE [address] [place] [address] [phone] [facility] [address] [place], [place] [phone] Vitamin D deficiency Social History Tobacco Use [...] Date Type Department Care Team ([facility] Contact Info) Description 03/14/2025 1:45 PM EST Office Visit [facility] MEDICINE [address] [place] [phone] Carley Tapia MD [address] [place], [place] [phone] 03/15/2025 2:00 PM EST Office Visit [facility] OPTOMETRY [address] [place], [place] [phone] Kate Hahn, OD [address] [place], [place] [phone] documented as of this encounter Visit Diagnoses Diagnosis Vitamin D deficiency documented in this encounter Additional Health Concerns Assessment Noted Time PHQ-9 Depression Total Score: 5 09/14/19 23 9:38 AM EDT documented as of this encounter Care Teams Electrical Transmission Engineer Relationship Specialty Start Date End Date Carley Tapia MD [address] [place], [place] [phone] PCP - General Family Medicine 06/10/20 documented as of this encounter
--- OUTSIDE RECORDS SUMMARY | 2025-02-20 09:48 | XMS_ITS | Encounter Summary ---
Author Organization [employer] Address [address] [facility] [address]t [place] [address] Care Team Providers Care Electrical Plumbing Supervisor Name Role Phone Carley Tapia MD Primary Care Provide r Reason for Visit * Reason Comments Med Refill Encounter Details Date Type Department Care Team ([facility] Contact Info) Description 11/23/2024 Refill [facility] MEDICINE [address] [place] [address] Carley Tapia MD [address] [place] [address] Moderate persistent asthma without complication Social History [...] 03/14/2025 1:45 PM EST Office Visit [facility] MEDICINE [address] [place] [address] Carley Tapia MD [address] [place] [address] 03/15/2025 2:00 PM EST Office Visit [facility] OPTOMETRY [address] [place] [address] Jovani, Kate, OD [address] [place] [address] documented as of this encounter Visit Diagnoses Diagnosis Moderate persistent asthma without complication documented in this encounter Additional Health Concerns Assessment Noted Time PHQ-9 Depression Total Score: 0 12/08/19 24 10:27 AM EDT documented as of this encounter Care Teams Electrical Plumbing Supervisor Relationship Specialty Start Date End Date Carley Tapia MD [address] [place] [address] PCP - General Family Medicine 06/10/20 documented as of this encounter
--- OUTSIDE RECORDS SUMMARY | 2025-02-20 09:48 | XMS_ITS | Encounter Summary ---
Author Organization [employer] Address 75 [facility] 7t [place] [address] Care Team Providers Care Field Support Engineer Name Role Phone Carley Tapia MD Primary Care Provide r Encounter Details Date Type Department Care Team (Late Contact Info) Description 10/19/2022 Abstract [facility] ADULT DENTAL [address] [place] [address] Milan Serna DDS [address] [place] [address] Social History Tobacco Use Types Packs/Day Years [...] Description 03/14/2025 1:45 PM EST Office Visit [facility] MEDICINE [address] [place], [place] [phone] Carley Tapia MD [address] [place], [place] [phone] 03/15/2025 2:00 PM EST Office Visit [facility] OPTOMETRY [address] [place], [place] [phone] Kate Hahn, OD [address] [place], [place] [phone] documented as of this encounter Visit Diagnoses Not on filedocumented in this encounter Additional Health Concerns Assessment Noted Time PHQ-9 Depression Total Score: 5 09/14/19 23 9:38 AM EDT documented as of this encounter Care Teams Field Support Engineer Relationship Specialty Start Date End Date Carley Tapia MD [address] [place], [place] [phone] PCP - General Family Medicine 06/10/20 documented as of this encounter
--- OUTSIDE RECORDS SUMMARY | 2025-02-20 09:48 | XMS_ITS | Encounter Summary ---
Author Organization [employer] Address [address] [facility] [address] [place] [address] Care Team Providers Care Finance Advisor Name Role Phone Carley Tapia MD Primary Care Provide r Reason for Visit * Reason Comments Med Refill Encounter Details Date Type Department Care Team ([facility] Contact Info) Description 11/22/2024 Refill [facility] MEDICINE [address] [place] [address] Carley Tapia MD [address] [place] [address] Vitamin D deficiency Social History Tobacco Use [...] Description 03/14/2025 1:45 PM EST Office Visit [facility] MEDICINE [address] [place] [address] Carley Tapia MD [address] [place] [address] 03/15/2025 2:00 PM EST Office Visit [facility] OPTOMETRY [address] [place] [address] Jovani, Kate, OD [address] [place] [address] documented as of this encounter Visit Diagnoses Diagnosis Vitamin D deficiency documented in this encounter Additional Health Concerns Assessment Noted Time PHQ-9 Depression Total Score: 0 12/08/19 24 10:27 AM EDT documented as of this encounter Care Teams Finance Advisor Relationship Specialty Start Date End Date Carley Tapia MD [address] [place] [address] PCP - General Family Medicine 06/10/20 documented as of this encounter
--- OUTSIDE RECORDS SUMMARY | 2025-02-20 09:48 | XMS_ITS | Encounter Summary ---
Author Organization [employer] Address 75 [facility] 7t [place] [address] Care Team Providers Care Beef Pusher Name Role Phone Carley Tapia MD Primary Care Provide r Encounter Details Date Type Department Care Team (Late st Contact Info) Description 08/10/2022 Orders Only [facility] MED [facility] PEDS [address] [place] [address] Jane Smith LPN Social History Tobacco Use [...] Description 03/14/2025 1:45 PM EST Office Visit [facility] MEDICINE [address] [place] [address] Carley Tapia MD [address] [place] [address] 03/15/2025 2:00 PM EST Office Visit [facility] OPTOMETRY [address] [place] [address] Jovani, Kate, OD [address] [place] [address] documented as of this encounter Visit Diagnoses Not on filedocumented in this encounter Care Teams Beef Pusher Relationship Specialty Start Date End Date Carley Tapia MD [address] [place] [phone] PCP - General Family Medicine 06/10/20 documented as of this encounter
--- OUTSIDE RECORDS SUMMARY | 2025-02-20 09:48 | XMS_ITS | Encounter Summary ---
Author Organization [employer] Address [address] [facility] [address] [place] [address] Care Team Providers Care Pairer Inspector Name Role Phone Carley Tapia MD Primary Care Provide r Reason for Visit * Reason Comments Med Refill Encounter Details Date Type Department Care Team ([facility] Contact Info) Description 08/24/2024 Refill [facility] MEDICINE [address] [place] [address] Carley Tapia MD [address] [place] [address] Type 2 diabetes mellitus without complication, without long-term current use of insulin ([facility]) Social History Tobacco Use Types Packs/Day Years [...] 1:45 PM EST Office Visit [facility] MEDICINE [address] [place] [address] Carley Tapia MD [address] [place] [address] 03/15/2025 2:00 PM EST Office Visit [facility] OPTOMETRY [address] [place] [address] Jovani, Kate, OD 230 [place] [address] documented as of this encounter Visit Diagnoses Diagnosis Type 2 diabetes mellitus without complication, without long-term current use of insulin (HCC) documented in this encounter Additional Health Concerns Assessment Noted Time PHQ-9 Depression Total Score: 0 12/08/19 24 10:27 AM EDT documented as of this encounter Care Teams Pairer Inspector Relationship Specialty Start Date End Date Carley Tapia MD [address] [place] [address] [phone] PCP - General Family Medicine 06/10/20 documented as of this encounter
--- OUTSIDE RECORDS SUMMARY | 2025-02-20 09:48 | XMS_ITS | Encounter Summary ---
Author Organization [employer] Address [address] [facility] [address] [place] [address] Care Team Providers Care State Appellate Clerk Name Role Phone Carlye Tapia MD Primary Care Provide r Encounter Details Date Type Department Care Team (Late Contact Info) Description 01/10/2023 Orders Only [facility] [address], [place] [phone] Jane Smith LPN Social History Tobacco Use [...] Description 03/14/2025 1:45 PM EST Office Visit [facility] [address] [place] [address] Carley Tapia MD [address] [place] [address] 03/15/2025 2:00 PM EST Office Visit [facility] [address] [place], [place] [phone] Kate Hahn, OD [address] [place] [address] documented as of this encounter Visit Diagnoses Not on filedocumented in this encounter Additional Health Concerns Assessment Noted Time PHQ-9 Depression Total Score: 5 09/14/19 23 9:38 AM EDT documented as of this encounter Care Teams State Appellate Clerk Relationship Specialty Start Date End Date Carley Tapia MD [address] [place], [place] [phone] PCP - General Family Medicine 06/10/20 documented as of this encounter
--- OUTSIDE RECORDS SUMMARY | 2025-02-20 09:48 | XMS_ITS | Encounter Summary ---
Author Organization [employer] Address [address] [place] [address] Care Team Providers Care Machine Finisher Name Role Phone Carley Tapia MD Primary Care Provide r Reason for Visit * Reason Comments Med Refill Encounter Details Date Type Department Care Team ([facility] Contact Info) Description 02/18/2025 Refill [facility] [address] [place] [address] Carley Tapia MD [address] [place] [address] Mood disorder (CMS/HCC); Hyperlipidemia, unspecified hyperlipidemia type; Iron deficiency anemia, unspecified iron deficiency anemia type; Essential hypertension; Type 2 diabetes mellitus with hyperglycemia, without long-term current use of insulin ([facility]) Social History Tobacco Use Types Packs/Day Years [...] EST Office Visit [facility] [address] [place] [address] Carley Tapia MD [address] [place] [address] 03/15/2025 2:00 PM EST Office Visit [facility] [address] [place] [address] Kate Hahn, OD [address] [place] [address] documented as of this encounter Visit Diagnoses [...] documented as of this encounter Care Teams Machine Finisher Relationship Specialty Start Date End Date Carley Tapia MD [address] [place] [address] PCP - General Family Medicine 06/10/20 documented as of this encounter
== END 2025-02-19 08:55 | disposition home or self-care (01) ==
LOC: HO.HOSX 08:54
PROVIDERS: Visit Provider Orthopaedic Surgery
DX: M25.562 Pain in left knee (principal)
CPT/HCPCS: 73562; 99202

== ENCOUNTER 2025-02-19 09:55 | Outpatient (AMB) | payer OTHER, SELFPAY ==
--- NOTE | 2025-02-19 10:06 | MHC.OFFVIS ---
Vital Signs 02/19/25 10:08 Height 4 ft 11 in Weight 130 lb BMI 26.3 Intake Visit Reasons: Left knee pain Intake Note: Yareli is a 64 year old female who presents with complaints of intermittent discomfort in her left knee. She describes her knee discomfort as achy in nature. She also reports intermittent popping sensation. She denies any locking or giving way. She has tried Tylenol which gives her mild relief. Director Of Advertising Sales Required: Yes Director Of Advertising Sales Services: Director Of Advertising Sales Present Director Of Advertising Sales Name: [id number] Allergies ampicillin (AMPICILLIN) Allergy (Intermediate, Verified 12/10/24 13:42) RASH Penicillins (PCN) Allergy (Verified 12/10/24 13:42) Rash Medication List - Last Reconciled 02/19/25 by Klaus Thomas MD albuterol sulfate 90 mcg/actuation (Proventil HFA) 2 puffs inhalation QID PRN alcohol swabs (Alcohol Prep Pads) 0 pad topical QID amitriptyline 75 mg PO BEDTIME amlodipine 5 mg PO DAILY atorvastatin 20 mg PO QPM bisacodyl 10 mg (2 x 5 mg) PO BEDTIME blood sugar diagnostic (FreeStyle Lite Strips) As directed bupropion HCl XL 300 mg PO QAM cetirizine (Zyrtec) 10 mg PO DAILY PRN cholecalciferol (vitamin D3) 50 mcg PO QAM clonidine HCl 0.2 mg PO BID dexlansoprazole (Dexilant) 60 mg PO QPM dicyclomine 10 mg PO QID diphenhydramine HCl (Benadryl) 25 mg PO TID PRN docusate sodium (Stool Softener) 100 mg PO QAM enalapril maleate 20 mg PO BID estradiol 0.01%(0.1mg/gram) vaginally daily; pea sized amount to urethra 3 times a week 30 days fluoxetine 40 mg PO QAM fluticasone propion-salmeterol 500-50 mcg/dose (Advair Diskus) 1 inh inhalation BID fluticasone propionate 50 mcg/actuation (Flonase Allergy Relief) 2 sprays intranasal DAILY hydrochlorothiazide 25 mg PO DAILY lancets (TRUEplus Lancets) As directed linaclotide (Linzess) 72 mcg PO QAM loratadine 10 mg PO QAM PRN metformin 1,000 mg PO BID solifenacin (Vesicare) 5 mg PO DAILY 30 days PFSH Medical History Urinary frequency Urinary tract infection Lower urinary tract symptoms (LUTS) Foul smelling urine Elevated cholesterol Diabetes mellitus Obesity Asthma HTN (hypertension) Palpitations Surgical History Hx of tubal ligation Hx of breast biopsy Hx of cystoscopy Hx of colonoscopy History of lumpectomy Family History Father CVD (cardiovascular disease) Diabetes Mother Diabetes Colon cancer Social History Household Members: None Housing: Apartment Alcohol intake: current Alcohol intake frequency: holidays/special occasions only Alcohol type: beer Patient Tobacco Use Status: Never used Tobacco Physical Exam Vital Signs: BMI result Body Mass Index 26.3 Const Other: Well-nourished well-developed very friendly female awake alert and oriented x3 in no acute distress Extrem Other: Left knee examination shows a minimal effusion, mild crepitus with range of motion, tenderness along her medial joint line, positive Manfred's test, no instability Results Reviewed Results Reviewed: X-rays of the patient's left knee show mild diffuse joint space narrowing, no acute bony abnormalities Assessment & Plan Assessment & Plan (1) Left knee pain: Code(s): M25.562 - Pain in left knee Category: Medical Plan Ms. Fisher presents with left knee pain due to early degenerative joint disease as well as possible medial meniscus tearing. I had a lengthy discussion with the patient regarding the treatment options. I did give her a prescription to go to formal physical therapy. We will hold off on an injection now. She will contact me prior to her follow-up appointment in 2-3 months should any questions or concerns arise. Feel free to call me at any time should questions regarding her orthopedic management arise. Thank you very much for asking me to see this very friendly patient. I spent 22 minutes in reviewing the patient's records and imaging studies, seeing the patient and documenting in the medical record. Orders: Orders XR knee LT 3V Today M25.562 - Pain in left knee PT Evaluation and Treatment Today M25.562 - Pain in left knee Coding Level of Care Code New Pt Level 3 (46027) Complex EM visit Add On G2211 Diagnoses Left knee pain M25.562
[2025-02-19 10:08] VITALS: BMI 26.3
--- OUTSIDE RECORDS SUMMARY | 2025-02-19 11:42 | XMS_ITS | Clinical Summary ---
Author Organization [employer] Address [address] [facility] [address] [place] [address] Care Team Providers Care Social Security Benefits Interviewer Name Role Phone Carley Tapia MD Primary [...] the shoulder, thigh, or buttocks. 021 Active Linzess 290 MCG capsule Take 290 mcg by mouth in the morning. 023 Active docusate sodium (Colace) 100 MG capsule Take 100 mg by mouth in the morning. 023 Active Myrbetriq 25 MG 24 hr tablet Take 25 mg by mouth in the morning. 024 Active Alcohol Swabs (Alcohol Prep) 70 % pads USE FOUR TIMES DAILY 100 each 11 025 Active TRUEplus Lancets 33G miscIndications:T ype 2 diabetes mellitus without complication, without long-term current use of insulin (HCC) TEST BLOOD SUGAR FOUR TIMES DAILY 100 each Active metFORMIN (Glucophage) 1000 MG tabletIndications :Type 2 diabetes mellitus without complication, without long-term current use of insulin ([facility]) Take 1 tablet (1,000 mg) by mouth with breakfast and with evening meal. 60 tablet 2025 Active glucose blood (FREESTYLE LITE) test stripIndications: Type 2 diabetes mellitus without complication, without long-term current use of insulin ([facility]) TEST BLOOD SUGAR 3 TIMES A DAY 100 strip Active cloNIDine (Catapres) 0.2 MG tabletIndications :Essential hypertension TAKE 1 TABLET BY MOUTH TWICE DAILY IN THE MORNING AND AT BEDTIME 180 tablet Active loratadine (Claritin) 10 MG tabletIndications :Seasonal allergies TAKE 1 TABLET BY MOUTH EVERY MORNING NEEDED 90 tablet Active senna (Senokot) 8.6 MG tabletIndications :Chronic constipation TAKE 1 TABLET BY MOUTH EVERY DAY NEEDED FOR CONSTIPATION 90 tablet Active albuterol (2.5 MG/3ML) 0.083% nebulizer solutionIndicatio ns:Moderate persistent asthma without complication TAKE 3 ML BY NEBULIZATION ROUTE EVERY 6 HOURS NEEDED FOR WHEEZING 75 mL Active amLODIPine (Norvasc) 5 MG tabletIndications :Essential hypertension Take 1 tablet (5 mg) by mouth Once per day. 30 tablet 2025 Active fluticasone (Flonase) 50 MCG/ACT nasal sprayIndications: Seasonal allergies SPRAY 1 SPRAY INTO EACH NOSTRIL TWICE A DAY. 48 g 2 Active cetirizine (ZyrTEC) 10 MG tabletIndications :Seasonal allergies Take 1 tablet (10 mg) by mouth Once per day. 30 tablet 025 2025 Active azithromycin (Zithromax) 250 MG tabletIndications :Weakness Take 2 tabs PO daily x 1d then 1 tab PO daily on D2 to D5 6 tablet Active albuterol 108 (90 Base) MCG/ACT inhalerIndication s:Moderate persistent asthma without complication INHALE TWO PUFFS BY MOUTH FOUR TIMES A DAY NEEDED (BULK) 18 g 5 Active cholecalciferol VITAMIN D (Vitamin D-3) 50 MCG (2000 UT) capsuleIndication s:Vitamin D deficiency TAKE ONE CAPSULE BY MOUTH EVERY MORNING 30 capsule 5 Active finasteride (Propecia) 1 MG tabletIndications :Androgenic alopecia Take 1 tablet (1 mg) by mouth Once per day. Do not crush, chew, or split. 30 tablet 11 2025 Active Fluticasone-Salme terol 500-50 MCG/ACT aerosol powderIndications :Moderate persistent asthma without complication Inhale 1 puff 2 times daily. INHALE 1 PUFF BY MOUTH TWICE A DAY. RINSE MOUTH AFTER USING. 60 each 2 Active amitriptyline (Elavil) 75 MG tabletIndications :Mood disorder (CMS/HCC) TAKE ONE TABLET BY MOUTH EVERY EVENING AT BEDTIME 30 tablet Active atorvastatin (Lipitor) 20 MG tabletIndications :Hyperlipidemia, unspecified hyperlipidemia type TAKE ONE TABLET BY MOUTH EVERY EVENING 30 tablet 5 Active buPROPion XL (Wellbutrin XL) 300 MG 24 hr tabletIndications :Mood disorder (CMS/HCC) TAKE ONE TABLET BY MOUTH EVERY MORNING 30 tablet Active ferrous sulfate (FeroSul) 325 (65 Fe) MG tabletIndications :Iron deficiency anemia, unspecified iron deficiency anemia type TAKE ONE TABLET BY MOUTH EVERY MORNING CON ZUMO DE NARANJA 30 tablet Active FLUoxetine (PROzac) 20 MG capsuleIndication s:Mood disorder (CMS/HCC) TAKE TWO CAPSULES BY MOUTH EVERY MORNING 60 capsule 5 Active hydroCHLOROthiazi de (HYDRODiuril) 25 MG tabletIndications :Essential hypertension TAKE ONE TABLET BY MOUTH EVERY MORNING ^1R1 30 tablet Active Mounjaro 2.5 MG/0.5ML solution auto-injectorIndi cations:Type 2 diabetes mellitus with hyperglycemia, without long-term current use of insulin ([facility]) INJECT 2.5MG UNDER THE SKIN ONCE WEEKLY (BULK) 2 mL 2 Active hydroCHLOROthiazi de (HYDRODiuril) 25 MG tabletIndications :Essential hypertension Take 1 tablet (25 mg) by mouth in the morning. 90 tablet 1 025 2024 Discontinued cholecalciferol (D3 Super Strength) 50 MCG (1999) capsuleIndication s:Vitamin D deficiency TAKE 1 CAPSULE BY MOUTH EVERY MORNING 90 capsule 1 025 2024 Discontinued atorvastatin (Lipitor) 20 MG tabletIndications :Hyperlipidemia, unspecified hyperlipidemia type TAKE 1 TABLET BY MOUTH EVERY EVENING 90 tablet 1 025 2024 Discontinued amitriptyline (Elavil) 75 MG tabletIndications :Mood disorder (CMS/HCC) TAKE 1 TABLET BY MOUTH AT BEDTIME 90 tablet 1 2024 Discontinued buPROPion XL (Wellbutrin XL) 300 MG 24 hr tabletIndications :Mood disorder (CMS/HCC) TAKE 1 TABLET BY MOUTH EVERY MORNING 90 tablet 1 2024 Discontinued FLUoxetine (PROzac) 20 MG capsuleIndication s:Mood disorder (CMS/HCC) TAKE 2 CAPSULES BY MOUTH ONCE DAILY IN THE MORNING 180 capsule 1 025 2024 Discontinued Fluticasone-Salme terol 500-50 MCG/ACT aerosol powderIndications :Moderate persistent asthma without complication Inhale 1 puff 2 times daily. INHALE 1 PUFF BY MOUTH TWICE A DAY. RINSE MOUTH AFTER USING. 60 each 2 025 2024 Discontinued(R eorder (will not trigger notification to Pharmacy)) Tirzepatide (Mounjaro) 2.5 MG/0.5ML solution auto-injectorIndi cations:Type 2 diabetes mellitus with hyperglycemia, without long-term current use of insulin ([facility]) Inject 2.5 mg under the skin 1 (one) time per week. 2 mL 2 025 2024 Discontinued Active Problems Problem Noted Date Diagnosed Date Primary osteoarthritis of left knee 12/10/2024 Assessment & Plan (12/10/2024 1:32 PM EDT): I will prescribe for patient a cane and shower chair Mild nonproliferative diabet ic retinopathy of both eyes without macular edema associated with type 2 diabetes mellitus 12/10/2024 Assessment & Plan (12/10/2024 1:31 PM EDT): Continue to follow with ophtalmology Chronic pansinusitis 09/26/2024 Assessment & Plan (09/26/2024 4:07 PM EDT): Rapid test today are negative, however she clinically has sinusitis. I will treat her with Z-Juan given that she is allergic to penicillin. Rest (sleep at least 8 hours a night). Hydrate with plenty of water (avoid caffeine and alcohol). Use saline nose drops to loosen mucus + Flonase Take Acetaminophen (Tylenol )/Ibuprofen as needed to reduce fever, headache, body aches or discomfort Gargle with salt water and use throat sprays/lozenges for throat pain. Use heated, humidified air. If you do not have a humidifier, take hot showers. Cover coughs and sneezes using the crook of your elbow. If you have a fever, stay home and away from others (self isolation) until fever-free for 72 hours (temperature should be less than 100 F without medication). Weakness 09/26/2024 Assessment & Plan (09/26/2024 4:08 PM EDT): Unclear if related to recurrent infection, both UTI (no evidence of UTI today) and URI. I will treat sinusitis as above. If symptoms do not improve a week after completing antibiotics, she will discontinue atorvastatin and follow-up with PCP. Advised her to stop iron sulfate and increase iron rich meals including grains, spinach, broccoli, and nuts. Right foot pain 09/04/2024 Assessment & Plan [...] HPI Asymptomatic menopausal state 09/30/2023 Nevus 09/30/2023 Periodontal disease 09/29/2023 Severe generalized gingival recession 09/29/2023 Diminished vision 09/07/2023 Mixed stress and urge urinary incontinence 03/08 Assessment & Plan (12/10/2024 1:31 PM EDT): I will prescribe for patient pads Colon cancer screening 03/08/2023 Partial edentulism 10/05/2022 [...] D deficiency 09/01/2017 Type 2 diabetes mellitus with hyperglycemia 07/2015 Assessment & Plan (12/10/2024 1:30 PM EDT): Diabetes is: not controlled - Lab Results Component Value Date HGBA1C 8.0 (A) 12/10/2024 HGBA1C 7.3 (A) 08/16/2024 HGBA1C 7.4 (A) 09/30/2023 - Lab Results Component Value Date MICROALBUR 2.0 08/18/2021 CREATININE 0.76 08/07/2024 -Changes: I added today mounjaru 2.5mg weekly - Diabetic eye exam:up to date - Diabetic foot exam:pending - Continue lifestyle modifications - Follow up: 3 months Assessment & Plan (09/04/2024 1:08 PM EDT): [...] Encounters Date Type Department Care Team Description 02/18/2025 Refill [facility] [address] [place] [address] Carley Tapia MD Mood disorder (CMS/HCC); Hyperlipidemia, unspecified hyperlipidemia type; Iron deficiency anemia, unspecified iron deficiency anemia type; Essential hypertension; Type 2 diabetes mellitus with hyperglycemia, without long-term current use of insulin ([facility]) 02/12/2025 Refill [facility] [address] [place] [address] Carley Tapia MD Moderate persistent asthma without complication 02/01/2025 11:00 AM EDT Office Visit [facility] [address] [place] [address] Ladonna Almeida MD Androgenic alopecia (Primary Dx); Benign nevus 02/01/2025 Travel 01/21/2025 Refill [facility] [address] [place] [address] Carley Tapia MD Vitamin D deficiency 01/03/2025 Telephone [facility] [address] [place] [address] Carley Tapia MD NOV RECALL 12/19/2024 Orders Only [facility] [address] [place] [phone] Carley Tapia MD Primary osteoarthritis of left knee (Primary Dx) 12/17/2024 Telephone [facility] [address] [place] [phone] Carley Tapia MD Referral 12/15/2024 Refill [facility] [address] [place] [address] Carley Tapia MD Moderate persistent asthma without complication 12/10/2024 11:15 AM EDT Office Visit [facility] [address] [place] [phone] Carley Tapia MD Type 2 diabetes mellitus with hyperglycemia, without long-term current use of insulin (CMS/[facility]) (Primary Dx); Type 2 diabetes mellitus without complication, without long-term current use of insulin ([facility]); Mixed stress and urge urinary incontinence; Primary osteoarthritis of left knee; Mild nonproliferative diabetic retinopathy of both eyes without macular edema associated with type 2 diabetes mellitus ([facility]) 12/10/2024 Telephone [facility] [address], [place] [phone] Carley Tapia MD DME SHOWER CHAIR, CANE AND PADS 12/10/2024 Telephone [facility] [address] [place], [place] [phone] Carley Tapia MD telephone call 12/10/2024 Travel 12/03/2024 Patient Outreach [facility] [address], [place] [phone] Carley Tapia MD Pre-visit Planning (SDOH was already completed) 11/23/2024 Refill [facility] [address] [place], [place] [phone] Carley Tapia MD Moderate persistent asthma without complication 11/23/2024 Travel 11/22/2024 Refill [facility] [address] [place] [address] Carley Tapia MD Vitamin D deficiency 11/19/2024 Refill [facility] [address] [place], [place] [phone] Carley Tapia MD Moderate persistent asthma without complication from Last 3 Months Immunizations Immunization Administration Dates Next Due Hep B, adult [...] Not Answered Alcohol Use Standard Drinks/Week Comments Yes 0 (1 standard drink = 0.6 oz pur e alcohol) occasionally Depression Answer Date Recorded Patient Health Questionnaire-9 Score 1 12/10/2024 Patient Health Questionnaire-9 Score 1 12/10/2024 Last PHQ-9: Questionnaire Data Not on file 0 12/10/2024 Housing Stability Answer Date Recorded What is [...] Date Recorded Patient Health Questionnaire-2 Score 0 12/10/2024 Internet Access Answer Date Recorded Internet Access [...] Sign Reading Time Taken Comments Blood Pressure 120/68 02/01/2025 10:40 AM EDT Pulse 82 02/01/2025 10:40 AM EDT Temperature 36.5 C (97.7 F) 02/01/2025 10:40 AM EDT Respiratory Rate 16 02/01/2025 10:40 AM EDT Oxygen Saturation 99% 09/26/2024 3:18 PM EDT Inhaled Oxygen Concentration - - Weight 60.9 kg (134 lb 3.2 oz) 02/01/2025 10:40 AM EDT Height 149.9 cm (4' 11 ) 02/01/2025 10:40 AM EDT Body Mass Index 27.11 02/01/2025 10:40 AM EDT Plan of Treatment Upcoming Encounters Date Type Department Care Team (Late st Contact Info) Description 03/14/2025 1:45 PM EST Office Visit [facility] [address] [place] [address] Carley Tapia MD [address] [place] [address] 03/15/2025 2:00 PM EST Office Visit [facility] [address] [place] [address] Kate Hahn, OD [address] [place] [address] Health Maintenance Due Date Last Done Comments CT Colonography 1960 Colonoscopy 1960 FIT 1960 Sigmoidoscopy 1960 Hepatitis A Vaccines (1 of 2 - Risk 2-dose series) 1977 RSV Patients and Patients Aged 60 years or older (1 - Risk 60-74 years 1-dose series) 2018 DTaP/Tdap/Td Vaccines (2 - Td or Tdap) 06/08/2020 06/08/2010, 07/11/1995 Dental Oral Exam 11/16/2022 05/18/2022 Diabetes: Urine Protein Screening 09/14/2023 09/13/2022, 08/18/2021, 02/25/2021, Additional history exists Lipid Panel 09/14/2023 09/13/2022, 07/25, 02/25/2021 Dental Prophylaxis 03/31/2024 09/29/2023 Dental X-Ray: Bitewings 09/29/2024 09/29/19 24, 05/18/2022, 05/18/2022 Diabetes: Foot Exam 09/29/2024 09/30/2023, 09/30/2023, 09/30/2023, Additional history exists FOBT 11/15/2024 11/16/2023 COVID-19 Vaccine ( season) 2024 05/26/2021, 10/15/2020 Influenza Vaccine (#1) 2024 , 05/20/2020, 01/10/2019, Additional history exists Eye Exam 01/16/2025 01/17/2024, 12/25, 01/17/2024, Additional history exists Diabetes: Hemoglobin A1C 03/12/2025 025, 08/16/2024, 09/30/2023, Additional history exists Dental X-Ray: Full Mouth 05/19/2025 05/18/2022, 04/26 HPV/Cotest 05/28/2025 05/28/2020 Pap Smear 05/28/2025 05/28/2020 Mammogram 07/03/2025 07/03/2024, 04/27, 05/18/2022, Additional history exists SDOH Screening 08/28/2025 08/28/2024 Alcohol/Substance Use Screening 12/10/2025 12/10/2024 Depression Screening 12/10/2025 12/10/2024, 12/11/19 Tobacco Screening 12/10/2025 12/10/2024 Colorectal Cancer Screening 11/15/2026 FIT DNA/Cologuard 11/15/2026 [...] patient's age to complete this topic Meningococcal B Vaccine Aged Out No l onger eligible based on patient's age to complete [...] Name Priority Date/Time Associated Diagnosis Comments POCT GLYCATED HEMOGLOBIN, TOTAL Routine 12/10/2024 10:50 AM EDT Type 2 diabetes mellitus without complication, without long-term current use of insulin ([facility]) POCT GLUCOSE Routine 12/10/2024 10:50 AM EDT Type 2 diabetes mellitus without complication, without long-term current use of insulin ([facility]) BI MAMMOGRAM SCREENING TOMOSYNTHESIS BILATERAL Routine 07/03/2024 2:01 PM EDT LAB COLOGUARD COLON CANCER SCREEN Routine 11/16/2023 10:30 AM [...] Relevant to Health Maintenance Results * (ABNORMAL) POCT HGB A1C (12/10/2024 10:50 AM EDT) Hemoglobin A1C 8.0(A) 4.0 - 5.7 % QC Media Lot # [id number] Lot# Expiration Date , Blood 12/10/2024 10:5 0 AM EDT Carley Mak MD POINT OF CARE TEST EN TER/EDIT ORDERABLES Final Result * (ABNORMAL) POCT Glucose (12/10/2024 10:50 AM EDT) Glucose Blood, POC 271(A) 60 - 200 mg/dL QC Media Lot # [id number] Lot# Expiration Date [id number] Blood Capillary blood specimen / Unknown 12/10/2024 10:50 AM EDT Carley aMk MD POINT OF CARE TEST EN TER/EDIT ORDERABLES Final Result * BI Mammogram Screening Tomosynthesis Bilateral (07/03/2024 2:01 PM EDT) Anatomical Region Laterality Modality Breast Bilateral Mammography 07/03/2024 2:01 PM EDT Narrative 07/11/2024 11:32 AM EDT [facility] [address] [place] [address] Dr. Hu, SADAF [address] Mammography Report Signed Patient: Yareli Fisher MR#: [id number] : 1960 Acct:[id number] Age/Sex: 64 / F ADM Date: 07/03/24 Loc: HO.MAMMO Attending Dr: Carley Mak MD Ordering Physician: Carley Tapia MD Results: 2Benign Findings Date of Service: 07/03/24 Follow Up: 1 Year From Orig ina Mammogram Procedure(s): MM tomosynthesis screening BI Accession Number(s): [id number] cc: Carley Tapia MD EXAMINATION: MM SCREENING [...] 07/11/24 1129 DD/ 1401 TD/TT: 07/03/24 1429 Chemistry Associate: Procedure Note Donotuseinterpreter, Image - 07/11/20[facility] [address] [place] [address] Mammography Report Signed Patient: Sammy FisherR#: [id number] : 8Acct:[id number] Age/Sex: 64 / FADM Date: 07/03/24 Loc: AMOR Attending Dr: Carley Mak MD Ordering Physician: Carley Tapia MDResults: 2Benign Findings Date of Service: 07/03/24Follow Up: 1 Year From Orig ina Mammogram Procedure(s): MM tomosynthesis screening BI Accession Number(s): [id number] cc: Carley Tapia MD EXAMINATION: MM SCREENING [...] 07/11/24 1129 DD/ 1401 TD/TT: 07/03/24 1429 Chemistry Associate: us aCrley Mak MD IMG BI PROCEDURES Fin al Result * Cologuard?? colon cancer screening (11/16/2023 10:30 AM EDT) Cologuard Result Negative Negative 11/24/19 10:15 PM EDT [facility] (CLIA #:[id number]) Comment: NEGATIVE TEST RESULT. A negative Cologuard result indicates a low likelihood that a colorectal cancer (CRC) or advanced adenoma (adenomatous polyps with more advanced pre-malignant features) is present. The chance that a person with a negative Cologuard test has a colorectal cancer is less than 1 in 1500 (negative predictive value >99.9%) or has an advanced adenoma is less than 5.3% (negative predictive value 94.7%). These data are based on a prospective cross-sectional study of 10,000 individuals at average risk for colorectal cancer who were screened with both Cologuard and colonoscopy. (Zoey Higginbotham et al, N Engl J Med 2014;370(14):0050-9211) The normal value (reference range) for this assay is negative. COLOGUARD RE-SCREENING RECOMMENDATION: Periodic colorectal cancer screening is an important part of preventive healthcare for asymptomatic individuals at average risk for colorectal cancer. Following a negative Cologuard result, the [employer] and U.S. Multi-Society Task Force screening guidelines recommend a Cologuard re-screening interval of 3 years. References: [employer] Guideline for Colorectal Cancer Screening: https://www.cancer.org/cancer/azfqg-qpjzfv-xzcxlj/vniraxdgs-kuiiqkawl-irzwhjf/ac s-rec ommendations.html.; hSola DK, Ector MCDANIEL, Abelardo PerkinsK, Colorectal Cancer Screening: Recommendations for Physicians and Patients from the U.S. Multi-Society Task Force on Colorectal Cancer Screening , Am J Gastroenterology 2017; 112:0806-9631. TEST DESCRIPTION: Composite algorithmic analysis of stool DNA-biomarkers with hemoglobin immunoassay. Quantitative values of individual biomarkers are not [...] (Zoey Byrne al, N Engl J Med 2014;370(14):5885-0193.) Cologuard may produce a false negative or false positive result (no colorectal cancer or precancerous polyp present at colonoscopy follow up). A negative Cologuard test result does not guarantee the absence of CRC or advanced adenoma (pre-cancer). The current Cologuard screening interval is every 3 years. ([employer] and U.S. Multi-Society Task Force). Cologuard performance data in a 10,000 patient pivotal study using colonoscopy as the reference method can be accessed at the following location: www.[employer].Hyperoptic/results. Additional description of the Cologuard test process, warnings and precautions can be found at www.cologuard.Hyperoptic. Stool specimen (specimen) 11/16/2023 10:30 AM EDT 11/18/2023 1:44 PM EDT Carley Mak MD LAB MOLECULAR DIAGNOS TICS ORDERABLES Final Result [facility] (CLIA #:[id number]) [place] [address], * Hepatitis C Viral RNA, Quantitative, Real-Time PCR (09/13/2022 10:42 AM EDT) Pathologist [facility] HCV RNA, QN Real Time PCR <15 NOT DETECTED NOT DETECTED IU/mL [facility] HCV RNA QN Real Time PCR <1.18 NOT DETECTED NOT DETECTED Log IU/mL [facility] Comment: This test was performed using Real-Time Polymerase Chain Reaction. Reportable Range: 15 IU/mL to 100,000,000 IU/mL (1.18 Log IU/mL to 8.00 Log IU/mL). The analytical performance characteristics of this assay have been determined by [facility]. The modifications have not been cleared or approved by the FDA. This assay has been validated pursuant to the CLIA regulations and is used for clinical purposes. For more information on this test, go to: http://education.[employer]/faq/NLI14z2 (This link is being provided for informational/ educational purposes only.) 09/13/2022 10:4 2 AM EDT 09/13/2022 10:42 AM EDT Narrative [facility] - 09/15/2022 5:24 PM EDT FASTING:NO FASTING: NO Craley Mak MD LAB BLOOD ORDERABLES Final Result Performing Organization Address [facility] de Phone Number [address], [place] [address] [facility] [address] [place] [phone] * Albumin, Random Urine W/O Creatinine (09/13/2022 10:42 AM EDT) Albumin, Urine 0.4 See Note: mg/dL [facility] Comment: Reference Range: Reference Range Not established TARA [facility] [place] [facility] Comment: The ADA defines abnormalities in albumin excretion as follows: Albuminuria Category Result (mcg/mg creatinine) Normal to Mildly increased <30 Moderately increased 30-299 Severely increased > OR = 300 The ADA recommends that [...] Mak MD LAB URINE ORDERABLES Final Result Performing Organization Address [facility] Co de Phone Number [address], [place] [address] [facility] [address] [place] [phone] * (ABNORMAL) Lipid Panel, Standard (09/13/2022 10:42 AM EDT) Cholesterol, Total 160 <200 mg/dL [facility] HDL Cholesterol 58 > OR = 50 mg/dL [facility] Triglycerides 255(H) <150 mg/dL [facility] Comment: If a non-fasting specimen was collected, consider repeat triglyceride testing on a fasting specimen if clinically indicated. Shama et al. J. of Clin. Lipidol. 2015;9:129-169. LDL Cholesterol 68 mg/dL (calc) [facility] Comment: Reference range: <100 Desirable range <100 mg/dL for primary prevention; <70 mg/dL for patients with CHD or diabetic patients with > or = 2 CHD risk factors. LDL-C is now calculated using the Christian calculation, which is a validated novel method providing better accuracy than the Friedewald equation in the estimation of LDL-C. Joo COOPER et al. TRANG. 2013;310(19): 3625-9423 (http://education.[employer]/faq/ZUE015) Chol/HDLC Ratio 2.8 <5.0 (calc) [facility] Non-HDL Cholesterol 102 <130 mg/dL (calc) [facility] Comment: For patients with diabetes plus 1 major ASCVD risk factor, treating to a non-HDL-C goal of <100 mg/dL (LDL-C of <70 mg/dL) is considered a therapeutic option. Blood Venous blood specimen / Unknown 09/13/2022 10:42 AM EDT 09/13/2022 10:42 AM EDT Narrative [facility] - 09/15/2022 5:24 PM EDT FASTING:NO FASTING: NO Carley Mak MD LAB BLOOD ORDERABLES Final Result [facility] [address], [place] [address] [facility] [address] [place] [phone] * HPV DNA, HIGH RISK, CERVICAL (05/28/2020 3:43 PM EST) HPV DNA, HIGH RISK, CERVICAL Not Detected NOT DETECTED [facility] Comment: Not Detected High Risk HPV types (16,18,31,33,35,39,45,51,52, 56,58,59,66,68) were not detected. Other HPV types which cause anogenital lesions may be present. The significance of the other types of HPV in malignant processes has not been established. Methodology: Real Time PCR NO COLLECTION DATE RECEIVED. WE HAVE USED THE DATE THE SPECIMEN WAS RECEIVED BY THIS LABORATORY THE COLLECTION DATE. IF THIS IS INCORRECT, PLEASE CONTACT CLIENT SERVICES. PHONE NUMBER: 05/28/2020 3:43 PM EST Bonita Camarena NP HISTORICAL/NON ORDERABLE LABS Fi nal Result [facility] [address] * THINPREP PAP (05/28/2020 3:43 PM EST) Clinical Information: None given [facility] COMMENT SEE [facility]MENT [facility] Comment: EXPLANATORY NOTE: The Pap is a screening test for cervical cancer. It is not a diagnostic test and is subject to false negative and false positive results. It is most reliable when a satisfactory sample, regularly obtained, is submitted with relevant clinical findings and history, and when the Pap result is evaluated along with historic and current clinical information. Campus Coordinator: SEE COMMENT [facility] Comment: ORLANDO MASCORRO(ASCP) CT screening location: [place] [address] Interpretation/Res ult: SEE COMMENT [facility] [...] NP LAB PATHOLOGY ORDERABLES Final R esult [facility] [address] from Last 3 Months or Most Recently Relevant to Health Maintenance Insurance [facility] [employer] (HMO D-SNP) D[facility]AL [facility] Care Teams Social Security Benefits Interviewer Relationship Specialty Start Date End Date Carley Tapia MD [address] [place], [place] [phone] PCP - General Family Medicine 06/10/20
--- OUTSIDE RECORDS SUMMARY | 2025-02-19 11:42 | XMS_ITS | Encounter Summary ---
Author Organization [employer] Address [address] 7t [place] [address] Care Team Providers Care Financial Aids Officer Name Role Phone Carley Tapia MD Primary Care Provide r Reason for Visit * Reason Comments Med Refill Encounter Details Date Type Department Care Team ([facility] Contact Info) Description 08/24/2024 Refill [facility] MEDICINE [address] [place] [address] Carley Tapia MD 230 [place] [address] Type 2 diabetes mellitus without complication, without long-term current use of insulin ([facility]) Social History Tobacco Use Types Packs/Day [...] Description 03/14/2025 1:45 PM EST Office Visit [facility] MEDICINE [address] [place] [address] Carley Tapia MD [address] [place] [address] 03/15/2025 2:00 PM EST Office Visit [facility] OPTOMETRY [address] [place] [address] Jovani, Kate, OD 230 [place] [address] documented as of this encounter Visit Diagnoses Diagnosis Type 2 diabetes mellitus without complication, without long-term current use of insulin (HCC) documented in this encounter Additional Health Concerns Assessment Noted Time PHQ-9 Depression Total Score: 0 12/08/19 24 10:27 AM EDT documented as of this encounter Care Teams Financial Aids Officer Relationship Specialty Start Date End Date Carley Tapia MD [address] [place] [address] [phone] PCP - General Family Medicine 06/10/20 documented as of this encounter
--- OUTSIDE RECORDS SUMMARY | 2025-02-19 11:42 | XMS_ITS | Encounter Summary ---
Author Organization [employer] Address [address] [facility] 7t [place] [address] Care Team Providers Care Interactive Media Specialist Name Role Phone Carley Tapia MD Primary Care Provide r Encounter Details Date Type Department Care Team (Late Contact Info) Description 01/10/2023 Orders Only [facility] [address] [place], [place] [phone] Jane Smith LPN Social History Tobacco Use [...] Department Care Team (Late Contact Info) Description 03/14/2025 1:45 PM EST Office Visit [facility] MEDICINE 230 [place] [address] Carley Tapia MD 230 [place] [address] 03/15/2025 2:00 PM EST Office Visit [facility] OPTOMETRY [address] [place], [place] [phone] Kate Hahn, OD 230 [place] [address] documented as of this encounter Visit Diagnoses Not on filedocumented in this encounter Additional Health Concerns Assessment Noted Time PHQ-9 Depression Total Score: 5 09/14/19 23 9:38 AM EDT documented as of this encounter Care Teams Interactive Media Specialist Relationship Specialty Start Date End Date Carley Tapia MD [address] [place], [place] [phone] PCP - General Family Medicine 06/10/20 documented as of this encounter
--- OUTSIDE RECORDS SUMMARY | 2025-02-19 11:42 | XMS_ITS | Encounter Summary ---
Author Organization [employer] Address [address] 7t [place] [address] Care Team Providers Care Ocean Biologist Name Role Phone Carley Tapia MD Primary Care Provide r Reason for Visit * Reason Comments Med Refill Encounter Details Date Type Department Care Team ([facility] Contact Info) Description 11/23/2024 Refill [facility] MEDICINE 230 [place] [address] Carley Tapia MD 230 [place] [address] Moderate persistent asthma without complication Social History [...] 1:45 PM EST Office Visit [facility] MEDICINE 230 [place] [address] Carley Tapia MD 230 [place] [address] 03/15/2025 2:00 PM EST Office Visit [facility] OPTOMETRY [address] [place] [address] Jovani, Kate, OD 230 [place] [address] documented as of this encounter Visit Diagnoses Diagnosis Moderate persistent asthma without complication documented in this encounter Additional Health Concerns Assessment Noted Time PHQ-9 Depression Total Score: 0 12/08/19 24 10:27 AM EDT documented as of this encounter Care Teams Ocean Biologist Relationship Specialty Start Date End Date Carley Tapia MD 230 [place] [address] PCP - General Family Medicine 06/10/20 documented as of this encounter
--- OUTSIDE RECORDS SUMMARY | 2025-02-19 11:42 | XMS_ITS | Encounter Summary ---
Author Organization [email or web address] Address [address] 7t [place] [address] Care Team Providers Care Cutter V Groove Name Role Phone Carley Tapia MD Primary Care Provide r Reason for Visit * Reason Comments Med Refill Encounter Details Date Type Department Care Team ([facility] Contact Info) Description 11/22/2024 Refill [facility] MEDICINE [address] [place] [address] Carley Tapia MD 230 [place] [address] Vitamin D deficiency Social History Tobacco Use [...] Description 03/14/2025 1:45 PM EST Office Visit [facility] MEDICINE [address] [place] [address] Carley Tapia MD 230 [place] [address] 03/15/2025 2:00 PM EST Office Visit [facility] OPTOMETRY [address] [place] [address] Jovani, Kate, OD 230 [place] [address] documented as of this encounter Visit Diagnoses Diagnosis Vitamin D deficiency documented in this encounter Additional Health Concerns Assessment Noted Time PHQ-9 Depression Total Score: 0 12/08/19 24 10:27 AM EDT documented as of this encounter Care Teams Cutter V Groove Relationship Specialty Start Date End Date Carley Tapia MD 230 [place] [address] PCP - General Family Medicine 06/10/20 documented as of this encounter
--- OUTSIDE RECORDS SUMMARY | 2025-02-19 11:42 | XMS_ITS | Encounter Summary ---
Author Organization [email or web address] Address [address] [facility] 7t [place] [address] Care Team Providers Care Clerical Order Filler Name Role Phone Carley Tapia MD Primary Care Provide r Encounter Details Date Type Department Care Team (Late Contact Info) Description 10/19/2022 Abstract [facility] ADULT DENTAL [address] [place] [address] Milan Serna DDS 230 [place] [address] Social History Tobacco Use Types Packs/Day Years [...] Description 03/14/2025 1:45 PM EST Office Visit [facility] MEDICINE 230 [place], [place] [phone] Carley Tapia MD 230 [place], [place] [phone] 03/15/2025 2:00 PM EST Office Visit [facility] OPTOMETRY [address] [place], [place] [phone] Kate Hahn, OD 230 [place], [place] [phone] documented as of this encounter Visit Diagnoses Not on filedocumented in this encounter Additional Health Concerns Assessment Noted Time PHQ-9 Depression Total Score: 5 09/14/19 23 9:38 AM EDT documented as of this encounter Care Teams Clerical Order Filler Relationship Specialty Start Date End Date Carley Tapia MD 230 [place], [place] [phone] PCP - General Family Medicine 06/10/20 documented as of this encounter
--- OUTSIDE RECORDS SUMMARY | 2025-02-19 11:42 | XMS_ITS | Encounter Summary ---
Author Organization [employer] Address [address] [facility] 7t [place] [address] Care Team Providers Care Lead Developer Name Role Phone Carley Tapia MD Primary Care Provide r Encounter Details Date Type Department Care Team (Late st Contact Info) Description 08/10/2022 Orders Only [facility] MED & PEDS [address] [place] [address] Jane Smith LPN Social History Tobacco Use [...] Description 03/14/2025 1:45 PM EST Office Visit [facility] MEDICINE 230 [place] [address] Carley Tapia MD 230 [place] [address] 03/15/2025 2:00 PM EST Office Visit [facility] OPTOMETRY [address] [place] [address] Jovani, Kate, OD 230 [place] [address] documented as of this encounter Visit Diagnoses Not on filedocumented in this encounter Care Teams Lead Developer Relationship Specialty Start Date End Date Carley Tapia MD [address] [place] [address] PCP - General Family Medicine 06/10/20 documented as of this encounter
--- OUTSIDE RECORDS SUMMARY | 2025-02-19 11:42 | XMS_ITS | Encounter Summary ---
Author Organization [employer] Address [address] [place] [address] 7 [place] [address] Care Team Providers Care Track Subway Repair Supervisor Name Role Phone Carley Tapia MD Primary Care Provide r Encounter Details Date Type Department Care Team (Late Contact Info) Description 05/21/2022 Abstract [facility] MEDICINE [address] [place] [address] Kathy Turner, RN [address] [place] [address] Social History Tobacco Use Types Packs/Day Years [...] 1:45 PM EST Office Visit [facility] MEDICINE [address] [place] [address] Carley Tapia MD [address] [place] [phone] 03/15/2025 2:00 PM EST Office Visit [facility] OPTOMETRY [address] [place], [place] [phone] Kate Hahn, OD 230 [place] [address] documented as of this encounter Procedures Procedure Name Priority Date/Time Associated Diagnosis Comments MAMMOGRAPHY Routine 05/18/2022 documented in this encounter Results * Mammography (05/18/2022) Mammogram BIRADS 2: Benign. Routine annual mammography screening. Anatomical Region Laterality Modality Other us Historical Provider HEALTH MAINTENANCE Final Result documented in this encounter Visit Diagnoses Not on filedocumented in this encounter Care Teams Track Subway Repair Supervisor Relationship Specialty Start Date End Date Carley Tapia MD 230 [place] [address] PCP - General Family Medicine 06/10/20 documented as of this encounter
--- OUTSIDE RECORDS SUMMARY | 2025-02-19 11:42 | XMS_ITS | Encounter Summary ---
Author Organization [employer] Address [address] [place] [address] 7 [place] [address] Care Team Providers Care Insulation Batting Machine Operator Name Role Phone Carley Tapia MD Primary Care Provide r Reason for Visit * Reason Comments Med Refill Encounter Details Date Type Department Care Team ([facility] Contact Info) Description 12/15/2022 Refill [facility] MEDICINE [address] [place] [phone] [facility] [address] [place], [place] [phone] Vitamin D deficiency Social History Tobacco Use [...] Upcoming Encounters Date Type Department Care Team ([facility] Contact Info) Description 03/14/2025 1:45 PM EST Office Visit [facility] MEDICINE [address] [place] [address] Carley Tapia MD 230 [place], [place] [phone] 03/15/2025 2:00 PM EST Office Visit [facility] OPTOMETRY [address] [place], [place] [phone] Kate Hahn, OD 230 [place], [place] [phone] documented as of this encounter Visit Diagnoses Diagnosis Vitamin D deficiency documented in this encounter Additional Health Concerns Assessment Noted Time PHQ-9 Depression Total Score: 5 09/14/19 23 9:38 AM EDT documented as of this encounter Care Teams Insulation Batting Machine Operator Relationship Specialty Start Date End Date Carley Tapia MD [address] [place], [place] [phone] PCP - General Family Medicine 06/10/20 documented as of this encounter
--- OUTSIDE RECORDS SUMMARY | 2025-02-19 11:42 | XMS_ITS | Encounter Summary ---
Author Organization [facility] Address [address] [facility] 7 [place] [address] Care Team Providers Care Verification Rep Name Role Phone Carley Tapia MD Primary Care Provide r Encounter Details Date Type Department Care Team (Latest Contact Info) Description 02/20/2019 Abstract [facility] Dental, Provider, DDS Social History Tobacco [...] Description 03/14/2025 1:45 PM EST Office Visit [facility] MEDICINE [address] [place] [address] Carley Tapia MD 230 [place] [address] 03/15/2025 2:00 PM EST Office Visit [facility] OPTOMETRY [address] [place] [address] Kate Hahn, OD 230 [place] [address] documented as of this encounter Visit Diagnoses Not on filedocumented in this encounter Care Teams Verification Rep Relationship Specialty Start Date End Date Carley Tapia MD [address] [employer] [place] [address] PCP - General Family Medicine 06/10/20 documented as of this encounter
--- OUTSIDE RECORDS SUMMARY | 2025-02-19 11:42 | XMS_ITS | Encounter Summary ---
Author Organization [employer] Address [address] [facility] 7t [place] [address] Care Team Providers Care Charge Master Specialist Name Role Phone Carley Tapia MD Primary Care Provide r Reason for Visit * Reason Comments Med Refill Encounter Details Date Type Department Care Team ([facility] Contact Info) Description 02/18/2025 Refill [facility] MEDICINE [address] [place] [address] Carley Tapia MD [address] [place] [address] Mood disorder (CMS/HCC); Hyperlipidemia, unspecified hyperlipidemia type; Iron deficiency anemia, unspecified iron deficiency anemia type; Essential hypertension; Type 2 diabetes mellitus with hyperglycemia, without long-term current use of insulin ([facility]) Social History Tobacco Use Types Packs/Day Years Used Date Smoking Tobacco: Never Passive Smoke Exposure: Never Smokeless Tobacco: Never Alcohol Use Standard Drinks/Week Comments Yes 0 [...] Description 03/14/2025 1:45 PM EST Office Visit [facility] MEDICINE 230 [place] [address] Carley Tapia MD 230 [place] [address] 03/15/2025 2:00 PM EST Office Visit [facility] OPTOMETRY [address] [place] [address] Kate Hahn, OD 230 [place] [address] documented as of this encounter Visit Diagnoses Diagnosis Mood disorder (CMS/HCC) Unspecified episodic mood disorder Hyperlipidemia, unspecified hyperlipidemia type Iron deficiency anemia, unspecified iron deficiency anemia type Essential hypertension Unspecified essential hypertension Type 2 diabetes mellitus with hyperglycemia, without long-term current use of insulin (HCC) documented in this encounter Additional Health Concerns Assessment Noted Time PHQ-9 Depression Total Score: 1 12/11/19 25 10:49 AM EDT documented as of this encounter Care Teams Charge Master Specialist Relationship Specialty Start Date End Date Carley Tapia MD [address] [place] [address] PCP - General Family Medicine 06/10/20 documented as of this encounter
--- OUTSIDE RECORDS SUMMARY | 2025-02-19 11:42 | XMS_ITS | Encounter Summary ---
Author Organization [employer] Address [address] 7[address] [place] [address] Care Team Providers Care Slash Trimmer Name Role Phone Carley Tapia MD Primary Care Provide r Reason for Visit * Reason Comments Med Refill Encounter Details Date Type Department Care Team ([facility] Contact Info) Description 09/20/2024 Refill [facility] MEDICINE [address] [place] [address] Carley Tapia MD [address] [place] [address] Essential hypertension Social History Tobacco Use Types Packs/Day Years [...] Description 03/14/2025 1:45 PM EST Office Visit [facility] MEDICINE [address] [place] [address] Carley Tapia MD [address] [place] [address] 03/15/2025 2:00 PM EST Office Visit [facility] OPTOMETRY [address] [place] [address] Jovani, Kate, OD 230 [place] [address] documented as of this encounter Visit Diagnoses Diagnosis Essential hypertension Unspecified essential hypertension documented in this encounter Additional Health Concerns Assessment Noted Time PHQ-9 Depression Total Score: 0 12/08/19 24 10:27 AM EDT documented as of this encounter Care Teams Slash Trimmer Relationship Specialty Start Date End Date Carley Tapia MD [address] [place] [address] PCP - General Family Medicine 06/10/20 documented as of this encounter
== END 2025-02-19 10:27 | disposition home or self-care (01) ==
LOC: HO.HOS 09:56
PROVIDERS: PCP Internal Medicine; Visit Provider Orthopaedic Surgery
DX: M25.562 Pain in left knee (principal)
CPT/HCPCS: 99203; G2211

== ENCOUNTER → 2025-02-19 09:58 | Outpatient (BNV) | payer OTHER, SELFPAY | PROVIDERS: Visit Provider Radiology Diagnostic Radiology | DX: M17.12 Unilateral primary osteoarthritis, left knee (principal) | CPT/HCPCS: 73562 ==